=== PATIENT | male | born 1940 | race Caucasian/White ===

== ENCOUNTER 2017-11-19 14:48 | Inpatient (IN) | payer MEDICARE ==
[~2017-11-19] VITALS: Ht 170.2 cm; Wt 63.5 kg
--- NOTE | ~2017-11-19 | MORECARE ---
CASE MANAGEMENT DISCHARGE SUMMARY PATIENT: RICK HUSAIN UNIT: [id number] ADM DATE: 11/19/17 AGE: 77 : 40 SEX: M ROOM/BED: D.2121 AUTHOR: LALITA, BOATING SAFETY OFFICER PHYSICIAN: REFERRING PHYSICIAN: DIANE MONTELONGO DO DATE OF SERVICE: 11/19/17 Discharge Plan Patient Name: RICK HUSAIN Facility: [facility]:[place] : 1940 Planned Disposition: Halfway Facility Anticipated Discharge Date: 11/23/17 Discharge Date: Expected LOS: 4 Initial Reviewer: [id number] Initial Review Date: 11/20/2017 Generated: 11/22/17 6:59 pm Comments DCP- Discharge Planning Updated by [id number]: Oleksandr Liu on 11/22/17 4:[address] Patient Name: RICK HUSAIN Admission Status: ER Accout number: [id number] Admission Date: 11-19-2017 : 1940 Admission Diagnosis:HEMATURIA, UNSPECIFIED Attending: Diane Montelongo Current LOS: 3 Anticipated DC Date: 11-23-2017 Planned Disposition: Halfway Facility Primary Insurance: MEDICARE A & B PLANNED EXTERNAL PROVIDER: [facility], MEDICARE REHAB BED Discharge Planning Comments: CM RECEIVED RETURN CALL FROM PT'S SPOUSE WHO REPORTS TO BE IN PT'S ROOM AND WOULD LIKE TO MEET WITH CM REGARDING DISCHARGE PLANNING. CM MET WITH PT AND IN ROOM TO DISCUSS DISCHARGE PLANNING AND NEEDS. RICK HUSAIN provided verbal consent to discuss current and ongoing needs with/in the presence of: DARLINE, SPOUSE. PT'S SPOUSE REPORTS PT LIVES AT HOME WITH HER AND HAS BEEN INDEPENDENT UP TILL NOW. SHE HAS TALKED TO DR. MONTELONGO TODAY AND KNOWS PT NEEDS REHAB SERVICES. PT HAS [facility] AT HOME AND PREFER [facility]. PT HAS NO OUTSIDE SERVICES ASSISTING IN THE HOME. CM DISCUSSED AVAILABILITY OF HOME HEALTH, REHAB SERVICES AND MEDICAL EQUIPMENT. PT'S SPOUSE WANTS REFERRAL TO THE [facility] FOR REHAB, PT IN AGREEMENT STATING, "WHAT CAN A CRIPPLE DO?" IMPORTANT MESSAGE FROM MEDICARE PROVIDED AND EXPAINED. CHOICE LETTER FOR THE [facility] SIGNED. CM NOTIFIED SAMUEL OF THE [facility] OF REFERRAL, , FAXED REFERRAL TO [facility] VIA SAMUEL AT [phone]. CM WAITING ADMISSION DETERMINATION FROM THE [facility].. Research Support Specialist: Oleksandr Liu DCP- Discharge Planning Updated by [id number]: Oleksandr Liu on 11/20/17 4:[address] Patient Name: RICK HUSAIN Admission Status: ER Accout number: [id number] Admission Date: 11-19-2017 : 1940 Admission Diagnosis: Attending: Diane Montelongo Current LOS: 1 Anticipated DC Date: Planned Disposition: Primary Insurance: MEDICARE A & B Discharge Planning Comments: CM RECEIVED ORDER FOR PLACEMENT OPTIONS, MET WITH PT AND ATTEMPTED TO ASSESS FOR DISCHARGE NEEDS. PT REPORTS NOT KNOWING TO ALL QUESTIONS, DIRECTED CM TO CALL AND SPEAK TO HIS "OTHER HALF", DARLINE, . CM TO CALL PT'S "OTHER HALF", DARLINE, [phone], SOON POSSIBLE TO ASSESS FOR DISCHARGE NEEDS AND PLANNING. Research Support Specialist: Oleksandr Liu DCPIA - Discharge Planning Initial Assessment Updated by [id number]: Oleksandr Liu on 11/22/17 5:53 pm * Is the patient Alert and Oriented? Yes * How many steps to enterexit or inside your home? NONE * PCP DR. MONTELONGO * Pharmacy [facility] [address] * Preadmission Environment Home with Family * ADLs Independent * Equipment Cane Walker * Other Equipment [facility] - MEDICAL EQUIPMENT PROVIDER PREFERENCE * List name and contact numbers for known caregivers / representatives who currently or will assist patient after discharge: DARLINE BURNS, SPOUSE, [place] [phone] * Verbal permission to speak to the caregivers and representatives has been obtained from the patient. Yes * Community resources currently utilized None * Please name any agencies selected above. NONE * Additional services required to return to the preadmission environment? Yes * Can the patient safely return to the preadmission environment? Yes * Has this patient been hospitalized within the prior 30 days at any hospital? No External Providers External Provider: [facility] [place] Next Contact Date: 11/23/2017 Service Request Date: Service Type: Resolution: Reviewer: Comments: Patient Name: RICK HUSAIN Page [phone] All edits/amendments must be made on the electronic document DICTATION DATE: 11/22/171757 RD SCIENTIST: 11/22/171757 RPT#: [id number] DC DATE: STATUS: ADM IN [facility] [address] [place] [address] END OF REPORT
--- NOTE | ~2017-11-19 | CN ---
PATIENT NAME:RICK HUSAIN MEDICAL RECORD: [id number] : 40 LOCATION:D. D.2121 ADMIT DATE: 11/19/17 ACCOUNT: [id number] CONSULTING PHYSICIAN: BYRON LARSEN MD REFERRING PHYSICIAN: DIANE MONTELONGO DO DATE OF CONSULTATION: 11/20/2017 Psychiatry Consultation IDENTIFYING DATA: The patient is 77 years old and he is admitted to the hospital on a voluntary basis because of confusion. HISTORY OF PRESENT ILLNESS: The patient is awake, alert and interactive, but I would hardly call him cooperative. Almost any question he is asked he answers with what he thinks is a good natured and witty response. For example, asking him where he is from, he goes on to tell me that everyone is from somewhere and all of us are strangers in a foreign land. When I respond that he has an accent that I think might be Turkish and is he originally from [place]. He goes on to tell me how he can identify what village in [place] a person comes to by the accent he has, but never answers my question. Not wanting to give up when asked where he grew up, he says that he has not finished growing up. This goes on and on with every single question I am asking him, being answered with some sort of convoluted nonanswer and despite efforts to have him talk to me in a straightforward and honest way, he will not. The patient was admitted because he has been falling. He denies that he has been falling. He was admitted because he reportedly has some confusion. He denies any confusion, but he will not answer questions about orientation or other activities. Again, I do not get the sense that he is trying to deliberately be difficult, perhaps this is just his personality, but he is not interviewable to a large degree. I think I can establish that he is not psychotic, suicidal or homicidal, but regarding the level of cognitive impairment, this 77-year-old man has I just simply cannot say. ASSESSMENT: 1. Adjustment disorder with mixed emotional features. 2. 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 3. Rule out dementia. PLAN: At this time, I see no reason why this patient even if he is impaired would require group home placement. He is verbal. He is interactive. He is making what he believes are witty comebacks to my questions, but not actually answering them. He may well have a significant amount of impairment, but unless he is willing to cooperate with an evaluation, I just simply cannot say what should be done. I would recommend that he go home and if the has additional information that would be helpful or wants him evaluated as an outpatient then they should make an appointment to do that. He should not come for an appointment unless he is willing to cooperate with the process. Based on what I know of the case though there is no absolute contraindication to him going home that requires him being placed in a group home or reporting him to adult protective services. That may change based upon additional information coming to light, but at this point, I have no recommendation for treatment other than he should report for an outpatient evaluation when he is ready to do so and that otherwise he can go home and be with his . TRANSINT:[id number] Voice Confirmation ID: [id number] DOCUMENT ID: [id number] CONSULT REPORT [id number] RICK HUSAIN, YBRON RIVAS at 1427 CC: [id number] DICTATION DATE: 11/20/17 1445 WASTE MACHINE TENDER: 11/20/17 1616 ADM IN [facility] [address] [place] [id number]
[~2017-11-19 14:48] MED LIST: ARICEPT10 MG PO; BAYER CHEWABLE81 MG PO; BYSTOLIC10 MG PO; CELEBREX200 MG PO; COZAAR100 MG PO; HYTRIN5 MG PO; NAMENDA XR28 MG PO; STOOL SOFTENER240 MG PO; TYLENOL W/CODEI1 TAB PO; VESICARE10 MG PO; VITAMIN D31000 UNIT PO; ZOLOFT50 MG PO
[2017-11-19 16:19] LABS: APPEARANCE CLOUDY (CLEAR); COLOR DK YELLOW (YELLOW); SPECIFIC GRAVITY 1.015 (1.005-1.020)
[2017-11-19 16:20] LABS: AMORPHOUS SEDIMENT <1+ /lpf (NONE SEEN); BACTERIA FEW /hpf (NONE SEEN); BILIRUBIN NEGATIVE (NEGATIVE); EPITHELIAL CELLS 0-5 /hpf (0-5); GLUCOSE NEGATIVE (NEGATIVE); KETONE NEGATIVE (NEGATIVE); MUCUS <1+ /lpf (NONE SEEN); NITRITE NEGATIVE (NEGATIVE); PROTEIN NEGATIVE (NEGATIVE); RED CELLS - URINE >50 /hpf (0-5); UROBILINOGEN NORMAL (NORMAL); WHITE CELLS - URINE 0-5 /hpf (0-5)
[2017-11-19 16:42] LABS: BASOPHILS 0.2 % (0-2); EOSINOPHILS 0.5 % (0-7); IMMATURE GRANULOCYTES 0.2 % (0-5); LYMPHOCYTES 7.6 % (15-50); MCH 32.4 pg (26.0-34.0); MCHC 34.1 g/dL (31.0-37.0); MEAN PLATELET VOLUME 10.8 fL (7.4-10.4); MONOCYTES 6.5 % (2-11); PLATELET COUNT 147 10x3/uL (130-400); RBC 4.63 10x6/uL (4.20-6.10); RDW 12.3 % (11.5-14.5); WBC 8.8 10x3/uL (4.8-10.8)
[2017-11-19 17:09] LABS: ALBUMIN 3.4 g/dL (3.4-5.0); ANION GAP 10.8 mmol/L (8-16); BILIRUBIN - TOTAL 1.07 mg/dL (0.2-1.3); CALCIUM 9.1 mg/dL (8.5-10.1); CARBON DIOXIDE 28.9 mmol/L (21.0-32.0); CREATININE - SERUM 1.1 mg/dL (0.6-1.3); POTASSIUM - SERUM 3.7 mmol/L (3.5-5.1)
[2017-11-19 17:25] LABS: THYROID STIMULATING HORMONE 1.87 uIU/mL (0.36-3.74)
[2017-11-19 18:11] VITALS: BP 204/98
[2017-11-19 18:18] VITALS: BP 206/100
[2017-11-19 19:22] VITALS: BP 209/92
[2017-11-19 21:24] VITALS: BP 90/50; BMI 21.9
[2017-11-20 00:30] VITALS: BP 146/77
[2017-11-20 04:30] VITALS: BP 153/80
[2017-11-20 08:46] VITALS: BP 163/86
[2017-11-20 11:45] VITALS: BP 107/60
[2017-11-20 14:36] VITALS: Ht 170.2 cm; Wt 63.5 kg
[2017-11-20 15:59] VITALS: BP 88/52
[2017-11-20 20:00] VITALS: BP 106/53
[2017-11-21] VITALS: BP 126/68
[2017-11-21 05:05] LABS: BASOPHILS 0.3 % (0-2); EOSINOPHILS 3.4 % (0-7); IMMATURE GRANULOCYTES 0.3 % (0-5); LYMPHOCYTES 18.9 % (15-50); MCH 32.1 pg (26.0-34.0); MCHC 34.1 g/dL (31.0-37.0); MCV 94.1 fL (80.0-100.0); MEAN PLATELET VOLUME 10.9 fL (7.4-10.4); MONOCYTES 8.1 % (2-11); PLATELET COUNT 143 10x3/uL (130-400); RDW 12.3 % (11.5-14.5); WBC 6.7 10x3/uL (4.8-10.8)
[2017-11-21 05:26] LABS: HEMATOCRIT 33.4 % (42.0-54.0); HEMOGLOBIN 11.4 g/dL (13.5-17.5); RBC 3.55 10x6/uL (4.20-6.10)
[2017-11-21 05:35] LABS: ALBUMIN 2.7 g/dL (3.4-5.0); ANION GAP 10.6 mmol/L (8-16); BILIRUBIN - TOTAL 0.42 mg/dL (0.2-1.3); CALCIUM 8.1 mg/dL (8.5-10.1); CARBON DIOXIDE 24.8 mmol/L (21.0-32.0); CREATININE - SERUM 1.3 mg/dL (0.6-1.3); MAGNESIUM - SERUM 2.3 mg/dL (1.8-2.4); PHOSPHOROUS 3.1 mg/dL (2.5-4.9); POTASSIUM - SERUM 3.4 mmol/L (3.5-5.1); PROTEIN - SERUM 6.2 g/dL (6.4-8.2)
[2017-11-21 06:37] VITALS: BP 129/78
[2017-11-21 07:30] VITALS: BP 175/80
[2017-11-21 11:00] VITALS: BP 156/68
[2017-11-21 15:47] VITALS: BP 183/74
[2017-11-21 20:00] VITALS: BP 155/60
[2017-11-22] VITALS: BP 136/60
[2017-11-22 04:00] VITALS: BP 128/77
[2017-11-22 04:43] LABS: BASOPHILS 0.2 % (0-2); EOSINOPHILS 0.8 % (0-7); HEMATOCRIT 32.1 % (42.0-54.0); HEMOGLOBIN 10.9 g/dL (13.5-17.5); IMMATURE GRANULOCYTES 0.2 % (0-5); LYMPHOCYTES 10.5 % (15-50); MCV 94.1 fL (80.0-100.0); MONOCYTES 7.2 % (2-11); NEUTROPHILS 81.1 % (40-80); PLATELET COUNT 140 10x3/uL (130-400); RBC 3.41 10x6/uL (4.20-6.10); RDW 12.5 % (11.5-14.5); WBC 12.6 10x3/uL (4.8-10.8)
[2017-11-22 05:30] LABS: ALBUMIN 2.5 g/dL (3.4-5.0); ALKALINE PHOSPHATASE 71 U/L (46-116); ALT (SGPT) 14 U/L (10-68); BILIRUBIN - TOTAL 0.56 mg/dL (0.2-1.3); CALC OSMOLALITY 286 mosm/kg (275-300); CALCIUM 7.9 mg/dL (8.5-10.1); CARBON DIOXIDE 23.7 mmol/L (21.0-32.0); CHLORIDE - SERUM 111 mmol/L (98-107); GLUCOSE 105 mg/dL (74-106); PHOSPHOROUS 2.7 mg/dL (2.5-4.9); POTASSIUM - SERUM 3.9 mmol/L (3.5-5.1); SODIUM 142 mmol/L (136-145); UREA NITROGEN 24 mg/dL (7-18); eGFR NON AFRICAN AMERICAN 87 mL/min (90-120)
[2017-11-22 05:31] LABS: CREATININE - SERUM 0.9 mg/dL (0.6-1.3)
[2017-11-22 07:57] VITALS: BP 180/79
[2017-11-22 12:02] VITALS: BP 102/63
[2017-11-22 16:12] VITALS: BP 120/72
[2017-11-22 20:06] VITALS: BP 146/90
[2017-11-23] VITALS: BP 184/83
[2017-11-23 04:00] VITALS: BP 186/82
[2017-11-23 04:19] LABS: BASOPHILS 0.2 % (0-2); EOSINOPHILS 1.7 % (0-7); HEMATOCRIT 35.7 % (42.0-54.0); HEMOGLOBIN 12.1 g/dL (13.5-17.5); IMMATURE GRANULOCYTES 0.4 % (0-5); LYMPHOCYTES 15.7 % (15-50); MCH 32.4 pg (26.0-34.0); MCHC 33.9 g/dL (31.0-37.0); MCV 95.7 fL (80.0-100.0); MEAN PLATELET VOLUME 10.9 fL (7.4-10.4); MONOCYTES 7.2 % (2-11); NEUTROPHILS 74.8 % (40-80); PLATELET COUNT 153 10x3/uL (130-400); RBC 3.73 10x6/uL (4.20-6.10); RDW 12.6 % (11.5-14.5); WBC 11.5 10x3/uL (4.8-10.8)
[2017-11-23 04:37] LABS: ALBUMIN 2.8 g/dL (3.4-5.0); ALKALINE PHOSPHATASE 83 U/L (46-116); BILIRUBIN - TOTAL 0.89 mg/dL (0.2-1.3); CALCIUM 8.5 mg/dL (8.5-10.1); CHLORIDE - SERUM 109 mmol/L (98-107); GLUCOSE 99 mg/dL (74-106); MAGNESIUM - SERUM 2.1 mg/dL (1.8-2.4); POTASSIUM - SERUM 3.7 mmol/L (3.5-5.1); PROTEIN - SERUM 6.9 g/dL (6.4-8.2); SODIUM 141 mmol/L (136-145); eGFR NON AFRICAN AMERICAN 77 mL/min (90-120)
[2017-11-23 04:38] LABS: ALT (SGPT) 21 U/L (10-68); CALC OSMOLALITY 282 mosm/kg (275-300); UREA NITROGEN 17 mg/dL (7-18)
[2017-11-23 07:46] VITALS: BP 188/85
[2017-11-23 11:40] VITALS: BP 162/76
[2017-11-23 15:53] VITALS: BP 138/72
[2017-11-23 20:00] VITALS: BP 170/86
[2017-11-24 04:00] VITALS: BP 163/88
[2017-11-24 07:01] LABS: BASOPHILS 0.3 % (0-2); EOSINOPHILS 2.3 % (0-7); HEMATOCRIT 33.1 % (42.0-54.0); HEMOGLOBIN 11.3 g/dL (13.5-17.5); IMMATURE GRANULOCYTES 0.4 % (0-5); LYMPHOCYTES 12.4 % (15-50); MCH 32.2 pg (26.0-34.0); MCHC 34.1 g/dL (31.0-37.0); MCV 94.3 fL (80.0-100.0); MEAN PLATELET VOLUME 11.1 fL (7.4-10.4); NEUTROPHILS 75.6 % (40-80); PLATELET COUNT 154 10x3/uL (130-400); RBC 3.51 10x6/uL (4.20-6.10); RDW 12.7 % (11.5-14.5)
[2017-11-24 07:29] LABS: ALBUMIN 2.9 g/dL (3.4-5.0); ALKALINE PHOSPHATASE 79 U/L (46-116); ALT (SGPT) 23 U/L (10-68); BILIRUBIN - TOTAL 0.39 mg/dL (0.2-1.3); CALC OSMOLALITY 282 mosm/kg (275-300); CALCIUM 8.5 mg/dL (8.5-10.1); CARBON DIOXIDE 22.9 mmol/L (21.0-32.0); CHLORIDE - SERUM 108 mmol/L (98-107); CREATININE - SERUM 0.9 mg/dL (0.6-1.3); GLUCOSE 93 mg/dL (74-106); POTASSIUM - SERUM 3.8 mmol/L (3.5-5.1); PROTEIN - SERUM 6.7 g/dL (6.4-8.2); SODIUM 141 mmol/L (136-145); UREA NITROGEN 18 mg/dL (7-18); eGFR NON AFRICAN AMERICAN 87 mL/min (90-120)
[2017-11-24 07:50] VITALS: BP 146/86
[2017-11-24 11:12] VITALS: BP 139/80
[2017-11-24] MEDS ORDERED: IPRAT-ALBUT 0.5-3 ML UPD (12:14)
[2017-11-24] MEDS ORDERED: ROCEPHIN 1 GM/D51 G1 IV (12:16)
[2017-11-24 16:09] VITALS: BP 133/78
[2017-11-27 13:17] LABS: ANA REFLEX - DIRECT Negative (Negative)
== END 2017-11-24 17:10 | DRG 92 ==
LOC: D.ER 14:48 → D.M2 18:24 → D.EDHOLD 18:24 → D.M2 19:57
PROVIDERS: Emergency Medicine; Family Medicine; Internal Medicine Pulmonary Disease
DX: G72.81 Critical illness myopathy (principal); N39.0 Urinary tract infection, site not specified; J98.11 Atelectasis; M48.54XA Collapsed vertebra, not elsewhere classified, thoracic region, initial encounter for fracture; F43.20 Adjustment disorder, unspecified; I10 Essential (primary) hypertension; G30.9 Alzheimer's disease, unspecified; F02.80 Dementia in other diseases classified elsewhere, unspecified severity, without behavioral disturbance, psychotic disturbance, mood disturbance, and anxiety; J43.9 Emphysema, unspecified; N40.0 Benign prostatic hyperplasia without lower urinary tract symptoms; I25.10 Atherosclerotic heart disease of native coronary artery without angina pectoris; J30.9 Allergic rhinitis, unspecified; G43.909 Migraine, unspecified, not intractable, without status migrainosus; E55.9 Vitamin D deficiency, unspecified; Z91.81 History of falling

== ENCOUNTER 2017-11-23 17:21 | Inpatient (IN) | payer MEDICARE ==
[~2017-11-23] VITALS: Ht 170.2 cm; Wt 58.1 kg
--- NOTE | ~2017-11-23 | RHP ---
PATIENT: RICK HUSAIN MEDICAL RECORD: [id number] ACCOUNT: [id number] [facility] : [birth year] ADMISSION DATE: 11/24/17 REHABILITATION HISTORY AND PHYSICAL EXAMINATION POST ADMISSION PHYSICIAN EXAMINATION DATE OF ADMISSION: 11/24/2017 ADMITTING DIAGNOSIS: Debility secondary to urinary tract infection. HISTORY OF PRESENT ILLNESS: The patient was admitted to inpatient rehab secondary debility secondary to problems with UTI. A 77-year-old gentleman that was brought into the ER after a fall at home with worsening dementia. He was found to have an old compression fractures in his back. CT of his abdomen showed thickening of the bladder was found to have a UTI. He had increasing weakness and confusion at home, was getting worse. He had undergone a geropsych evaluation for confusion and it was uncertain if it was just his witty humor or covering up from dementia noted per the geropsych physician. They felt like he had adjustment disorder and mixed emotional features. He has recently been seen by a superintendent laundry during his acute stay. He has had multiple falls. He has got a history of Alzheimer dementia, hypertension, migraine, coronary artery disease status post stent placement. He has had a history of tobacco use. He immigrated from [place] in 1985. He is moderately independent with his mobility, moderately independent with his ADLs. He is currently minimum to max assist with ADLs, moderate to max assist for mobility, lives at home with his . She is his primary caregiver. He is on oxygen. He and his plan for him to return home at his prior level of functioning or better if possible. COMORBIDITIES: In this patient include UTI, allergic rhinitis, questionable aspiration, chronic cough, thoracic compression fractures, coronary artery disease, dementia, migraine headaches, vitamin D deficiency, debility, BPH, hematuria, generalized weakness throughout the thoracic compression fractures, and hypertension. PAST MEDICAL HISTORY: Significant for migraines, syncope, dementia, hypertension, stents and angioplasty, abnormal stress test, Alzheimer's, arthritis, prostate and heart problems and former smoker. PAST SURGICAL HISTORY: Includes pacemaker placement, back surgery, appendectomy, lumbar laminectomy, and cardiac stents. ALLERGIES: No known drug allergies. CURRENT MEDICATIONS: Include lactobacillus daily. He is on Zoloft 50 mg daily, Bystolic 10 mg daily, losartan 100 mg daily, Surfak 240 mg daily, vitamin D 1000 units daily, aspirin chewable 81 mg daily. He is on Rocephin 1 gram q. 24 hours, Hytrin 5 mg b.i.d., Namenda 10 mg b.i.d., DuoNeb updrafts q. 4 hours p.r.n., Aricept 10 mg at bedtime, and Celebrex 200 mg b.i.d. HABITS: No current alcohol or tobacco use. FAMILY HISTORY: Noncontributory. HISTORY AND PHYSICAL [id number] RICK HUSAIN SOCIAL HISTORY: The patient would like to return back home and get back to his prior level of functioning. REVIEW OF SYSTEMS: GENERAL: Does complain of weakness and fatigue. HEENT: Denies cold, cough, or congestion. CARDIOVASCULAR: He denies chest pain. PHYSICAL EXAMINATION: VITAL SIGNS: Stable, afebrile. GENERAL: Elderly gentleman who is in no acute distress, alert upon exam. HEENT: Normocephalic and atraumatic, mucosa moist. NECK: Supple. No lymphadenopathy. LUNGS: Clear at this time. HEART: Regular rate and rhythm. ABDOMEN: Benign. EXTREMITIES: No clubbing, cyanosis or edema. NEUROLOGIC: He is slow to mentate, but he does answer questions appropriately. He has noted weakness, more proximal than distal. LABORATORY DATA: Sodium is 140, potassium 3.7, BUN and creatinine of 12 and 0.7, blood sugar was noted to be 104. His white count is 7.0, H&H of 10.7 and 31.3, and platelet count was noted to be 153. ASSESSMENT: This is a 77-year-old gentleman was admitted to the rehab with a working diagnosis of debility secondary to urinary tract infection. The patient has potential to make improvement. We instituted the following multidisciplinary therapies include but not limited to physical, occupational, respiratory, speech, nutritional services, prosthetics, and orthotics. Given his complex medical condition and risks for more complications, rehabilitation services cannot be provided at a low level of care such as a skilled nurse facility. PLAN: 1. Admit to [facility] rehab for intensive inpatient therapy to include the following disciplines: A. Physical therapy to improve gait, all transfer skills and bed mobility to a modified independent level. B. Occupational therapy to improve activities of daily living to a modified independent level. C. Case management to assist with discharge planning and placement options. D. Nutrition to assist with nutritional needs. E. Rehabilitation nursing to assist in monitoring the patient's underlying medication and to assist with any type of bowel or bladder management. 2. The patient's current medication and medical care will be continued. 3. The patient will be placed on standard fall precautions. 4. The patient's estimated length of stay is approximately 7-10 days. 5. We will discuss this patient during care team staff meeting this week. TRANSINT:[id number] Voice Confirmation ID: [id number] DOCUMENT ID: [id number] BEBA notes whether there has been none or any medical/functional HISTORY AND PHYSICAL [id number] RICK HUSAIN change since admission: - No change since preadmission screen. BEBA attests patient continues to be appropriate for IRF: - Continues to be appropriate. DIANE GARCIA MD at 1757 CC: [id number] DICTATION DATE: 11/25/17 0822 TIPPLE WORKER: 11/25/17 1146 ADM IN [id number] [place] [address]
--- NOTE | ~2017-11-23 | DS ---
PATIENT:RICK HUSAIN :40 MEDICAL RECORD: [id number] DISCHARGE SUMMARY ADMISSION DATE: 11/24/17 DISCHARGE DATE: 12/06/17 This is a discharge dated 12/06/2017 from inpatient rehabilitation. PRIMARY DIAGNOSES: Decreased functional ability and ability to provide activities of daily living secondary to a significant debility. SECONDARY DIAGNOSES: 1. Urinary tract infection. 2. Alzheimer dementia. 3. Compression fracture. 4. Migraines. 5. Hypertension. 6. Coronary artery disease. 7. Anemia. 8. Hypokalemia. 9. Benign prostatic hypertrophy. 10. Vitamin D deficiency. HOSPITAL COURSE: Full H&P is located elsewhere on the chart on this 77-year-old male who was admitted to inpatient rehab for physical therapy and occupational therapy to improve gait, transfer skills, bed mobility, and activities of daily living to a modified independent level. He was evaluated by PT and OT and their plans of care were followed. He required jail care for observation and assessment and medication administration. He was seen by speech therapy during this hospital stay as well. He was on Rocephin for antibiotic coverage of UTI. He had DuoNebs for respiratory support. He was cooperative with therapies, progressing towards goals. He was considered stable for discharge on 12/06/2017. DISCHARGE MEDICATIONS: As per discharge medication reconciliation. DISCHARGE DISPOSITION: The patient is discharged to the [facility]. He will continue his current diet and level of activity. He will continue PT and OT and speech therapy as directed. He will follow up with primary care and appointment has been scheduled 12/13/[address] Domingo and he will follow with primary care at the nursing facility as well. At least 30 minutes was spent in this discharge activity. TRANSINT:[id number] Voice Confirmation ID: [id number] DOCUMENT ID: [id number] Dictated By: EFREN RIZZO I have interviewed/examined the above patient and agree with these documented findings. DISCHARGE SUMMARY REPORT [id number] RICK HUSAIN DIANE SHARMA MD CC: [id number] DICTATION DATE: 01/14/181411 GEM EXPERT: 01/14/182112 DIS IN 12/06/[id number] [place] [address]
[2017-11-24] MEDS ORDERED: IPRAT-ALBUT 0.5-3 ML UPD (12:14)
[2017-11-24] MEDS ORDERED: ROCEPHIN 1 GM/D51 G1 IV (12:16)
[2017-11-24 19:00] VITALS: BP 160/64
[2017-11-24 19:52] VITALS: BP 208/100
[2017-11-24 20:42] LABS: BASOPHILS 0.3 % (0-2); HEMATOCRIT 31.3 % (42.0-54.0); HEMOGLOBIN 10.7 g/dL (13.5-17.5); IMMATURE GRANULOCYTES 0.4 % (0-5); LYMPHOCYTES 15.1 % (15-50); MCH 32.1 pg (26.0-34.0); MCHC 34.2 g/dL (31.0-37.0); MEAN PLATELET VOLUME 10.9 fL (7.4-10.4); MONOCYTES 9.7 % (2-11); NEUTROPHILS 72.5 % (40-80); PLATELET COUNT 153 10x3/uL (130-400); RBC 3.33 10x6/uL (4.20-6.10); RDW 12.5 % (11.5-14.5)
[2017-11-24 21:05] LABS: CALC OSMOLALITY 278 mosm/kg (275-300); CALCIUM 8.7 mg/dL (8.5-10.1); CARBON DIOXIDE 24.7 mmol/L (21.0-32.0); CHLORIDE - SERUM 108 mmol/L (98-107); CREATININE - SERUM 0.7 mg/dL (0.6-1.3); GLUCOSE 104 mg/dL (74-106); POTASSIUM - SERUM 3.7 mmol/L (3.5-5.1); SODIUM 140 mmol/L (136-145); eGFR NON AFRICAN AMERICAN > 90 mL/min (90-120)
[2017-11-24 21:07] LABS: UREA NITROGEN 12 mg/dL (7-18)
[2017-11-25 08:15] VITALS: BP 174/86
[2017-11-25 09:15] VITALS: Ht 170.2 cm; Wt 58.1 kg
[2017-11-25 23:04] VITALS: BP 151/49
[2017-11-26 07:35] VITALS: BP 188/90
[2017-11-26 20:00] VITALS: BP 147/64
[2017-11-27 08:00] VITALS: BP 161/67
[2017-11-27 12:01] LABS: BASOPHILS 0.4 % (0-2); EOSINOPHILS 1.7 % (0-7); HEMATOCRIT 34.5 % (42.0-54.0); HEMOGLOBIN 11.9 g/dL (13.5-17.5); IMMATURE GRANULOCYTES 0.7 % (0-5); MCH 32.7 pg (26.0-34.0); MCHC 34.5 g/dL (31.0-37.0); MCV 94.8 fL (80.0-100.0); MEAN PLATELET VOLUME 10.6 fL (7.4-10.4); MONOCYTES 8.8 % (2-11); NEUTROPHILS 70.4 % (40-80); RBC 3.64 10x6/uL (4.20-6.10); RDW 12.8 % (11.5-14.5); WBC 7.1 10x3/uL (4.8-10.8)
[2017-11-27 12:16] LABS: PLATELET COUNT 202 10x3/uL (130-400)
[2017-11-27 12:24] LABS: CALC OSMOLALITY 286 mosm/kg (275-300); CALCIUM 8.7 mg/dL (8.5-10.1); CARBON DIOXIDE 28.9 mmol/L (21.0-32.0); CHLORIDE - SERUM 107 mmol/L (98-107); GLUCOSE 102 mg/dL (74-106); POTASSIUM - SERUM 3.6 mmol/L (3.5-5.1); SODIUM 143 mmol/L (136-145); UREA NITROGEN 17 mg/dL (7-18); eGFR NON AFRICAN AMERICAN 77 mL/min (90-120)
[2017-11-27 19:00] VITALS: BP 163/62
[2017-11-28 08:22] VITALS: BP 168/76
[2017-11-28 19:00] VITALS: BP 192/83
[2017-11-29 07:37] LABS: BASOPHILS 0.5 % (0-2); EOSINOPHILS 3.1 % (0-7); HEMATOCRIT 34.4 % (42.0-54.0); HEMOGLOBIN 11.6 g/dL (13.5-17.5); IMMATURE GRANULOCYTES 1.4 % (0-5); LYMPHOCYTES 31.2 % (15-50); MCHC 33.7 g/dL (31.0-37.0); MCV 94.8 fL (80.0-100.0); MONOCYTES 9.4 % (2-11); NEUTROPHILS 54.4 % (40-80); PLATELET COUNT 213 10x3/uL (130-400); RBC 3.63 10x6/uL (4.20-6.10); RDW 12.7 % (11.5-14.5); WBC 5.8 10x3/uL (4.8-10.8)
[2017-11-29 07:46] LABS: CALC OSMOLALITY 284 mosm/kg (275-300); CALCIUM 8.7 mg/dL (8.5-10.1); CHLORIDE - SERUM 106 mmol/L (98-107); CREATININE - SERUM 0.9 mg/dL (0.6-1.3); GLUCOSE 84 mg/dL (74-106); POTASSIUM - SERUM 3.4 mmol/L (3.5-5.1); SODIUM 143 mmol/L (136-145); UREA NITROGEN 14 mg/dL (7-18); eGFR NON AFRICAN AMERICAN 87 mL/min (90-120)
[2017-11-29 08:16] VITALS: BP 188/80
[2017-11-29 19:00] VITALS: BP 146/68
[2017-11-30 08:00] VITALS: BP 183/86
[2017-11-30 19:52] VITALS: BP 166/73
[2017-12-01 08:00] VITALS: BP 181/76
[2017-12-01 19:55] VITALS: BP 149/88
[2017-12-02 08:00] VITALS: BP 178/78
[2017-12-02 20:00] VITALS: BP 182/85
[2017-12-03 08:11] VITALS: BP 182/85
[2017-12-03 18:00] VITALS: BP 173/70
[2017-12-04 07:52] VITALS: BP 171/82
[2017-12-04 10:30] LABS: BASOPHILS 0.5 % (0-2); EOSINOPHILS 2.9 % (0-7); HEMATOCRIT 34.4 % (42.0-54.0); HEMOGLOBIN 11.8 g/dL (13.5-17.5); IMMATURE GRANULOCYTES 0.2 % (0-5); LYMPHOCYTES 23.1 % (15-50); MCH 32.8 pg (26.0-34.0); MCHC 34.3 g/dL (31.0-37.0); MCV 95.6 fL (80.0-100.0); MONOCYTES 7.3 % (2-11); PLATELET COUNT 208 10x3/uL (130-400); WBC 5.9 10x3/uL (4.8-10.8)
[2017-12-04 10:38] LABS: CALC OSMOLALITY 289 mosm/kg (275-300); CALCIUM 8.8 mg/dL (8.5-10.1); CARBON DIOXIDE 29.2 mmol/L (21.0-32.0); CHLORIDE - SERUM 108 mmol/L (98-107); CREATININE - SERUM 0.9 mg/dL (0.6-1.3); GLUCOSE 88 mg/dL (74-106); POTASSIUM - SERUM 3.6 mmol/L (3.5-5.1); SODIUM 144 mmol/L (136-145); UREA NITROGEN 25 mg/dL (7-18); eGFR NON AFRICAN AMERICAN 87 mL/min (90-120)
[2017-12-04 19:00] VITALS: BP 187/70
[2017-12-05 08:00] VITALS: BP 179/100
[2017-12-05 18:00] VITALS: BP 178/83
[2017-12-06 05:56] LABS: BASOPHILS 0.7 % (0-2); EOSINOPHILS 3.8 % (0-7); HEMATOCRIT 34.8 % (42.0-54.0); HEMOGLOBIN 11.7 g/dL (13.5-17.5); IMMATURE GRANULOCYTES 0.2 % (0-5); LYMPHOCYTES 19.6 % (15-50); MCH 32.2 pg (26.0-34.0); MCHC 33.6 g/dL (31.0-37.0); MCV 95.9 fL (80.0-100.0); MEAN PLATELET VOLUME 10.3 fL (7.4-10.4); MONOCYTES 7.7 % (2-11); PLATELET COUNT 207 10x3/uL (130-400); RBC 3.63 10x6/uL (4.20-6.10); RDW 13.4 % (11.5-14.5)
[2017-12-06 06:10] LABS: CALC OSMOLALITY 292 mosm/kg (275-300); CALCIUM 8.8 mg/dL (8.5-10.1); CARBON DIOXIDE 29.3 mmol/L (21.0-32.0); CHLORIDE - SERUM 109 mmol/L (98-107); GLUCOSE 102 mg/dL (74-106); POTASSIUM - SERUM 3.5 mmol/L (3.5-5.1); SODIUM 144 mmol/L (136-145); UREA NITROGEN 30 mg/dL (7-18); eGFR NON AFRICAN AMERICAN 77 mL/min (90-120)
[2017-12-06 08:22] VITALS: BP 137/73
== END 2017-12-06 16:15 | DRG 948 ==
LOC: D.REHAB 17:21
PROVIDERS: Emergency Medicine
DX: R53.81 Other malaise (principal); N39.0 Urinary tract infection, site not specified; M48.54XA Collapsed vertebra, not elsewhere classified, thoracic region, initial encounter for fracture; J30.9 Allergic rhinitis, unspecified; R05 Cough; I25.10 Atherosclerotic heart disease of native coronary artery without angina pectoris; G30.9 Alzheimer's disease, unspecified; F02.80 Dementia in other diseases classified elsewhere, unspecified severity, without behavioral disturbance, psychotic disturbance, mood disturbance, and anxiety; N40.0 Benign prostatic hyperplasia without lower urinary tract symptoms; E55.9 Vitamin D deficiency, unspecified; R53.1 Weakness; I10 Essential (primary) hypertension; R31.9 Hematuria, unspecified

== ENCOUNTER 2017-12-21 13:30 | Inpatient (IN) | payer MEDICARE ==
[~2017-12-21] VITALS: Ht 172.7 cm; Wt 53.6 kg
--- NOTE | ~2017-12-21 | PN ---
PATIENT:RICK HUSAIN MEDICAL RECORD: [id number] LOCATION:[facility] ADMISSION DATE: 12/21/17 PROGRESS NOTE DATE OF SERVICE: 12/31/2017 SUBJECTIVE: The patient's case was discussed with staff. He has no new complaint. OBJECTIVE: The patient denies intent to harm himself or others. He has not been aggressive today. He is eating well and he is also sleeping well. I am going to consider reducing his medicines slightly, but he does not look at all over sedated and he certainly has not been aggressive. TRANSINT:[id number] Voice Confirmation ID: [id number] DOCUMENT ID: [id number] BYRON LARSEN MD at 1326 CC: [id number] DICTATION DATE: 12/31/17 1251 ELECTRIC MOTOR CONTROLS ASSEMBLER: 12/31/17 1256 ADM IN [facility] [address] [place] [id number]
--- NOTE | ~2017-12-21 | PN ---
PATIENT:RICK HUSAIN MEDICAL RECORD: [id number] LOCATION:[facility] ADMISSION DATE: 12/21/17 PROGRESS NOTE DATE OF SERVICE: 01/02/2018 SUBJECTIVE: The patient's case was discussed with staff. He has no new complaint. OBJECTIVE: The patient is in good behavioral control and actually quite pleasant. He is eating and sleeping well. I have reviewed his medications. ASSESSMENT: No change in diagnoses. PLAN: I anticipate that the patient can be transitioned out of the hospital soon. His long-term prognosis is guarded. TRANSINT:[id number] Voice Confirmation ID: [id number] DOCUMENT ID: [id number] BYRON LARSEN MD at 1234 CC: [id number] DICTATION DATE: 01/02/181909 HIDE WASHER: 01/02/182001 ADM IN [facility] [address] [place] [address]
--- NOTE | ~2017-12-21 | DS ---
PATIENT:RICK HUSAIN :40 MEDICAL RECORD: [id number] DISCHARGE SUMMARY ADMISSION DATE: 12/21/17 DISCHARGE DATE: 01/04/18 IDENTIFYING DATA: The patient is 77 years old and he was admitted to the hospital on a voluntary basis. He had been very aggressive at the [facility] and was threatening others and saying that he wanted to get a gun and shoot others and himself. The patient has been throwing chairs and was angry, irritable and completely unmanageable. He continued to be so here. HOSPITAL COURSE: The patient was admitted to the hospital and evaluated from both a medical, psychological, and social standpoint. He had very limited insight about his condition and was difficult to redirect, but became compliant with medications and his behaviors improved. He subsequently was safe to return to the [facility] and was discharged. DISCHARGE DIAGNOSES: AXIS I: Senile dementia of the Alzheimer's type with behavioral disturbances. AXIS II: None. AXIS III: Hypertension, cardiac arrhythmia, coronary artery disease. AXIS IV: Moderate stressors. AXIS V: Global assessment of functioning is 35. PLAN: At the time of discharge, the patient was in good behavioral control with limited insight about his condition. Followup was scheduled with the primary care [facility] physician and his long-term prognosis is guarded. TRANSINT:[id number] Voice Confirmation ID: [id number] DOCUMENT ID: [id number] BYRON LARSEN MD at 1002 CC: [id number] DICTATION DATE: 01/13/[address] TECH: 01/13/18 1223 DIS IN 01/04/[id number] [place] [address]
--- NOTE | ~2017-12-21 | PN ---
PATIENT:RICK HUSAIN MEDICAL RECORD: [id number] [facility] ADMISSION DATE: 12/21/17 PROGRESS NOTE DATE OF SERVICE: 01/01/2018 SUBJECTIVE: The patient's case was discussed with staff. He has no new complaint. OBJECTIVE: The patient is in good behavioral control, but has limited insight about his condition. He is sleeping well. ASSESSMENT: No change in diagnoses. PLAN: The patient is eating well. I anticipate that it is reasonable to look at transitioning out of the hospital soon if this level of improvement is maintained. TRANSINT:[id number] Voice Confirmation ID: [id number] DOCUMENT ID: [id number] BYRON LARSEN MD at 1329 CC: [id number] DICTATION DATE: 01/01/18 1437 FINANCIAL RISK MANAGER: 01/01/18 1443 ADM IN [place] [address] [place] [id number]
--- NOTE | ~2017-12-21 | PN ---
PATIENT:RICK HUSAIN MEDICAL RECORD: [id number] LOCATION:[facility] ADMISSION DATE: 12/21/17 PROGRESS NOTE DATE OF SERVICE: 12/27/2017 SUBJECTIVE: The patient's case was discussed with staff. He has no new complaint. OBJECTIVE: I think the patient is calmer today despite the behaviors he had last night that resulted in multiple p.r.n. medications. I did start him on a low dose of Klonopin yesterday. It has not had an opportunity to become effective. I am going to increase the dose of his Zoloft to 75 mg daily. TRANSINT:[id number] Voice Confirmation ID: [id number] DOCUMENT ID: [id number] BYRON LARSEN MD at 1234 CC: [id number] DICTATION DATE: 12/27/17 1358 AFFILIATE MARKETING SPECIALIST: 12/27/17 1412 ADM IN [facility] [address] [place] [address]
--- NOTE | ~2017-12-21 | PN ---
PATIENT:RICK HUSAIN MEDICAL RECORD: [id number] LOCATION:[facility] ADMISSION DATE: 12/21/17 PROGRESS NOTE DATE OF SERVICE: 12/25/2017 SUBJECTIVE: The patient's case was discussed with staff. He has no new complaint. OBJECTIVE: The patient is in good behavioral control, but quite irritable. He still will not answer questions. For example, when asked what kind of work he did when he was younger, his response is as little as possible. When asked what brought him to [place], he says the bus. He is not being concrete. He is being deliberately obstinate. I know he is confused and cannot answer a lot of questions, but again he has been here for 4 days and he has not answered a single question in a straightforward honest manner. At least he is not aggressive today. Although, he looks a little sleepy and I suspect the p.r.n. medicines he has been given are accumulating a little. I have him on some scheduled medicines that I think would be helpful, but he refused them this morning including his blood pressure medicine, which I explained to him he needs and he was just dismissive of me. ASSESSMENT: No change in diagnoses. PLAN: I am going to keep the patient's scheduled medicines the same. I am happy to see that he is eating well, but other than this and the fact that he is not actively assaulting the staff, I do not really think there has been any improvement. TRANSINT:[id number] Voice Confirmation ID: [id number] DOCUMENT ID: [id number] BYRON LARSEN MD at 1406 CC: [id number] DICTATION DATE: 12/25/17 1132 THEATER MANAGER: 12/25/17 1158 ADM IN [facility] [address] [place] [address]
--- NOTE | ~2017-12-21 | PN ---
PATIENT:RICK HUSAIN MEDICAL RECORD: [id number] LOCATION:[facility] ADMISSION DATE: 12/21/17 PROGRESS NOTE DATE OF SERVICE: 12/29/2017 SUBJECTIVE: The patient's case was discussed with staff. He has no new complaint. OBJECTIVE: The patient is significantly calmer than he has been. He has not been aggressive or received p.r.n. medications today. ASSESSMENT: No change in diagnoses. PLAN: Current medicines have been reviewed and will be maintained. His long-term prognosis is guarded. TRANSINT:[id number] Voice Confirmation ID: [id number] DOCUMENT ID: [id number] BYRON LARSEN MD at 1243 CC: [id number] DICTATION DATE: 12/29/17 1246 ELECTRONIC NEWS GATHERING CAMERA PERSON: 12/29/17 1252 ADM IN [address] [place] [address]
--- NOTE | ~2017-12-21 | PN ---
PATIENT:RICK HUSAIN MEDICAL RECORD: [id number] LOCATION:[facility]112 ADMISSION DATE: 12/21/17 PROGRESS NOTE DATE OF SERVICE: 12/24/2017 SUBJECTIVE: The patient's case was discussed with staff. He has no new complaint. OBJECTIVE: The patient remains significantly and seriously agitated and aggressive. He is extremely confused. He kicks, hits, bites, throws things, and is potentially extremely dangerous. He will not reason. He cannot be reasoned with. He is running a dangerously high blood pressure, but will not take his medicines consistently. It has been explained to him, he is going to have a stroke and he is dismissive, rude, and vulgar. ASSESSMENT: No change in diagnoses. PLAN: The patient is a significant and serious management problem. I am going to continue his scheduled medications and the use of p.r.n. medications to calm him. He has been here since 12/21/2017 and has not answered a single question in a coherent manner. I know he is quite confused, but he cannot even be asked very simple nonconfrontational questions that I know he knows the answer to. TRANSINT:[id number] Voice Confirmation ID: [id number] DOCUMENT ID: [id number] BYRON LARSEN MD at 1059 CC: [id number] DICTATION DATE: 12/24/17 1056 COUNTY MANAGER: 12/24/17 1106 ADM IN [id number] [place] [address]
--- NOTE | ~2017-12-21 | PN ---
PATIENT:RICK HUSAIN MEDICAL RECORD: [id number] LOCATION:[facility]112 ADMISSION DATE: 12/21/17 PROGRESS NOTE DATE OF SERVICE: 01/03/2018 SUBJECTIVE: The patient's case was discussed with staff. He has no new complaint. OBJECTIVE: The patient is in good behavioral control with limited insight about his condition. ASSESSMENT: No change in diagnoses. PLAN: Supportive and educational interventions were made. Long-term prognosis is guarded. I anticipate he can be transitioned out of the hospital soon if this level of improvement is maintained. TRANSINT:[id number] Voice Confirmation ID: [id number] DOCUMENT ID: [id number] BYRON LARSEN MD at 1336 CC: [id number] DICTATION DATE: 01/03/18 1324 2 YEAR OLDS PRESCHOOL TEACHER: 01/03/18 1331 DIS IN 01/04/18 [address] [place] [address]
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
--- NOTE | ~2017-12-21 | PN ---
PATIENT:RICK HUSAIN MEDICAL RECORD: [id number] LOCATION:[facility]112 ADMISSION DATE: 12/21/17 PROGRESS NOTE DATE OF SERVICE: 12/26/2017 SUBJECTIVE: The patient's case was discussed with staff. He has no new complaint. OBJECTIVE: The patient is cooperative and speaks with me briefly today. I did not want to ask him any questions that were confrontational or perhaps emotionally charged, but he did carry on a very reasonable conversation about his background. I learned a number of things about his work and education and left it at that. I did discuss with him not taking his medications and he did get angry and said that he did not need them that he did not have high blood pressure. ASSESSMENT: No change in diagnoses. PLAN: I have encouraged the patient to take medicine. I know he is not going to do so consistently. I think his long-term prognosis is guarded. TRANSINT:[id number] Voice Confirmation ID: [id number] DOCUMENT ID: [id number] BYRON LARSEN MD at 1339 CC: [id number] DICTATION DATE: 12/26/17 1418 ACCOUNTS RECEIVABLE ASSISTANT: 12/26/17 1424 ADM IN [facility] [address] [place] [address]
[~2017-12-21 13:30] MED LIST changes: +IPRAT-ALBUT 0.5-3 ML UPD; +ROCEPHIN 1 GM/D51 G1 IV
[2017-12-21] MEDS ORDERED: ACETAMINOPHEN325 MG PO (14:30)
[2017-12-21] MEDS ORDERED: ZOFRAN4 MG PO (14:33)
[2017-12-21 15:13] VITALS: BP 165/75; BMI 18.6
[2017-12-21 22:38] VITALS: BP 180/80
[2017-12-22 06:30] LABS: BASOPHILS 0.4 % (0-2); EOSINOPHILS 3.5 % (0-7); HEMATOCRIT 33.2 % (42.0-54.0); HEMOGLOBIN 11.3 g/dL (13.5-17.5); IMMATURE GRANULOCYTES 0.2 % (0-5); LYMPHOCYTES 27.2 % (15-50); MCH 32.7 pg (26.0-34.0); MONOCYTES 10.6 % (2-11); NEUTROPHILS 58.1 % (40-80); RBC 3.46 10x6/uL (4.20-6.10); RDW 13.2 % (11.5-14.5); WBC 5.4 10x3/uL (4.8-10.8)
[2017-12-22 06:38] LABS: PLATELET COUNT 162 10x3/uL (130-400)
[2017-12-22 06:43] LABS: ALBUMIN 2.9 g/dL (3.4-5.0); ALKALINE PHOSPHATASE 88 U/L (46-116); ALT (SGPT) 19 U/L (10-68); BILIRUBIN - TOTAL 0.65 mg/dL (0.2-1.3); CALC OSMOLALITY 287 mosm/kg (275-300); CALCIUM 8.5 mg/dL (8.5-10.1); CARBON DIOXIDE 24.4 mmol/L (21.0-32.0); CHLORIDE - SERUM 110 mmol/L (98-107); CHOL - HDL RATIO 3.3 ratio (2.3-4.9); CHOLESTEROL, TOTAL 177 mg/dL (0-200); CREATININE - SERUM 0.8 mg/dL (0.6-1.3); GLUCOSE 77 mg/dL (74-106); HDL CHOLESTEROL 53 mg/dL (32-96); LDL CHOLESTEROL 111 mg/dL (0-100); LDL-HDL RATIO 2.1 ratio (1.5-3.5); POTASSIUM - SERUM 3.6 mmol/L (3.5-5.1); SODIUM 143 mmol/L (136-145); TRIGLYCERIDE 67 mg/dL (30-200); UREA NITROGEN 23 mg/dL (7-18); eGFR NON AFRICAN AMERICAN > 90 mL/min (90-120)
[2017-12-22 09:24] VITALS: BMI 18.4
[2017-12-22 10:25] VITALS: BP 187/78
[2017-12-22 21:17] VITALS: BP 175/80
[2017-12-23 06:15] LABS: RAPID PLASMA REAGIN Non Reactive (Non Reactive)
[2017-12-23 08:18] LABS: FOLATE (FOLIC ACID) - SERUM 10.7 ng/mL (>3.0)
[2017-12-23 10:13] VITALS: BP 180/78
[2017-12-23 12:29] LABS: APPEARANCE CLEAR (CLEAR); BILIRUBIN NEGATIVE (NEGATIVE); COLOR YELLOW (YELLOW); GLUCOSE NEGATIVE (NEGATIVE); KETONE NEGATIVE (NEGATIVE); NITRITE NEGATIVE (NEGATIVE); PROTEIN NEGATIVE (NEGATIVE); UROBILINOGEN NORMAL (NORMAL)
[2017-12-23 12:32] LABS: BACTERIA FEW /hpf (NONE SEEN); EPITHELIAL CELLS 0-5 /hpf (0-5); MUCUS <1+ /lpf (NONE SEEN); WHITE CELLS - URINE 0-5 /hpf (0-5)
[2017-12-23 21:12] VITALS: BP 168/76
[2017-12-24 09:29] VITALS: BP 197/85
[2017-12-24 15:54] VITALS: BP 100/51
[2017-12-24 18:06] LABS: VITAMIN D 25 HYDROXY 37.6 ng/mL (30.0-100.0)
[2017-12-24 19:27] VITALS: BP 100/51
[2017-12-25 08:00] VITALS: BP 179/81
[2017-12-25 19:17] VITALS: BP 153/67
[2017-12-26 08:00] VITALS: BP 183/91
[2017-12-26 20:15] VITALS: BP 141/75
[2017-12-27 08:00] VITALS: BP 159/72
[2017-12-27 10:53] VITALS: BP 15/72
[2017-12-27 19:53] VITALS: BP 150/60
[2017-12-28 11:17] VITALS: BP 184/86
[2017-12-28 22:29] VITALS: BP 171/71
[2017-12-29 11:19] VITALS: BP 198/90
[2017-12-29 20:13] VITALS: BP 171/70
[2017-12-30 08:00] VITALS: BP 175/77
[2017-12-30 20:23] VITALS: BP 124/64
[2017-12-31 08:00] VITALS: BP 192/84
[2017-12-31 19:16] VITALS: BP 182/73
[2018-01-01 07:00] VITALS: BP 170/85
[2018-01-01 19:58] VITALS: BP 117/56
[2018-01-02 08:00] VITALS: BP 172/84
[2018-01-02 19:58] VITALS: BP 180/76
[2018-01-03 08:35] VITALS: BP 176/84
[2018-01-03 20:00] VITALS: BP 163/77
[2018-01-04 09:00] VITALS: Ht 172.7 cm; Wt 53.6 kg
[2018-01-04] MEDS ORDERED: KLONOPIN0.5 MG PO (11:10)
[2018-01-04] MEDS ORDERED: Aricept PO (11:10)
[2018-01-04] MEDS ORDERED: GEODON20 MG PO (11:10)
[2018-01-04] MEDS ORDERED: ZOLOFT100 MG PO (11:10)
[2018-01-04 11:25] VITALS: BP 192/84
== END 2018-01-04 12:10 | DRG 57 ==
LOC: D.PSYCH 13:30 → D.SDCHOLD 12-22 09:20 → D.PSYCH 12-22 09:23
PROVIDERS: Psychiatry & Neurology Psychiatry
DX: G30.1 Alzheimer's disease with late onset (principal); F02.81 Dementia in other diseases classified elsewhere, unspecified severity, with behavioral disturbance; I10 Essential (primary) hypertension; I25.10 Atherosclerotic heart disease of native coronary artery without angina pectoris; Z91.81 History of falling; M48.54XD Collapsed vertebra, not elsewhere classified, thoracic region, subsequent encounter for fracture with routine healing; K59.09 Other constipation; Z85.46 Personal history of malignant neoplasm of prostate; R55 Syncope and collapse; G43.909 Migraine, unspecified, not intractable, without status migrainosus; G89.29 Other chronic pain; F32.9 Major depressive disorder, single episode, unspecified; E55.9 Vitamin D deficiency, unspecified; Z95.0 Presence of cardiac pacemaker

== ENCOUNTER 2018-02-20 17:19 | Emergency (ER) | payer MEDICARE ==
[~2018-02-20] VITALS: Ht 172.7 cm; Wt 65.9 kg
[~2018-02-20 17:19] MED LIST changes: +ACETAMINOPHEN325 MG PO; +Aricept PO; +GEODON20 MG PO; +KLONOPIN0.5 MG PO; +ZOFRAN4 MG PO; +ZOLOFT100 MG PO
[2018-02-20 17:28] VITALS: Ht 172.7 cm; Wt 65.9 kg
[2018-02-20 18:17] LABS: BASOPHILS 0.4 % (0-2); HEMATOCRIT 41.7 % (42.0-54.0); IMMATURE GRANULOCYTES 0.3 % (0-5); LYMPHOCYTES 13.2 % (15-50); MCH 32.2 pg (26.0-34.0); MCHC 33.6 g/dL (31.0-37.0); MCV 95.9 fL (80.0-100.0); MEAN PLATELET VOLUME 10.8 fL (7.4-10.4); MONOCYTES 9.6 % (2-11); NEUTROPHILS 75.5 % (40-80); PLATELET COUNT 189 10x3/uL (130-400); RBC 4.35 10x6/uL (4.20-6.10); WBC 7.2 10x3/uL (4.8-10.8)
[2018-02-20 18:32] LABS: APTT 24.3 SECONDS (22.8-39.4); INR 1.06 (0.85-1.17); PROTIME 13.4 SECONDS (11.6-15.0)
[2018-02-20 18:33] LABS: D-DIMER-QUANTITATIVE 0.47 ug/mLFEU (0.20-0.54)
[2018-02-20 18:56] LABS: ALBUMIN 3.3 g/dL (3.4-5.0); ALKALINE PHOSPHATASE 124 U/L (46-116); ALT (SGPT) 17 U/L (10-68); BILIRUBIN - TOTAL 0.46 mg/dL (0.2-1.3); CALC OSMOLALITY 294 mosm/kg (275-300); CALCIUM 9.3 mg/dL (8.5-10.1); CHLORIDE - SERUM 105 mmol/L (98-107); CKMB 1.4 U/L (0.0-3.6); CREATINE KINASE 118 UL (21-232); CREATININE - SERUM 1.5 mg/dL (0.6-1.3); GLUCOSE 145 mg/dL (74-106); MAGNESIUM - SERUM 2.1 mg/dL (1.8-2.4); POTASSIUM - SERUM 3.5 mmol/L (3.5-5.1); SODIUM 143 mmol/L (136-145); THYROID STIMULATING HORMONE 3.82 uIU/mL (0.36-3.74); UREA NITROGEN 33 mg/dL (7-18); eGFR NON AFRICAN AMERICAN 48 mL/min (90-120)
[2018-02-20 22:00] LABS: UDS - AMPHET NEGATIVE QUAL (NEGATIVE); UDS - BARB NEGATIVE QUAL (NEGATIVE); UDS - BENZO NEGATIVE QUAL (NEGATIVE); UDS - COCAINE NEGATIVE QUAL (NEGATIVE); UDS - OPIATE NEGATIVE QUAL (NEGATIVE); UDS - PCP NEGATIVE QUAL (NEGATIVE); UDS - THC NEGATIVE QUAL (NEGATIVE)
[2018-02-20 22:10] LABS: APPEARANCE HAZY (CLEAR); BILIRUBIN NEGATIVE (NEGATIVE); COLOR YELLOW (YELLOW); GLUCOSE 50 mg/dL (NEGATIVE); KETONE NEGATIVE (NEGATIVE); NITRITE NEGATIVE (NEGATIVE); PROTEIN TRACE mg/dL (NEGATIVE); UROBILINOGEN NORMAL (NORMAL)
[2018-02-20 22:11] LABS: RED CELLS - URINE 0-5 /hpf (0-5); WHITE CELLS - URINE 25-50 /hpf (0-5)
[2018-02-20 22:12] LABS: BACTERIA FEW /hpf (NONE SEEN)
[2018-02-20] MEDS ORDERED: BACTRIM 400-801 TAB PO (22:42)
[2018-02-21 00:55] VITALS: BP 122/61
[2018-02-26 18:08] LABS: AEROBE ID Final report (()); RESULT 1 Aerococcus urinae (())
== END 2018-02-21 00:55 ==
LOC: D.ER 17:19
PROVIDERS: Family Medicine
DX: N39.0 Urinary tract infection, site not specified (principal); F03.90 Unspecified dementia, unspecified severity, without behavioral disturbance, psychotic disturbance, mood disturbance, and anxiety; R53.1 Weakness

== ENCOUNTER 2018-06-06 03:08 | Emergency (ER) | payer MEDICARE ==
[~2018-06-06] VITALS: Ht 172.7 cm; Wt 75.0 kg
[~2018-06-06 03:08] MED LIST changes: +BACTRIM 400-801 TAB PO
[2018-06-06 03:14] VITALS: Ht 172.7 cm; Wt 75.0 kg
[2018-06-06 05:10] VITALS: BP 167/67
[2018-06-19] MEDS ORDERED: HYDROCODON-ACE1 EAC7 PO (20:48)
[2018-06-19] MEDS ORDERED: TYLENOL W/CODEI1 TAB PO (20:51)
[2018-06-22] MEDS ORDERED: LEVOFLOXACIN500 MG PO (10:03)
[2018-06-22] MEDS ORDERED: MIRALAX17 GM PO (10:05)
== END 2018-06-06 05:10 | disposition home or self-care (01) ==
LOC: D.ER 03:08
DX: S80.12XA Contusion of left lower leg, initial encounter (principal); W18.30XA Fall on same level, unspecified, initial encounter; Y93.89 Activity, other specified; Y92.129 Unspecified place in nursing home as the place of occurrence of the external cause; G30.9 Alzheimer's disease, unspecified; F02.80 Dementia in other diseases classified elsewhere, unspecified severity, without behavioral disturbance, psychotic disturbance, mood disturbance, and anxiety

== ENCOUNTER 2018-06-28 15:19 | Emergency (ER) | payer MEDICARE ==
[~2018-06-28] VITALS: Ht 172.7 cm; Wt 72.7 kg
[~2018-06-28 15:19] MED LIST changes: +HYDROCODON-ACE1 EAC7 PO; +LEVOFLOXACIN500 MG PO; +MIRALAX17 GM PO
[2018-06-28 15:37] VITALS: Ht 172.7 cm; Wt 72.7 kg
[2018-06-28 19:56] VITALS: BP 148/71
== END 2018-06-28 19:59 | disposition home or self-care (01) ==
LOC: D.ER 15:19
DX: S00.83XA Contusion of other part of head, initial encounter (principal); W05.0XXA Fall from non-moving wheelchair, initial encounter; Y93.89 Activity, other specified; Y92.129 Unspecified place in nursing home as the place of occurrence of the external cause; F03.90 Unspecified dementia, unspecified severity, without behavioral disturbance, psychotic disturbance, mood disturbance, and anxiety

== ENCOUNTER 2018-11-05 12:16 | Emergency (ER) | payer MEDICARE ==
[~2018-11-05] VITALS: Ht 172.7 cm; Wt 59.1 kg
[2018-11-05 12:21] VITALS: Ht 172.7 cm; Wt 59.1 kg
[2018-11-05] MEDS ORDERED: HYTRIN5 MG PO (13:14)
[2018-11-05] MEDS ORDERED: CYCLOBENZAPRINE10 MG PO (13:17)
[2018-11-05 19:00] VITALS: BP 181/83
== END 2018-11-05 19:45 ==
LOC: D.ER 12:16
DX: M25.551 Pain in right hip (principal); I10 Essential (primary) hypertension; M25.552 Pain in left hip; I25.10 Atherosclerotic heart disease of native coronary artery without angina pectoris; G30.9 Alzheimer's disease, unspecified; F02.80 Dementia in other diseases classified elsewhere, unspecified severity, without behavioral disturbance, psychotic disturbance, mood disturbance, and anxiety

== ENCOUNTER 2018-11-28 15:38 | Inpatient (IN) | payer MEDICARE ==
[~2018-11-28] VITALS: Ht 172.7 cm; Wt 61.4 kg
--- NOTE | ~2018-11-28 | HEMODYNAMI ---
PATIENT:RICK HUSAIN MEDICAL RECORD: [id number] : 40 [id number] ADMISSION DATE: 11/29/18 Generatedon:12/03/201813:09 Patient name: RICK HUSAIN Patient #: [id number] SSN: [id number] : 1940 Date of study: 12/03/2018 Page: Of Hemodynamic Procedure Report Patient Data Patient Demographics Procedure consent was obtained First Name: RICK Gender: Male Last Name: LISHA : 1940 Middle Initial: CUCO Age: 78 year(s) Patient #: [id number] Race: SSN: [id number] Additional ID: [id number] Contact details Address: [facility] State: [place] City: [place] Zip code: [address] Admission Admission Data Admission Date: 11/29/2018 Admission Time: 11:44 Arrival Date: 11/29/2018 Arrival Time: 11:44 Admit Source: Emergency Insurance Payor: Medicare, department Medicaid Room #: D.2101 Height (in.): 67.72 BSA: 1.72 (m2) Height (cm.): 172 BMI: 20.62 (kg/m2) Weight (lbs.): 134.48 Weight (kg.): 61 Lab Results Lab Result Date: 12/03/2018 Lab Result Time: 0:00 Biochemistry Name Units Result Min Max BUN mg/dl 28 --(----)-* 7 18 Creatinine mg/dl 1.2 --(---*)-- 0.6 1.3 CBC Name Units Result Min Max Hemoglobin g/dl 12.8 -*(----)-- 13.5 17.5 Procedure Procedure Types Cath Procedure Diagnostic Procedure LHC LHC w/Coronaries Sedation Charges Moderate Sedation up to 15 minutes Procedure Description Procedure Date Procedure Date: 12/03/2018 Procedure Start Time: 12:44 Procedure End Time: 13:01 Procedure Staff Name Function Kris James MD Performing Physician Irma Puente RT Monitor Olman Bowman RT Scrub Tameka Salmeron RT Scrub Bret Jimenez RN Nurse Brittany Mcqueen RN Experimental Welder Procedure Data Cath Procedure Fluoroscopy Diagnostic fluoroscopy Total fluoroscopy Time: 4.1 time: 4.1 min min Diagnostic fluoroscopy Total fluoroscopy dose: 394 dose: 394 mGy mGy Contrast Material Contrast Material Type Amount (ml) Isovue 300 84 Entry Location Entry Primary Successful Side Size Upsize Upsize Entry Closure Succes sful Closure Location (Fr) 1 (Fr) 2 (Fr) Remarks Device Remarks Femoral Right 5 Fr Exoseal artery Estimated blood loss: 5 ml Diagnostic catheters Device Type Used For End Catheter Placement MULTIPACK JL 4.0 5Fr Left Coronary catheter Angiography MULTIPACK 3DRC 5Fr Right Coronary catheter Angiography MULTIPACK Pigtail 5 Fr LV Angiography catheter Procedure Complications No complications Procedure Medications Medication Administration Route Dosage Oxygen etCO2 Nasal cannula 2 l/min Lidocaine 2% added to field 20 Heparin Flush Bag added to field 2 bags (1000units/500ml NS) 0.9% NaCl I.V. 100 ml/hr Versed I.V. 1 mg Fentanyl I.V. 50 mcg Hemodynamics Rest BSA: 1.72 (m2) HGB: 12.8 (g/dl) O2 Consumption: Estimated: 191.4 (ml/min) O2 Con sumption indexed: Estimated:111.28 (ml/min/m) Heart Rate: 61 (bpm) Pressure Samples Time Site Value (mmHg) Purpose Heart Use Rate(bpm) 12:56 LV 110/-3,1 Snapshot 66 12:57 AO 133/51(79) Pullback 60 12:57 LV 146/-1,4 Pullback 60 Gradients Valve Time Site 1 Site 2 Mean SEP/DFP Peak To Heart Use (mmHg) (sec/min) Peak Rate (mmHg) (bpm) Aortic 12:57 LV AO 15 18 13 60 146/-1,4 133/51(79) Calculations Valve P-P Mean Valve Index Valve Source Name Gradient Area Flow (cm2) Aortic 13 15 13 15 Snapshots Pre Cath Intra NCS Post Cath Vital Signs Time Heart Resp SPO2 etCO2 NIBP (mmHg) Rhythm Pain Sedation Rate (ipm) (%) (mmHg) Status Level (bpm) 12:34:00 60 12 100 26.2 163/87(126) NSR 0 (11) 10(A) , No pain 12:37:45 61 14 98 41.9 153/84(119) NSR 0 (11) 10(A) , No pain 12:41:28 60 11 98 35.2 135/79(106) NSR 0 (11) 10(A) , No pain 12:45:34 60 10 98 23.9 135/81(117) NSR 0 (11) 9(A) , No pain 12:49:41 60 10 98 37.4 136/77(109) NSR 0 (11) 9(A) , No pain 12:53:51 60 11 98 44.2 134/78(112) NSR 0 (11) 9(A) , No pain 12:58:05 60 10 99 45.7 138/67(108) NSR 0 (11) 9(A) , No pain 13:02:17 60 11 99 41.1 145/73(105) NSR 0 (11) 10(A) , No pain Medications Time Medication Route Dose Verified Delivered Reason Notes Eff ectiveness by by 12:33:54 Oxygen etCO2 2 Kris Buffie used for Nasal l/min Jacob Mcqueen RN procedure cannula 12:34:19 Lidocaine 2% added 20ml Kris Kris for local to vial Jacob James MD anesthetic field 12:34:25 Heparin Flush added 2 Kris Kris used for Bag to bags Jacob James MD procedure (1000units/500ml field NS) 12:34:37 0.9% NaCl I.V. 100 Kris Buffie Per ml/hr Jacob Mcqueen RN physician 12:39:30 Versed I.V. 1 mg Kris Buffie for Jacob Mcqueen RN sedation 12:39:36 Fentanyl I.V. 50 Kris Buffie for mcg Jacob Mcqueen RN sedation Procedure Log Time Note 12:11:50 Diagnostic Cath Status : Elective 12:12:39 Admit Source: Emergency department 12:12:46 Insurance Payor : Medicare, Medicaid 12:12:53 Arrival Date: 11/29/2018 11:44:00 AM 12:13:08 Patient Height : 67.72 inches 12:13:14 Patient Weight : 134.48 lbs 12:13:35 Lab Result : Hemoglobin 12.8 g/dl 12:13:35 Lab Result : Creatinine 1.2 mg/dl ::35 Lab Result : BUN 28 mg/dl 12::31 Informed consent obtained and on chart 12:14:56 ACC Patient presents with Non-STEMI CCS Anginal Class 3--Marked limitation of physical activity, angina occurs with ordinary activity.. 12:15:02 Procedure Status Urgent Heart Cath (IP). 12:15:05 Bret Jimenez RN sent for patient. Start room use. 12:15:06 Time tracking: Regular hours (M-F 7:00 - 5:00) 12:15:11 Plan of Care:Hemodynamics will remain stable., Cardiac rhythm will remain stable., Comfort level will be maintained., Respiratory function will remain adequate., Patient/ family verbilizes understanding of procedure., Procedure tolerated without complication., Recovers from procedure without complications.. 12:17:41 2) 60-89 Mildly reduced kidney function, and other findings (as for stage 1) point to kidney disease. 12:17:47 Maximum allowable contrast dose (3.7 X eGFR X 0.75)172 ml. 12:24:01 Warm blankets applied, and alice hugger turned on for patient comfort. 12:24:02 Correct patient and procedure confirmed by team. 12:24:03 ECG and BP/O2 sat monitors applied to patient. 12:33:25 Vital chart was started 12:33:34 Baseline sample Acquired. 12:33:54 Oxygen 2 l/min etCO2 Nasal cannula was administered by Brittany Mcqueen RN; used for procedure; 12:34:19 Lidocaine 2% 20ml vial added to field was administered by Kris James MD; for local anesthetic; 12:34:25 Heparin Flush Bag (1000units/500ml NS) 2 bags added to field was administered by Kris James MD; used for procedure; 12:34:37 0.9% NaCl 100 ml/hr I.V. was administered by Brittany Mcqueen RN; Per physician; 12:35:30 Rhythm: paced 12:35:31 Full Disclosure recording started 12:35:34 H&P Date Dictated: 12/03/2018 New H&P dictated by physician.. 12:35:36 Pre-procedure instructions explained to patient. 12:35:36 Pre-op teaching completed and patient verbalized understanding. 12:35:44 Family in patients room. 12:35:46 Patient NPO since Midnight. 12:35:50 Is the patient allergic to Iodine/contrast media? No. 12:35:51 Was the patient premedicated? No 12:35:59 Is patient on blood thinner?No 12:36:03 Patient diabetic? Unknown. 12:36:06 Previous problem with sedation/anesthesia? Unknown ? 12:36:09 Snore? Unknown 12:36:11 Sleep apnea? Unknown 12:36:12 Deviated septum? Unknown 12:36:13 Opens mouth fully? Yes 12:36:14 Sticks out tongue? Yes 12:36:16 Airway obstruction? Unknown ? 12:36:19 Dentures? Unknown ? 12:36:24 Pre procedure: right dorsailis pedis pulse 1+ Palpable, but thready & weak; easily obliterated 12:36:28 Pre procedure: left dorsailis pedis pulse 1+ Palpable, but thready & weak; easily obliterated 12:36:33 Patient pain scale 0/10 ?. 12:36:39 IV patent on arrival in left forearm with 0.9% NaCl at [facility]. 12:36:41 Lab results completed and on chart. 12:37:09 Right groin area was prepped with chlora-prep and draped in sterile fashion 12:37:10 Alarms reviewed by R. N. 12:37:10 Sharps counted by scrub and verified by R.N. 12:37:14 Physician arrived 12:37:14 --------ALL STOP TIME OUT------ 12:37:15 Final Timeout: patient, procedure, and site verified with staff and physician. All members of the team are in agreement. 12:37:25 Right groin site verified by team. 12:37:37 Fire Safety Assessment: A--An alcohol-based skin anteseptic being used preoperatively., C--Open oxygen or nitrous oxide is being used., D--An ESU, laser, or fiber-optic light is being used. 12:37:54 Physical assessment completed. ASA score P 2 - A patient with mild systemic disease as per Kris aJmes MD. 12:37:59 Sedation plan: IV Moderate Sedation Medication:Versed, Fentanyl 12:38:20 Use device set Femoral Dx 12:38:22 ACIST Syringe (10499) opened to sterile field. 12:38:22 Bag Decanter (2002S) opened to sterile field. 12:38:23 Medline Cath Pack ([id number]) opened to sterile field. 12:38:24 ACIST Hand Control (94447) opened to sterile field. 12:38:25 ACIST Manifold (13500) opened to sterile field. 12:38:26 DIAGNOSTIC Multipack 5Fr catheter set ([id number]) opened to sterile field. 12:38:26 Tegaderm 4 x 4 (1626W) opened to sterile field. 12:38:31 EMERALD Guide Wire (748-115) opened to sterile field. 12:38:33 SHEATH 5FR Whitmore (QTN750) opened to sterile field. 12:39:30 Versed 1 mg I.V. was administered by Brittany Mcqueen RN; for sedation; 12:39:36 Fentanyl 50 mcg I.V. was administered by Brittany Mcqueen RN; for sedation; 12:40:54 Procedure started. 12:44:02 Local anesthetic to right femoral artery with Lidocaine 2% by Kris James MD.INITIAL ACCESS ONLY 12:44:11 A 5 Fr sheath was inserted into the Right Femoral artery 12:46:07 A MULTIPACK JL 4.0 5Fr catheter was advanced over the wire and used for Left Coronary Angiography. 12:47:07 Zero performed for pressure channel P1 12:49:30 LCA angiography performed. 12:49:33 Injector settings: Ml/sec: 3, Volume: 6, 12:50:59 Catheter removed. 12:51:07 A MULTIPACK 3DRC 5Fr catheter was advanced over the wire and used for Right Coronary Angiography. 12:52:33 RCA angiography performed. 12:52:38 Injector settings: Ml/sec: 3, Volume: 6, 12:53:39 Catheter removed. 12:53:53 A MULTIPACK Pigtail 5 Fr catheter was advanced over the wire and used for LV Angiography. 12:56:14 LV hemodynamics recorded. 12:56:15 LV gram done using NIEVES 12:56:18 Injector settings: Ml/sec: 5, Volume: 15, 12:56:52 EF : 20 % 12:57:20 Catheter removed. 12:57:23 EXOSEAL 5Fr (EX500) opened to sterile field. 12:58:26 Sheath removed intact; hemostasis achieved with Exoseal to the Right Femoral artery. 12:58:28 Procedure ended.(Physican Out) 12:59:32 Fluoroscopy time 04.10 minutes. 12:59:37 Fluoroscopy dose: 394 mGy 12:59:37 Flurop Dose total: 394 12:59:43 Dose Area Product 63197 mGy/cm. 13:00:50 Contrast amount:Isovue 300 84ml. 13:00:55 Sharps counted by scrub and verified by R.N. 13:00:57 Insertion/operative site no bleeding no hematoma. 13:01:03 Post procedure rhythm: unchanged. 13:01:06 Estimated blood loss: 5 ml 13:01:07 Post procedure instruction explained to patient.Patient verbalizes understanding. 13:01:08 Patient needs reinforcement of post procedure teaching. 13:01:16 Procedure type changed to Cath procedure, Diagnostic procedure, LHC, LHC w/Coronaries, Sedation Charges, Moderate Sedation up to 15 minutes 13:01:17 Procedure and supply charges have been captured, reviewed, submitted and are correct. 13:01:24 Procedure Complication : No complications 13:01:27 Vital chart was stopped 13:01:28 See physician's report for complete and final results. 13:01:41 Report given to Med II. 13:01:45 Patient transfered to Med II with Stretcher. 13:01:48 Procedure ended. 13:01:48 Full Disclosure recording stopped 13:01:56 End room use (Document Last) Device Usage Item Name Manufacture Quantity Catalog Hospital Part Current Minimal L ot# / Number Charge Number Stock Stock Serial# Code ACIST Acist 1 [id number] 393850 408908 601357 20 Syringe Medical (55844) Systems Inc Bag Microtek 1 116680 83756 895030 5 Decanter Medical Inc. () Medline Medline 1 [id number] 416869 75661 601356 5 Cath Pack ([id number]) ACIST Hand Acist 1 88020 386450 640277 173232 5 Control Medical (50409) Systems Inc ACIST Acist 1 51950 070507 640370 567473 5 Manifold Medical (85879) Systems Inc DIAGNOSTIC Cardinal 1 [id number] 227607 93850 708563 30 ResQ™ Medical 5Fr catheter set (HM2988) Tegaderm 4 3M 1 1626W 129394 651564 183450 5 x 4 (1626W) EMERALD Cardinal 1 292-542 198051 050864 171767 5 Guide Wire Health (502455) SHEATH 5FR Terumo 1 GWX160 403398 172048 384134 5 Whitmore (KGF934) MULTIPACK Cardinal 1 498211 5 JL 4.0 5Fr Health catheter MULTIPACK Cardinal 1 389731 5 3DRC 5Fr Health catheter MULTIPACK Cardinal 1 606676 5 Pigtail 5 Health Fr catheter EXOSEAL 5Fr Cardinal 1 EX500 969121 142982 612949 10 (EX500) Health Signature Audit [place] Stage Time Signature Unsigned Intra-Procedure 12/03/2018 Irma Puente 1:09:30 PM RT(R) Signatures Performing Physician : Signature : Kris Jamse MD Date : Time : Monitor : Irma Puente RT Signature : Date : Time : Nurse : Bret Jimenez Signature : RN Date : Time : [facility] [address] [facility] [place] [address]
[~2018-11-28 15:38] MED LIST changes: +CYCLOBENZAPRINE10 MG PO
--- NOTE | 2018-11-28 16:05 | NUR ---
PT LEAVING THE ED VIA STRETCHER AT THIS TIME.
[2018-11-28 16:54] LABS: BASOPHILS 0.4 % (0-2); EOSINOPHILS 1.3 % (0-7); HEMATOCRIT 36.7 % (42.0-54.0); HEMOGLOBIN 12.4 g/dL (13.5-17.5); IMMATURE GRANULOCYTES 0.3 % (0-5); LYMPHOCYTES 10.4 % (15-50); MCH 30.5 pg (26.0-34.0); MCHC 33.8 g/dL (31.0-37.0); MCV 90.2 fL (80.0-100.0); MEAN PLATELET VOLUME 10.5 fL (7.4-10.4); MONOCYTES 8.6 % (2-11); PLATELET COUNT 234 10x3/uL (130-400); RBC 4.07 10x6/uL (4.20-6.10); RDW 13.2 % (11.5-14.5)
[2018-11-28 16:57] LABS: INR 1.1 (0.85-1.17); PROTIME 13.7 SECONDS (11.6-15.0)
[2018-11-28 17:02] LABS: ALBUMIN 2.9 g/dL (3.4-5.0); ALKALINE PHOSPHATASE 144 U/L (46-116); ALT (SGPT) 16 U/L (10-68); BILIRUBIN - TOTAL 0.49 mg/dL (0.2-1.3); CALC OSMOLALITY 287 mosm/kg (275-300); CALCIUM 8.7 mg/dL (8.5-10.1); CARBON DIOXIDE 27.7 mmol/L (21.0-32.0); CHLORIDE - SERUM 104 mmol/L (98-107); CREATININE - SERUM 1.1 mg/dL (0.6-1.3); POTASSIUM - SERUM 3.2 mmol/L (3.5-5.1); PROTEIN - SERUM 6.9 g/dL (6.4-8.2); SODIUM 140 mmol/L (136-145); UREA NITROGEN 23 mg/dL (7-18); eGFR NON AFRICAN AMERICAN 69 mL/min (90-120)
[2018-11-28 17:03] LABS: GLUCOSE 184 mg/dL (74-106)
[2018-11-28 17:20] VITALS: BP 126/62
[2018-11-28 17:22] LABS: C-REACTIVE PROTEIN 4.1 mg/dL (0.0-0.9); CKMB 1.5 U/L (0.0-3.6); CREATINE KINASE 100 UL (21-232); PRO BNP 7983 pg/mL (0-450)
[2018-11-28 17:41] LABS: TROPONIN-I 0.084 ng/mL (0.000-0.060)
--- NOTE | 2018-11-28 17:42 | NUR ---
NOTIFIED BY LAB OF ELEVATED TROPONIN OF 0.084 TREATING PROVIDER NOTIFIED.
[2018-11-28 18:09] VITALS: BP 149/70
[2018-11-28 18:41] VITALS: BP 149/75; BP 149/753
--- NOTE | 2018-11-28 19:03 | NUR ---
HAND OFF REPORT GIVEN TO MYAH MORENO
--- NOTE | 2018-11-28 20:50 | NUR ---
INFUSION OF ROCEPHIN COMPLETE AT THIS TIME.
--- NOTE | 2018-11-28 23:00 | NUR ---
REPORT CALLED TO JETT GLASGOW AT 2127. ROOM NOT CLEAN AT 213. CALLED BACK ROOM NOT CLEAN AT 220. ROOM CHANGED AT 224
--- NOTE | 2018-11-28 23:30 | NUR ---
PT ARRIVED TO FLOOR AT THIS TIME VIA STRETCHER. UPON ENTRANCE TO ROOM PT ATTEMPTED TO REMOVE HIS PANTS. DURING THE REMOVAL OF PANTS PT HAD AN INCONTINENT EPISODE OF FOUL SMELLING URINE. COMPLETE LINEN CHANGE. INFORMED RN PRIMARY CARE THAT PT HAS NOT URINATED PRIOR TO THIS AND UNABLE TO COLLECT SPECIMEN. BLADDER SCAN PERFORMED AND 0 ML OF URINE FOUND IN BLADDER.
[2018-11-29] VITALS: BP 180/83
[2018-11-29 00:43] VITALS: BP 180/83; BMI 20.5
[2018-11-29 04:00] VITALS: BP 176/77
[2018-11-29 06:03] LABS: BASOPHILS 0.6 % (0-2); EOSINOPHILS 6.2 % (0-7); HEMATOCRIT 34.7 % (42.0-54.0); HEMOGLOBIN 11.6 g/dL (13.5-17.5); IMMATURE GRANULOCYTES 0.3 % (0-5); LYMPHOCYTES 17.5 % (15-50); MCH 29.9 pg (26.0-34.0); MCHC 33.4 g/dL (31.0-37.0); MCV 89.4 fL (80.0-100.0); MEAN PLATELET VOLUME 10.5 fL (7.4-10.4); MONOCYTES 10.6 % (2-11); NEUTROPHILS 64.8 % (40-80); PLATELET COUNT 209 10x3/uL (130-400); RBC 3.88 10x6/uL (4.20-6.10); RDW 13.4 % (11.5-14.5)
[2018-11-29 06:04] LABS: WBC 6.6 10x3/uL (4.8-10.8)
[2018-11-29 06:37] LABS: CALC OSMOLALITY 285 mosm/kg (275-300); CALCIUM 8.9 mg/dL (8.5-10.1); CARBON DIOXIDE 27.7 mmol/L (21.0-32.0); CHLORIDE - SERUM 108 mmol/L (98-107); CKMB 1.7 U/L (0.0-3.6); CREATINE KINASE 90 UL (21-232); CREATININE - SERUM 0.8 mg/dL (0.6-1.3); GLUCOSE 84 mg/dL (74-106); MAGNESIUM - SERUM 1.9 mg/dL (1.8-2.4); PHOSPHOROUS 2.9 mg/dL (2.5-4.9); SODIUM 143 mmol/L (136-145); UREA NITROGEN 17 mg/dL (7-18); eGFR NON AFRICAN AMERICAN > 90 mL/min (90-120)
[2018-11-29 06:38] LABS: TROPONIN-I 0.136 ng/mL (0.000-0.060)
--- NOTE | 2018-11-29 07:00 | NUR ---
REPORT RECEIVED. INCONTINENT OF URINE WITH PERICARE GIVEN. ANSWERS TO NAME RESP EVEN WITHOUT LABOR. NO C/O DIZZINESS. IV SITE IS CLEAR. CL IN REACH BED IN LOWEST POSITION AND LOCKED. CAREPLAN REVIEW DONE WITH SAFETY PRECAUTIONS IN PLACE. BED ALARM IS ON.
[2018-11-29 09:17] VITALS: BP 192/93
--- NOTE | 2018-11-29 10:30 | NUR ---
SPOON FED BREAKFAST THIS AM. NO SYNCOPE NO C/O DIZZINESS. HE IS FORGETFUL AND RAMBLES FROM TOPIC TO TOPIC. REORIENT PRN.
[2018-11-29 11:41] LABS: CKMB 1.6 U/L (0.0-3.6); CREATINE KINASE 95 UL (21-232); TROPONIN-I 0.124 ng/mL (0.000-0.060)
[2018-11-29 12:22] VITALS: BP 180/96
[2018-11-29 13:12] VITALS: Ht 172.7 cm; Wt 61.4 kg
[2018-11-29 18:00] LABS: CKMB 1.2 U/L (0.0-3.6); CREATINE KINASE 95 UL (21-232)
[2018-11-29 18:03] LABS: TROPONIN-I 0.106 ng/mL (0.000-0.060)
--- NOTE | 2018-11-29 18:08 | NUR ---
IV LASIX GIVEN PER SALINE LOCK AT THIS TIME. INCON. CARE GIVEN. HE HAS HAD NO C/O DIZZINESS TODAY. PHYSICAL THERAPY DID SCREEN BUT DECLINED TO WORK WITH HIM DUE TO HE DOES NOT AMBULATE ON NORMAL BASIS.
--- NOTE | 2018-11-29 19:48 | NUR ---
REPORT RECIEVED AND ROUNDING COMPLETE. PATIENT LAYING IN BED IN SUPINE POSITION. PATIENT HAS A SALINED LOCKED LEFT FOREARM. PATEINT STATES NO NEEDS OR WANTS AT THIS TIME. CALL LIGHT WITHIN REACH AND BED IN LOWEST POSITION.
[2018-11-29 20:00] VITALS: BP 181/86
--- NOTE | 2018-11-29 23:48 | NUR ---
CALLED DR. BARCLAY FOR PATIENT HIGH BLOOD PRESSURE, NING GAVE NEW ORDERS WILL FOLLOW.
[2018-11-30] VITALS: BP 206/103
--- NOTE | 2018-11-30 00:56 | NUR ---
CALLED [facility] TO UPDATE PATIENT MEDICATION LIST REQUESTED BY DOCTORS IN THEIR NOTES. [facility] IS FAXING OVER CURRENT MEDICATION LIST AND LAST DOSAGE GIVEN. WILL UPDATED MED REC ONCE RECIEVED.
[2018-11-30 04:00] VITALS: BP 184/77
[2018-11-30] MEDS ORDERED: CLONAZEP (04:04)
--- NOTE | 2018-11-30 04:10 | NUR ---
UPDATED MEDICATION REC FROM WHAT [facility] ME. ALSO PUT THE FAXED COPY IN PATIENT'S CHART.
[2018-11-30 05:03] LABS: BASOPHILS 0.6 % (0-2); HEMATOCRIT 39.6 % (42.0-54.0); HEMOGLOBIN 13.2 g/dL (13.5-17.5); IMMATURE GRANULOCYTES 0.2 % (0-5); LYMPHOCYTES 20.2 % (15-50); MCH 30.2 pg (26.0-34.0); MCHC 33.3 g/dL (31.0-37.0); MCV 90.6 fL (80.0-100.0); MEAN PLATELET VOLUME 10.7 fL (7.4-10.4); MONOCYTES 10.3 % (2-11); NEUTROPHILS 64.7 % (40-80); PLATELET COUNT 241 10x3/uL (130-400); RBC 4.37 10x6/uL (4.20-6.10); RDW 13.4 % (11.5-14.5)
[2018-11-30 05:08] LABS: WBC 8.7 10x3/uL (4.8-10.8)
[2018-11-30 05:19] LABS: CALC OSMOLALITY 283 mosm/kg (275-300); CALCIUM 9.5 mg/dL (8.5-10.1); CARBON DIOXIDE 28.5 mmol/L (21.0-32.0); CHLORIDE - SERUM 104 mmol/L (98-107); GLUCOSE 91 mg/dL (74-106); MAGNESIUM - SERUM 1.9 mg/dL (1.8-2.4); PHOSPHOROUS 3.1 mg/dL (2.5-4.9); POTASSIUM - SERUM 3.1 mmol/L (3.5-5.1); SODIUM 142 mmol/L (136-145); UREA NITROGEN 14 mg/dL (7-18); eGFR NON AFRICAN AMERICAN 77 mL/min (90-120)
--- NOTE | 2018-11-30 06:55 | NUR ---
REPORT RECEIVED. HE ANSWERS TO NAME BUT IS CONFUSED. SALINE LOCK INTACT. RESP EVEN WITHOUT LABOR. INCONTINENT CARE GIVEN PRN. HE REQIRES ASSIST WITH ALL NEEDS. BED IN LOWEST POSITION AND LOCKED. SAFETY PRECAUTIONS IN PLACE. BED ALARM IS ON. CL IN REACH
[2018-11-30 09:27] VITALS: BP 157/79
--- NOTE | 2018-11-30 11:14 | NUR ---
BLADDER SCAN DONE WITH RESULTS OF ZERO CC.
--- NOTE | 2018-11-30 12:15 | NUR ---
HE WAS FED LUNCH. THALIA WELL.
--- NOTE | 2018-11-30 12:28 | MORECARE ---
CASE MANAGEMENT DISCHARGE SUMMARY PATIENT: RICK HUSAIN UNIT: [id number] ADM DATE: 11/29/18 AGE: 78 : 40 SEX: M ROOM/BED: D.2101 AUTHOR: ABIDA CRAWFORD PHYSICIAN: REFERRING PHYSICIAN: IVET CHANDRA MD DATE OF SERVICE: 11/30/18 Discharge Plan Patient Name: RICK HUSAIN Facility: [facility]:[place] : 1940 Planned Disposition: Nursing Facility [facility] Cert Anticipated Discharge Date: 11/30/18 Discharge Date: Expected LOS: 1 Initial Reviewer: [email or web address] Initial Review Date: 11/28/2018 Generated: 11/30/18 1:28 pm Comments DCP- Discharge Planning Updated by [email or web address]: Chloe Lutz on 11/29/18 5:[address] PATIENT ADMITTED FROM [facility]. ADMITTED TO [facility] 12/06/2017. DARLINE [facility] - SPOUSE PER ADVANCE CARE PLAN FROM THE [facility]- CONTACT PHONE NUMBER [phone]. ADVANCE DIRECTIVE ON PATIENT HARD COVER CHART. [facility]- [facility] PAT[facility] IS FULL CODE. Patient Name: RICK HUSAIN Page [phone] at 1228 All edits/amendments must be made on the electronic document DICTATION DATE: 11/30/18 1228 UNDERGROUND DISTRIBUTION ENGINEER: GAUDENCIO 11/30/18 1228 RPT#: [id number] DC DATE: STATUS: ADM IN [facility] [address] [place] [address] END OF REPORT
--- NOTE | 2018-11-30 12:38 | MORECARE ---
CASE MANAGEMENT DISCHARGE SUMMARY PATIENT: RICK HUSAIN UNIT: [id number] ADM DATE: 11/29/18 AGE: 78 : 40 SEX: M ROOM/BED: D.2101 AUTHOR: TYDOC PHYSICIAN: REFERRING PHYSICIAN: IVET CHANDRA MD DATE OF SERVICE: 11/30/18 Discharge Plan Patient Name: RICK HUSAIN Facility: [facility]:[place] : 1940 Planned Disposition: Nursing Facility [facility] Cert Anticipated Discharge Date: 11/30/18 Discharge Date: Expected LOS: 1 Initial Reviewer: [id number] Initial Review Date: 11/28/2018 Generated: 11/30/18 1:37 pm Comments DCP- Discharge Planning Updated by [email or web address]: Chloe Lutz on 11/29/18 5:[address] PATIENT ADMITTED FROM THE [facility] [place]. ADMITTED TO [facility] 12/06/2017. DARLINE BUTTS - SPOUSE PER ADVANCE CARE PLAN FROM THE [facility]- CONTACT PHONE NUMBER [phone]. ADVANCE DIRECTIVE ON PATIENT HARD COVER CHART. PCP- [facility] [place] PATIENT IS FULL CODE. DCPIA - Discharge Planning Initial Assessment Updated by [id number]: Oleksandr Liu on 11/30/18 12:33 pm * Is the patient Alert and Oriented? Yes * How many steps to enter\exit or inside your home? NONE * PCP DR. Katlyn SALDIVAR * Pharmacy [facility] [place] * Preadmission Environment [facility] * Facility Name [facility] * ADLs Total Dependent * Equipment Alisson Lift Other * Other Equipment ALL MEDICAL EQUIPMENT PROVIDED BY FACILITY * List name and contact numbers for known caregivers / representatives who currently or will assist patient after discharge: IRMA DUKENCE, SPOUSE, * Verbal permission to speak to the caregivers and representatives has been obtained from the patient. Yes * Community resources currently utilized None * Please name any agencies selected above. NONE * Additional services required to return to the preadmission environment? No * Can the patient safely return to the preadmission environment? Yes * Has this patient been hospitalized within the prior 30 days at any hospital? No Last DP export: 11/30/18 11:28 am Patient Name: RICK HUSAIN Page 21063 at 1238 All edits/amendments must be made on the electronic document DICTATION DATE: 11/30/18 1237 TONG CARRIER: GAUDENCIO 11/30/18 1237 RPT#: [id number] DC DATE: STATUS: ADM IN [facility] [address] [place] [address] END OF REPORT
--- NOTE | 2018-11-30 12:46 | MORECARE ---
CASE MANAGEMENT DISCHARGE SUMMARY PATIENT: RICK HUSAIN UNIT: [id number] ADM DATE: 11/29/18 AGE: 78 : 40 SEX: M ROOM/BED: D.2102 AUTHOR: ABIDA CRAWFORD PHYSICIAN: REFERRING PHYSICIAN: IVET CHANDRA MD DATE OF SERVICE: 11/30/18 Discharge Plan Patient Name: RICK HUSAIN Facility: [facility]:[place] : 1940 Planned Disposition: Nursing Facility [facility] Cert Anticipated Discharge Date: 11/30/18 Discharge Date: Expected LOS: 1 Initial Reviewer: [id number] Initial Review Date: 11/28/2018 Generated: 11/30/18 1:45 pm Comments DCP- Discharge Planning Updated by [id number]: Oleksandr Liu on 11/30/18 11:[address] Patient Name: RICK HUSAIN Admission Status: ER Accout number: [id number] Admission Date: 11-29-2018 : 1940 Admission Diagnosis: Attending: IVET CHANDRA Current LOS: 1 Anticipated DC Date: 11-30-2018 Planned Disposition: Nursing Facility [facility] Cert Primary Insurance: MEDICARE A & B PLANNED EXTERNAL PROVIDER: [facility] Discharge Planning Comments: CM MET WITH PT IN ROOM TO DISCUSS DISCHARGE PLANNING AND NEEDS. PT REPORTS LIVING AT THE CUSTODIAL ([facility]). PT IS UP OUT OF BED AT THE CUSTODIAL WITH A LIFT TO WHEELCHAIR. CM DISCUSSED AVAILABILITY OF HOME HEALTH, REHAB SERVICES AND MEDICAL EQUIPMENT. PT DENIES DISCHARGE NEEDS, REPORTS HE WILL DISCHARGE BACK TO [facility], REPORTS HIS WILL BE HERE AFTER LUNCH TODAY. CM CALLED SAMUEL OF [facility], , VERIFIED PT IS IN CUSTOMS INSPECTOR CARE BED AND WILL RETURN TO [facility]UST[facility]S INSPECTOR CARE BED AT THE [facility]. CM FAXED UPDATE TO THE [facility] VIA SAM[facility]EL AT [phone]. FOR DISCHARGE TO THE [facility], FAX DISCHARGE INFORMATION TO THE [facility] AT [phone]; NURSE REPORT TO BE CALLED TO THE [facility] AT [phone]. PAT TO TRANSPORT VIA AMBULANCE. Rn Hospice: Oleksandr Liu DCP- Discharge Planning Updated by [id number]: Chloe Lutz on 11/29/18 5:[address] PATIENT ADMITTED FROM THE [facility] [place]. ADMITTED TO THE [facility] 12/06/2017. DARLINE BUTTS - SPOUSE PER ADVANCE CARE PLAN FROM THE [facility]- CONTACT PHONE NUMBER [phone]. ADVANCE DIRECTIVE ON PATIENT HARD COVER CHART. PCP- [facility]- [facility] [place] PATIENT IS FULL CODE. DCPIA - Discharge Planning Initial Assessment Updated by [email or web address]: Oleksandr Liu on 11/30/18 12:33 pm * Is the patient Alert and Oriented? Yes * How many steps to enter\exit or inside your home? NONE * PCP DR. Katlyn SALDIVAR * Pharmacy [facility] [place] * Preadmission Environment Feed [employer] Operator Assisted * Facility Name [facility] * ADLs Total Dependent * Equipment Alisson Lift Other * Other Equipment ALL MEDICAL EQUIPMENT PROVIDED BY FACILITY * List name and contact numbers for known caregivers / representatives who currently or will assist patient after discharge: IRMA BUTTS, SPOUSE, * Verbal permission to speak to the caregivers and representatives has been obtained from the patient. Yes * Community resources currently utilized None * Please name any agencies selected above. NONE * Additional services required to return to the preadmission environment? No * Can the patient safely return to the preadmission environment? Yes * Has this patient been hospitalized within the prior 30 days at any hospital? No Last DP export: 11/30/18 11:38 am Patient Name: RICK HUSAIN Page 99498 at 1246 All edits/amendments must be made on the electronic document DICTATION DATE: 11/30/18 1245 ORACLE MANAGER: GAUDENCIO 11/30/18 1245 RPT#: [id number] DC DATE: STATUS: ADM IN [facility] [address] [place] [address] END OF REPORT
[2018-11-30 13:45] VITALS: BP 90/62
--- NOTE | 2018-11-30 14:23 | NUR ---
BRANDON BLOOD PRESSURE IS 100/60 AT THIS TIME. HE OFFERS NO C/O
--- NOTE | 2018-11-30 17:15 | NUR ---
BLOOD PRESSURE BRANDON IS 115/68 AT THIS TIME. IN ROOM TO ASSIST FEEDING HIM WITH SUPPER
[2018-11-30 17:18] VITALS: BP 119/68
[2018-11-30 20:00] VITALS: BP 105/57
--- NOTE | 2018-11-30 20:06 | NUR ---
EVENING ROUNDS COMPLETED. REPORT RECEIVED. PT SITTING UP IN BED WITH EYES OPEN, RR EVEN AND UNLABORED. BED IN LOW POSITION. NO S/S OF DISTRESS NOTED. 62 PACED ON TELEMETRY. INTRODUCED SELF TO PT. PT DENIES FURTHER NEEDS AT THIS TIME. CALL LIGHT IN REACH. WILL CTM.
[2018-12-01] VITALS: BP 122/60
--- NOTE | 2018-12-01 03:52 | NUR ---
I have reviewed this patient and I concur with the Shift Assessment completed by the Licensed Practical Nurse today this shift.
[2018-12-01 04:00] VITALS: BP 145/72
[2018-12-01 05:09] LABS: BASOPHILS 0.5 % (0-2); EOSINOPHILS 5.8 % (0-7); HEMATOCRIT 36.7 % (42.0-54.0); HEMOGLOBIN 12.3 g/dL (13.5-17.5); IMMATURE GRANULOCYTES 0.2 % (0-5); LYMPHOCYTES 23.5 % (15-50); MCH 30.2 pg (26.0-34.0); MCHC 33.5 g/dL (31.0-37.0); MCV 90.2 fL (80.0-100.0); MEAN PLATELET VOLUME 10.5 fL (7.4-10.4); MONOCYTES 11.6 % (2-11); NEUTROPHILS 58.4 % (40-80); PLATELET COUNT 225 10x3/uL (130-400); RBC 4.07 10x6/uL (4.20-6.10); RDW 13.5 % (11.5-14.5)
[2018-12-01 05:15] LABS: WBC 6.2 10x3/uL (4.8-10.8)
[2018-12-01 05:33] LABS: ANION GAP 10.9 mmol/L (8-16); CALCIUM 9.2 mg/dL (8.5-10.1); CARBON DIOXIDE 28.7 mmol/L (21.0-32.0); CREATININE - SERUM 1.2 mg/dL (0.6-1.3); MAGNESIUM - SERUM 1.9 mg/dL (1.8-2.4); PHOSPHOROUS 3.3 mg/dL (2.5-4.9); POTASSIUM - SERUM 3.6 mmol/L (3.5-5.1)
--- NOTE | 2018-12-01 07:49 | NUR ---
RECIEVED REPORT. PATIENT IS RESTING QUIETLY AT THIS TIME.
[2018-12-01 08:50] VITALS: BP 149/85
[2018-12-01 12:30] VITALS: BP 104/56
--- NOTE | 2018-12-01 14:06 | NUR ---
PATIENT IS CONFUSED. HE IS ALERT AND AWAKE AND HE DENIES ANY NEEDS AT THIS TIME. ATTEMPTING TO COLLECT A URINE SAMPLE. HE KEEPS URINATING IN THE BED. WILL CONTINUE TO ATTEMPT TO GET A URINE SAMPLE, AND TO HAVE HIM USE THE URINAL, AND NOT HAVE TO USE AN IN AND OUT CATH.
[2018-12-01 16:36] VITALS: BP 131/69
[2018-12-01 18:06] LABS: APPEARANCE CLEAR (CLEAR); COLOR YELLOW (YELLOW); GLUCOSE NEGATIVE (NEGATIVE); NITRITE NEGATIVE (NEGATIVE); PROTEIN NEGATIVE (NEGATIVE); SPECIFIC GRAVITY 1.015 (1.005-1.020)
[2018-12-01 18:07] LABS: BILIRUBIN NEGATIVE (NEGATIVE); KETONE NEGATIVE (NEGATIVE); RED CELLS - URINE NONE SEEN /hpf (0-5); UROBILINOGEN NORMAL (NORMAL); WHITE CELLS - URINE 0-5 /hpf (0-5)
--- NOTE | 2018-12-01 19:30 | NUR ---
EVENING ROUNDS COMPLETED. REPORT RECEIVED. PT SITTING UP IN BED WITH EYES OPEN, WATCHING TELEVISION. RR EVEN AND UNLABORED. NO S/S OF DISTRESS NOTED. INTORDUCED SELF TO PT. PT DENIES FURTHER NEEDS AT THIS TIME. 60 PACED ON TELEMETRY. CALL LIGHT IN REACH. WILL CTM.
[2018-12-01 20:00] VITALS: BP 111/71
[2018-12-02] VITALS: BP 143/72
--- NOTE | 2018-12-02 01:52 | NUR ---
I have reviewed this patient and I concur with the Shift Assessment completed by the Licensed Practical Nurse today this shift.
--- NOTE | 2018-12-02 03:54 | NUR ---
PT RESTING COMFORTABLY IN BED WITH EYES CLOSED, RR EVEN AND UNLABORED. BED IN LOW POSITION. NO S/S OF DISTRESS NOTED. 65 PACED ON TELEMETRY. CALL LIGHT IN REACH. WILL CTM.
[2018-12-02 04:00] VITALS: BP 160/65
[2018-12-02 04:54] LABS: BASOPHILS 0.4 % (0-2); EOSINOPHILS 5.6 % (0-7); HEMATOCRIT 37.4 % (42.0-54.0); HEMOGLOBIN 12.6 g/dL (13.5-17.5); IMMATURE GRANULOCYTES 0.3 % (0-5); LYMPHOCYTES 21.4 % (15-50); MCH 30.4 pg (26.0-34.0); MCHC 33.7 g/dL (31.0-37.0); MCV 90.3 fL (80.0-100.0); MEAN PLATELET VOLUME 10.4 fL (7.4-10.4); MONOCYTES 10.5 % (2-11); NEUTROPHILS 61.8 % (40-80); PLATELET COUNT 212 10x3/uL (130-400); RBC 4.14 10x6/uL (4.20-6.10); RDW 13.6 % (11.5-14.5); WBC 6.7 10x3/uL (4.8-10.8)
[2018-12-02 05:05] LABS: ANION GAP 8.3 mmol/L (8-16); CALCIUM 9.3 mg/dL (8.5-10.1); CARBON DIOXIDE 29.1 mmol/L (21.0-32.0); CREATININE - SERUM 1.1 mg/dL (0.6-1.3); MAGNESIUM - SERUM 1.9 mg/dL (1.8-2.4); PHOSPHOROUS 3.6 mg/dL (2.5-4.9); POTASSIUM - SERUM 3.4 mmol/L (3.5-5.1)
--- NOTE | 2018-12-02 06:27 | NUR ---
3.4 SERUM POTASSIUM TREATED ORDERED
--- NOTE | 2018-12-02 07:53 | NUR ---
PT AWAKE AND ALERT BUT PLEASENTLY CONFUSED IN THE BED DURING MORNING ROUNDS. DR LEVY IN THE ROOM AT THIS TIME. IV IS SALINE LOKCED IN THE LEFT FOREARM. PT DENIES ANY NEEDS AT THIS TIME. CALL LIGHT IS IN REACH AND BED IS IN LOW POSITION.
[2018-12-02 08:55] VITALS: BP 149/80
[2018-12-02 13:01] VITALS: BP 165/69
[2018-12-02 17:59] VITALS: BP 125/69
[2018-12-02 20:00] VITALS: BP 127/65
--- NOTE | 2018-12-02 20:21 | NUR ---
EVENING ROUNDS COMPLETED. REPORT RECEIVED. PT SITTING UP IN BED WITH EYES OPEN, RR EVEN AND UNLABORED. BED IN LOW POSITION. NO S/S OF DISTRESS NOTED. 60 PACED ON TELEMETRY. INTRODUCED SELF TO PT. PT DENIES FURTHER NEEDS AT THIS TIME. CALL LIGHT IN REACH. WILL CTM.
[2018-12-03] VITALS: BP 134/76; BP 166/70; BP 170/78
--- NOTE | 2018-12-03 02:55 | NUR ---
I have reviewed this patient and I concur with the Shift Assessment completed by the Licensed Practical Nurse today this shift.
[2018-12-03 04:00] VITALS: BP 156/71
[2018-12-03 04:17] LABS: BASOPHILS 0.3 % (0-2); HEMATOCRIT 38.2 % (42.0-54.0); HEMOGLOBIN 12.8 g/dL (13.5-17.5); IMMATURE GRANULOCYTES 0.1 % (0-5); LYMPHOCYTES 24.6 % (15-50); MCH 30.3 pg (26.0-34.0); MCHC 33.5 g/dL (31.0-37.0); MCV 90.5 fL (80.0-100.0); MEAN PLATELET VOLUME 10.6 fL (7.4-10.4); MONOCYTES 9.4 % (2-11); NEUTROPHILS 61.6 % (40-80); PLATELET COUNT 250 10x3/uL (130-400); RBC 4.22 10x6/uL (4.20-6.10); RDW 13.5 % (11.5-14.5); WBC 6.7 10x3/uL (4.8-10.8)
[2018-12-03 04:34] LABS: CALCIUM 9.4 mg/dL (8.5-10.1); CARBON DIOXIDE 29.4 mmol/L (21.0-32.0); CREATININE - SERUM 1.2 mg/dL (0.6-1.3); MAGNESIUM - SERUM 1.9 mg/dL (1.8-2.4); PHOSPHOROUS 3.6 mg/dL (2.5-4.9); POTASSIUM - SERUM 3.4 mmol/L (3.5-5.1)
--- NOTE | 2018-12-03 07:15 | NUR ---
PT LAYING WITH EYES CLOSED SNORING SLIGHTLY. IV TOT HE LEFT FOREARM RUNNIGN NORMAL SALINE KVO. THE PATIENT IS ON ROOM AIR WITH NO VISIBLE SIGNS OF DISTRESS AT THIS TIME. CALL LIGHT IS IN REACH AND THE BED IS LOW POSITION. PATIENT IS CLEAN AND DRY AT THIS TIME.
[2018-12-03 08:30] VITALS: BP 154/86
[2018-12-03 12:06] VITALS: BP 130/73
--- NOTE | 2018-12-03 13:20 | NUR ---
Nutrition Follow-up: Diet: Cardiac; 1500 olegario 2 g Na PO intake: 50% of meals yesterday No BMs recorded Wt: 135# Labs noted: K+ 3.4 Meds noted: Fidelina Hdez Rec continue current diet. Offer nutrition supplements. [place] food preferences within diet restrictions. RD following.
[2018-12-03 16:04] VITALS: BP 167/76
--- NOTE | 2018-12-03 19:46 | NUR ---
PT RESTING QUIETLY. CL IN REACH. EYES CLOSED. IN ROOM. NO SIGNS OF DISTRESS OR PAIN NOTED. BED IN LOW SIDE RAILS X2. RESP EVEN AND UNLABORED. O2 ON 2L VIA NC. DENIES NEEDS AT THIS TIME. WILL CONTINUE TO MONITOR.
--- NOTE | 2018-12-04 00:20 | NUR ---
PT RESTING QUIETLY. CL IN REACH. NO DISTRESS NOTED. EYES CLOSED. WCTM
--- NOTE | 2018-12-04 03:27 | NUR ---
I have reviewed this patient and I concur with the Shift Assessment completed by the Licensed Practical Nurse today this shift.
[2018-12-04 04:00] VITALS: BP 173/77
--- NOTE | 2018-12-04 05:42 | NUR ---
PT RESTING QUIETLY. CL IN REACH. NO DISTRESS NOTED. WAKES TO VERBAL STIMULI. CPOC
--- NOTE | 2018-12-04 07:19 | NUR ---
REPORT RECEIVED. WILL CONTINUE WITH POC. PT CURRENTLY LYING SUPINE. CALL LIGHT W/I REACH. PT IS RESTING AT THE MOMENT. RR EVEN AND UNLABORED ON 2L 02. NS INFUSING @KVO VIA L.FOR PIV. NO S/S OF DISTRESS NOTED. WILL CTM.
[2018-12-04 07:57] VITALS: BP 185/79
[2018-12-04 08:06] LABS: CALCIUM 9.4 mg/dL (8.5-10.1); CARBON DIOXIDE 22.9 mmol/L (21.0-32.0); CREATININE - SERUM 1.2 mg/dL (0.6-1.3); POTASSIUM - SERUM 3.9 mmol/L (3.5-5.1)
[2018-12-04 08:48] LABS: BASOPHILS 0.6 % (0-2); EOSINOPHILS 2.8 % (0-7); HEMATOCRIT 39.3 % (42.0-54.0); HEMOGLOBIN 12.9 g/dL (13.5-17.5); IMMATURE GRANULOCYTES 0.2 % (0-5); MCH 30.4 pg (26.0-34.0); MCHC 32.8 g/dL (31.0-37.0); MCV 92.7 fL (80.0-100.0); MEAN PLATELET VOLUME 11.1 fL (7.4-10.4); MONOCYTES 10.2 % (2-11); NEUTROPHILS 63.2 % (40-80); PLATELET COUNT 208 10x3/uL (130-400); RBC 4.24 10x6/uL (4.20-6.10); RDW 13.8 % (11.5-14.5); WBC 6.2 10x3/uL (4.8-10.8)
--- NOTE | 2018-12-04 09:48 | MORECARE ---
CASE MANAGEMENT DISCHARGE SUMMARY PATIENT: RICK HUSAIN UNIT: [id number] ADM DATE: 11/29/18 AGE: 78 : 40 SEX: M ROOM/BED: D.2101 AUTHOR: ABIDA CRAWFORD PHYSICIAN: REFERRING PHYSICIAN: IVET CHANDRA MD DATE OF SERVICE: 12/04/18 Discharge Plan Patient Name: RICK HUSAIN Facility: [facility]:[place] : 1940 Planned Disposition: Nursing Facility [facility] Cert Anticipated Discharge Date: 11/30/18 Discharge Date: Expected LOS: 1 Initial Reviewer: [email or web address] Initial Review Date: 11/28/2018 Generated: 12/04/18 10:48 am Comments DCP- Discharge Planning Updated by [email or web address]: Oleksandr Liu on 12/04/18 8:[address] Patient Name: RICK HUSAIN Encounter No: [id number] : 1940 Primary Insurance: MEDICARE A & B Anticipated DC Date: 11-30-2018 Planned Disposition: Nursing Facility [facility] Cert External Planned Provider: [facility] LONG TERM CARE MEDICAID BED Discharge Planning Comments: CM FAXED UPDATE TO THE [facility] VIA [employer] AT [phone]. FOR DISCHARGE TO THE [facility], FAX DISCHARGE INFORMATION TO THE [facility] AT [phone]; NURSE REPORT TO BE CALLED TO THE [facility] AT [phone]. PAT TO TRANSPORT VIA AMBULANCE. Volleyball Assistant Coach: Oleksandr Liu DCP- Discharge Planning Updated by [id number]: Olekasndr Liu on 11/30/18 11:[address] Patient Name: RICK HUSAIN Admission Status: ER Accout number: [id number] Admission Date: 11-29-2018 : 1940 Admission Diagnosis: Attending: IVET CHANDRA Current LOS: 1 Anticipated DC Date: 11-30-2018 Planned Disposition: Nursing Facility [facility] Cert Primary Insurance: MEDICARE A & B PLANNED EXTERNAL PROVIDER: [facility] Discharge Planning Comments: CM MET WITH PT IN ROOM TO DISCUSS DISCHARGE PLANNING AND NEEDS. PT REPORTS LIVING AT THE LONG TERM ([facility]). PT IS UP OUT OF BED AT THE LONG TERM WITH A LIFT TO WHEELCHAIR. CM DISCUSSED AVAILABILITY OF HOME HEALTH, REHAB SERVICES AND MEDICAL EQUIPMENT. PT DENIES DISCHARGE NEEDS, REPORTS HE WILL DISCHARGE BACK TO [facility] AND [facility], REPORTS HIS WILL BE HERE AFTER LUNCH TODAY. CM CALLED SAMUEL OF THE [facility], , VERIFIED PT IS IN INTERMEDIATE CARE BED AND WILL RETURN TO WINDOW SASH INSTALLER CARE BED AT THE [facility]. CM FAXED UPDATE TO THE [facility] VIA SAMUEL AT [phone]. FOR DISCHARGE TO THE [facility], FAX DISCHARGE INFORMATION TO THE [facility] AT [phone]; NURSE REPORT TO BE CALLED TO THE [facility] AT [phone]. PAT TO TRANSPORT VIA AMBULANCE. Volleyball Assistant Coach: Oleksandr Liu DCP- Discharge Planning Updated by [id number]: Chloe Lutz on 11/29/18 5:[address] [facility] [place]. ADMITTED TO THE [facility] 12/06/2017. DARLINE BUTTS - SPOUSE PER ADVANCE CARE PLAN FROM THE [facility]- CONTACT PHONE NUMBER [phone]. ADVANCE DIRECTIVE ON PATIENT HARD COVER CHART. PCP- [facility]- [facility] [place] PATIENT IS FULL CODE. DCPIA - Discharge Planning Initial Assessment Updated by [id number]: Oleksandr Liu on 11/30/18 12:33 pm * Is the patient Alert and Oriented? Yes * How many steps to enter\exit or inside your home? NONE * PCP DR. Katlyn SALDIVAR * Pharmacy [facility] [place] * Preadmission Environment [facility] * Facility Name [facility] * ADLs Total Dependent * Equipment Alisson Lift Other * Other Equipment ALL MEDICAL EQUIPMENT PROVIDED BY FACILITY * List name and contact numbers for known caregivers / representatives who currently or will assist patient after discharge: IRMA BUTTS, SPOUSE, * Verbal permission to speak to the caregivers and representatives has been obtained from the patient. Yes * Community resources currently utilized None * Please name any agencies selected above. NONE * Additional services required to return to the preadmission environment? No * Can the patient safely return to the preadmission environment? Yes * Has this patient been hospitalized within the prior 30 days at any hospital? No External Providers External Provider: [facility] Next Contact Date: 12/04/2018 Service Request Date: Service Type: Resolution: Reviewer: Comments: Last DP export: 11/30/18 11:46 am Patient Name: RICK HUSAIN Page [id number] at 0948 All edits/amendments must be made on the electronic document DICTATION DATE: 12/04/18946 ELECTRICIANS TOP HELPER: GAUDENCIO 12/04/18946 RPT#: [id number] DC DATE: STATUS: ADM IN [facility] [address] [place] [address] END OF REPORT
[2018-12-04 12:50] VITALS: BP 139/62
--- NOTE | 2018-12-04 13:46 | NUR ---
PREVIOUS PIV INFILTRATED. INITIATED NEW PIV TO THE LEFT FOREARM 22GA X1 ATTEMPT. PT TOLERATED WELL. ABX CURRENTLY INFUSING. WILL CTM. PT DENIES ANY NEEDS AT THIS TIME.
--- NOTE | 2018-12-04 14:44 | NUR ---
I have reviewed this patient and I concur with the Shift Assessment completed by the Licensed Practical Nurse today this shift.
[2018-12-04 16:52] VITALS: BP 142/70
--- NOTE | 2018-12-04 19:05 | NUR ---
AWAKE AND WATCHES ME AND DOES NOT RETURN ANSWERS TO MY QUESTIONS BED IS LOW AND LOCKED AND CALL LIGHT IS IN REACH LCTA AND SKIN WARM AND DRY
[2018-12-04 20:00] VITALS: BP 139/66
--- NOTE | 2018-12-04 20:31 | NUR ---
PT TRANSFERED TO 2108 WITH [address]U PRECIADO
[2018-12-05] VITALS: BP 132/71
[2018-12-05 04:00] VITALS: BP 182/80
[2018-12-05 05:35] LABS: BASOPHILS 0.6 % (0-2); EOSINOPHILS 4.2 % (0-7); HEMATOCRIT 38.1 % (42.0-54.0); IMMATURE GRANULOCYTES 0.3 % (0-5); LYMPHOCYTES 21.4 % (15-50); MCH 30.8 pg (26.0-34.0); MCHC 34.1 g/dL (31.0-37.0); MEAN PLATELET VOLUME 10.3 fL (7.4-10.4); MONOCYTES 10.5 % (2-11); PLATELET COUNT 230 10x3/uL (130-400); RBC 4.22 10x6/uL (4.20-6.10); RDW 13.5 % (11.5-14.5); WBC 6.7 10x3/uL (4.8-10.8)
[2018-12-05 05:39] LABS: MCV 90.3 fL (80.0-100.0)
[2018-12-05 05:56] LABS: ANION GAP 14.7 mmol/L (8-16); CALCIUM 9.5 mg/dL (8.5-10.1); CARBON DIOXIDE 26.9 mmol/L (21.0-32.0); CREATININE - SERUM 1.1 mg/dL (0.6-1.3); POTASSIUM - SERUM 3.6 mmol/L (3.5-5.1)
[2018-12-05 08:30] VITALS: BP 158/68
--- NOTE | 2018-12-05 08:49 | NUR ---
AM MEDS GIVEN AT THIS TIME. PT CONFUSED TO TIME. RESP EVEN AND REGULAR ON 2L NC. LT FA INFUSING NA AT KVO. MONITOR SHOWING PACED WITH RATE OF 60. PT DENIES ANY NEEDS AT THIS TIME. CALL LIGHT IN REACH, NAD NOTED,W ILL CONTINUE TO MONITOR.
--- NOTE | 2018-12-05 10:16 | MORECARE ---
CASE MANAGEMENT DISCHARGE SUMMARY PATIENT: RICK HUSAIN UNIT: [id number] ADM DATE: 11/29/18 AGE: 78 : 40 SEX: M ROOM/BED: D.210 AUTHOR: ABIDA CRAWFORD PHYSICIAN: REFERRING PHYSICIAN: IVET CHANDRA MD DATE OF SERVICE: 12/05/18 Discharge Plan Patient Name: RICK HUSAIN Facility: [facility]:[place] : 1940 Planned Disposition: Nursing Facility [facility] Cert Anticipated Discharge Date: 12/05/18 Discharge Date: Expected LOS: 6 Initial Reviewer: [email or web address] Initial Review Date: 11/28/2018 Generated: 12/05/18 11:15 am Comments DCP- Discharge Planning Updated by [id number]: Oleksandr Liu on 12/04/18 8:[address] Patient Name: RICK HUSAIN Encounter No: [id number] : 1940 Primary Insurance: MEDICARE A & B Anticipated DC Date: 11-30-2018 Planned Disposition: Nursing Facility [facility] Cert External Planned Provider: [facility] LONG TERM CARE MEDICAID BED Discharge Planning Comments: CM FAXED UPDATE TO THE [facility] VIA [employer] AT [phone]. FOR DISCHARGE TO THE [facility], FAX DISCHARGE INFORMATION TO THE [facility] AT [phone]; NURSE REPORT TO BE CALLED TO THE [facility] AT [phone]. PAT TO TRANSPORT VIA AMBULANCE. Net Front End Developer: Oleksandr Liu DCP- Discharge Planning Updated by [id number]: Oleksandr Liu on 11/30/18 11:[address] Patient Name: RICK HUSAIN Admission Status: ER Accout number: [id number] Admission Date: 11-29-2018 : 1940 Admission Diagnosis: Attending: IVET CHANDRA Current LOS: 1 Anticipated DC Date: 11-30-2018 Planned Disposition: Nursing Facility [facility] Cert Primary Insurance: MEDICARE A & B PLANNED EXTERNAL PROVIDER: [facility] Discharge Planning Comments: CM MET WITH PT IN ROOM TO DISCUSS DISCHARGE PLANNING AND NEEDS. PT REPORTS LIVING AT [facility] ([facility] PT IS UP OUT OF BED AT THE [facility] WITH A LIFT TO WHEELCHAIR. CM DISCUSSED AVAILABILITY OF HOME HEALTH, REHAB SERVICES AND MEDICAL EQUIPMENT. PT DENIES DISCHARGE NEEDS, REPORTS HE WILL DISCHARGE BACK TO [facility], REPORTS HIS WILL BE HERE AFTER LUNCH TODAY. CM CALLED SAMUEL OF THE [facility], , VERIFIED PT IS IN PARCEL POST ORDER CLERK CARE BED AND WILL RETURN TO PARCEL [facility] ORDER CLERK CARE BED AT THE [facility]. CM FAXED UPDATE TO THE [facility] VIA SAMUEL AT [phone]. FOR DISCHARGE TO THE [facility], FAX DISCHARGE INFORMATION TO THE [facility] AT [phone]; NURSE REPORT TO BE CALLED TO THE [facility] AT [phone]. PAT TO TRANSPORT VIA AMBULANCE. Net Front End Developer: Oleksandr Liu DCP- Discharge Planning Updated by [email or web address]: Chloe Lutz on 11/29/18 5:[address] PATIENT ADMITTED FROM THE [facility] [place]. ADMITTED TO THE [facility] 12/06/2017. DARLINE BUTTS - SPOUSE PER ADVANCE CARE PLAN FROM THE [facility]- CONTACT PHONE NUMBER [phone]. ADVANCE DIRECTIVE ON PATIENT HARD COVER CHART. PCP- [facility] [place] PATIENT IS FULL CODE. DCPIA - Discharge Planning Initial Assessment Updated by [id number]: Oleksandr Liu on 11/30/18 12:33 pm * Is the patient Alert and Oriented? Yes * How many steps to enter\exit or inside your home? NONE * PCP DR. Katlyn SALDIVAR * Pharmacy [facility] [place] * Preadmission Environment [facility] * Facility Name [facility] * ADLs Total Dependent * Equipment Alisson Lift Other * Other Equipment ALL MEDICAL EQUIPMENT PROVIDED BY FACILITY * List name and contact numbers for known caregivers / representatives who currently or will assist patient after discharge: IRMA BUTTS, SPOUSE, * Verbal permission to speak to the caregivers and representatives has been obtained from the patient. Yes * Community resources currently utilized None * Please name any agencies selected above. NONE * Additional services required to return to the preadmission environment? No * Can the patient safely return to the preadmission environment? Yes * Has this patient been hospitalized within the prior 30 days at any hospital? No Coverage Notice Reviewer: [id number] - Oleksandr Liu Notice Issued Date-Time: 12/05/2018 8:10 Notice Type: IM Discharge Notice Notice Delivered To: Patient Relationship to Patient: Dope Dry House Operator Name: Delivery Method: HAND - Hand Delivered Vesna Days: Prior Verbal Notification: Recipient Understood Notice: Yes Recipient Signature: Yes Med Rec Note Co-signed by Attending: Coverage Notice Comment: Last DP export: 12/04/18 8:48 a Patient Name: RICK HUSAIN Page 97087 at 1016 All edits/amendments must be made on the electronic document DICTATION DATE: 12/05/18 1015 STORE LOSS PREVENTION MANAGER: GAUDENCIO 12/05/18 1015 RPT#: [id number] DC DATE: STATUS: ADM IN [facility] [address] [place] [address] END OF REPORT
[2018-12-05 12:59] VITALS: BP 149/75
--- NOTE | 2018-12-05 13:14 | NUR ---
PT RESTING COMFORTABLY IN BED, DENIES ANY NEEDS AT THIS TIME. CALL LIGHT IN REACH, NAD NOTED, WILL CONTINUE TO MONITOR.
--- NOTE | 2018-12-05 13:18 | NUR ---
Nutrition Follow-up: Pt sleeping at time of visit. No family at bedside. Lunch tray untouched. Diet: AHA 1500 olegario 2 g Na PO intake: 22% avg meal intake 12/04 No BMs recorded No new wt Labs reviewed Meds reviewed Rec continue current diet as tolerated. Offer nutrition supplements. [place] food preferences within diet restrictions. RD following.
--- NOTE | 2018-12-05 14:09 | MORECARE ---
CASE MANAGEMENT DISCHARGE SUMMARY PATIENT: RICK HUSAIN UNIT: [id number] ADM DATE: 11/29/18 AGE: 78 : 40 SEX: M ROOM/BED: D.2102 AUTHOR: ABIDA CRAWFORD PHYSICIAN: REFERRING PHYSICIAN: IVET CHANDRA MD DATE OF SERVICE: 12/05/18 Discharge Plan Patient Name: RICK HUSAIN Facility: [facility]:[place] : 1940 Planned Disposition: Nursing Facility [facility] Cert Anticipated Discharge Date: 12/05/18 Discharge Date: Expected LOS: 6 Initial Reviewer: [id number] Initial Review Date: 11/28/2018 Generated: 12/05/18 3:09 pm Comments DCP- Discharge Planning Updated by [id number]: Oleksandr Liu on 12/05/18 1:[address] Patient Name: RICK HUSAIN Encounter No: [id number] : 1940 Primary Insurance: MEDICARE A & B Anticipated DC Date: 12-05-2018 Planned Disposition: Nursing Facility [facility] Cert External Planned Provider: [facility], LONG TERM CARE MEDICAID BED Discharge Planning Comments: CM RECEIVED DISCHARGE ORDERS, NOTIFIED SAMUEL OF THE [facility] AT [phone], PT TO TRANSPORT VIA AMBULANCE. CM FAXED DISCHARGE INFORMATION TO THE [facility] [place] AT [phone]. CM CALLED AND NOTIFIED IRMA BUTTS, SPOUSE, , WHO IS IN AGREEMENT WITH DISCHARGE TODAY AND HAS DISCUSSED THIS WITH PT. NURSE REPORT TO BE CALLED TO THE [facility] AT [phone]. PAT TO TRANSPORT VIA AMBULANCE. Glass Ribbon Machine Operator: Oleksandr Liu DCP- Discharge Planning Updated by [email or web address]: Oleksandr Liu on 12/04/18 8:[address] Patient Name: RICK HUSAIN Encounter No: [id number] : 1940 Primary Insurance: MEDICARE A & B Anticipated DC Date: 11-30-2018 Planned Disposition: Nursing Facility [facility] Cert External Planned Provider: [facility], LONG TERM CARE MEDICAID BED Discharge Planning Comments: CM FAXED UPDATE TO THE [facility] [place] AT [phone]. FOR DISCHARGE TO THE [facility], FAX DISCHARGE INFORMATION TO THE [facility] AT [phone]; NURSE REPORT TO BE CALLED TO THE [facility] AT [phone]. PAT TO TRANSPORT VIA AMBULANCE. Glass Ribbon Machine Operator: Oleksandr Liu DCP- Discharge Planning Updated by [id number]: Oleksandr Liu on 11/30/18 11:[address] Patient Name: RICK HUSAIN Admission Status: ER Accout number: [id number] Admission Date: 11-29-2018 : 1940 Admission Diagnosis: Attending: IVET CHANDRA Current LOS: 1 Anticipated DC Date: 11-30-2018 Planned Disposition: Nursing Facility [facility] Cert Primary Insurance: MEDICARE A & B PLANNED EXTERNAL PROVIDER: [facility] Discharge Planning Comments: CM MET WITH PT IN ROOM TO DISCUSS DISCHARGE PLANNING AND NEEDS. PT REPORTS LIVING AT THE [facility] ([facility]). PT IS UP OUT OF BED AT THE [facility] WITH A LIFT TO WHEELCHAIR. CM DISCUSSED AVAILABILITY OF HOME HEALTH, REHAB SERVICES AND MEDICAL EQUIPMENT. PT DENIES DISCHARGE NEEDS, REPORTS HE WILL DISCHARGE BACK TO [facility], REPORTS HIS WILL BE HERE AFTER LUNCH TODAY. CM CALLED SAMUEL OF THE [facility], , VERIFIED PT IS IN RESIDENTIAL CARE BED AND WILL RETURN TO PUBLIC SAFETY POLICE CARE BED AT THE [facility]. CM FAXED UPDATE TO THE [facility] [place] AT [phone]. FOR DISCHARGE TO THE [facility], FAX DISCHARGE INFORMATION TO THE [facility] AT [phone]; NURSE REPORT TO BE CALLED TO THE [facility] AT [phone]. PAT TO TRANSPORT VIA AMBULANCE. Glass Ribbon Machine Operator: Oleksandr Liu DCP- Discharge Planning Updated by [id number]: Chloe Lutz on 11/29/18 5:[address] [facility]. [facility]MITTED TO THE [facility] 12/06/2017. DARLINE DUKENCE - SPOUSE PER ADVANCE CARE PLAN FROM THE [facility]- CONTACT PHONE NUMBER [phone]. ADVANCE DIRECTIVE ON PATIENT HARD COVER CHART. [facility]CP- [facility] PATIENT IS FULL CODE. DCPIA - Discharge Planning Initial Assessment Updated by [id number]: Oleksandr Liu on 11/30/18 12:33 pm * Is the patient Alert and Oriented? Yes * How many steps to enter\exit or inside your home? NONE * PCP DR. Katlyn SALDIVAR * Pharm[facility] [place] * Preadmission Environment [facility] * Facility Name [facility] * ADLs Total Dependent * Equipment Alisson Lift Other * Other Equipment ALL MEDICAL EQUIPMENT PROVIDED BY FACILITY * List name and contact numbers for known caregivers / representatives who currently or will assist patient after discharge: IRMA BUTTS, SPOUSE, * Verbal permission to speak to the caregivers and representatives has been obtained from the patient. Yes * Community resources currently utilized None * Please name any agencies selected above. NONE * Additional services required to return to the preadmission environment? No * Can the patient safely return to the preadmission environment? Yes * Has this patient been hospitalized within the prior 30 days at any hospital? No Coverage Notice Reviewer: [id number] Erika Liu Notice Issued Date-Time: 12/05/2018 8:10 Notice Type: IM Discharge Notice Notice Delivered To: Patient Relationship to Patient: Manufacturing Tech Name: Delivery Method: HAND - Hand Delivered Vesna Days: Prior Verbal Notification: Recipient Understood Notice: Yes Recipient Signature: Yes Med Rec Note Co-signed by Attending: Coverage Notice Comment: Last DP export: 12/05/18 9:16 a Patient Name: RICK HUSAIN Page 70040 at 1409 All edits/amendments must be made on the electronic document DICTATION DATE: 12/05/181408 RETAIL SUPPORT ASSOCIATE: GAUDENCIO 12/05/18 1409 RPT#: [id number] DC DATE: STATUS: ADM IN [facility] [address] [place] [address] END OF REPORT
--- NOTE | 2018-12-05 15:26 | NUR ---
CALLED REPORT TO THE [facility] AND CALLED [facility] TO COME PICK PT UP.
--- NOTE | 2018-12-05 16:25 | NUR ---
PT LEFT UNIT VIA STRETCHER, WITH ALL BELONGINGS, ACCOMPANIED BY EMS, NAD NOTED.
--- NOTE | 2018-12-06 10:07 | MORECARE ---
CASE MANAGEMENT DISCHARGE SUMMARY PATIENT: RICK HUSAIN UNIT: [id number] ADM DATE: 11/29/18 AGE: 78 : 40 SEX: M ROOM/BED: D.2103 AUTHOR: ABIDA CRAWFORD PHYSICIAN: REFERRING PHYSICIAN: IVET CHANDRA MD DATE OF SERVICE: 12/06/18 Discharge Plan Patient Name: RICK HUSAIN Facility: [facility] : 1940 Planned Disposition: Nursing Facility [facility] Cert Anticipated Discharge Date: 12/05/18 Discharge Date: 12/05/2018 Expected LOS: 6 Initial Reviewer: [email or web address] Initial Review Date: 11/28/2018 Generated: 12/06/18 8:16 am Comments DCP- Discharge Planning Updated by [id number]: Oleksandr Liu on 12/06/18 6:[address] Patient Name: RICK HUSAIN Encounter No: [id number] : 1940 Primary Insurance: MEDICARE A & B Anticipated DC Date: 12-05-2018 Planned Disposition: Nursing Facility [facility] Cert External Planned Provider: [facility], MEDICARE SKILLED BED DCP follow-up note: CM RECEIVED MESSAGE FROM SAMUEL OF THE [facility], PT RETURNED TO SK[facility]ED AT [facility] LALITA Fagan DCP- Discharge Planning Updated by [id number]: Oleksandr Liu on 12/05/18 1:[address] Patient Name: RICK HUSAIN Encounter No: [id number] : 1940 Primary Insurance: MEDICARE A & B Anticipated DC Date: 12-05-2018 Planned Disposition: Nursing Facility [facility] Cert External Planned Provider: [facility], LONG TERM CARE MEDICAID BED Discharge Planning Comments: CM RECEIVED DISCHARGE ORDERS, NOTIFIED SAMUEL OF THE [facility] AT [phone], PT TO TRANSPORT VIA AMBULANCE. CM FAXED DISCHARGE INFORMATION TO THE [facility] [place] AT [phone]. CM CALLED AND NOTIFIED IRMA BUTTS, SPOUSE, , WHO IS IN AGREEMENT WITH DISCHARGE TODAY AND HAS DISCUSSED THIS WITH PT. NURSE REPORT TO BE CALLED TO THE [facility] AT [phone]. PAT TO TRANSPORT VIA AMBULANCE. Seed Expert: Oleksandr Liu DCP- Discharge Planning Updated by [id number]: Oleksandr Liu on 12/04/18 8:[address] Patient Name: RICK HUSAIN Encounter No: [id number] : 1940 Primary Insurance: MEDICARE A & B Anticipated DC Date: 11-30-2018 Planned Disposition: Nursing Facility [facility] Cert External Planned Provider: [facility], LONG TERM CARE MEDICAID BED Discharge Planning Comments: CM FAXED UPDATE TO THE [facility] [place] AT [phone]. FOR DISCHARGE TO THE [facility], FAX DISCHARGE INFORMATION TO THE [facility] AT [phone]; NURSE REPORT TO BE CALLED TO THE [facility] AT [phone]. PAT TO TRANSPORT VIA AMBULANCE. Seed Expert: Oleksandr Liu NYP- Discharge Planning Updated by [id number]: Oleksandr Liu on 11/30/18 11:[address] Patient Name: RICK HUSAIN Admission Status: ER Accout number: [id number] Admission Date: 11-29-2018 : 1940 Admission Diagnosis: Attending: IVET CHANDRA Current LOS: 1 Anticipated DC Date: 11-30-2018 Planned Disposition: Nursing Facility [facility] Primary Insurance: MEDICARE A & B PLANNED EXTERNAL PROVIDER: THE [facility] Discharge Planning Comments: CM MET WITH PT IN ROOM TO DISCUSS DISCHARGE PLANNING AND NEEDS. PT REPORTS LIVING AT THE [facility]AY ([facility]). PT IS UP OUT OF BED AT THE [facility]AY WITH A LIFT TO WHEELCHAIR. CM DISCUSSED AVAILABILITY OF HOME HEALTH, REHAB SERVICES AND MEDICAL EQUIPMENT. PT DENIES DISCHARGE NEEDS, REPORTS HE WILL DISCHARGE BACK TO [facility], REPORTS HIS WILL BE HERE AFTER LUNCH TODAY. CM CALLED SAMUEL OF THE [facility], , VERIFIED PT IS IN JAIL CARE BED AND WILL RETURN TO JAIL CARE BED AT THE [facility]. CM FAXED UPDATE TO THE [facility] VIA [place] AT [phone]. FOR DISCHARGE TO THE [facility], FAX DISCHARGE INFORMATION TO THE [facility] AT [phone]; NURSE REPORT TO BE CALLED TO THE [facility] AT [phone]. PAT TO TRANSPORT VIA AMBULANCE. Seed Expert: Oleksandr Liu DCP- Discharge Planning Updated by [email or web address]: Chloe Lutz on 11/29/18 5:[address] [facility]IENT [facility] [place]. ADMITTED TO THE [facility] 12[facility]06/2017. DARLINE BUTTS - SPOUSE PER ADVANCE CARE PLAN FROM THE [facility]- CONTACT PHONE NUMBER [phone]. ADVANCE DIRECTIVE ON PATIENT HARD COVER CHART. PCP- [facility] [place] PATIENT IS FULL CODE. DCPIA - Discharge Planning Initial Assessment Updated by [id number]: Oleksandr Liu on 11/30/18 12:33 pm * Is the patient Alert and Oriented? Yes * How many steps to enter\exit or inside your home? NONE * PCP DR. Katlyn SALDIVAR * Pharm[facility] [place] * Preadmission Environment Director Biostatistics Halfway * Facility Name [facility] * ADLs Total Dependent * Equipment Alisson Lift Other * Other Equipment ALL MEDICAL EQUIPMENT PROVIDED BY FACILITY * List name and contact numbers for known caregivers / representatives who currently or will assist patient after discharge: IRMA BUTTS, SPOUSE, * Verbal permission to speak to the caregivers and representatives has been obtained from the patient. Yes * Community resources currently utilized None * Please name any agencies selected above. NONE * Additional services required to return to the preadmission environment? No * Can the patient safely return to the preadmission environment? Yes * Has this patient been hospitalized within the prior 30 days at any hospital? No Coverage Notice Reviewer: [id number] - Oleksandr Liu Notice Issued Date-Time: 12/05/2018 8:10 Notice Type: IM Discharge Notice Notice Delivered To: Patient Relationship to Patient: Digital Publishing Specialist Name: Delivery Method: HAND - Hand Delivered Vesna Days: Prior Verbal Notification: Recipient Understood Notice: Yes Recipient Signature: Yes Med Rec Note Co-signed by Attending: Coverage Notice Comment: Last DP export: 12/05/18 1:09 p Patient Name: RICK HUSAIN Page 56715 at 1007 All edits/amendments must be made on the electronic document DICTATION DATE: 12/06/18715 LOCATOR: GAUDENCIO 12/06/1816 RPT#: [id number] DC DATE:12/05/18 STATUS: DIS IN [facility] [address] [place] [address] END OF REPORT
--- NOTE | 2018-12-06 13:07 | MORECARE ---
CASE MANAGEMENT DISCHARGE SUMMARY PATIENT: RICK HUSAIN UNIT: [id number] ADM DATE: 11/29/18 AGE: 78 : 40 SEX: M ROOM/BED: D.2101 AUTHOR: ABIDA CRAWFORD PHYSICIAN: REFERRING PHYSICIAN: IVET CHANDRA MD DATE OF SERVICE: 12/06/18 Discharge Plan Patient Name: RICK HUSAIN Facility: [facility] : 1940 Planned Disposition: Nursing Facility [facility] Cert Anticipated Discharge Date: 12/05/18 Discharge Date: 12/05/2018 Expected LOS: 6 Initial Reviewer: [id number] Initial Review Date: 11/28/2018 Generated: 12/06/18 2:06 pm Comments DCP- Discharge Planning Updated by [email or web address]: Oleksandr Liu on 12/06/18 6:[address] Patient Name: RICK HUSAIN Encounter No: [id number] : 1940 Primary Insurance: MEDICARE A & B Anticipated DC Date: 12-05-2018 Planned Disposition: Nursing Facility [facility] Cert External Planned Provider: [facility], MEDICARE SKILLED BED DCP follow-up note: CM RECEIVED MESSAGE FROM SAMUEL OF [facility], [facility] LALITA Fagan DCP- Discharge Planning Updated by [id number]: Oleksandr Liu on 12/05/18 1:[address] Patient Name: RICK HUSAIN Encounter No: [id number] : 1940 Primary Insurance: MEDICARE A & B Anticipated DC Date: 12-05-2018 Planned Disposition: Nursing Facility [facility] Cert External Planned Provider: [facility], LONG TERM CARE MEDICAID BED Discharge Planning Comments: CM RECEIVED DISCHARGE ORDERS, NOTIFIED SAMUEL OF THE [facility] AT [phone], PT TO TRANSPORT VIA AMBULANCE. CM FAXED DISCHARGE INFORMATION TO THE [facility]IA [place] AT [phone]. CM CALLED AND NOTIFIED IRMA BUTTS, SPOUSE, , WHO IS IN AGREEMENT WITH DISCHARGE TODAY AND HAS DISCUSSED THIS WITH PT. NURSE REPORT TO BE CALLED TO THE [facility] AT [phone]. PAT TO TRANSPORT VIA AMBULANCE. Link Trainer Teacher: Oleksandr Liu DCP- Discharge Planning Updated by [id number]: Oleksandr Liu on 12/04/18 8:[address] Patient Name: RICK HUSAIN Encounter No: [id number] : 1940 Primary Insurance: MEDICARE A & B Anticipated DC Date: 11-30-2018 Planned Disposition: Nursing Facility [facility] Cert External Planned Provider: [facility], LONG TERM CARE MEDICAID BED Discharge Planning Comments: CM FAXED UPDATE TO THE [facility] [place] AT [phone]. FOR DISCHARGE TO THE [facility], FAX DISCHARGE INFORMATION TO THE [facility] AT [phone]; NURSE REPORT TO BE CALLED TO THE [facility] AT [phone]. PAT TO TRANSPORT VIA AMBULANCE. Link Trainer Teacher: Oleksandr Liu VAP- Discharge Planning Updated by [id number]: Oleksandr Liu on 11/30/18 11:[address] Patient Name: RICK HUSAIN Admission Status: ER Accout number: [id number] Admission Date: 11-29-2018 : 1940 Admission Diagnosis: Attending: IVET CHANDRA Current LOS: 1 Anticipated DC Date: 11-30-2018 Planned Disposition: Nursing Facility [facility] Primary Insurance: MEDICARE A & B PLANNED EXTERNAL PROVIDER: [facility] Discharge Planning Comments: CM MET WITH PT IN ROOM TO DISCUSS DISCHARGE PLANNING AND NEEDS. PT REPORTS LIVING AT THE SNF ([facility]). PT IS UP OUT OF BED AT THE SNF WITH A LIFT TO WHEELCHAIR. CM DISCUSSED AVAILABILITY OF HOME HEALTH, REHAB SERVICES AND MEDICAL EQUIPMENT. PT DENIES DISCHARGE NEEDS, REPORTS HE WILL DISCHARGE BACK TO [facility], REPORTS HIS WILL BE HERE AFTER LUNCH TODAY. CM CALLED SAMUEL OF THE [facility], , VERIFIED PT IS IN SKILLED NURSING CARE BED AND WILL RETURN TO SKILLED NURSING CARE BED AT THE [facility]. CM FAXED UPDATE TO THE [facility] VIA [place] AT [phone]. FOR DISCHARGE TO THE [facility], FAX DISCHARGE INFORMATION TO THE [facility] AT [phone]; NURSE REPORT TO BE CALLED TO THE [facility] AT [phone]. PAT TO TRANSPORT VIA AMBULANCE. Link Trainer Teacher: Oleksandr Liu DCP- Discharge Planning Updated by [id number]: Chloe Lutz on 11/29/18 5:[address] [facility] [place] ADMITTED TO THE [facility] 12/06/2017. DARLINE BUTTS - SPOUSE PER ADVANCE CARE PLAN FROM THE [facility]- CONTACT PHONE NUMBER [phone]. ADVANCE DIRECTIVE ON PATIENT HARD COVER CHART. PCP- [facility] [place] PATIENT IS FULL CODE. DCPIA - Discharge Planning Initial Assessment Updated by [id number]: Oleksandr Liu on 11/30/18 12:33 pm * Is the patient Alert and Oriented? Yes * How many steps to enter\exit or inside your home? NONE * PCP DR. Katlyn SALDIVAR * Pharmacy [facility] [place] * Preadmission Environment Steam [employer] Detention * Facility Name [facility] * ADLs Total Dependent * Equipment Alisson Lift Other * Other Equipment ALL MEDICAL EQUIPMENT PROVIDED BY FACILITY * List name and contact numbers for known caregivers / representatives who currently or will assist patient after discharge: IRMA BUTTS, SPOUSE, * Verbal permission to speak to the caregivers and representatives has been obtained from the patient. Yes * Community resources currently utilized None * Please name any agencies selected above. NONE * Additional services required to return to the preadmission environment? No * Can the patient safely return to the preadmission environment? Yes * Has this patient been hospitalized within the prior 30 days at any hospital? No External Providers External Provider: [facility] Next Contact Date: Service Request Date: Service Type: Resolution: Reviewer: Comments: Coverage Notice Reviewer: [id number] - Oleksandr Liu Notice Issued Date-Time: 12/05/2018 8:10 Notice Type: IM Discharge Notice Notice Delivered To: Patient Relationship to Patient: Ergonomics Engineer Name: Delivery Method: HAND - Hand Delivered Vesna Days: Prior Verbal Notification: Recipient Understood Notice: Yes Recipient Signature: Yes Med Rec Note Co-signed by Attending: Coverage Notice Comment: Last DP export: 12/06/18 6:17 a Patient Name: RICK HUSAIN Page 36631 at 1307 All edits/amendments must be made on the electronic document DICTATION DATE: 12/06/18 1306 MARKETING PROFESSIONAL: GAUDENCIO 12/06/18 1306 RPT#: [id number] DC DATE:12/05/18 STATUS: DIS IN [facility] [address] [place] [address] END OF REPORT
== END 2018-12-05 16:26 | DRG 286 ==
LOC: D.ER 15:38 → D.M2 18:55 → OBSVTIME 19:07 → D.M2 22:09
PROVIDERS: Emergency Medicine; Internal Medicine Cardiovascular Disease; Internal Medicine Nephrology; ADMIT Family Medicine; ATTEND Family Medicine
PROC: B2151ZZ Fluoroscopy of Left Heart using Low Osmolar Contrast (ICD-10-PCS; 2018-12-03)
PROC: 4A023N7 Measurement of Cardiac Sampling and Pressure, Left Heart, Percutaneous Approach (ICD-10-PCS; 2018-12-03)
PROC: B2111ZZ Fluoroscopy of Multiple Coronary Arteries using Low Osmolar Contrast (ICD-10-PCS; principal; 2018-12-03 12:15)
DX: I11.0 Hypertensive heart disease with heart failure (principal); R53.2 Functional quadriplegia; N17.9 Acute kidney failure, unspecified; I47.2 Ventricular tachycardia; R55 Syncope and collapse; I50.23 Acute on chronic systolic (congestive) heart failure; I42.9 Cardiomyopathy, unspecified; G30.9 Alzheimer's disease, unspecified; F02.80 Dementia in other diseases classified elsewhere, unspecified severity, without behavioral disturbance, psychotic disturbance, mood disturbance, and anxiety; I25.10 Atherosclerotic heart disease of native coronary artery without angina pectoris; Z95.0 Presence of cardiac pacemaker; J43.9 Emphysema, unspecified; E87.6 Hypokalemia; D64.9 Anemia, unspecified; S09.90XA Unspecified injury of head, initial encounter; W01.0XXA Fall on same level from slipping, tripping and stumbling without subsequent striking against object, initial encounter; I08.0 Rheumatic disorders of both mitral and aortic valves

== ENCOUNTER 2018-12-07 14:36 | Emergency (ER) | payer MEDICARE ==
[~2018-12-07] VITALS: Ht 172.7 cm; Wt 59.1 kg
[~2018-12-07 14:36] MED LIST changes: +CLONAZEP
[2018-12-07 14:48] VITALS: Ht 172.7 cm; Wt 59.1 kg
[2018-12-07 15:17] LABS: BASOPHILS 0.2 % (0-2); EOSINOPHILS 4.1 % (0-7); HEMATOCRIT 36.3 % (42.0-54.0); IMMATURE GRANULOCYTES 0.3 % (0-5); MCH 30.3 pg (26.0-34.0); MCHC 33.1 g/dL (31.0-37.0); MCV 91.7 fL (80.0-100.0); MEAN PLATELET VOLUME 10.3 fL (7.4-10.4); MONOCYTES 6.8 % (2-11); NEUTROPHILS 69.6 % (40-80); PLATELET COUNT 193 10x3/uL (130-400); RBC 3.96 10x6/uL (4.20-6.10); RDW 13.5 % (11.5-14.5); WBC 8.6 10x3/uL (4.8-10.8)
[2018-12-07 15:40] LABS: ALBUMIN 2.8 g/dL (3.4-5.0); BILIRUBIN - TOTAL 0.4 mg/dL (0.2-1.3); CALCIUM 9.1 mg/dL (8.5-10.1); CARBON DIOXIDE 28.6 mmol/L (21.0-32.0); CREATININE - SERUM 1.2 mg/dL (0.6-1.3); POTASSIUM - SERUM 3.6 mmol/L (3.5-5.1)
[2018-12-07 15:48] LABS: TROPONIN-I 0.044 ng/mL (0.000-0.060)
[2018-12-07 16:55] LABS: APPEARANCE CLEAR (CLEAR); BILIRUBIN NEGATIVE (NEGATIVE); COLOR YELLOW (YELLOW); GLUCOSE NEGATIVE (NEGATIVE); KETONE NEGATIVE (NEGATIVE); NITRITE NEGATIVE (NEGATIVE); PROTEIN NEGATIVE (NEGATIVE); SPECIFIC GRAVITY 1.025 (1.005-1.020); UROBILINOGEN NORMAL (NORMAL)
[2018-12-07] MEDS ORDERED: CHRONULAC30 ML PO (18:37)
[2018-12-07 21:28] VITALS: BP 117/62
== END 2018-12-07 21:20 | disposition home or self-care (01) ==
LOC: D.ER 14:36
PROVIDERS: Family Medicine
DX: R11.2 Nausea with vomiting, unspecified (principal); K59.00 Constipation, unspecified; F03.90 Unspecified dementia, unspecified severity, without behavioral disturbance, psychotic disturbance, mood disturbance, and anxiety; Z86.79 Personal history of other diseases of the circulatory system; I10 Essential (primary) hypertension

== ENCOUNTER 2019-01-11 11:48 | Inpatient (IN) | payer MEDICARE ==
[~2019-01-11] VITALS: Ht 172.7 cm; Wt 52.2 kg
[~2019-01-11 11:48] MED LIST changes: +CHRONULAC30 ML PO
[2019-01-11 13:33] LABS: INR 1.02 (0.85-1.17); PROTIME 12.9 SECONDS (11.6-15.0)
[2019-01-11 13:39] LABS: BASOPHILS 0.3 % (0-2); EOSINOPHILS 3.7 % (0-7); HEMOGLOBIN 12.6 g/dL (13.5-17.5); IMMATURE GRANULOCYTES 0.5 % (0-5); LYMPHOCYTES 18.9 % (15-50); MCH 29.7 pg (26.0-34.0); MCHC 33.2 g/dL (31.0-37.0); MCV 89.6 fL (80.0-100.0); MEAN PLATELET VOLUME 10.4 fL (7.4-10.4); MONOCYTES 11.5 % (2-11); NEUTROPHILS 65.1 % (40-80); PLATELET COUNT 204 10x3/uL (130-400); RBC 4.24 10x6/uL (4.20-6.10); RDW 13.5 % (11.5-14.5); WBC 6.2 10x3/uL (4.8-10.8)
[2019-01-11 13:42] LABS: ALBUMIN 2.6 g/dL (3.4-5.0); ALKALINE PHOSPHATASE 110 U/L (46-116); ALT (SGPT) 12 U/L (10-68); BILIRUBIN - TOTAL 0.27 mg/dL (0.2-1.3); CALC OSMOLALITY 283 mosm/kg (275-300); CALCIUM 8.9 mg/dL (8.5-10.1); CARBON DIOXIDE 28.3 mmol/L (21.0-32.0); CHLORIDE - SERUM 105 mmol/L (98-107); GLUCOSE 93 mg/dL (74-106); POTASSIUM - SERUM 3.4 mmol/L (3.5-5.1); SODIUM 141 mmol/L (136-145); UREA NITROGEN 22 mg/dL (7-18); eGFR NON AFRICAN AMERICAN 77 mL/min (90-120)
[2019-01-11 13:54] LABS: CKMB 0.9 U/L (0.0-3.6); CREATINE KINASE 85 UL (21-232); PRO BNP 5610 pg/mL (0-450); THYROID STIMULATING HORMONE 2.47 uIU/mL (0.36-3.74); TROPONIN-I 0.022 ng/mL (0.000-0.060)
[2019-01-11 14:49] LABS: COLOR YELLOW (YELLOW)
[2019-01-11 14:50] LABS: APPEARANCE SL CLDY (CLEAR); BILIRUBIN NEGATIVE (NEGATIVE); GLUCOSE NEGATIVE (NEGATIVE); KETONE NEGATIVE (NEGATIVE); NITRITE NEGATIVE (NEGATIVE); PROTEIN NEGATIVE (NEGATIVE); SPECIFIC GRAVITY 1.015 (1.005-1.020); UROBILINOGEN NORMAL (NORMAL)
[2019-01-11 14:54] LABS: BACTERIA MODERATE /hpf (NEGATIVE); RED CELLS - URINE 0-5 /hpf (0-5); WHITE CELLS - URINE 25-50 /hpf (NEGATIVE)
[2019-01-11 17:24] VITALS: BP 170/70
--- NOTE | 2019-01-11 17:34 | NUR ---
REPORT TO MYAH SHARMA AT EXTENTION 1150. PATIENT TO BE ADMITTED TO ROOM 1207.
--- NOTE | 2019-01-11 18:20 | MORECARE ---
CASE MANAGEMENT DISCHARGE SUMMARY PATIENT: RICK HUSAIN UNIT: [id number] ADM DATE: 01/11/19 AGE: 78 : 40 SEX: M ROOM/BED: D.1207 AUTHOR: ABIDA CRAWFORD PHYSICIAN: REFERRING PHYSICIAN: AMINA JOYA MD DATE OF SERVICE: 01/11/19 Discharge Plan Patient Name: RICK UHSAIN Facility: [facility]:[place] : 1940 Planned Disposition: Anticipated Discharge Date: Discharge Date: Expected LOS: Initial Reviewer: [email or web address] Initial Review Date: 01/11/2019 Generated: 01/11/19 7:19 pm Patient Name: RICK HUSAIN Page 40046 at 1820 All edits/amendments must be made on the electronic document DICTATION DATE: 01/11/191818 AIRCRAFT LOAD CONTROLLER: GAUDENCIO 01/11/191818 RPT#: [id number] DC DATE: STATUS: ADM IN [facility] [address] [place] [address] END OF REPORT
--- NOTE | 2019-01-11 18:30 | NUR ---
PT ARRIVED FROM ER VIA STRETCHER TRANSFERED TO BED. ORIENTED TO ROOM SHOWED PT HOW TO USE CALL LIGHT. PT HAS NO FURTHER NEEDS AT THIS TIME. BED LOW. CL IN REACH.
[2019-01-11 20:21] VITALS: BP 127/74
[2019-01-11 20:26] VITALS: BP 127/74; BMI 17.5
[2019-01-12] VITALS: BP 136/77
[2019-01-12 04:00] VITALS: BP 170/67; BP 182/82
[2019-01-12 07:17] LABS: BASOPHILS 0.5 % (0-2); EOSINOPHILS 1.6 % (0-7); HEMATOCRIT 35.8 % (42.0-54.0); HEMOGLOBIN 11.9 g/dL (13.5-17.5); IMMATURE GRANULOCYTES 0.4 % (0-5); LYMPHOCYTES 16.8 % (15-50); MCH 29.9 pg (26.0-34.0); MCHC 33.2 g/dL (31.0-37.0); MCV 89.9 fL (80.0-100.0); MEAN PLATELET VOLUME 10.3 fL (7.4-10.4); MONOCYTES 9.9 % (2-11); NEUTROPHILS 70.8 % (40-80); PLATELET COUNT 219 10x3/uL (130-400); RBC 3.98 10x6/uL (4.20-6.10); RDW 13.4 % (11.5-14.5)
[2019-01-12 07:19] LABS: WBC 8.6 10x3/uL (4.8-10.8)
--- NOTE | 2019-01-12 07:23 | NUR ---
AM ROUNDS- PT RESTING COMFORTABLY IN BED UPON ENTERING. BREATHING EVEN AND NONLABORED, NO S/S OF DISTRESS NOTED AT THIS TIME. BED IN LOWEST POSITION, BED RAILS X2, CALL LIGHT WITHIN REACH. WILL CTM.
[2019-01-12 07:36] LABS: CALC OSMOLALITY 292 mosm/kg (275-300); CALCIUM 8.6 mg/dL (8.5-10.1); CARBON DIOXIDE 27.6 mmol/L (21.0-32.0); CHLORIDE - SERUM 111 mmol/L (98-107); CREATININE - SERUM 0.9 mg/dL (0.6-1.3); GLUCOSE 92 mg/dL (74-106); PHOSPHOROUS 2.7 mg/dL (2.5-4.9); POTASSIUM - SERUM 4.1 mmol/L (3.5-5.1); SODIUM 146 mmol/L (136-145); UREA NITROGEN 18 mg/dL (7-18); eGFR NON AFRICAN AMERICAN 87 mL/min (90-120)
--- NOTE | 2019-01-12 08:51 | NUR ---
PT IS STILL RESTING COMFORTABLY IN BED WITH EYES CLOSED. BREATHING EVEN AND NONLABORED, NO S/S OF DISTRESS NOTED AT THIS TIME. WILL CTM.
[2019-01-12 08:54] VITALS: Ht 172.7 cm; Wt 52.2 kg
--- NOTE | 2019-01-12 11:14 | NUR ---
ADMINISTERED MEDICATION AT THIS TIME, NO TROUBLE SWALLOWING. PT IS RESTING COMFORTABLY IN BED. DENIES ANY NEEDS AT THIS TIME. WILL CTM.
[2019-01-12 13:07] VITALS: BP 185/91
--- NOTE | 2019-01-12 13:33 | NUR ---
I have reviewed this patient and I concur with the Shift Assessment completed by the Licensed Practical Nurse today this shift.
--- NOTE | 2019-01-12 16:05 | MORECARE ---
CASE MANAGEMENT DISCHARGE SUMMARY PATIENT: RICK HUSAIN UNIT: [id number] ADM DATE: 01/11/19 AGE: 78 : 40 SEX: M ROOM/BED: D.1207 AUTHOR: ABIDA CRAWFORD PHYSICIAN: REFERRING PHYSICIAN: AMINA JOYA MD DATE OF SERVICE: 01/12/19 Discharge Plan Patient Name: RICK HUSAIN Facility: [facility]:[place] : 1940 Planned Disposition: Anticipated Discharge Date: Discharge Date: Expected LOS: Initial Reviewer: [email or web address] Initial Review Date: 01/11/2019 Generated: 01/12/19 5:05 pm Comments DCP- Discharge Planning Updated by [id number]: Libby Loja on 01/12/19 3:[address] CM contacted [facility] regarding dc plans for patient. Per Kati, patient had just completed 30 days of residential, 12/31/18. Libby Loja RN Last DP export: 01/11/19 5:20 p Patient Name: RICK HUSAIN Page 35885 at 1605 All edits/amendments must be made on the electronic document DICTATION DATE: 01/12/19 160 TRANSPORT TECH: GAUDENCIO 01/12/19 160 RPT#: [id number] DC DATE: STATUS: ADM IN [facility] [address] [place] [address] END OF REPORT
--- NOTE | 2019-01-12 16:35 | NUR ---
HUNG IV ANTIBIOTIC, NO IV PAIN REPORTED. PT IS RESTING COMFORTABLY IN BED AT THIS TIME. DENIES OTHER NEEDS. WILL CTM.
--- NOTE | 2019-01-12 18:36 | NUR ---
FULL LINEN CHANGE FOR BOWEL/BLADDER INCONT EPISODE. PT IS RESTING COMFORTABLY AND DENIE ANY OTHER NEEDS AT THIS TIME. WILL CTM.
--- NOTE | 2019-01-12 18:50 | MORECARE ---
CASE MANAGEMENT DISCHARGE SUMMARY PATIENT: RICK HUSAIN UNIT: [id number] ADM DATE: 01/11/19 AGE: 78 : 40 SEX: M ROOM/BED: D.1207 AUTHOR: TYDOC PHYSICIAN: REFERRING PHYSICIAN: AMINA JOYA MD DATE OF SERVICE: 01/12/19 Discharge Plan Patient Name: RICK HUSAIN Facility: [facility]:[place] : 1940 Planned Disposition: Anticipated Discharge Date: Discharge Date: Expected LOS: Initial Reviewer: [email or web address] Initial Review Date: 01/11/2019 Generated: 01/12/19 7:50 pm Comments DCP- Discharge Planning Updated by [email or web address]: Libby Loja on 01/12/19 5:[address] CM met with patient and for DC planning needs. CM explained the purpose of interview, patient gives permission for same. (of 32 years) states patient lives at The [facility] #[phone], ( in a long-term bed). Patient/spouse state that the patient has had increasing falls from his w/c and she is no longer able to care for him at home. Patient has been a resident @The [facility] for approximately 1 year. Patient has a diagnosis of Alzeimers dementia and has a difficult time remembering events. states he is totally dependent with his care. PCP: MONSTER RIVAS. [place] [facility] DME: W/C bound--non-ambulatory. Emergency contact: Esperanza Garcia () #[phone]. Community Resources: none. States he does not require additional services at this time. Denies being admitted to a hospital within past 30 days. [place] van or [place].CM will follow and assist with DC needs PRN. DCP- Discharge Planning Updated by [email or web address]: Libby Loja on 01/12/19 3:[address] CM contacted The [facility] regarding dc plans for patient. Per Kati, patient had just completed 30 days of retirement, 12/31/18. Libby Loja RN Last DP export: 01/12/19 3:05 p Patient Name: RICK HUSAIN Page 47411 at 1850 All edits/amendments must be made on the electronic document DICTATION DATE: 01/12/191849 CURATORIAL ASSISTANT: GAUDENCIO 01/12/191849 RPT#: [id number] DC DATE: STATUS: ADM IN [facility] [address] [place] [address] END OF REPORT
--- NOTE | 2019-01-12 19:30 | NUR ---
RESTING IN BED WITH EYES OPEN AND TELEVISION ON, IN GOOD SPIRITS. PLEASANTLY CONFUSED. SHOWS NO S/S OF ANY ACUTE DISTRESS. IV TO LEFT FOREARM IS PATENT. DENIES ANY PAIN AT THIS TIME. WILL NOTE ANY CHANGE.
[2019-01-12 20:00] VITALS: BP 112/68
[2019-01-13 00:21] VITALS: BP 174/75
--- NOTE | 2019-01-13 01:25 | NUR ---
I have reviewed this patient and I concur with the Shift Assessment completed by the Licensed Practical Nurse today this shift.
[2019-01-13 05:00] VITALS: BP 185/86
[2019-01-13 06:00] LABS: BASOPHILS 0.2 % (0-2); EOSINOPHILS 2.2 % (0-7); HEMATOCRIT 34.3 % (42.0-54.0); HEMOGLOBIN 11.5 g/dL (13.5-17.5); IMMATURE GRANULOCYTES 0.2 % (0-5); LYMPHOCYTES 17.2 % (15-50); MCH 29.9 pg (26.0-34.0); MCHC 33.5 g/dL (31.0-37.0); MCV 89.3 fL (80.0-100.0); MEAN PLATELET VOLUME 10.4 fL (7.4-10.4); NEUTROPHILS 69.2 % (40-80); PLATELET COUNT 242 10x3/uL (130-400); RBC 3.84 10x6/uL (4.20-6.10); RDW 13.5 % (11.5-14.5); WBC 8.3 10x3/uL (4.8-10.8)
[2019-01-13 06:22] LABS: CALC OSMOLALITY 285 mosm/kg (275-300); CALCIUM 8.3 mg/dL (8.5-10.1); CARBON DIOXIDE 26.5 mmol/L (21.0-32.0); CHLORIDE - SERUM 107 mmol/L (98-107); CREATININE - SERUM 0.9 mg/dL (0.6-1.3); GLUCOSE 83 mg/dL (74-106); MAGNESIUM - SERUM 1.8 mg/dL (1.8-2.4); POTASSIUM - SERUM 3.9 mmol/L (3.5-5.1); SODIUM 143 mmol/L (136-145); UREA NITROGEN 17 mg/dL (7-18); eGFR NON AFRICAN AMERICAN 87 mL/min (90-120)
--- NOTE | 2019-01-13 08:00 | NUR ---
PT IS RESTING COMFORTABLY IN BED SUPINE WITH EYES CLOSED, BREATHING EVEN AND NONLABORED. EASILY AROUSES TO VOICE. VITALS ASSESSED AT THIS TIME. DENIES ANY NEEDS WILL CTM. BP: 189/86 P:61 R:16 02: 95% ROOM AIR
--- NOTE | 2019-01-13 08:55 | NUR ---
PT UPRIGHT IN BED, ENCOURAGED PT TO EAT BREAKST, HE IS EATING HIS CEREAL. RESTING COMFORTABLY IN BED AND DENIES ANY NEEDS AT THIS TIME. WILL REQUEST SOME KIND OF BLOOD PRESSURE MEDICATION TODAY, MORNING BP WAS 189/86. WILL CTM.
[2019-01-13 08:58] VITALS: BP 189/86
--- NOTE | 2019-01-13 10:58 | NUR ---
ADMINISTERED MEDICATION AT THIS TIME, NO TROUBLE SWALLOWING. PT IS RESTING COMFORTABLY IN BED. DENIES ANY NEEDS AT THIS TIME. WILL CTM.
--- NOTE | 2019-01-13 11:10 | NUR ---
SPOKE TO DR. JOYA ON THE PHONE, SHE REQUESTED I CALL [facility] AND SEE IF PT IS ABLE TO COME BACK. I CALLED WITH NO ANSWER. WILL TRY AGAIN.
--- NOTE | 2019-01-13 12:00 | NUR ---
ATTEMPTED TO CONTACT [facility] AGAIN, STILL NO ANSWER.
--- NOTE | 2019-01-13 12:35 | NUR ---
ATTEMPTED TO CONTACT [facility] AGAIN, STILL NO ANSWER.
--- NOTE | 2019-01-13 12:55 | NUR ---
PT IV INFILTRATED, REMOVED WITH CATHETER TIP INTACT, COVERED WITH 2X2'S AND PAPER TAPE. TOLERATED WELL. WILL RESITE.
--- NOTE | 2019-01-13 13:01 | NUR ---
CHANGED PT BRIEF AND LINEN DUE TO BLADDER INCONT EPISODE. SITUATED PT COMFORTABLY IN BED, UPRIGHT. ENCOURAGED PT TO EAT LUNCH, SET TRAY UP FOR HIM. DENIES ANY NEEDS OR HELP WITH TRAY. WILL CTM.
--- NOTE | 2019-01-13 13:06 | NUR ---
I have reviewed this patient and I concur with the Shift Assessment completed by the Licensed Practical Nurse today this shift.
--- NOTE | 2019-01-13 13:10 | NUR ---
ATTEMPTED TO CONTACT [facility] AGAIN, NO ANSWER.
--- NOTE | 2019-01-13 13:10 | NUR ---
RESITED PT IV TO RIGHT FOREARM.
[2019-01-13] MEDS ORDERED: CIPRO250 MG PO (13:12)
--- NOTE | 2019-01-13 13:48 | NUR ---
ATTEMPTED TO CONTACT [facility], NO ANSWER.
--- NOTE | 2019-01-13 14:07 | NUR ---
SPOKE WITH THE [facility], THEY WILL BE PICKING PT UP IN THE AM IN ORDER TO PLACE HIM IN THERAPY UPON RETURN. ALL DISCHARGE PAPERWORK WILL BE DONE.
--- NOTE | 2019-01-13 14:23 | MORECARE ---
CASE MANAGEMENT DISCHARGE SUMMARY PATIENT: RICK HUSAIN UNIT: [id number] ADM DATE: 01/11/19 AGE: 78 : 40 SEX: M ROOM/BED: D.1207 AUTHOR: TY,DOC PHYSICIAN: REFERRING PHYSICIAN: AMINA JOYA MD DATE OF SERVICE: 01/13/19 Discharge Plan Patient Name: RICK HUSAIN Facility: [facility]:[place] : 1940 Planned Disposition: Senior Living Facility Anticipated Discharge Date: Discharge Date: Expected LOS: Initial Reviewer: [email or web address] Initial Review Date: 01/11/2019 Generated: 01/13/19 3:23 pm Comments DCP- Discharge Planning Updated by [email or web address]: Chloe Lutz on 01/13/19 1:[address] [facility] WILL ACCEPT THE PATIENT BACK ON MONDAY AND WILL PROVIDE TRANSPORTATION. PRIMARY NURSE REPORTS THE ABOVE CONVERSATION WITH THE [facility]. DCP- Discharge Planning Updated by [email or web address]: Libby Loja on 01/12/19 5:[address] CM met with patient and for DC planning needs. CM explained the purpose of interview, patient gives permission for same. (of 32 years) states patient lives at The [facility] #[phone], ( in a long-term bed). Patient/spouse state that the patient has had increasing falls from his w/c and she is no longer able to care for him at home. Patient has been a resident @The [facility] for approximately 1 year. Patient has a diagnosis of Alzeimers dementia and has a difficult time remembering events. states he is totally dependent with his care. PCP: MONSTER RIVAS. [place]acy[place] [facility]. DME: W/C bound--non-ambulatory. Emergency contact: Esperanza Garcia () #[phone]. Community Resources: none. States he does not require additional services at this time. Denies being admitted to a hospital within past 30 days. Transportation [place] be [place] van or ambulance.CM will follow and assist with DC needs PRN. DCP- Discharge Planning Updated by [id number]: Libby Loja on 01/12/19 3:[address] CM contacted The [facility] regarding dc plans for patient. Per Kati, patient had just completed 30 days of long term, 12/31/18. Libby Loja RN Last DP export: 01/12/19 5:50 p Patient Name: RICK HUSAIN Page [phone] at 1423 All edits/amendments must be made on the electronic document DICTATION DATE: 01/13/191422 REVENUE ACCOUNTANT: GAUDENCIO 01/13/191422 RPT#: [id number] DC DATE: STATUS: ADM IN [facility] [address] [place] [address] END OF REPORT
--- NOTE | 2019-01-13 14:28 | NUR ---
CONTACTED PT TO LET HER KNOW HE WILL BE DISCHARGING HOME TO THE [facility] IN THE AM.
--- NOTE | 2019-01-13 18:09 | NUR ---
CHANGED PT LINENS DUE TO SPELL OF BLADDER INCONT. ALSO PUT A NEW GOWN ON PT. SITUATED COMFORTABLY IN BED. DENIES ANY NEEDS AT THIS TIME. WILL CTM.
--- NOTE | 2019-01-13 19:12 | NUR ---
PT RESTING QUIETLY. EYES CLOSED. CL IN REACH. RESP EVEN AND UNLABORED. A/O X2 CONFUSED TO TIME AND SITUATION. BED IN LOW SIDE RAILS X2. BED ALARM ON. WILL CONTINUE TO MONITOR
[2019-01-13 19:50] VITALS: BP 183/87
--- NOTE | 2019-01-13 23:05 | NUR ---
PT RESTING QUIETLY. CL IN REACH. NO DISTRESS NOTED. EYES CLOSED. WCTM
[2019-01-13 23:30] VITALS: BP 193/97
--- NOTE | 2019-01-14 01:10 | NUR ---
I have reviewed this patient and I concur with the Shift Assessment completed by the Licensed Practical Nurse today this shift.
--- NOTE | 2019-01-14 03:30 | NUR ---
PT RESTING QUIETLY. CL IN REACH. NO DISTRESS NOTED. WCTM
[2019-01-14 04:30] VITALS: BP 183/100
--- NOTE | 2019-01-14 06:16 | NUR ---
CHANGED PT DUE TO URINE INCONTINENCE. ENTIRE BED CHANGE. DENIES NEEDS AT THIS TIME. PT IS CONFUSED. WCTM CL IN REACH
[2019-01-14 07:16] LABS: BASOPHILS 0.2 % (0-2); EOSINOPHILS 0.6 % (0-7); HEMATOCRIT 34.9 % (42.0-54.0); HEMOGLOBIN 11.8 g/dL (13.5-17.5); IMMATURE GRANULOCYTES 0.5 % (0-5); LYMPHOCYTES 13.9 % (15-50); MCH 29.9 pg (26.0-34.0); MCHC 33.8 g/dL (31.0-37.0); MCV 88.4 fL (80.0-100.0); MEAN PLATELET VOLUME 10.3 fL (7.4-10.4); MONOCYTES 9.8 % (2-11); PLATELET COUNT 256 10x3/uL (130-400); RBC 3.95 10x6/uL (4.20-6.10); RDW 13.3 % (11.5-14.5); WBC 8.8 10x3/uL (4.8-10.8)
[2019-01-14 07:28] VITALS: BP 187/94
--- NOTE | 2019-01-14 07:37 | NUR ---
PT RESTING, EYES HCLOSED. RR EVEN AND UNLABORED. NO DISTRESS NOTED. WILL CONTINUE TO MONITOR.
--- NOTE | 2019-01-14 07:39 | NUR ---
BP 187/94. REGINA WHITAKER NOTIFIED.
[2019-01-14 07:50] LABS: CALC OSMOLALITY 281 mosm/kg (275-300); CARBON DIOXIDE 27.2 mmol/L (21.0-32.0); CHLORIDE - SERUM 105 mmol/L (98-107); CREATININE - SERUM 0.9 mg/dL (0.6-1.3); GLUCOSE 97 mg/dL (74-106); MAGNESIUM - SERUM 1.8 mg/dL (1.8-2.4); PHOSPHOROUS 2.8 mg/dL (2.5-4.9); POTASSIUM - SERUM 3.5 mmol/L (3.5-5.1); SODIUM 141 mmol/L (136-145); UREA NITROGEN 16 mg/dL (7-18); eGFR NON AFRICAN AMERICAN 87 mL/min (90-120)
--- NOTE | 2019-01-14 10:56 | NUR ---
REPORT CALLED TO KALI AT THE [facility]. STATED SHE WOULD LET THE CLINICAL RESEARCH MANAGER KNOW TO COME PICK HIM UP. PT GIVEN MEDICATION WITH APPLESAUCE AND TOLERATED WELL.
--- NOTE | 2019-01-14 11:46 | NUR ---
PT IS UNABLE TO SIGN PAPERWORK DUE TO CONFUSION. IV D/C WITH CATHETER TIP INTACT. WAITING ON TRANSPORTATION VIA [facility]. BELONGINGS GATHERED.
--- NOTE | 2019-01-14 12:26 | NUR ---
PT LEFT VIA WHEELCHAIR ESCORTED BY [facility]. ALL BELONGINGS AND DISCHARGE PAPERWORK SENT WITH PT.
--- NOTE | 2019-01-14 12:33 | NUR ---
I have reviewed this patient and I concur with the Shift Assessment completed by the Licensed Practical Nurse today this shift.
--- NOTE | 2019-01-14 18:21 | MORECARE ---
CASE MANAGEMENT DISCHARGE SUMMARY PATIENT: RICK HUSAIN UNIT: [id number] ADM DATE: 01/11/19 AGE: 78 : 40 SEX: M ROOM/BED: D.1207 AUTHOR: TY,DOC PHYSICIAN: REFERRING PHYSICIAN: AMINA JOYA MD DATE OF SERVICE: 01/14/19 Discharge Plan Patient Name: RICK HUSAIN Facility: [facility]:[place] : 1940 Planned Disposition: [facility]fp Facility Anticipated Discharge Date: Discharge Date: 01/14/2019 Expected LOS: Initial Reviewer: [email or web address] Initial Review Date: 01/11/2019 Generated: 01/14/19 7:20 pm DCP- Discharge Planning Updated by [email or web address]: Libby Loja on 01/14/19 5:[address] CM met with patient and for DC planning needs. CM explained the purpose of interview, patient gives permission for same. (of 32 years) states patient lives at The [facility] #[phone], ( in a long-term bed). Patient/spouse state that the patient has had increasing falls from his w/c and she is no longer able to care for him at home. Patient has been a resident @[facility] for approximately 1 year. Patient has a diagnosis of Alzeimers dementia and has a difficult time remembering events. states he is totally dependent with his care. PCP: MONSTER RIVAS. Pharmacy: [place] [facility]. DME: W/C bound--non-ambulatory. Emergency contact: Esperanza Garcia () #[phone]. Community Resources: none. States he does not require additional services at this time. Denies being admitted to a hospital within past 30 days. Transportation at discharge will be the [place] van or ambulance.CM will follow and assist with DC needsPRN . JEAN-PIERRE signed, Kate Pan. Libby Loja RN DCP- Discharge Planning Updated by [email or web address]: Chloe Lutz on 01/13/19 1:[address] [facility] WILL ACCEPT THE PATIENT BACK ON MONDAY AND WILL PROVIDE TRANSPORTATION. PRIMARY NURSE REPORTS THE ABOVE CONVERSATION WITH THE [facility]. DCP- Discharge Planning Updated by [email or web address]: Libby Loja on 01/12/19 3:[address] CM contacted The [facility] regarding dc plans for patient. Per Kati, patient had just completed 30 days of detention, 12/31/18. Libby Loja RN Coverage Notice Reviewer: [id number] Erika Avilez Notice Issued Date-Time: 01/14/2019 10:15 Notice Type: IM Discharge Notice Notice Delivered To: Patient Relationship to Patient: Self Motor Scooter Repairer Name: Delivery Method: HAND - Hand Delivered Vesna Days: Prior Verbal Notification: Recipient Understood Notice: Yes Recipient Signature: Yes Med Rec Note Co-signed by Attending: Coverage Notice Comment: Last DP export: 01/13/19 1:23 p Patient Name: RICK HUSAIN Page [id number] at 1821 All edits/amendments must be made on the electronic document DICTATION DATE: 01/14/191819 HOUSEKEEPING ROOM INSPECTOR: GAUDENCIO 01/14/191819 RPT#: [id number] DC DATE:01/14/19 STATUS: DIS IN [facility] [address] [place] [address] END OF REPORT
--- NOTE | 2019-01-14 18:53 | MORECARE ---
CASE MANAGEMENT DISCHARGE SUMMARY PATIENT: RICK HUSAIN UNIT: [id number] ADM DATE: 01/11/19 AGE: 78 : 40 SEX: M ROOM/BED: D.1207 AUTHOR: TY,DOC PHYSICIAN: REFERRING PHYSICIAN: AMINA JOYA MD DATE OF SERVICE: 01/14/19 Discharge Plan Patient Name: RICK HUSAIN Facility: [facility]:[place] : 1940 Planned Disposition: [facility] Facility Anticipated Discharge Date: Discharge Date: 01/14/2019 Expected LOS: Initial Reviewer: [email or web address] Initial Review Date: 01/11/2019 Generated: 01/14/19 7:53 pm DCP- Discharge Planning Updated by [email or web address]: Libby Loja on 01/14/19 5:[address] CM met with patient and for DC planning needs. CM explained the purpose of interview, patient gives permission for same. (of 32 years) states patient lives at The [facility] #[phone], ( in a long-term bed). Patient/spouse state that the patient has had increasing falls from his w/c and she is no longer able to care for him at home. Patient has been a resident @The [facility] for approximately 1 year. Patient has a diagnosis of Alzeimers dementia and has a difficult time remembering events. states he is totally dependent with his care. PCP: MONSTER RIVAS. Pharmacy: [place] [facility]. DME: W/C bound--non-ambulatory. Emergency contact: Esperanza Garcia () #[phone]. Community Resources: none. States he does not require additional services at this time. Denies being admitted to a hospital within past 30 days. Transportation at discharge will be the [place] van or ambulance.CM will follow and assist with DC needsPRN . JEAN-PIERRE signed, Kate Pan. Libby Loja RN DCP- Discharge Planning Updated by [email or web address]: Chloe Lutz on 01/13/19 1:[address] [facility] WILL ACCEPT THE PATIENT BACK ON MONDAY AND WILL PROVIDE TRANSPORTATION. PRIMARY NURSE REPORTS THE ABOVE CONVERSATION WITH THE [facility]. DCP- Discharge Planning Updated by [email or web address]: Libby Loja on 01/12/19 3:[address] CM contacted The [facility] regarding dc plans for patient. Per Kati, patient had just completed 30 days of shelter, 12/31/18. Libby Loja RN Coverage Notice Reviewer: [id number] Erika Avilez Notice Issued Date-Time: 01/14/2019 10:15 Notice Type: IM Discharge Notice Notice Delivered To: Patient Relationship to Patient: Self Framing Specialist Name: Delivery Method: HAND - Hand Delivered Vesna Days: Prior Verbal Notification: Recipient Understood Notice: Yes Recipient Signature: Yes Med Rec Note Co-signed by Attending: Coverage Notice Comment: Last DP export: 01/14/19 5:21 p Patient Name: RICK HUSAIN Page 36095 at 1853 All edits/amendments must be made on the electronic document DICTATION DATE: 01/14/191852 HAND ROUNDER: GAUDENCIO 01/14/191852 RPT#: [id number] DC DATE:01/14/19 STATUS: DIS IN [facility] [address] [place] [address] END OF REPORT
--- NOTE | 2019-01-16 13:18 | MORECARE ---
CASE MANAGEMENT DISCHARGE SUMMARY PATIENT: RICK HUSAIN UNIT: [id number] ADM DATE: 01/11/19 AGE: 78 : 40 SEX: M ROOM/BED: D.1207 AUTHOR: TY,DOC PHYSICIAN: REFERRING PHYSICIAN: AMINA JOYA MD DATE OF SERVICE: 01/16/19 Discharge Plan Patient Name: RICK HUSAIN Facility: [facility]:[place] : 1940 Planned Disposition: Long-Term Facility Anticipated Discharge Date: Discharge Date: 01/14/2019 Expected LOS: Initial Reviewer: [id number] Initial Review Date: 01/11/2019 Generated: 01/16/19 2:18 pm DCP- Discharge Planning Updated by [email or web address]: Libby Loja on 01/14/19 5:[address] CM met with patient and for DC planning needs. CM explained the purpose of interview, patient gives permission for same. (of 32 years) states patient lives at The [facility] #[phone], ( in a long-term bed). Patient/spouse state that the patient has had increasing falls from his w/c and she is no longer able to care for him at home. Patient has been a resident @The [facility] for approximately 1 year. Patient has a diagnosis of Alzeimers dementia and has a difficult time remembering events. states he is totally dependent with his care. PCP: MONSTER RIVAS. Pharmacy: [place] [facility]. DME: W/C bound--non-ambulatory. Emergency contact: Esperanza Garcai () #[phone]. Community Resources: none. States he does not require additional services at this time. Denies being admitted to a hospital within past 30 days. Transportation at discharge will be the [place] van or ambulance.CM will follow and assist with DC needsPRN . JEAN-PIERRE signed, Kaet Pan. Libby Loja RN DCP- Discharge Planning Updated by [email or web address]: Chloe Lutz on 01/13/19 1:[address] [facility] WILL ACCEPT THE PATIENT BACK ON MONDAY AND WILL PROVIDE TRANSPORTATION. PRIMARY NURSE REPORTS THE ABOVE CONVERSATION WITH THE [facility]. DCP- Discharge Planning Updated by [email or web address]: Libby Loja on 01/12/19 3:[address] CM contacted The [facility] regarding dc plans for patient. Per Kati, patient had just completed 30 days of [facility], 12/31/18. Libby Loja RN External Providers External Provider: [facility] Next Contact Date: Service Request Date: Service Type: Resolution: Reviewer: Comments: Coverage Notice Reviewer: [id number] Erika Avilez Notice Issued Date-Time: 01/14/2019 10:15 Notice Type: IM Discharge Notice Notice Delivered To: Patient Relationship to Patient: Self Electronic Security Technician Name: Delivery Method: HAND - Hand Delivered Vesna Days: Prior Verbal Notification: Recipient Understood Notice: Yes Recipient Signature: Yes Med Rec Note Co-signed by Attending: Coverage Notice Comment: Last DP export: 01/14/19 5:53 p Patient Name: RICK HUSAIN Page 24790 at 1318 All edits/amendments must be made on the electronic document DICTATION DATE: 01/16/19 1318 SENIOR APPLICATIONS ARCHITECT: GAUDENCIO 01/16/19 1318 RPT#: [id number] DC DATE:01/14/19 STATUS: DIS IN [facility] [address] [place] [address] END OF REPORT
== END 2019-01-14 12:47 | DRG 689 ==
LOC: D.ER 11:48 → D.M3 16:51
PROVIDERS: Emergency Medicine; Family Medicine; ADMIT Family Medicine; ATTEND Family Medicine
DX: N39.0 Urinary tract infection, site not specified (principal); E43 Unspecified severe protein-calorie malnutrition; Z68.1 Body mass index [BMI] 19.9 or less, adult; M25.511 Pain in right shoulder; W05.0XXA Fall from non-moving wheelchair, initial encounter; D64.9 Anemia, unspecified; E87.6 Hypokalemia; Z91.81 History of falling; G30.9 Alzheimer's disease, unspecified; B96.4 Proteus (mirabilis) (morganii) as the cause of diseases classified elsewhere; F02.80 Dementia in other diseases classified elsewhere, unspecified severity, without behavioral disturbance, psychotic disturbance, mood disturbance, and anxiety; I11.0 Hypertensive heart disease with heart failure; I50.9 Heart failure, unspecified; I25.10 Atherosclerotic heart disease of native coronary artery without angina pectoris; J43.9 Emphysema, unspecified; F32.9 Major depressive disorder, single episode, unspecified; F41.9 Anxiety disorder, unspecified; Z95.0 Presence of cardiac pacemaker

== ENCOUNTER 2019-01-18 20:41 | Emergency (ER) | payer MEDICARE ==
[~2019-01-18] VITALS: Ht 172.7 cm; Wt 68.2 kg
[~2019-01-18 20:41] MED LIST changes: +CIPRO250 MG PO
[2019-01-18 20:45] VITALS: Ht 172.7 cm; Wt 68.2 kg
[2019-01-18 23:32] VITALS: BP 121/76
== END 2019-01-18 23:00 | disposition home or self-care (01) ==
LOC: D.ER 20:41
DX: Z71.1 Person with feared health complaint in whom no diagnosis is made (principal); I11.0 Hypertensive heart disease with heart failure; I50.9 Heart failure, unspecified; I25.10 Atherosclerotic heart disease of native coronary artery without angina pectoris

== ENCOUNTER 2019-01-19 11:45 | Emergency (ER) | payer MEDICARE ==
[~2019-01-19] VITALS: Ht 172.7 cm; Wt 68.2 kg
[2019-01-19 11:47] VITALS: Ht 172.7 cm; Wt 68.2 kg
[2019-01-19 14:40] VITALS: BP 132/80
== END 2019-01-19 14:41 ==
LOC: D.ER 11:45
DX: R40.0 Somnolence (principal); W05.0XXA Fall from non-moving wheelchair, initial encounter; I10 Essential (primary) hypertension; J44.9 Chronic obstructive pulmonary disease, unspecified; G30.9 Alzheimer's disease, unspecified; F02.80 Dementia in other diseases classified elsewhere, unspecified severity, without behavioral disturbance, psychotic disturbance, mood disturbance, and anxiety

== ENCOUNTER 2019-03-30 12:14 | Inpatient (IN) | payer MEDICARE ==
[~2019-03-30] VITALS: Ht 172.7 cm; Wt 53.5 kg
--- NOTE | 2019-03-30 12:41 | NUR ---
PT IN CT.
--- NOTE | 2019-03-30 12:44 | NUR ---
BACK FROM CT.
[2019-03-30 13:35] LABS: APPEARANCE CLEAR (CLEAR); BILIRUBIN NEGATIVE (NEGATIVE); COLOR YELLOW (YELLOW); GLUCOSE NEGATIVE (NEGATIVE); KETONE NEGATIVE (NEGATIVE); NITRITE NEGATIVE (NEGATIVE); PROTEIN NEGATIVE (NEGATIVE); SPECIFIC GRAVITY 1.015 (1.005-1.020); UROBILINOGEN NORMAL (NORMAL)
[2019-03-30 13:36] LABS: RED CELLS - URINE 0-5 /hpf (0-5)
[2019-03-30 13:37] LABS: BACTERIA FEW /hpf (NEGATIVE); EPITHELIAL CELLS NSEEN /hpf (0-5); HYALINE CAST 0-5 /lpf (NONE SEEN); MUCUS <1+ /lpf (NONE SEEN)
[2019-03-30 13:44] VITALS: BP 165/83
[2019-03-30 14:13] LABS: CALC OSMOLALITY 293 mosm/kg (275-300); CALCIUM 8.4 mg/dL (8.5-10.1); CARBON DIOXIDE 30.2 mmol/L (21.0-32.0); CHLORIDE - SERUM 108 mmol/L (98-107); CREATININE - SERUM 0.9 mg/dL (0.6-1.3); GLUCOSE 90 mg/dL (74-106); POTASSIUM - SERUM 3.3 mmol/L (3.5-5.1); SODIUM 146 mmol/L (136-145); UREA NITROGEN 20 mg/dL (7-18); eGFR NON AFRICAN AMERICAN 86 mL/min (90-120)
[2019-03-30 14:18] LABS: ALBUMIN 2.5 g/dL (3.4-5.0); ALKALINE PHOSPHATASE 111 U/L (46-116); ALT (SGPT) 18 U/L (10-68)
[2019-03-30 15:41] LABS: BASOPHILS 0.1 % (0-2); EOSINOPHILS 2.3 % (0-7); HEMATOCRIT 34.7 % (42.0-54.0); HEMOGLOBIN 10.8 g/dL (13.5-17.5); IMMATURE GRANULOCYTES 0.1 % (0-5); LYMPHOCYTES 18.3 % (15-50); MCHC 31.1 g/dL (31.0-37.0); MEAN PLATELET VOLUME 10.5 fL (7.4-10.4); MONOCYTES 9.8 % (2-11); NEUTROPHILS 69.4 % (40-80); PLATELET COUNT 214 10x3/uL (130-400); RBC 3.73 10x6/uL (4.20-6.10); WBC 7.3 10x3/uL (4.8-10.8)
--- NOTE | 2019-03-30 16:26 | MORECARE ---
CASE MANAGEMENT DISCHARGE SUMMARY PATIENT: RICK HUSAIN UNIT: [id number] ADM DATE: 03/30/19 AGE: 79 : 40 SEX: M ROOM/BED: D.2224 AUTHOR: ABIDA CRAWFORD PHYSICIAN: REFERRING PHYSICIAN: JULIETH JONES MD DATE OF SERVICE: 03/30/19 Discharge Plan Patient Name: RICK HUSAIN Facility: [facility]:[place] : 1940 Planned Disposition: Retirement Facility Anticipated Discharge Date: 04/01/19 Discharge Date: Expected LOS: 2 Initial Reviewer: [email or web address] Initial Review Date: 03/30/2019 Generated: 03/30/19 5:25 pm DCPIA - Discharge Planning Initial Assessment Updated by [email or web address]: Trena Mccarty on 03/30/19 4:22 pm * Is the patient Alert and Oriented? No * How many steps to enter\exit or inside your home? None * PCP Residential MD * Pharmacy [facility] * Preadmission Environment [facility] * Facility Name [facility] * ADLs Partial Dependent * Partial ADLs (Assistance needed) Ambulation Bathing Dressing Medication Management Transfers * List name and contact numbers for known caregivers / representatives who currently or will assist patient after discharge: Esperanza Pan - [phone] (on halfway paperwork) * Verbal permission to speak to the caregivers and representatives has been obtained from the patient. Yes * Community resources currently utilized None * Additional services required to return to the preadmission environment? No * Can the patient safely return to the preadmission environment? Yes * Has this patient been hospitalized within the prior 30 days at any hospital? No Patient Name: RICK HUSAIN Page 23566 at 1626 All edits/amendments must be made on the electronic document DICTATION DATE: 03/30/191624 DRAWER IN JACQUARD LOOM: GAUDENCIO 03/30/191624 RPT#: [id number] DC DATE: STATUS: ADM IN [facility] [address] [place] [address] END OF REPORT
--- NOTE | 2019-03-30 16:34 | MORECARE ---
CASE MANAGEMENT DISCHARGE SUMMARY PATIENT: RICK HUSAIN UNIT: [id number] ADM DATE: 03/30/19 AGE: 79 : 40 SEX: M ROOM/BED: D.2224 AUTHOR: TY,DOC PHYSICIAN: REFERRING PHYSICIAN: JULIETH JONES MD DATE OF SERVICE: 03/30/19 Discharge Plan Patient Name: RICK HUSAIN Facility: [facility]:[place] : 1940 Planned Disposition: Longterm Facility Anticipated Discharge Date: 04/01/19 Discharge Date: Expected LOS: 2 Initial Reviewer: [email or web address] Initial Review Date: 03/30/2019 Generated: 03/30/19 5:34 pm DCP- Discharge Planning Updated by [email or web address]: Trena Mccarty on 03/30/19 3:[address] DC PLAN: Return to the [facility] - Resident ANTICIPATED DC NEEDS: Unknown dc needs. CM met with patient to complete initial dc planning assessment. CM attempted to educated patient on the CM role but he was not able to keep conversation. CM asked patient if he was from the [facility] and he said yes then he asked cm to get him the trumpet that was hanging on the wall. CM reviewed paperwork The [facility] sent to the hospital to determine status. He is a correction resident at the [facility]. CM will continue to follow and will assist as needed with dc plans/needs. Trena Mccarty RN, [facility] DCPIA - Discharge Planning Initial Assessment Updated by [email or web address]: Trena Mccarty on 03/30/19 4:22 pm * Is the patient Alert and Oriented? No * How many steps to enter\exit or inside your home? None * PCP Care Home MD * Pharmacy [facility] * Preadmission Environment Custodial Care Home * Facility Name [facility] * ADLs Partial Dependent * Partial ADLs (Assistance needed) Ambulation Bathing Dressing Medication Management Transfers * List name and contact numbers for known caregivers / representatives who currently or will assist patient after discharge: Esperanza Pan - [phone] (on care home paperwork) * Verbal permission to speak to the caregivers and representatives has been obtained from the patient. Yes * Community resources currently utilized None * Additional services required to return to the preadmission environment? No * Can the patient safely return to the preadmission environment? Yes * Has this patient been hospitalized within the prior 30 days at any hospital? No Last DP export: 03/30/19 3:25 p Patient Name: RICK HUSAIN Page [id number] at 1634 All edits/amendments must be made on the electronic document DICTATION DATE: 03/30/191633 FINANCE INSURANCE MANAGER: GAUDENCIO 03/30/194 RPT#: [id number] DC DATE: STATUS: ADM IN [facility] [address] [place] [address] END OF REPORT
[2019-03-30 18:39] VITALS: BMI 17.9
--- NOTE | 2019-03-30 19:15 | NUR ---
PLACED PATIENT ON FALL PRECAUTIONS. SIGNIFICANT OTHER IN ROOM ASSISTING WITH MEAL. PATIENT CONFUSED UPON ASSESSMENT. BUT PLEASENT. DENIES NEEDS AT THIS TIME. CALL LIGHT IN REACH. CPOC.
[2019-03-30 19:41] VITALS: BP 173/87
[2019-03-31 00:42] VITALS: BP 158/73
--- NOTE | 2019-03-31 01:58 | NUR ---
RESTING WITH NO SIGNS OR SYMPTOMS OF DISTRESS AT THIS TIME. CALL LIGHT IN REACH. CPOC.
--- NOTE | 2019-03-31 03:45 | NUR ---
I have reviewed this patient and I concur with the Shift Assessment completed by the Licensed Practical Nurse today this shift.
[2019-03-31 04:47] LABS: BASOPHILS 0.3 % (0-2); HEMATOCRIT 32.1 % (42.0-54.0); HEMOGLOBIN 10.1 g/dL (13.5-17.5); IMMATURE GRANULOCYTES 0.3 % (0-5); LYMPHOCYTES 20.5 % (15-50); MCH 28.9 pg (26.0-34.0); MCHC 31.5 g/dL (31.0-37.0); MEAN PLATELET VOLUME 10.3 fL (7.4-10.4); MONOCYTES 9.4 % (2-11); NEUTROPHILS 67.5 % (40-80); PLATELET COUNT 205 10x3/uL (130-400); RBC 3.49 10x6/uL (4.20-6.10); RDW 14.8 % (11.5-14.5); WBC 7.4 10x3/uL (4.8-10.8)
[2019-03-31 04:48] VITALS: BP 173/80
[2019-03-31 05:02] LABS: CALC OSMOLALITY 291 mosm/kg (275-300); CALCIUM 8.7 mg/dL (8.5-10.1); CHLORIDE - SERUM 111 mmol/L (98-107); GLUCOSE 86 mg/dL (74-106); SODIUM 146 mmol/L (136-145); UREA NITROGEN 19 mg/dL (7-18); eGFR NON AFRICAN AMERICAN 76 mL/min (90-120)
[2019-03-31 05:05] LABS: POTASSIUM - SERUM 3.9 mmol/L (3.5-5.1)
[2019-03-31 08:04] VITALS: BP 146/65
--- NOTE | 2019-03-31 08:45 | NUR ---
PATIENT SITTING UP IN BED WITH IV INTACT. GIVEN PUDDING AND GRAM CRACKERS AND ENSURE. DRANK SMALL AMOUNT OF ENSURE, ATE SMALL AMOUNT OF PUDDING AND REFUSED GRAM CRACKERS. NO COMPLAINTS OF PAIN OR SIGNS OF DISTRESS. STILL CONFUSED. CALL LIGHT WITHIN REACH.
--- NOTE | 2019-03-31 12:15 | NUR ---
PATIENT SITTING UP IN BED. ATE ONE BITE OF MASH POTATOES, 1/2 ENSURE, AND ALL OF APPLESAUCE. PATIENT REFUSES EVERYTHING ELSE. IV INTACT. BED ALARM ON. CALL LIGHT WITHIN REACH. REFUSES SCDS.
[2019-03-31 12:28] VITALS: BP 167/75
[2019-03-31 16:57] VITALS: BP 172/80
--- NOTE | 2019-03-31 18:29 | NUR ---
PATIENT IN BED WITH EYES CLOSED RESTING QUIETLY. REFUSED TO EAT DINNER. AT ONLY SMALL AMOUNT OF FRUIT. IV INTACT. CALL LIGHT WITHIN REACH.
--- NOTE | 2019-03-31 20:00 | NUR ---
ALERT BUT CONFUSED RESTING IN BED, DENIES PAIN OR NEEDS AT THIS TIME, SEE SHIFT ASSESSMENT, CALL LIGHT IN REACH
[2019-03-31 20:42] VITALS: BP 156/77
[2019-04-01] VITALS (9 sets, daily range): BP systolic 132–224; BP diastolic 53–125; BMI 17.9
--- NOTE | 2019-04-01 01:20 | NUR ---
MARIA ESTHER ARAMBULA PAGED AND CALL BACK RECIEVED, INFORMED OF O2 SAT OF 60 AND RT NOTIFIED AND CURRENTLY HAS O2 AT 11L HF NC WITH SATS 93, HAVING EXPITORY WHEEZING, BP 187/97, PREVIOUSLY ON LOSARTIN AT HOME, ORDERS RECIEVED FOR CXR, [facility] AND TO START LOSARTIN 100MG DAILY NOW. AND TO HAVE RT MONITOR O2 AND TRY TO DECREASE O2 DOWN, RT NOTIFIED OF ORDERS, RAD NOTIFIED,
--- NOTE | 2019-04-01 01:40 | NUR ---
BP RECHECKED 137/63 LOSARTAN NOT GIVEN AT TIS TIME WILL MONITOR BP
[2019-04-01 05:21] LABS: BASOPHILS 0.1 % (0-2); EOSINOPHILS 0 % (0-7); HEMATOCRIT 31.4 % (42.0-54.0); HEMOGLOBIN 9.9 g/dL (13.5-17.5); IMMATURE GRANULOCYTES 0.3 % (0-5); LYMPHOCYTES 3.8 % (15-50); MCHC 31.5 g/dL (31.0-37.0); MCV 92.1 fL (80.0-100.0); MEAN PLATELET VOLUME 10.3 fL (7.4-10.4); MONOCYTES 7.5 % (2-11); NEUTROPHILS 88.3 % (40-80); PLATELET COUNT 205 10x3/uL (130-400); RBC 3.41 10x6/uL (4.20-6.10); RDW 14.9 % (11.5-14.5)
[2019-04-01 05:28] LABS: WBC 14.5 10x3/uL (4.8-10.8)
[2019-04-01 05:40] LABS: ANION GAP 11.9 mmol/L (8-16); CALCIUM 9.1 mg/dL (8.5-10.1); CREATININE - SERUM 1.1 mg/dL (0.6-1.3); POTASSIUM - SERUM 3.9 mmol/L (3.5-5.1)
--- NOTE | 2019-04-01 09:13 | NUR ---
ASSESSED PATIENT AND IV IN LEFT FA CAME OUT PT STATED TO BE DC TODAY, NO IV ABX UNTIL 3 WILL WAIT TO RESITE PT PENDING DC OR NOT, NO OTHER NEEDS VOICED O SIGNS OF DISTRESS CONTINUE WITH PLAN OF CARE
--- NOTE | 2019-04-01 11:46 | MORECARE ---
CASE MANAGEMENT DISCHARGE SUMMARY PATIENT: RICK HUSAIN UNIT: [id number] ADM DATE: 03/30/19 AGE: 79 : 40 SEX: M ROOM/BED: D.2224 AUTHOR: TY,DOC PHYSICIAN: REFERRING PHYSICIAN: JULIETH JONES MD DATE OF SERVICE: 04/01/19 Discharge Plan Patient Name: RICK HUSAIN Facility: [facility]:[place] : 1940 Planned Disposition: Jail Facility Anticipated Discharge Date: 04/01/19 Discharge Date: Expected LOS: 2 Initial Reviewer: [email or web address] Initial Review Date: 03/30/2019 Generated: 04/01/19 12:45 pm DCP- Discharge Planning Updated by [email or web address]: Tyra Christiansen on 04/01/19 10:[address] DC PLAN: Return to the [facility] - Resident ANTICIPATED DC NEEDS: Unknown dc needs. CM met with patient to complete initial dc planning assessment. CM attempted to educated patient on the CM role but he was not able to keep conversation. CM asked patient if he was from the [facility] and he said yes then he asked cm to get him the trumpet that was hanging on the wall. CM reviewed paperwork [facility] sent to the hospital to determine status. He is a [facility] resident at the [facility]. CM will continue to follow and will assist as needed with dc plans/needs. Trena Mccarty RN, [facility] DCPIA - Discharge Planning Initial Assessment Updated by [email or web address]: Trena Mccarty on 03/30/19 4:22 pm * Is the patient Alert and Oriented? No * How many steps to enter\exit or inside your home? None * PCP [facility] * [facility] * Preadmission Environment [facility] * Facility Name [facility] * ADLs Partial Dependent * Partial ADLs (Assistance needed) Ambulation Bathing Dressing Medication Management Transfers * List name and contact numbers for known caregivers / representatives who currently or will assist patient after discharge: Esperanza Pan - [phone] (on halfway paperwork) * Verbal permission to speak to the caregivers and representatives has been obtained from the patient. Yes * Community resources currently utilized None * Additional services required to return to the preadmission environment? No * Can the patient safely return to the preadmission environment? Yes * Has this patient been hospitalized within the prior 30 days at any hospital? No Last DP export: 03/30/19 3:34 p Patient Name: RICK HUSAIN Page [phone] at 1146 All edits/amendments must be made on the electronic document DICTATION DATE: 04/01/191144 LOOPING INSPECTOR: GAUDENCIO 04/01/195 RPT#: [id number] DC DATE: STATUS: ADM IN [facility] [address] [place] [address] END OF REPORT
--- NOTE | 2019-04-01 14:45 | NUR ---
OT NOTE: PT IS CONFUSED AND REQUIRED COG CUES FOR INCREASED PARTICIPATION. PT COMPLETED BED MOB TASKS WITH MOD A. PT COMPLETED EOB SITTING WITH CGA. PT COMPLETED FACE WASH WITH MIN A. PT COMPLETED LB WITH WILEY Menjivar. THANK YOU,SAMANTHA JAMES
--- NOTE | 2019-04-01 20:00 | NUR ---
ASSESSMENT PER FLOWSHEET. IV PATENT RT FOREARM OF 1/2NS AT 30CC'S/HR. O2 ON 4L/M PER HIGH FLOW METER. BILERAL WHEEZES NOTED. DIMINISHED IN THE LOWER LOBES. TELM. SHOWS PASED BEATS WITH HR 64, SR UP X2 CALL LIGHT WITHIN REACH. CEZAR MAT ON.
--- NOTE | 2019-04-01 21:15 | NUR ---
BEDSIDE DUONEB UPDRAFT DONE PER RT TECH VD=250 PRIOR TO TX AFTER TX HR =123 PT DIAPHORECTIC EXP. WHEEZES NOTED LEFT CHEST. O2 SAT DROPPED TO 88%.NOTIFIED DR. DIAZ ORDERS PER DR. DIAZ. B/P=177/84.
--- NOTE | 2019-04-01 21:30 | NUR ---
ST=175/125 O2 SAT 93% ON 9 L HIGH FLOW. HR 123.DR. BARRERA AWARE OF THESE FINDINGS.
--- NOTE | 2019-04-01 22:00 | NUR ---
LASIX 40MG IVP GIVEN SOLUMEDROL 40MG IVP GIVEN ORDERED. INFORMED RT. TECH OF DR. DIAZ'S ORDERS.
--- NOTE | 2019-04-01 22:30 | NUR ---
BREATHING BETTER O2 ON AT 9L/M PER NC HIGH FLOW, VOIDED IN URINAL. HOB UP 45 DEGREES. STATES FEELING BETTER.
[2019-04-02 01:05] VITALS: BP 128/58
--- NOTE | 2019-04-02 02:45 | NUR ---
EYES CLOSED RESPIRATIONS WITH EASE AND UNLABORED.
[2019-04-02 04:38] VITALS: BP 181/94
--- NOTE | 2019-04-02 07:10 | NUR ---
ALERT AND ORIENTED, RESTING IN BED WITH EYES OPEN. NO C/O PAIN. NO S/S OF ACUTE DISTRESS NOTED. UP WITH ASSIST. INCONTINENT OF B&B. PACEMAKER TO LEFT CHEST. ON 5L O2, HIGH FLOW. IV TO RIGHT FOREARM, 1/2 NS @ 30ML/HR. SITE PATENT WITHOUT REDNESS OR SWELLING. ON TELEMETRY 69 PACED. BED ALARM ON. DENIES ANY NEEDS AT THIS TIME. CALL LIGHT IN REACH. WILL CONTINUE TO MONITOR.
[2019-04-02 07:14] LABS: BASOPHILS 0 % (0-2); EOSINOPHILS 0 % (0-7); HEMATOCRIT 32.7 % (42.0-54.0); HEMOGLOBIN 10.3 g/dL (13.5-17.5); IMMATURE GRANULOCYTES 0.2 % (0-5); LYMPHOCYTES 3.8 % (15-50); MCH 28.9 pg (26.0-34.0); MCHC 31.5 g/dL (31.0-37.0); MCV 91.9 fL (80.0-100.0); MEAN PLATELET VOLUME 10.6 fL (7.4-10.4); PLATELET COUNT 215 10x3/uL (130-400); RBC 3.56 10x6/uL (4.20-6.10); RDW 14.8 % (11.5-14.5); WBC 13.8 10x3/uL (4.8-10.8)
[2019-04-02 07:27] LABS: ANION GAP 15.2 mmol/L (8-16); CARBON DIOXIDE 24.5 mmol/L (21.0-32.0); CREATININE - SERUM 1.2 mg/dL (0.6-1.3); MAGNESIUM - SERUM 1.9 mg/dL (1.8-2.4); PHOSPHOROUS 3.7 mg/dL (2.5-4.9); POTASSIUM - SERUM 3.7 mmol/L (3.5-5.1)
[2019-04-02 07:34] LABS: TROPONIN-I 0.83 ng/mL (0.000-0.060)
[2019-04-02 08:37] VITALS: BP 191/82
[2019-04-02 10:34] VITALS: Ht 172.7 cm; Wt 53.5 kg
[2019-04-02 12:24] VITALS: BP 175/79
--- NOTE | 2019-04-02 13:11 | NUR ---
I have reviewed this patient and I concur with the Shift Assessment completed by the Licensed Practical Nurse today this shift.
[2019-04-02 16:43] VITALS: BP 174/79
--- NOTE | 2019-04-02 17:56 | NUR ---
ALERT AND ORIENTED, SITTING UP IN BED EATING SUPPER. NO C/O PAIN. NO S/S OF ACUTE DISTRESS NOTED. DENIES ANY NEEDS AT THIS TIME. CALL LIGHT IN REACH. WILL CONTINUE TO MONITOR.
--- NOTE | 2019-04-02 20:00 | NUR ---
ASSESSMENT PER FLOWSHEET. DR. DIAZ HERE TO SEE PATIENT. IV PATENT RT ARM OF 1/2NS AT 30CC'S/HR. O2 ON 5L/M HIGH FLOW NO DISTRESS. PATIENT IS TALKATIVE AND JOKING WITH DR. DIAZ.
[2019-04-02 20:45] VITALS: BP 177/83
--- NOTE | 2019-04-02 21:30 | NUR ---
MEDS GIVEN PER JUN. BEDSIDE UPDRAFT TX GIVEN PER RT TECH.
--- NOTE | 2019-04-03 | NUR ---
RESTING QUIETLY VOIDS IN BED LINENS CHANGED
--- NOTE | 2019-04-03 01:00 | NUR ---
EYES CLOSED RESPIRATIONS WITH EASE AND UNLABORED.
[2019-04-03 01:21] VITALS: BP 144/94
[2019-04-03 05:06] VITALS: BP 170/82
[2019-04-03 06:41] LABS: BASOPHILS 0 % (0-2); EOSINOPHILS 0 % (0-7); HEMATOCRIT 31.5 % (42.0-54.0); IMMATURE GRANULOCYTES 0.3 % (0-5); LYMPHOCYTES 4.6 % (15-50); MCH 28.6 pg (26.0-34.0); MCHC 31.7 g/dL (31.0-37.0); MEAN PLATELET VOLUME 10.6 fL (7.4-10.4); MONOCYTES 4.7 % (2-11); NEUTROPHILS 90.4 % (40-80); PLATELET COUNT 231 10x3/uL (130-400); RDW 14.9 % (11.5-14.5); WBC 13.7 10x3/uL (4.8-10.8)
[2019-04-03 06:52] LABS: ANION GAP 11.9 mmol/L (8-16); CALCIUM 9.1 mg/dL (8.5-10.1); CARBON DIOXIDE 26.5 mmol/L (21.0-32.0); CREATININE - SERUM 1.4 mg/dL (0.6-1.3); MAGNESIUM - SERUM 1.9 mg/dL (1.8-2.4); POTASSIUM - SERUM 3.4 mmol/L (3.5-5.1)
[2019-04-03 08:20] VITALS: BP 120/60
--- NOTE | 2019-04-03 10:36 | NUR ---
PATIENT RESTING WITH NO NEEDS VOICED OR DISTRESS. 02 5L HIGH FLOW. IV PATENT 1/2 NS @30. RESPIRATIONS NONLABORED. CL IN REACH, FALL PRECAUTIONS IN PLACE
--- NOTE | 2019-04-03 12:23 | NUR ---
NUTRITION F/U PT TOLERATING AHA MECH SOFT DIET. POOR INTAKE MOST MEALS (DID EAT 50% BREAKFAST THIS AM).DRINKING SOME ENSURE. WILL CONTINUE TO PROVIDE DIET, ENSURE. MONITOR PO INTAKE. CONSIDER CHANGING DIET TO REG MECH SOFT. RD FOLLOWING
--- NOTE | 2019-04-03 12:57 | NUR ---
OT NOTE: BED MOB WITH MOD ASSIST FOR ROLLING; SUPINE TO SIT WITH MAX ASSIST; OCCASSIONAL ASSIST FOR STATIC SITTING ON EOB; A/AROM EXS DUE TO DIFFICULTY FOLLOWING COMMANDS AND DECREASED ATTN SPAN. PT ABLE TO WASH FACE AND HANDS WITH MIN ASSIST AND USE OF WASH CLOTH; LESLI DUNN, OTR/L
[2019-04-03 13:41] VITALS: BP 167/73
--- NOTE | 2019-04-03 17:00 | NUR ---
OT NOTE: PT COMPLETED BED MOB TASKS WITH MOD A. PT COMPLETED EOB SITTING WITH CGA. PT COMPLETED HYGIENE TASKS WITH MAX A. PT REQUIRED EXTENSIVE CUES FOR TASK SEQUENCING. THANK YOU,SAMANTHA JAMES
[2019-04-03 17:14] VITALS: BP 168/69
[2019-04-03 19:30] VITALS: BP 186/94
--- NOTE | 2019-04-03 20:00 | NUR ---
ASSESSMENT PER FLOWSHEET. FOUND IV MACHINE TURNED OFF. UNABLE TO LOCATE IV. RESITED IV TO RT WRIST #22G X1 AND RESUMED IV FLUIDS.O2 ON 5L HIGH FLOW. PATIENT TAKES O2 NC OFF AND PLACES ON TOP OF HIS HEAD. REPLACED O2 TO NASAL AREA.
--- NOTE | 2019-04-03 21:00 | NUR ---
MEDS PER JUN. SR UP X2 CALL LIGHT WITHIN REACH.
--- NOTE | 2019-04-04 | NUR ---
EYES CLOSED RESPIRATIONS WITH EASE AND UNLABORED.
[2019-04-04 00:30] VITALS: BP 178/84
[2019-04-04 05:00] VITALS: BP 181/86
--- NOTE | 2019-04-04 07:32 | MORECARE ---
CASE MANAGEMENT DISCHARGE SUMMARY PATIENT: RICK HUSAIN UNIT: [id number] ADM DATE: 03/30/19 AGE: 79 : 40 SEX: M ROOM/BED: D.2224 AUTHOR: TY,DOC PHYSICIAN: REFERRING PHYSICIAN: JULIETH JONES MD DATE OF SERVICE: 04/04/19 Discharge Plan Patient Name: RICK HUSAIN Facility: [facility]:[place] : 1940 Planned Disposition: Group Home Facility Anticipated Discharge Date: 04/01/19 Discharge Date: Expected LOS: 2 Initial Reviewer: [email or web address] Initial Review Date: 03/30/2019 Generated: 04/04/19 8:32 am DCP- Discharge Planning Updated by [email or web address]: Tyra Christiansen on 04/01/19 10:[address] DC PLAN: Return to the [facility] - Resident ANTICIPATED DC NEEDS: Unknown dc needs. CM met with patient to complete initial dc planning assessment. CM attempted to educated patient on the CM role but he was not able to keep conversation. CM asked patient if he was from the [facility] and he said yes then he asked cm to get him the trumpet that was hanging on the wall. CM reviewed paperwork The [facility] sent to the hospital to determine status. He is a [facility] resident at the [facility]. CM will continue to follow and will assist as needed with dc plans/needs. Trena Mccarty RN, [facility] DCPIA - Discharge Planning Initial Assessment Updated by [email or web address]: Trena Mccarty on 03/30/19 4:22 pm * Is the patient Alert and Oriented? No * How many steps to enter\exit or inside your home? None * PCP [facility] MD * [facility] * Preadmission Environment [facility] * Facility Name [facility] * ADLs Partial Dependent * Partial ADLs (Assistance needed) Ambulation Bathing Dressing Medication Management Transfers * List name and contact numbers for known caregivers / representatives who currently or will assist patient after discharge: Esperanza Pan - [phone] (on senior living paperwork) * Verbal permission to speak to the caregivers and representatives has been obtained from the patient. Yes * Community resources currently utilized None * Additional services required to return to the preadmission environment? No * Can the patient safely return to the preadmission environment? Yes * Has this patient been hospitalized within the prior 30 days at any hospital? No External Providers External Provider: [facility] Next Contact Date: Service Request Date: Service Type: Resolution: Reviewer: Comments: Last DP export: 04/01/19 10:46 a Patient Name: RICK HUSAIN Page 60221 at 0732 All edits/amendments must be made on the electronic document DICTATION DATE: 04/04/19730 RESIDENT PHYSICIAN: GAUDENCIO 04/04/19730 RPT#: [id number] DC DATE: STATUS: ADM IN [facility] [address] [place] [address] END OF REPORT
[2019-04-04 09:21] VITALS: BP 183/86
--- NOTE | 2019-04-04 10:01 | NUR ---
LYING IN BED,WITHOUT SIGNS OF DISTRESS.CALL LIGHT IN REACH.DOOR OPEN
--- NOTE | 2019-04-04 10:40 | CN ---
PATIENT NAME:RICK HUSAIN MEDICAL RECORD: [id number] : 40 LOCATION:D.MS [place]24 ADMIT DATE: 03/30/19 ACCOUNT: [id number] CONSULTING PHYSICIAN: CAMMIE BARCLAY MD REFERRING PHYSICIAN: JULIETH JONES MD DATE OF CONSULTATION: 04/02/2019 CARDIOLOGY CONSULT DIAGNOSES: 1. Elevated troponin, non-Q-wave myocardial infarction. 2. Coronary artery disease. 3. Previous percutaneous transluminal coronary angioplasty stent. 4. Hypertension. 5. Dementia. 6. Dehydration. 7. Shortness of breath, dyspnea on exertion. 8. Pacemaker. HISTORY OF PRESENT ILLNESS: Mr. Husain actually presented with noncardiac issues. He fell out of his wheelchair, found to be dehydrated, possibly having a right lower lobe pneumonia for which he has been treated. His troponin is mildly elevated. He denies any chest pain, chest discomfort, does have a history of coronary artery disease, past stenting. He also has a pacemaker. His EKG shows a paced ventricular rhythm. He is hypertensive. He is not on his previous medications, which were losartan and Bystolic at this time. PHYSICAL EXAMINATION: CONSTITUTIONAL/GENERAL APPEARANCE: Well nourished, well developed, appears stated age. EYES: Lids and conjunctivae noninjected. No discharge. No pallor. ENT: Lips within normal limit. No cyanosis. No pallor. NECK: Carotid arteries, bilateral normal upstroke. No bruits. No thrills. No jugular venous pressure or distention. CERVICAL LYMPH NODES: Nontender. Nonenlarged. THYROID: Not enlarged. No nodules. CARDIOVASCULAR: Precordial exam, nondisplaced. No heaves or pericardial thrills. Rate and rhythm, regular. Heart sounds, normal S1, normal S2. No S3, no gallop, no rub. Systolic murmur, not heard. Diastolic murmur, not heard. RESPIRATORY: Respiratory effort, unlabored. Normal curvature. No thoracic deformity. No chest wall tenderness. Percussion, resonant. Auscultation, clear. No wheezes, no rales, no rhonchi. ABDOMEN: Soft, nondistended, nontender. No abdominal pain, no vomiting and normal appetite. MUSCULOSKELETAL: No joint tenderness, normal gait, normal tone. SKIN: Warm and dry. OVERALL IMPRESSION: Significant dementia, elevated troponin, very well may be in conjunction with a non-Q-wave myocardial infarction, but we will treat medically. We will restart his Bystolic, losartan and aspirin. No other cardiac workup should be needed at this time. TRANSINT:[id number] Voice Confirmation ID: [id number] DOCUMENT ID: [id number] CONSULT REPORT [id number] RICK HUSAIN, CAMMIE RIVAS at 1040 CC: [id number] DICTATION DATE: 04/02/19 1032 RELAY ADJUSTER: 04/02/19 1046 ADM IN [facility] [address] [place] [id number]
--- NOTE | 2019-04-04 10:40 | EC ---
PATIENT:RICK HUSAIN DATE OF SERVICE: 03/30/19 SEX: M MEDICAL RECORD: [id number] DATE OF : 40 LOCATION:D.MS [place] AGE OF PATIENT: 79 ADMISSION DATE: 03/30/19 REFERRING PHYSICIAN: INTERPRETING PHYSICIAN: CAMMIE MCCULLOUGH MD ECHOCARDIOGRAM REPORT ECHO CHARGES 4 ECHO COMPLETE Date: 04/02/19 CLINICAL DIAGNOSIS: MN ECHOCARDIOGRAPHIC MEASUREMENTS (adult normal given) AC root (d.<3.7cm) 3.1 cm LV Septum d (<1.2 cm> 1.0 cm Valve Excursion 1.8 cm LV Septum (systole) 2.0 cm Left Atria (s.<4.0cm> 3.6 cm LVPW d(<1.2cm) 1.1 cm RV (d.<2.3cm) 2.7 cm LVPW (sytole) 1.4 cm LV diastole(<5.6CM) 7.6 cm MV E-F(>70mm/sec) cm LV systole 5.3 cm LVOT Diameter 1.7 cm MV exc.(>10mm) cm Est.ejection fraction (50-75%) % DOPPLER: LVIT cm/sec A 100.0cm/sec E 47.0 cm/sec LA cm/sec RVSP 38.8 mmHg LVOT 118 cm/sec AOP1/2T m/s Asc. Ao 149 cm/sec RVOT 62 cm/sec RA cm/sec PA 102 cm/sec AV Gradient Peak 8.9 mmHg AV Mean 3.4 mmHg AV Area 1.9 cm MV Gradient Peak 7.4 mmHg MV Mean 3.1 mmHg MV Area cm COMMENTS: Podiatric Aide: Adrienne SIMMONS Security Assessor: 1 Dr. Mccullough TAPE# PACS Pericardial Effusion N DATE OF SERVICE: ECHOCARDIOGRAM FINDINGS: 1. Left ventricular chamber size is moderately dilated. Left ventricular systolic function is lower limits of normal at 45% to 50%. 2. Left atrium, right atrium, and right ventricle chamber sizes are within normal limits. 3. Valvular structures have normal structure and motion. ECHOCARDIOGRAM REPORT [id number] RICK HUSAIN 4. Doppler interrogation reveals [id number] mitral regurgitation, mild tricuspid regurgitation, no other valvular insufficiency or stenosis. Pulmonary systolic pressure is estimated at 39 mmHg. 5. No evidence of pericardial effusion or left ventricular thrombus. TRANSINT:[id number] Voice Confirmation ID: [id number] DOCUMENT ID: [id number] CAMMIE MCCULLOUGH MD at 1040 CC: [id number] DICTATION DATE: 04/02/19 1147 MORGUE LIBRARIAN: 04/02/19 1250 ADM IN [facility] [address] [place] [address]
--- NOTE | 2019-04-04 12:00 | NUR ---
PT RESTING IN BED WITH FAMILY AT BEDSIDE, NO S/ SX OF DISTREERSS, NO NEEDS VOICED, CONTINUE WITH PLAN OF CARE
[2019-04-04 12:54] VITALS: BP 178/86
[2019-04-04 13:16] LABS: ANION GAP 12.2 mmol/L (8-16); CALCIUM 9.4 mg/dL (8.5-10.1); CARBON DIOXIDE 27.1 mmol/L (21.0-32.0); CREATININE - SERUM 1.5 mg/dL (0.6-1.3); POTASSIUM - SERUM 3.3 mmol/L (3.5-5.1); VANCOMYCIN - RANDOM 13.1 ug/mL (10.0-20.0)
[2019-04-04 13:25] LABS: BASOPHILS 0 % (0-2); EOSINOPHILS 0 % (0-7); HEMATOCRIT 33.7 % (42.0-54.0); HEMOGLOBIN 10.7 g/dL (13.5-17.5); IMMATURE GRANULOCYTES 0.3 % (0-5); LYMPHOCYTES 2.6 % (15-50); MCH 28.8 pg (26.0-34.0); MCHC 31.8 g/dL (31.0-37.0); MCV 90.6 fL (80.0-100.0); MEAN PLATELET VOLUME 10.8 fL (7.4-10.4); MONOCYTES 4.1 % (2-11); PLATELET COUNT 269 10x3/uL (130-400); RBC 3.72 10x6/uL (4.20-6.10); RDW 15.1 % (11.5-14.5); WBC 15.7 10x3/uL (4.8-10.8)
[2019-04-04 17:28] VITALS: BP 166/84
--- NOTE | 2019-04-04 18:25 | NUR ---
ALERT AND ORIENTED, RESTING IN BED. NO C/O PAIN. NO S/S OF ACUTE DISTRESS NOTED. DENIES ANY NEEDS AT THIS TIME. CALL LIGHT IN REACH. WILL CONTINUE TO MONITOR.
[2019-04-04 19:30] VITALS: BP 166/91
--- NOTE | 2019-04-04 19:30 | NUR ---
PT SITTING UP IN BED WITHOUT DISTRESS, CONFUSED TO SITUATION. IV RIGHT HAND INFUSING 1/2NS @ 30. O2 5L/HFNC. DENIES NEEDS AT THIS TIME. BED ALARM ON. CL IN REACH, WILL CTM
[2019-04-05] VITALS (7 sets, daily range): BP systolic 164–193; BP diastolic 80–95
[2019-04-05 05:18] LABS: ANION GAP 11.7 mmol/L (8-16); CALCIUM 9.6 mg/dL (8.5-10.1); CARBON DIOXIDE 27.5 mmol/L (21.0-32.0); CREATININE - SERUM 1.3 mg/dL (0.6-1.3); POTASSIUM - SERUM 3.2 mmol/L (3.5-5.1); VANCOMYCIN - RANDOM 9.3 ug/mL (10.0-20.0)
[2019-04-05 05:20] LABS: BASOPHILS 0 % (0-2); EOSINOPHILS 0.8 % (0-7); HEMATOCRIT 38.8 % (42.0-54.0); HEMOGLOBIN 12.3 g/dL (13.5-17.5); IMMATURE GRANULOCYTES 0.3 % (0-5); LYMPHOCYTES 7.9 % (15-50); MCH 28.4 pg (26.0-34.0); MCHC 31.7 g/dL (31.0-37.0); MCV 89.6 fL (80.0-100.0); MONOCYTES 4.7 % (2-11); NEUTROPHILS 86.3 % (40-80); RBC 4.33 10x6/uL (4.20-6.10)
[2019-04-05 05:23] LABS: PLATELET COUNT 185 10x3/uL (130-400); WBC 10.4 10x3/uL (4.8-10.8)
--- NOTE | 2019-04-05 07:15 | NUR ---
PT IS LYING TO LEFT SIDE.IS WITHOUT SIGNS OF DISTRESS.DOOR OPEN.
--- NOTE | 2019-04-05 12:15 | NUR ---
PT LYING IN BED O2 ON HEAD PT EASILY REORIENTED AND O2 REPLACED, NO SIGNS OF DISTRESS NO NEEDS VOICED, CONTINUE WITH PLAN OF CARE
--- NOTE | 2019-04-05 14:18 | MORECARE ---
CASE MANAGEMENT DISCHARGE SUMMARY PATIENT: RICK HUSAIN UNIT: [id number] ADM DATE: 03/30/19 AGE: 79 : 40 SEX: M ROOM/BED: D.2224 AUTHOR: TYDOC PHYSICIAN: REFERRING PHYSICIAN: JULIETH JONES MD DATE OF SERVICE: 04/05/19 Discharge Plan Patient Name: RICK HUSAIN Facility: [facility]:[place] : 1940 Planned Disposition: Intermediate Facility Anticipated Discharge Date: 04/01/19 Discharge Date: Expected LOS: 2 Initial Reviewer: [email or web address] Initial Review Date: 03/30/2019 Generated: 04/05/19 3:17 pm Comments DCP- Discharge Planning Updated by [email or web address]: Tyra Christiansen on 04/05/19 1:[address] Patient Name: RICK HUSAIN Encounter No: [id number] : 1940 Primary Insurance: MEDICARE A & B Anticipated DC Date: 04-01-2019 Planned Disposition: Intermediate Facility External Planned Provider: : DCP follow-up note: Received discharge orders. I notified Damaris with [facility]. I informed Damaris that pulmonary will need to see prior to discharge. Also informed Damaris that the patient is on 2 liters NC. I called patient's , Esperanza and she agrees with discharge to [facility]. DC order and clinical faxed. 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 Case management will follow and assist as needed. Tyra Christiansen DCP- Discharge Planning Updated by [email or web address]: Tyra Christiansen on 04/01/19 10:[address] DC PLAN: Return to the [facility] - Resident ANTICIPATED DC NEEDS: Unknown dc needs. CM met with patient to complete initial dc planning assessment. CM attempted to educated patient on the CM role but he was not able to keep conversation. CM asked patient if he was from the [facility] and he said yes then he asked cm to get him the trumpet that was hanging on the wall. CM reviewed paperwork [facility] sent to the hospital to determine status. He is a detention resident at the [facility]. CM will continue to follow and will assist as needed with dc plans/needs. Trena Mccarty RN, [facility] DCPIA - Discharge Planning Initial Assessment Updated by [email or web address]: Trena Mccarty on 03/30/19 4:22 pm * Is the patient Alert and Oriented? No * How many steps to enter\exit or inside your home? None * PCP [facility] MD * [facility] * Preadmission Environment [facility] * Facility Name [facility] * ADLs Partial Dependent * Partial ADLs (Assistance needed) Ambulation Bathing Dressing Medication Management Transfers * List name and contact numbers for known caregivers / representatives who currently or will assist patient after discharge: Esperanza Butts - [phone] (on assisted paperwork) * Verbal permission to speak to the caregivers and representatives has been obtained from the patient. Yes * Community resources currently utilized None * Additional services required to return to the preadmission environment? No * Can the patient safely return to the preadmission environment? Yes * Has this patient been hospitalized within the prior 30 days at any hospital? No Coverage Notice Reviewer: [email or web address] Erika Christiansen Notice Issued Date-Time: 04/05/2019 13:59 Notice Type: Patient Choice Letter Notice Delivered To: Family Member Relationship to Patient: Spouse Genetics Teacher Name: Esperanza Butts Delivery Method: PHONE - Phone Vesna Days: Prior Verbal Notification: Recipient Understood Notice: Yes Recipient Signature: Yes Med Rec Note Co-signed by Attending: Coverage Notice Comment: [facility] Reviewer: [email or web address] Christiansen Notice Issued Date-Time: 04/05/2019 13:59 Notice Type: IM Discharge Notice Notice Delivered To: Family Member Relationship to Patient: Spouse Genetics Teacher Name: ESPERANZA BUTTS Delivery Method: CERT - Certified Mail Vesna Days: Prior Verbal Notification: Recipient Understood Notice: Yes Recipient Signature: Med Rec Note Co-signed by Attending: Coverage Notice Comment: TELEPHONED SPOUSE ESPERANZA BUTTS, VOICED UNDERSTANDING, WILL SEND VIA CERTIFIED MAIL Last DP export: 04/04/19 6:32 Patient Name: RICK HUSAIN Page 36560 at 1418 All edits/amendments must be made on the electronic document DICTATION DATE: 04/05/19 1417 ASSESSMENT SPECIALIST: GAUDENCIO 04/05/19 141 RPT#: [id number] [place] DATE: STATUS: ADM IN [facility] [address] [place] [address] END OF REPORT
--- NOTE | 2019-04-05 20:00 | NUR ---
RESTING QUEITLY WITH NO DISTRESS NOTED. RESP UNLABORED. O2 @ 2L PER NC ON. IV TO LFA INTACT WITHOUT REDNESS OR EDEMA NOTED. SL TO RIGHT HAND INTACT WITHOUT REDNESS. FALL PRECAUTIONS IN PLACE. CL IN REACH
--- NOTE | 2019-04-06 02:22 | NUR ---
I have reviewed this patient and I concur with the Shift Assessment completed by the Licensed Practical Nurse today this shift.
[2019-04-06 04:00] VITALS: BP 184/92
[2019-04-06 05:56] LABS: BASOPHILS 0 % (0-2); EOSINOPHILS 0 % (0-7); HEMATOCRIT 33.7 % (42.0-54.0); HEMOGLOBIN 10.6 g/dL (13.5-17.5); IMMATURE GRANULOCYTES 0.6 % (0-5); LYMPHOCYTES 5.8 % (15-50); MCH 28.8 pg (26.0-34.0); MCHC 31.5 g/dL (31.0-37.0); MEAN PLATELET VOLUME 11.1 fL (7.4-10.4); MONOCYTES 2.9 % (2-11); NEUTROPHILS 90.7 % (40-80); PLATELET COUNT 199 10x3/uL (130-400); RBC 3.68 10x6/uL (4.20-6.10); RDW 15.4 % (11.5-14.5); WBC 10.1 10x3/uL (4.8-10.8)
[2019-04-06 06:03] LABS: MCV 91.6 fL (80.0-100.0)
[2019-04-06 06:45] LABS: ALBUMIN 2.2 g/dL (3.4-5.0); ANION GAP 12.8 mmol/L (8-16); BILIRUBIN - TOTAL 0.75 mg/dL (0.2-1.3); CARBON DIOXIDE 23.5 mmol/L (21.0-32.0); CREATININE - SERUM 1.1 mg/dL (0.6-1.3); POTASSIUM - SERUM 3.3 mmol/L (3.5-5.1); VANCOMYCIN - RANDOM 13.3 ug/mL (10.0-20.0)
[2019-04-06 07:49] VITALS: BP 194/86
--- NOTE | 2019-04-06 09:06 | NUR ---
PT SAT UP IN BED AND FED SELF BREAKFAST TODAY. ABLE TO TAKE MEDS WELL NO S/SX OF DISTRESS, BED IN LOW POSITION, CL IN REACH CONTINUE WITH PLAN OF CARE
[2019-04-06 12:00] VITALS: BP 184/89
[2019-04-06 16:11] VITALS: BP 185/87
[2019-04-06 20:00] VITALS: BP 175/80
--- NOTE | 2019-04-06 20:45 | NUR ---
AWAKE,WATHCING TV QUEITLY WITH NO DISTRESS NOTED. RESP UNLABORED. O2 @ 2L PER NC ON. SL TO RIGHT HAND INTACT WITHOUT REDNESS OR EDEMA NOTED. LFA SL INTACT WITHOUT REDNESS OR EDEMA NOTED. CL IN REACH
--- NOTE | 2019-04-07 02:33 | NUR ---
I have reviewed this patient and I concur with the Shift Assessment completed by the Licensed Practical Nurse today this shift.
[2019-04-07 04:00] VITALS: BP 185/87
[2019-04-07 04:33] LABS: BASOPHILS 0.1 % (0-2); HEMATOCRIT 33.6 % (42.0-54.0); HEMOGLOBIN 10.6 g/dL (13.5-17.5); IMMATURE GRANULOCYTES 0.7 % (0-5); LYMPHOCYTES 9.5 % (15-50); MCH 28.9 pg (26.0-34.0); MCHC 31.5 g/dL (31.0-37.0); MCV 91.6 fL (80.0-100.0); MONOCYTES 7.2 % (2-11); NEUTROPHILS 77.5 % (40-80); PLATELET COUNT 229 10x3/uL (130-400); RBC 3.67 10x6/uL (4.20-6.10); RDW 15.4 % (11.5-14.5); WBC 11.2 10x3/uL (4.8-10.8)
[2019-04-07 04:50] LABS: ANION GAP 8.8 mmol/L (8-16); BILIRUBIN - TOTAL 0.6 mg/dL (0.2-1.3); CALCIUM 9.3 mg/dL (8.5-10.1); CARBON DIOXIDE 28.5 mmol/L (21.0-32.0); CREATININE - SERUM 1.1 mg/dL (0.6-1.3); POTASSIUM - SERUM 3.3 mmol/L (3.5-5.1); PROTEIN - SERUM 6.7 g/dL (6.4-8.2); VANCOMYCIN - RANDOM 17.4 ug/mL (10.0-20.0)
[2019-04-07 07:43] VITALS: BP 163/94
--- NOTE | 2019-04-07 08:32 | NUR ---
RESTING IN BED, ALERT BUT CONFUSED, CONT TO MONITOR, TO RETURN TO [facility] HOME TOMORROW
[2019-04-07 12:48] VITALS: BP 135/97
[2019-04-07 16:47] VITALS: BP 195/87
--- NOTE | 2019-04-07 20:30 | NUR ---
LYING QUIELTY. ALERT WITH MILD CONFUSION NOTED. RESP EVEN AND UNALBORED. NO DISTRESS NOTED. SL TO LFA INTACT WITHOUT REDNESS NOTED. CL IN REACH. FALL PRECATIONS IN PLACE.
[2019-04-07 20:54] VITALS: BP 195/96
[2019-04-08 00:27] VITALS: BP 175/104
--- NOTE | 2019-04-08 02:44 | NUR ---
I have reviewed this patient and I concur with the Shift Assessment completed by the Licensed Practical Nurse today this shift.
[2019-04-08 04:27] VITALS: BP 170/80
[2019-04-08 05:07] LABS: BASOPHILS 0.1 % (0-2); EOSINOPHILS 3.2 % (0-7); HEMATOCRIT 35.8 % (42.0-54.0); HEMOGLOBIN 11.3 g/dL (13.5-17.5); IMMATURE GRANULOCYTES 0.5 % (0-5); LYMPHOCYTES 8.9 % (15-50); MCHC 31.6 g/dL (31.0-37.0); MEAN PLATELET VOLUME 11.1 fL (7.4-10.4); MONOCYTES 6.9 % (2-11); NEUTROPHILS 80.4 % (40-80); PLATELET COUNT 273 10x3/uL (130-400); RBC 3.89 10x6/uL (4.20-6.10); RDW 15.6 % (11.5-14.5); WBC 12.9 10x3/uL (4.8-10.8)
[2019-04-08 05:39] LABS: ALBUMIN 2.4 g/dL (3.4-5.0); ALKALINE PHOSPHATASE 99 U/L (46-116); CALC OSMOLALITY 310 mosm/kg (275-300); CALCIUM 9.3 mg/dL (8.5-10.1); CARBON DIOXIDE 29.7 mmol/L (21.0-32.0); CHLORIDE - SERUM 113 mmol/L (98-107); GLUCOSE 118 mg/dL (74-106); MAGNESIUM - SERUM 2.2 mg/dL (1.8-2.4); PHOSPHOROUS 1.8 mg/dL (2.5-4.9); PROTEIN - SERUM 6.9 g/dL (6.4-8.2); SODIUM 151 mmol/L (136-145); UREA NITROGEN 41 mg/dL (7-18); eGFR NON AFRICAN AMERICAN 76 mL/min (90-120)
[2019-04-08 06:00] LABS: ALT (SGPT) 18 U/L (10-68); POTASSIUM - SERUM 3.9 mmol/L (3.5-5.1)
--- NOTE | 2019-04-08 07:30 | NUR ---
B/P 204/90 LEFT ARM,197/94 RIGHT ARM. SAMMY TAPIA NOTIFED. DOES NOT WANT TO GIVE PRN AT THIS TIME. INSTRUCTED TO GIVE AM B/P MEDS NOW. DEBORAH GOEL COZAAR GIVEN ORDERED.REPORT GIVEN TO ONCOMING NURSE.
[2019-04-08 08:36] VITALS: BP 197/94
--- NOTE | 2019-04-08 13:00 | NUR ---
PATIENT SLEEPING AFTER TAKING MORNING MEDS. DOES NOT WANT TO WAKE UP AND EAT OR TAKE MEDS. RECIEVED ZOLOFT AND KLONOPIN EARLIER. PROBABLY DROWSY PER THOSE MEDS. BP BETTER. WILL CONTINUE TO MONITOR CALL LIGHT WITHIN REACH.
[2019-04-08 13:24] VITALS: BP 130/66
--- NOTE | 2019-04-08 13:47 | NUR ---
NUTRITION F/U CHART REVIEWED, PT VISIT X 2. GOOD INTAKE BREAKFAST INCLUDING ENSURE WITH RN ADMISSION ASSIST. SLEEPING THRU LUNCH TODAY. WILL CONTINUE TO PROVIDE DIET AND ENSURE. MONITOR INTAKE. RD FOLLOWING
[2019-04-08 16:56] VITALS: BP 119/61
[2019-04-08 20:50] VITALS: BP 137/69
--- NOTE | 2019-04-09 00:12 | NUR ---
I have reviewed this patient and I concur with the Shift Assessment completed by the Licensed Practical Nurse today this shift.
[2019-04-09 00:59] VITALS: BP 160/70
--- NOTE | 2019-04-09 01:38 | NUR ---
PT RESTING IN BED. EYES CLOSED. NO SIGNS OF DISTRESS. BREATHNG EVEN AND UNLABORED. IV SITE LT HAND DRESSING CLEAN DRY AND INTACT. NO SIGNS OF INFECTION OR INFULTRATION. BOWEL SOUNDS ACTIVE. 2LO2 NASAL CANNULA. SKIN CLEAN DRY AND ITNACT. NO LOWER LEG SWELLING PRESENT. WILL CONTINUE PLAN OF CARE. CALL LIGHT IN REACH. BED LOWERED AND LOCKED. BED RAILS UP X2. CEZAR ALARM ON.
[2019-04-09 04:06] VITALS: BP 151/75
[2019-04-09 06:46] LABS: BASOPHILS 0.1 % (0-2); HEMOGLOBIN 10.4 g/dL (13.5-17.5); IMMATURE GRANULOCYTES 0.5 % (0-5); LYMPHOCYTES 11.7 % (15-50); MCH 28.7 pg (26.0-34.0); MCHC 30.6 g/dL (31.0-37.0); MCV 93.7 fL (80.0-100.0); NEUTROPHILS 72.7 % (40-80); RBC 3.63 10x6/uL (4.20-6.10); RDW 15.8 % (11.5-14.5)
[2019-04-09 06:53] LABS: PLATELET COUNT 205 10x3/uL (130-400); WBC 8.3 10x3/uL (4.8-10.8)
--- NOTE | 2019-04-09 07:10 | NUR ---
LYING IN BED,WITHOUT DISTRESS.FALL PREVENTION IN PLACE WITH BED ALARM.
[2019-04-09 07:20] LABS: ALBUMIN 2.2 g/dL (3.4-5.0); ALKALINE PHOSPHATASE 77 U/L (46-116); BILIRUBIN - TOTAL 0.63 mg/dL (0.2-1.3); CALC OSMOLALITY 306 mosm/kg (275-300); CARBON DIOXIDE 26.3 mmol/L (21.0-32.0); CREATININE - SERUM 0.9 mg/dL (0.6-1.3); GLUCOSE 95 mg/dL (74-106); POTASSIUM - SERUM 3.9 mmol/L (3.5-5.1); PROTEIN - SERUM 6.5 g/dL (6.4-8.2); SODIUM 149 mmol/L (136-145); UREA NITROGEN 44 mg/dL (7-18); eGFR NON AFRICAN AMERICAN 86 mL/min (90-120)
[2019-04-09 07:25] LABS: ALT (SGPT) 12 U/L (10-68)
[2019-04-09 07:26] LABS: CHLORIDE - SERUM 116 mmol/L (98-107)
[2019-04-09 09:24] VITALS: BP 157/85
[2019-04-09] MEDS ORDERED: VIBRAMYCIN 100100 MG PO (10:30)
[2019-04-09] MEDS ORDERED: DONEPEZIL HCL10 MG PO (10:30)
[2019-04-09] MEDS ORDERED: NORVASC5 MG PO (10:31)
[2019-04-09] MEDS ORDERED: MUCINEX600 MG PO (10:31)
[2019-04-09] MEDS ORDERED: TESSALON PERLE100 MG PO (10:32)
[2019-04-09 13:14] VITALS: BP 139/72
[2019-04-09 16:27] VITALS: BP 118/62
--- NOTE | 2019-04-09 18:42 | NUR ---
ATE SMALL AMOUNTS OF FOOD TODAY WITH BOOST. HE FALLS ASLEEP OFTEN AND SOMETIMES HARD TO WAKE.HE IS WITHOUT CHANGE FROM ASSESSMENT.CONT PLAN OF CARE
[2019-04-09 19:30] VITALS: BP 150/69
--- NOTE | 2019-04-09 23:18 | NUR ---
I have reviewed this patient and I concur with the Shift Assessment completed by the Licensed Practical Nurse today this shift.
[2019-04-10 00:59] VITALS: BP 146/69
--- NOTE | 2019-04-10 01:46 | NUR ---
PT RESTING IN BED. EYES CLOSED. NO SIGNS OF DISTRESS. BREATHING EVEN AND UNLABORED. IV SITE LT HAND DRESSING CLEAN DRY AND INTACT. NO SIGNS OF INFECTION. LUNG SOUNDS CLEAR. BOWEL SOUNDS ACTIVE. SKIN CLEAN DRY AND INTACT. BED ALARM ON. WILL CONTINUE PLAN OF CARE. CALL LIGHT IN REACH. BED LOWERED AND LOCKED. BED RAILS UPX2.
[2019-04-10 05:34] VITALS: BP 138/72
[2019-04-10 06:50] LABS: BASOPHILS 0.1 % (0-2); EOSINOPHILS 6.6 % (0-7); HEMOGLOBIN 10.4 g/dL (13.5-17.5); IMMATURE GRANULOCYTES 0.7 % (0-5); LYMPHOCYTES 16.3 % (15-50); MCH 28.9 pg (26.0-34.0); MCHC 30.6 g/dL (31.0-37.0); MCV 94.4 fL (80.0-100.0); MEAN PLATELET VOLUME 10.7 fL (7.4-10.4); MONOCYTES 8.1 % (2-11); NEUTROPHILS 68.2 % (40-80); PLATELET COUNT 207 10x3/uL (130-400); RDW 15.7 % (11.5-14.5); WBC 7.1 10x3/uL (4.8-10.8)
--- NOTE | 2019-04-10 07:10 | NUR ---
PT RESTING IN BED. NO SIGNS OF DISTRESS. IV TO RIGHT HAND PATENT NO REDNESS OR TENDERNESS. ON 2L NC. ALL FALL PRECAUTIONS IN PLACE. ON TELEMETRY 64 PACING. DENIES ANY FURTHER NEED AT THIS TIME. CALL LIGHT IN REACH. BED LOW POSITION. NO FAMILY AT BEDSIDE AT THIS TIME.
[2019-04-10 07:22] LABS: ALBUMIN 2.1 g/dL (3.4-5.0); ALKALINE PHOSPHATASE 78 U/L (46-116); ALT (SGPT) 14 U/L (10-68); BILIRUBIN - TOTAL 0.42 mg/dL (0.2-1.3); CALC OSMOLALITY 307 mosm/kg (275-300); CALCIUM 8.8 mg/dL (8.5-10.1); CARBON DIOXIDE 30.2 mmol/L (21.0-32.0); CHLORIDE - SERUM 115 mmol/L (98-107); GLUCOSE 85 mg/dL (74-106); POTASSIUM - SERUM 3.8 mmol/L (3.5-5.1); PROTEIN - SERUM 6.5 g/dL (6.4-8.2); SODIUM 150 mmol/L (136-145); UREA NITROGEN 43 mg/dL (7-18); eGFR NON AFRICAN AMERICAN 76 mL/min (90-120)
[2019-04-10 09:02] VITALS: BP 168/91
[2019-04-10 12:55] VITALS: BP 128/65
--- NOTE | 2019-04-10 14:47 | NUR ---
I have reviewed this patient and I concur with the Shift Assessment completed by the Licensed Practical Nurse today this shift.
[2019-04-10 16:38] VITALS: BP 143/69
[2019-04-10 20:35] VITALS: BP 142/79
[2019-04-11] VITALS (7 sets, daily range): BP systolic 129–171; BP diastolic 66–98
[2019-04-11 06:12] LABS: HEMATOCRIT 36.7 % (42.0-54.0); HEMOGLOBIN 11.1 g/dL (13.5-17.5); MCH 28.7 pg (26.0-34.0); MCHC 30.2 g/dL (31.0-37.0); MCV 94.8 fL (80.0-100.0); MEAN PLATELET VOLUME 10.8 fL (7.4-10.4); PLATELET COUNT 209 10x3/uL (130-400); RBC 3.87 10x6/uL (4.20-6.10); RDW 15.6 % (11.5-14.5); WBC 7.2 10x3/uL (4.8-10.8)
[2019-04-11 06:26] LABS: CALC OSMOLALITY 306 mosm/kg (275-300); CALCIUM 8.9 mg/dL (8.5-10.1); CARBON DIOXIDE 31.4 mmol/L (21.0-32.0); CHLORIDE - SERUM 115 mmol/L (98-107); GLUCOSE 83 mg/dL (74-106); POTASSIUM - SERUM 3.8 mmol/L (3.5-5.1); SODIUM 150 mmol/L (136-145); UREA NITROGEN 41 mg/dL (7-18); eGFR NON AFRICAN AMERICAN 76 mL/min (90-120)
--- NOTE | 2019-04-11 07:10 | NUR ---
PT RESTING IN BED. NO SIGNS OF DISTRESS. IV TO RIGHT HAND PATENT NO REDNESS OR TENDERNESS. ON TELEMETRY 63 PACING. ON 2L NC. ALL FALL PRECAUTIONS IN PLACE. DENIES ANY FURTHER NEED AT THIS TIME. CALL LIGHT IN REACH. BED LOW POSITION. NO FAMILY AT BEDSIDE AT THIS TIME.
[2019-04-11 09:46] LABS: ANISOCYTOSIS OCC; EOSINOPHILS 3 % (0-7); LYMPHOCYTES 25 % (15-50); MONOCYTES 9 % (2-11); NEUTROPHILS 63 % (40-80); PLATELET ESTIMATE NORMAL
--- NOTE | 2019-04-11 12:34 | MORECARE ---
CASE MANAGEMENT DISCHARGE SUMMARY PATIENT: RICK HUSAIN UNIT: [id number] ADM DATE: 03/30/19 AGE: 79 : 40 SEX: M ROOM/BED: D.2224 AUTHOR: ABIDA CRAWFORD PHYSICIAN: REFERRING PHYSICIAN: JULIETH MEDRANO MD DATE OF SERVICE: 04/11/19 Discharge Plan Patient Name: RICK HUSAIN Facility: [facility]:[place] : 1940 Planned Disposition: [facility]cf Facility Anticipated Discharge Date: 04/01/19 Discharge Date: Expected LOS: 2 Initial Reviewer: [email or web address] Initial Review Date: 03/30/2019 Generated: 04/11/19 1:33 pm Comments DCP- Discharge Planning Updated by [email or web address]: Tyra Christiansen on 04/11/19 11:[address] I called patient's (Kate Butts) per Dr. Medrano's request about his elevated sodium levels and informed her that Dr. Medrano was wanting to know if she would consent to a PEG to increase his water intake. She states that he drinks fine when someone gives him fluids. She states that she brings him Gatorade and he likes Gatorade and drinks it just fine. She states "he doesn't like water, he likes Gatorade." I informed her not to bring any more Gatorade, because of the sodium content and only offer water at this time. She states she does not want a PEG or Hospice consult at this time. I notified Nita of 's comments. CM will continue to follow and assist with discharge planning/needs. DCP- Discharge Planning Updated by [email or web address]: Tyra Christiansen on 04/05/19 1:[address] Patient Name: RICK HUSAIN Encounter No: [id number] : 1940 Primary Insurance: MEDICARE A & B Anticipated DC Date: 04-01-2019 Planned Disposition: Chcf Facility External Planned Provider: : DCP follow-up note: Received discharge orders. I notified Damaris with [facility]. I informed Damaris that pulmonary will need to see prior to discharge. Also informed Damaris that the patient is on 2 liters NC. I called patient's , Esperanza and she agrees with discharge to [facility]. DC order and clinical faxed. Patient will be discharging to a group home bed. Case management will follow and assist as needed. Tyra Christiansen DCP- Discharge Planning Updated by [email or web address]: Tyra Christiansen on 04/01/19 10:[address] DC PLAN: Return to the [facility] - Resident ANTICIPATED DC NEEDS: Unknown dc needs. CM met with patient to complete initial dc planning assessment. CM attempted to educated patient on the CM role but he was not able to keep conversation. CM asked patient if he was from the [facility] and he said yes then he asked cm to get him the trumpet that was hanging on the wall. CM reviewed paperwork [facility] sent to the hospital to determine status. He is a um rn resident at the [facility]. CM will continue to follow and will assist as needed with dc plans/needs. Trena Mccarty RN, [facility] DCPIA - Discharge Planning Initial Assessment Updated by [email or web address]: Trena Mccarty on 03/30/19 4:22 pm * Is the patient Alert and Oriented? No * How many steps to enter\\exit or inside your home? None * PCP [facility] MD * [facility]acy [facility] * Preadmission Environment Detention [facility] * Facility Name [facility] * ADLs Partial Dependent * Partial ADLs (Assistance needed) Ambulation Bathing Dressing Medication Management Transfers * List name and contact numbers for known caregivers / representatives who currently or will assist patient after discharge: Esperanza Butts - [phone] (on penitentiary paperwork) * Verbal permission to speak to the caregivers and representatives has been obtained from the patient. Yes * Community resources currently utilized None * Additional services required to return to the preadmission environment? No * Can the patient safely return to the preadmission environment? Yes * Has this patient been hospitalized within the prior 30 days at any hospital? No Coverage Notice Reviewer: [email or web address] - Tyra Christiansen Notice Issued Date-Time: 04/05/2019 13:59 Notice Type: Patient Choice Letter Notice Delivered To: Family Member Relationship to Patient: Spouse Metal Wire Coating Operator Name: Esperanza Butts Delivery Method: PHONE - Phone Vesna Days: Prior Verbal Notification: Recipient Understood Notice: Yes Recipient Signature: Yes Med Rec Note Co-signed by Attending: Coverage Notice Comment: aster for [facility] Reviewer: [id number] Erika Christiansen Notice Issued Date-Time: 04/05/2019 13:59 Notice Type: IM Discharge Notice Notice Delivered To: Family Member Relationship to Patient: Spouse Metal Wire Coating Operator Name: ESPERANZA BUTTS Delivery Method: CERT - Certified Mail Vesna Days: Prior Verbal Notification: Recipient Understood Notice: Yes Recipient Signature: Med Rec Note Co-signed by Attending: Coverage Notice Comment: TELEPHONED SPOUSE ESPERANZA BUTTS, VOICED UNDERSTANDING, WILL SEND VIA CERTIFIED MAIL Last DP export: 04/05/19 1:18 Patient Name: RICK HUSAIN Page [id number] at 1234 All edits/amendments must be made on the electronic document DICTATION DATE: 04/11/19 1233 RELIABILITY TECHNICIAN: GAUDENCIO 04/11/19 1233 RPT#: [id number] DC DATE: STATUS: ADM IN [facility] [address] [place] [address] END OF REPORT
--- NOTE | 2019-04-11 14:00 | NUR ---
Nutrition follow-up: Set-up lunch and fed pt ~1/2 before he said he was full. Pt requested a fresh cup of coffee; provided. Pt did drink some water with lunch. Labs reviewed; Na still high. Pts has been bringing Garotade for pt to drink in the evening. Pts asked to stop bringing Gatorade. Pts refusing PEG placement and Hospice eval. RDN following.
--- NOTE | 2019-04-11 16:05 | NUR ---
I have reviewed this patient and I concur with the Shift Assessment completed by the Licensed Practical Nurse today this shift.
--- NOTE | 2019-04-11 19:45 | NUR ---
PATIENT LYING IN BED. ENCOURAGED PATIENT TO DRINK WATER. PATIENT STATES HE HAS NO NEEDS AT THIS TIME. BED RAILS X2. CALL LIGHT AND TABLE WIHTIN REACH.
[2019-04-12 05:54] VITALS: BP 136/68
[2019-04-12 08:57] LABS: BASOPHILS 0.1 % (0-2); HEMATOCRIT 36.1 % (42.0-54.0); HEMOGLOBIN 11.1 g/dL (13.5-17.5); IMMATURE GRANULOCYTES 0.4 % (0-5); LYMPHOCYTES 13.6 % (15-50); MCH 28.9 pg (26.0-34.0); MCHC 30.7 g/dL (31.0-37.0); MEAN PLATELET VOLUME 11.1 fL (7.4-10.4); MONOCYTES 7.7 % (2-11); NEUTROPHILS 75.2 % (40-80); PLATELET COUNT 200 10x3/uL (130-400); RBC 3.84 10x6/uL (4.20-6.10); RDW 15.2 % (11.5-14.5); WBC 8.3 10x3/uL (4.8-10.8)
--- NOTE | 2019-04-12 09:00 | NUR ---
ASSESSMENT PER FLOW SHEET. PT IS WITHOUT DISTRESS.HE DENIES NEEDS AT PRESENT.CALL LIGHT IN REACH.FALL PREVENTION IN PLACE WITH BED ALARM.DOOR OPEN TO MONITOR
[2019-04-12 09:24] LABS: ANION GAP 6.1 mmol/L (8-16); CALCIUM 9.1 mg/dL (8.5-10.1); CARBON DIOXIDE 33.5 mmol/L (21.0-32.0); CREATININE - SERUM 1.2 mg/dL (0.6-1.3); POTASSIUM - SERUM 3.6 mmol/L (3.5-5.1)
--- NOTE | 2019-04-12 12:50 | MORECARE ---
CASE MANAGEMENT DISCHARGE SUMMARY PATIENT: RICK HUSAIN UNIT: [id number] ADM DATE: 03/30/19 AGE: 79 : 40 SEX: M ROOM/BED: D.2224 AUTHOR: ABIDA CRAWFORD PHYSICIAN: REFERRING PHYSICIAN: JULIETH MEDRANO MD DATE OF SERVICE: 04/12/19 Discharge Plan Patient Name: RICK HUSAIN Facility: [facility]:[place] : 1940 Planned Disposition: Residential Facility Anticipated Discharge Date: 04/01/19 Discharge Date: Expected LOS: 2 Initial Reviewer: [email or web address] Initial Review Date: 03/30/2019 Generated: 04/12/19 1:50 pm Comments DCP- Discharge Planning Updated by [id number]: Tyrafranklin Christiansen on 04/12/19 11:[address] Discharging to a skilled (Medicare) bed at [facility]. I have notified his and she is in agreement to discharge plan. I have notified teresa Ocampo for [facility]. He is on room air. CM will continue to follow and assist with discharge planning/needs. DCP- Discharge Planning Updated by [email or web address]: Tyra Christiansen on 04/11/19 11:[address] I called patient's (Kate Butts) per Dr. Medrano's request about his elevated sodium levels and informed her that Dr. Medrano was wanting to know if she would consent to a PEG to increase his water intake. She states that he drinks fine when someone gives him fluids. She states that she brings him Gatorade and he likes Gatorade and drinks it just fine. She states "he doesn't like water, he likes Gatorade." I informed her not to bring any more Gatorade, because of the sodium content and only offer water at this time. She states she does not want a PEG or Hospice consult at this time. I notified Nita of 's comments. CM will continue to follow and assist with discharge planning/needs. DCP- Discharge Planning Updated by [id number]: Tyra Christiansen on 04/05/19 1:[address] Patient Name: RICK HUSAIN Encounter No: [id number] : 1940 Primary Insurance: MEDICARE A & B Anticipated DC Date: 04-01-2019 Planned Disposition: Residential Facility External Planned Provider: : DCP follow-up note: Received discharge orders. I notified Damaris with [facility]. I informed Damaris that pulmonary will need to see prior to discharge. Also informed Damaris that the patient is on 2 liters NC. I called patient's , Esperanza and she agrees with discharge to [facility]. DC order and clinical faxed. Patient will be discharging to a terminal computer operator bed. Case management will follow and assist as needed. Tyra Christiansen DCP- Discharge Planning Updated by [email or web address]: Tyra Christiansen on 04/01/19 10:[address] DC PLAN: Return to the [facility] - Resident ANTICIPATED DC NEEDS: Unknown dc needs. CM met with patient to complete initial dc planning assessment. CM attempted to educated patient on the CM role but he was not able to keep conversation. CM asked patient if he was from the [facility] and he said yes then he asked cm to get him the trumpet that was hanging on the wall. CM reviewed paperwork [facility] sent to the hospital to determine status. He is a senior care resident at the [facility]. CM will continue to follow and will assist as needed with dc plans/needs. Trena Mccarty RN, [facility] DCPIA - Discharge Planning Initial Assessment Updated by [id number]: Trena Mccarty on 03/30/19 4:22 pm * Is the patient Alert and Oriented? No * How many steps to enter\\exit or inside your home? None * PCP [facility] MD * [facility]acy [facility] * Preadmission Environment Biofuels Production Manager Long Term * Facility Name [facility] * ADLs Partial Dependent * Partial ADLs (Assistance needed) Ambulation Bathing Dressing Medication Management Transfers * List name and contact numbers for known caregivers / representatives who currently or will assist patient after discharge: Esperanza Maxim - [phone] (on half-way paperwork) * Verbal permission to speak to the caregivers and representatives has been obtained from the patient. Yes * Community resources currently utilized None * Additional services required to return to the preadmission environment? No * Can the patient safely return to the preadmission environment? Yes * Has this patient been hospitalized within the prior 30 days at any hospital? No Coverage Notice Reviewer: [id number] Christiansen Notice Issued Date-Time: 04/05/2019 13:59 Notice Type: Patient Choice Letter Notice Delivered To: Family Member Relationship to Patient: Spouse Road Train Driver Name: Esperanza Butts Delivery Method: PHONE - Phone Vesna Days: Prior Verbal Notification: Recipient Understood Notice: Yes Recipient Signature: Yes Med Rec Note Co-signed by Attending: Coverage Notice Comment: [facility] Reviewer: [id number] Christiansen Notice Issued Date-Time: 04/05/2019 13:59 Notice Type: IM Discharge Notice Notice Delivered To: Family Member Relationship to Patient: Spouse Road Train Driver Name: ESPERANZA BUTTS Delivery Method: CERT - Certified Mail Vesna Days: Prior Verbal Notification: Recipient Understood Notice: Yes Recipient Signature: Med Rec Note Co-signed by Attending: Coverage Notice Comment: TELEPHONED SPOUSE ESPERANZA BUTTS, VOICED UNDERSTANDING, WILL SEND VIA CERTIFIED MAIL Reviewer: [id number] Christiansen Notice Issued Date-Time: 04/12/2019 12:32 Notice Type: IM Admission Notice Notice Delivered To: Family Member Relationship to Patient: Spouse Road Train Driver Name: Esperanza Butts Delivery Method: HAND - Hand Delivered Vesna Days: Prior Verbal Notification: Recipient Understood Notice: Yes Recipient Signature: Yes Med Rec Note Co-signed by Attending: Coverage Notice Comment: IMM explained, signed, given, copy placed in MR Last DP export: 04/11/19 11:34 Patient Name: RICK HUSAIN Page [id number] at 1250 All edits/amendments must be made on the electronic document DICTATION DATE: 04/12/19 1250 PHOTO MACHINE OPERATOR: GAUDENCIO 04/12/19 1250 RPT#: [id number] DC DATE: STATUS: ADM IN [facility] [address] [place] [address] END OF REPORT
[2019-04-12 13:36] VITALS: BP 174/65
--- NOTE | 2019-04-12 14:22 | NUR ---
REPORT TO LIDYA,SPOKE WITH JIAN.
--- NOTE | 2019-04-12 15:04 | NUR ---
IV DCD WITH CATH TI[P INTACT. PT LEFT UNIT VIA WHEELCHAIR FOR TRANSPORT TO [facility].
--- NOTE | 2019-04-16 11:28 | MORECARE ---
CASE MANAGEMENT DISCHARGE SUMMARY PATIENT: RICK HUSAIN UNIT: [id number] ADM DATE: 03/30/19 AGE: 79 : 40 SEX: M ROOM/BED: D.2224 AUTHOR: ABIDA CRAWFORD PHYSICIAN: REFERRING PHYSICIAN: JULIETH MEDRANO MD DATE OF SERVICE: 04/16/19 Discharge Plan Patient Name: RICK HUSAIN Facility: [facility]:[place] : 1940 Planned Disposition: Fpc Facility Anticipated Discharge Date: 04/01/19 Discharge Date: 04/12/2019 Expected LOS: 2 Initial Reviewer: [email or web address] Initial Review Date: 03/30/2019 Generated: 04/16/19 12:27 pm Comments DCP- Discharge Planning Updated by [email or web address]: Tyra Christiansen on 04/12/19 11:[address] Discharging to a skilled (Medicare) bed at [facility]. I have notified his and she is in agreement to discharge plan. I have notified teresa Ocampo for [facility]. He is on room air. CM will continue to follow and assist with discharge planning/needs. DCP- Discharge Planning Updated by [email or web address]: Tyra Christiansen on 04/11/19 11:[address] I called patient's (Kate Butts) per Dr. Medrano's request about his elevated sodium levels and informed her that Dr. Medrano was wanting to know if she would consent to a PEG to increase his water intake. She states that he drinks fine when someone gives him fluids. She states that she brings him Gatorade and he likes Gatorade and drinks it just fine. She states "he doesn't like water, he likes Gatorade." I informed her not to bring any more Gatorade, because of the sodium content and only offer water at this time. She states she does not want a PEG or Hospice consult at this time. I notified Nita of 's comments. CM will continue to follow and assist with discharge planning/needs. DCP- Discharge Planning Updated by [email or web address]: Tyra Christiansen on 04/05/19 1:[address] Patient Name: RICK HUSAIN Encounter No: [id number] : 1940 Primary Insurance: MEDICARE A & B Anticipated DC Date: 04-01-2019 Planned Disposition: Fpc Facility External Planned Provider: : DCP follow-up note: Received discharge orders. I notified Damaris with [facility]. I informed Damaris that pulmonary will need to see prior to discharge. Also informed Damaris that the patient is on 2 liters NC. I called patient's , Esperanza and she agrees with discharge to [facility]. DC order and clinical faxed. Patient will be discharging to a [facility] bed. Case management will follow and assist as needed. Tyra Christiansen DCP- Discharge Planning Updated by [id number]: Tyra Christiansen on 04/01/19 10:[address] DC PLAN: Return to the [facility] - Resident ANTICIPATED DC NEEDS: Unknown dc needs. CM met with patient to complete initial dc planning assessment. CM attempted to educated patient on the CM role but he was not able to keep conversation. CM asked patient if he was from the [facility] and he said yes then he asked cm to get him the trumpet that was hanging on the wall. CM reviewed paperwork [facility] sent to the hospital to determine status. 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 CM will continue to follow and will assist as needed with dc plans/needs. Trena Mccarty RN, [facility] DCPIA - Discharge Planning Initial Assessment Updated by [email or web address]: Trena Mccarty on 03/30/19 4:22 pm * Is the patient Alert and Oriented? No * How many steps to enter\\exit or inside your home? 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 Yes * Community resources currently utilized None * Additional services required to return to the preadmission environment? No * Can the patient safely return to the preadmission environment? Yes * Has this patient been hospitalized within the prior 30 days at any hospital? No Coverage Notice Reviewer: [id number] Christiansen Notice Issued Date-Time: 04/05/2019 13:59 Notice Type: Patient Choice Letter Notice Delivered To: Family Member Relationship to Patient: Spouse Boarding Specialist Name: Esperanza Butts Delivery Method: PHONE - Phone Vesna Days: Prior Verbal Notification: Recipient Understood Notice: Yes Recipient Signature: Yes Med Rec Note Co-signed by Attending: Coverage Notice Comment: aster for the neida Reviewer: KAMRAN Christiansen Notice Issued Date-Time: 04/05/2019 13:59 Notice Type: IM Discharge Notice Notice Delivered To: Family Member Relationship to Patient: Spouse Boarding Specialist Name: ESPERANZA BUTTS Delivery Method: CERT - Certified Mail Vesna Days: Prior Verbal Notification: Recipient Understood Notice: Yes Recipient Signature: Med Rec Note Co-signed by Attending: Coverage Notice Comment: TELEPHONED SPOUSE ESPERANZA BUTTS, VOICED UNDERSTANDING, WILL SEND VIA CERTIFIED MAIL Reviewer: KAMRAN Christiansen Notice Issued Date-Time: 04/12/2019 12:32 Notice Type: IM Admission Notice Notice Delivered To: Family Member Relationship to Patient: Spouse Boarding Specialist Name: Esperanza Butts Delivery Method: HAND - Hand Delivered Vesna Days: Prior Verbal Notification: Recipient Understood Notice: Yes Recipient Signature: Yes Med Rec Note Co-signed by Attending: Coverage Notice Comment: IMM explained, signed, given, copy placed in MR Last DP export: 04/12/19 11:51 Patient Name: RICK HUSAIN Page [id number] at 1128 All edits/amendments must be made on the electronic document DICTATION DATE: 04/16/19 112 GRAIN THRESHER: GAUDENCIO 04/16/19 112 RPT#: [id number] DC DATE:04/12/19 STATUS: DIS IN [facility] [address] [place] [address] END OF REPORT
== END 2019-04-12 15:04 | DRG 640 ==
LOC: D.ER 12:14 → D.MS 14:55
PROVIDERS: Emergency Medicine; Internal Medicine Pulmonary Disease; ADMIT Internal Medicine Nephrology; ATTEND Internal Medicine Nephrology
DX: E86.0 Dehydration (principal); E43 Unspecified severe protein-calorie malnutrition; I50.23 Acute on chronic systolic (congestive) heart failure; J18.9 Pneumonia, unspecified organism; I21.4 Non-ST elevation (NSTEMI) myocardial infarction; G93.41 Metabolic encephalopathy; R53.2 Functional quadriplegia; N39.0 Urinary tract infection, site not specified; S22.009A Unspecified fracture of unspecified thoracic vertebra, initial encounter for closed fracture; J44.1 Chronic obstructive pulmonary disease with (acute) exacerbation; J90 Pleural effusion, not elsewhere classified; J44.0 Chronic obstructive pulmonary disease with (acute) lower respiratory infection; N17.9 Acute kidney failure, unspecified; Z68.1 Body mass index [BMI] 19.9 or less, adult; E87.0 Hyperosmolality and hypernatremia; W05.0XXA Fall from non-moving wheelchair, initial encounter; I10 Essential (primary) hypertension; I25.10 Atherosclerotic heart disease of native coronary artery without angina pectoris; G30.9 Alzheimer's disease, unspecified; F02.80 Dementia in other diseases classified elsewhere, unspecified severity, without behavioral disturbance, psychotic disturbance, mood disturbance, and anxiety; M19.90 Unspecified osteoarthritis, unspecified site; D64.9 Anemia, unspecified; Z91.81 History of falling; F41.8 Other specified anxiety disorders; E87.6 Hypokalemia; Z95.0 Presence of cardiac pacemaker; B96.4 Proteus (mirabilis) (morganii) as the cause of diseases classified elsewhere; I16.0 Hypertensive urgency

== ENCOUNTER 2019-04-13 10:33 | Inpatient (IN) | payer MEDICARE ==
[~2019-04-13] VITALS: Ht 172.7 cm; Wt 59.6 kg
[~2019-04-13 10:33] MED LIST changes: +DONEPEZIL HCL10 MG PO; +MUCINEX600 MG PO; +NORVASC5 MG PO; +TESSALON PERLE100 MG PO; +VIBRAMYCIN 100100 MG PO
--- NOTE | 2019-04-13 11:00 | NUR ---
PT RECEIVED 500 ML NS BOLUS GIVEN BY [facility] PRIOR TO ARRIVAL TO ED.
[2019-04-13 11:13] LABS: BASOPHILS 0.2 % (0-2); EOSINOPHILS 0.7 % (0-7); HEMATOCRIT 34.4 % (42.0-54.0); HEMOGLOBIN 10.5 g/dL (13.5-17.5); IMMATURE GRANULOCYTES 0.4 % (0-5); LYMPHOCYTES 12.3 % (15-50); MCH 28.9 pg (26.0-34.0); MCHC 30.5 g/dL (31.0-37.0); MCV 94.8 fL (80.0-100.0); MONOCYTES 6.2 % (2-11); NEUTROPHILS 80.2 % (40-80); PLATELET COUNT 215 10x3/uL (130-400); RBC 3.63 10x6/uL (4.20-6.10); RDW 15.4 % (11.5-14.5)
[2019-04-13 11:23] LABS: APTT 34.5 SECONDS (22.8-39.4); INR 1.68 (0.85-1.17); PROTIME 19.2 SECONDS (11.6-15.0)
[2019-04-13 11:43] LABS: APPEARANCE CLEAR (CLEAR); COLOR DK YELLOW (YELLOW); NITRITE NEGATIVE (NEGATIVE); PROTEIN TRACE mg/dL (NEGATIVE)
[2019-04-13 11:44] LABS: BILIRUBIN NEGATIVE (NEGATIVE); GLUCOSE NEGATIVE (NEGATIVE); KETONE NEGATIVE (NEGATIVE); RED CELLS - URINE 0-5 /hpf (0-5); UROBILINOGEN NORMAL (NORMAL); WHITE CELLS - URINE 0-5 /hpf (NEGATIVE)
[2019-04-13 11:46] LABS: BACTERIA MODERATE /hpf (NEGATIVE); EPITHELIAL CELLS 0-5 /hpf (0-5); MUCUS <1+ /lpf (NONE SEEN)
[2019-04-13 11:48] VITALS: BP 111/44
[2019-04-13 12:04] VITALS: BP 98/49
[2019-04-13 12:21] VITALS: BP 106/49
--- NOTE | 2019-04-13 12:21 | NUR ---
NO CHANGES AFTER NARCAN GIVEN.
[2019-04-13 12:33] LABS: ALKALINE PHOSPHATASE 82 U/L (46-116); ALT (SGPT) 15 U/L (10-68); BILIRUBIN - TOTAL 0.24 mg/dL (0.2-1.3); CALCIUM 7.4 mg/dL (8.5-10.1); CKMB 0.7 U/L (0.0-3.6); CREATINE KINASE 31 UL (21-232); CREATININE - SERUM 1.1 mg/dL (0.6-1.3); POTASSIUM - SERUM 3.4 mmol/L (3.5-5.1); PROTEIN - SERUM 5.3 g/dL (6.4-8.2); SODIUM 151 mmol/L (136-145); TROPONIN-I 0.045 ng/mL (0.000-0.060); UREA NITROGEN 39 mg/dL (7-18); eGFR NON AFRICAN AMERICAN 68 mL/min (90-120)
[2019-04-13 12:35] LABS: UDS - AMPHET NEGATIVE QUAL (NEGATIVE); UDS - BARB NEGATIVE QUAL (NEGATIVE); UDS - BENZO POSITIVE QUAL (NEGATIVE); UDS - COCAINE NEGATIVE QUAL (NEGATIVE); UDS - OPIATE NEGATIVE QUAL (NEGATIVE); UDS - PCP NEGATIVE QUAL (NEGATIVE); UDS - THC NEGATIVE QUAL (NEGATIVE)
[2019-04-13 12:36] LABS: CALC OSMOLALITY 312 mosm/kg (275-300); CARBON DIOXIDE 24.1 mmol/L (21.0-32.0); GLUCOSE 166 mg/dL (74-106)
[2019-04-13 12:37] LABS: CHLORIDE - SERUM 116 mmol/L (98-107)
--- NOTE | 2019-04-13 13:11 | NUR ---
[facility] AND [facility]PDATED HIM ON PLAN OF CARE UTILIZING SBAR FORMAT.
[2019-04-13 14:06] LABS: % SATURATION 25 % (15-55); IRON 45 ug/dl (35-150); TOTAL IRON BIND CAPACITY 180 ug/dl (260-445); UNSAT IRON BIND CAPACITY 135 ug/dl (150-375)
--- NOTE | 2019-04-13 14:30 | NUR ---
NEW PATIENT ADMIT FROM ER. PATIENT ARRIVED TO ROOM VIA STRETCHER ACCOMPANIED BY HOSPISTAL PERSONNEL. PATIENT TRANSFERRED EASILY TO HOSPITAL BED. PATIENT IS AWAKE, LETHARGIC AND NOT ORIENTED TO NAME, PLACE, OR SITUATION. NO FAMILY PRESENT. PATIENT HAS IV TO LT WRIST SL AND RT HAND WITH NS INFUSING. ASSESSMENT COMPLETED . COCCYX RED WITH BONY PROMINENCE. MEPILEX APPLIED.ARSEN HEELS ARE BOGGY AND NON BLANCHABLE. HEEL PROTECTORS APPLIED. PATIENT HAD STOOL AND URINE IN DEPENDS. PATIENT WAS CLEANED. PATIENT SKIN IS COLD. PATIENT GIVEN WARM BLANKET. PATIENT READILY WENT TO SLEEP. BED ALARM IN PLACE AND TURNED ON. SR UP X 2 BED IN LOW POSITION AND CALL LIGHT IN REACH.
[2019-04-13 14:45] VITALS: BP 123/56; BMI 26.2
--- NOTE | 2019-04-13 15:24 | NUR ---
PATIENT IS STABLE AND VSS. PATIENT LAYING IN BED ON RT SIDE WITH EYES CLOSED AND BREATHING EVENLY. WILL CONTINUE TO MONITOR. SR UP X 2 BED IN LOW POSITION AND CALL LIGHT IN REACH.
[2019-04-13 15:31] VITALS: BP 107/52
--- NOTE | 2019-04-13 17:40 | NUR ---
PATIENT AWAKE AND LETHARGIC. ASSISTED WITH MEAL. PATIENT HAD NO APPARENT DIFFICULTY SWALLOWING. PATIENT CONSUMED APPROX 50% OF MEAL. PATIENT IS STABLE AND VSS. PATIENT DENIES ANY NEEDS OR PAIN. WILL CONTINUE TO MONITOR. SR UP X 2 BED IN LOW POSITION AND CALL LIGHT IN REACH,
--- NOTE | 2019-04-13 18:38 | NUR ---
PATIENT IS STABLE AND VSS. PATIENT RESTING COMFORTABLY AND WATCHING TV. PATIENT DENIES ANY NEEDS OR PAIN. WILL CONTINUE TO MONITOR. SR UPX 2 BED IN LOW POSITION AND CALL LIGHT IN REACH.
--- NOTE | 2019-04-13 20:08 | NUR ---
REPORT AND INITIAL ROUNDS COMPLETED. PT RESTING IN BED WITH EYES CLOSED. ROUSES EASILY TO VERBAL STIMULI. CONFUSED/SLOW TO RESPOND. 1/2 NS @ 100ML/HR INFUSING TO LEFT WRIST. NONLABORED RESPIRATIONS ON ROOM AIR. CLEAN/DRY. MONITORED FOR INCONTINENCE. TURNED EVERY 2 HOURS D/T REDNESS TO SACRAL/COCCYX AREA WITH MEPILEX IN PLACE. BED ALARM IN PLACE. CPOC. CALL LIGHT IN REACH.
[2019-04-13 20:30] VITALS: BP 119/52
--- NOTE | 2019-04-13 21:11 | NUR ---
BEDTIME MEDS GIVEN. PT WANTING IV PAIN MEDS. INSTRUCTED ON GIVING HIM A NORCO, THEN AFTER HE DOES HIS HIBICLENS SHOWER, IF HE IS STILL NEEDING PAIN MEDS, THEN IV MORPHINE CAN BE GIVEN. PT STATES THAT NORCO'S MAKE HIM JITTERY AND NERVOUS, EVEN THOUGH THIS IS HIS FPC HOME MED. INSTRUCTED PT THAT HE WAS ALSO RECIEVING HIS KLONOPIN AND TRAZADONE AND THAT SHOULD HELP WITH HIS NORCO. TELLING PATIENT HE SHOULD TAKE MEDS INSTRUCTED. INFORMED PT THAT IV MORPHINE WILL BE AVAILABLE AFTER SHOWER IF HE STILL IS HURTING "ALL OVER".
--- NOTE | 2019-04-13 22:23 | NUR ---
BEDTIME MEDS GIVEN. PT HAD PULLED OUT IV TO RIGHT HAND. HE STILL HAS A SECOND IV TO LEFT HAND AND IVF NOW INFUSING TO THAT IV. PT ABLE TO ANSWER BASIC QUESTIONS, REMEMBERED THAT HE HAD JUST SPOKEN TO HIS ON PHONE. REMEMBERED THAT HIS WAS AT "[facility]". FALL PRECAUTIONS IN PLACE. CPOC. LINENS/GOWN CHANGED.
[2019-04-14 00:26] VITALS: BP 118/51
--- NOTE | 2019-04-14 01:35 | NUR ---
PT RESTING IN BED WITH NO DISTRESS. RESPS EVEN/NONLABORED. PACED 60 PER TELEMETRY. FALL PRECAUTIONS. CLEAN AND DRY.
[2019-04-14 05:08] LABS: BASOPHILS 0.2 % (0-2); EOSINOPHILS 1.5 % (0-7); HEMATOCRIT 31.7 % (42.0-54.0); HEMOGLOBIN 9.5 g/dL (13.5-17.5); IMMATURE GRANULOCYTES 0.5 % (0-5); LYMPHOCYTES 11.9 % (15-50); MCH 28.1 pg (26.0-34.0); MCV 93.8 fL (80.0-100.0); MEAN PLATELET VOLUME 11.6 fL (7.4-10.4); MONOCYTES 7.6 % (2-11); NEUTROPHILS 78.3 % (40-80); PLATELET COUNT 201 10x3/uL (130-400); RBC 3.38 10x6/uL (4.20-6.10); RDW 15.3 % (11.5-14.5); WBC 10.8 10x3/uL (4.8-10.8)
[2019-04-14 05:33] LABS: ANION GAP 10.6 mmol/L (8-16); CALCIUM 8.6 mg/dL (8.5-10.1); CARBON DIOXIDE 27.9 mmol/L (21.0-32.0); CREATININE - SERUM 1.1 mg/dL (0.6-1.3); PHOSPHOROUS 2.6 mg/dL (2.5-4.9); POTASSIUM - SERUM 3.5 mmol/L (3.5-5.1)
[2019-04-14 10:28] VITALS: BP 152/77
[2019-04-14 14:02] VITALS: BP 154/79
--- NOTE | 2019-04-14 16:22 | MORECARE ---
CASE MANAGEMENT DISCHARGE SUMMARY PATIENT: RICK HUSAIN UNIT: [id number] ADM DATE: 04/13/19 AGE: 79 : 40 SEX: M ROOM/BED: D.2114 AUTHOR: ABIDA CRAWFORD PHYSICIAN: REFERRING PHYSICIAN: JULIETH JONES MD DATE OF SERVICE: 04/14/19 Discharge Plan Patient Name: RICK HUSAIN Facility: [facility]:[place] : 1940 Planned Disposition: [facility] Facility Anticipated Discharge Date: Discharge Date: Expected LOS: Initial Reviewer: [email or web address] Initial Review Date: 04/13/2019 Generated: 04/14/19 5:21 pm Patient Name: RICK HUSAIN Page [id number] at 1622 All edits/amendments must be made on the electronic document DICTATION DATE: 04/14/191620 CAMPUS SECURITY OFFICER: GAUDENCIO 04/14/191620 RPT#: [id number] DC DATE: STATUS: ADM IN [facility] [address] [place] [address] END OF REPORT
--- NOTE | 2019-04-14 16:28 | MORECARE ---
CASE MANAGEMENT DISCHARGE SUMMARY PATIENT: RICK HUSAIN UNIT: [id number] ADM DATE: 04/13/19 AGE: 79 : 40 SEX: M ROOM/BED: D.2114 AUTHOR: TY,DOC PHYSICIAN: REFERRING PHYSICIAN: JULIETH JONES MD DATE OF SERVICE: 04/14/19 Discharge Plan Patient Name: RICK HUSAIN Facility: [facility]:[place] : 1940 Planned Disposition: Halfway Facility Anticipated Discharge Date: Discharge Date: Expected LOS: Initial Reviewer: [email or web address] Initial Review Date: 04/13/2019 Generated: 04/14/19 5:28 pm Comments DCP- Discharge Planning Updated by [email or web address]: Belia Avilez on 04/14/19 3:[address] Patient Name: RICK HUSAIN Admission Status: ER Accout number: [id number] Admission Date: 04-13-2019 : 1940 Admission Diagnosis: Attending: JULIETH JONES Current LOS: 1 Anticipated DC Date: Planned Disposition: Halfway Facility Primary Insurance: MEDICARE A & B Discharge Planning Comments: CM attempted to meet with patient but he is confused and CM unable to obtain information. Patient was just discharged from facility 04/12/[address] [facility] in a Medicare bed. Patient is a snf resident at [facility] and the discharge plan is to return there upon discharge. CM will continue to follow and assist as needed with discharge planning needs. Warehouse Packaging Supervisor: Belia Avilez DCPIA - Discharge Planning Initial Assessment Updated by [email or web address]: Belia Avilez on 04/14/19 4:23 pm * Is the patient Alert and Oriented? No * How many steps to enter\exit or inside your home? * PCP [place] PHYSICIAN * Pharmacy [facility] * Preadmission Environment Halfway Facility * Facility Name [facility] * ADLs Partial Dependent * Partial ADLs (Assistance needed) Ambulation Bathing Dressing Eating Medication Management Toileting Transfers * List name and contact numbers for known caregivers / representatives who currently or will assist patient after discharge: Esperanza Pan - [phone] (on group home paperwork) * Verbal permission to speak to the caregivers and representatives has been obtained from the patient. N/A * Additional services required to return to the preadmission environment? No * Can the patient safely return to the preadmission environment? Yes * Has this patient been hospitalized within the prior 30 days at any hospital? Yes Last DP export: 04/14/19 3:22 Patient Name: RICK HUSAIN Page [phone] at 1628 All edits/amendments must be made on the electronic document DICTATION DATE: 04/14/191627 RECEIVING DOCK CHECKER: GAUDENCIO 04/14/191627 RPT#: [id number] DC DATE: STATUS: ADM IN [facility] [address] [place] [address] END OF REPORT
--- NOTE | 2019-04-14 16:31 | NUR ---
TELEMETRY PACED. RESP UL ON RA. IV PATENT. CALL LIGHT IN REACH. WILL CONT. PLAN OF CARE.
[2019-04-14 17:10] VITALS: BP 142/74
--- NOTE | 2019-04-14 20:10 | NUR ---
REPORT AND INITIAL ROUNDS COMPLETED. PT RESTING IN BED. NO DISTRESS. FALL PRECAUTIONS. CPOC.
[2019-04-14 20:29] VITALS: BP 160/70
--- NOTE | 2019-04-14 22:29 | NUR ---
BEDTIME MEDS GIVEN. PT RESTING WITH NO DISTRESS. IVF NS @ 50ML/HR INFUSING. CLEAN/DRY. FALL PRECAUTIONS IN PLACE.
[2019-04-15 00:30] VITALS: BP 166/78
[2019-04-15 04:03] VITALS: BP 150/73
[2019-04-15 06:01] LABS: BASOPHILS 0.1 % (0-2); EOSINOPHILS 2.9 % (0-7); HEMATOCRIT 30.7 % (42.0-54.0); HEMOGLOBIN 9.6 g/dL (13.5-17.5); IMMATURE GRANULOCYTES 0.4 % (0-5); LYMPHOCYTES 15.5 % (15-50); MCH 28.6 pg (26.0-34.0); MCHC 31.3 g/dL (31.0-37.0); MEAN PLATELET VOLUME 11.5 fL (7.4-10.4); MONOCYTES 8.2 % (2-11); NEUTROPHILS 72.9 % (40-80); PLATELET COUNT 204 10x3/uL (130-400); RBC 3.36 10x6/uL (4.20-6.10); RDW 14.9 % (11.5-14.5); WBC 8.9 10x3/uL (4.8-10.8)
[2019-04-15 06:26] LABS: MCV 91.4 fL (80.0-100.0)
[2019-04-15 06:33] LABS: CALC OSMOLALITY 293 mosm/kg (275-300); CALCIUM 8.7 mg/dL (8.5-10.1); CARBON DIOXIDE 26.8 mmol/L (21.0-32.0); CHLORIDE - SERUM 111 mmol/L (98-107); GLUCOSE 79 mg/dL (74-106); SODIUM 145 mmol/L (136-145); UREA NITROGEN 28 mg/dL (7-18); eGFR NON AFRICAN AMERICAN 76 mL/min (90-120)
[2019-04-15 06:38] LABS: POTASSIUM - SERUM 3.6 mmol/L (3.5-5.1)
--- NOTE | 2019-04-15 06:41 | NUR ---
NO CHANGE FROM INITIAL SHIFT ASSESSMENT. PT RESTING IN BED WITH NO DISTRESS. CLEAN/DRY. IVF INFUSING TO NEW IV IN LFA WITH NS @ 50ML/HR. FALL PRECAUTIONS IN PLACE.
[2019-04-15 08:40] VITALS: BP 174/77
[2019-04-15 13:01] VITALS: BP 166/79
[2019-04-15 14:17] VITALS: BMI 16.4
[2019-04-15 16:51] VITALS: Ht 172.7 cm; Wt 59.6 kg
--- NOTE | 2019-04-15 17:15 | NUR ---
PT UNABLE TO SIGN CONSENTS FOR PROCEDURE TOMORROW DUE TO PT BEING CONFUSED. CONTACTED [facility] AND RECEIVED OVER THE TELEPHONE CONSENTS FOR PEG TUBE PLACEMENT BY DR. KELLY.
[2019-04-15 17:27] VITALS: BP 164/80
--- NOTE | 2019-04-15 19:14 | NUR ---
RECEIVED BEDSIDE REPORT. PATIENT IS ALERT AND PLEASANTLY CONFUSED, RESTING COMFORTABLY IN BED. RESPIRATIONS ARE EVEN AND UNLABORED. NO S/S OF DISTRESS. NO C/OPAIN. NEEDS MET. CALL LIGHT WITHIN REACH. WILL CPOC.
[2019-04-15 20:00] VITALS: BP 188/91
--- NOTE | 2019-04-15 23:54 | NUR ---
FIRST STEP OVER LAY MATTRESS PLACED ON PATIENT BED. PATIENT CURRENTLY SITTING IN CHAIR. HE DIDN'T WANT TO GET BACK IN BED. WILL ASK PATIENT DURING NEXT ROUNDS.
[2019-04-16 00:09] VITALS: BP 196/88
--- NOTE | 2019-04-16 01:57 | NUR ---
PATIENT RESTING COMFORTABLY IN BED. RESPIRATIONS ARE EVEN AND UNLABORED. NO S/S OF DISTRESS. CALL LIGHT WITHIN REACH. WILL CPOC.
--- NOTE | 2019-04-16 02:09 | NUR ---
I have reviewed this patient and I concur with the Shift Assessment completed by the Licensed Practical Nurse today this shift.
[2019-04-16 04:00] VITALS: BP 181/80
[2019-04-16 06:03] LABS: BASOPHILS 0.2 % (0-2); EOSINOPHILS 2.4 % (0-7); HEMATOCRIT 32.6 % (42.0-54.0); HEMOGLOBIN 10.4 g/dL (13.5-17.5); IMMATURE GRANULOCYTES 0.8 % (0-5); MCH 28.8 pg (26.0-34.0); MCHC 31.9 g/dL (31.0-37.0); MCV 90.3 fL (80.0-100.0); MEAN PLATELET VOLUME 11.2 fL (7.4-10.4); MONOCYTES 9.3 % (2-11); NEUTROPHILS 72.3 % (40-80); PLATELET COUNT 192 10x3/uL (130-400); RBC 3.61 10x6/uL (4.20-6.10); RDW 14.8 % (11.5-14.5); WBC 8.4 10x3/uL (4.8-10.8)
[2019-04-16 06:15] LABS: CALC OSMOLALITY 283 mosm/kg (275-300); CALCIUM 8.4 mg/dL (8.5-10.1); CARBON DIOXIDE 27.9 mmol/L (21.0-32.0); CHLORIDE - SERUM 108 mmol/L (98-107); GLUCOSE 79 mg/dL (74-106); POTASSIUM - SERUM 3.3 mmol/L (3.5-5.1); SODIUM 142 mmol/L (136-145); eGFR NON AFRICAN AMERICAN 76 mL/min (90-120)
[2019-04-16 06:16] LABS: UREA NITROGEN 19 mg/dL (7-18)
[2019-04-16 09:19] VITALS: BP 182/79
--- NOTE | 2019-04-16 10:33 | MORECARE ---
CASE MANAGEMENT DISCHARGE SUMMARY PATIENT: RICK HUSAIN UNIT: [id number] ADM DATE: 04/13/19 AGE: 79 : 40 SEX: M ROOM/BED: D.2114 AUTHOR: TYDOC PHYSICIAN: REFERRING PHYSICIAN: JULIETH JONES MD DATE OF SERVICE: 04/16/19 Discharge Plan Patient Name: RICK HUSAIN Facility: [facility]:[place] : 1940 Planned Disposition: Longterm Facility Anticipated Discharge Date: Discharge Date: Expected LOS: Initial Reviewer: [email or web address] Initial Review Date: 04/13/2019 Generated: 04/16/19 11:33 am DCP- Discharge Planning Updated by [email or web address]: Belia Avilez on 04/14/19 3:[address] Patient Name: RICK HUSAIN Admission Status: ER Accout number: [id number] Admission Date: 04-13-2019 : 1940 Admission Diagnosis: Attending: JULIETH JONES Current LOS: 1 Anticipated DC Date: Planned Disposition: Longterm Facility Primary Insurance: MEDICARE A & B Discharge Planning Comments: CM attempted to meet with patient but he is confused and CM unable to obtain information. Patient was just discharged from facility 04/12/19 to [facility] in a Medicare bed. 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 CM will continue to follow and assist as needed with discharge planning needs. Oven Attendant: Belia Avilez DCPIA - Discharge Planning Initial Assessment Updated by [email or web address]: Belia Avilez on 04/14/19 4:23 pm * Is the patient Alert and Oriented? No * How many steps to enter\exit or inside your home? * PCP [place] PHYSICIAN * Pharmacy [facility] * Preadmission Environment Longterm Facility * Facility Name [facility] * ADLs Partial Dependent * Partial ADLs (Assistance needed) Ambulation Bathing Dressing Eating Medication Management Toileting Transfers * List name and contact numbers for known caregivers / representatives who currently or will assist patient after discharge: Esperanza Pan - [phone] (on [facility] paperwork) * Verbal permission to speak to the caregivers and representatives has been obtained from the patient. N/A * Additional services required to return to the preadmission environment? No * Can the patient safely return to the preadmission environment? Yes * Has this patient been hospitalized within the prior 30 days at any hospital? Yes External Providers External Provider: [facility] Next Contact Date: 04/16/2019 Service Request Date: Service Type: Resolution: Reviewer: Comments: Last DP export: 04/14/19 3:28 Patient Name: RICK HUSAIN Page [phone] at 1033 All edits/amendments must be made on the electronic document DICTATION DATE: 04/16/19 1033 NURSE SUBSTANCE ABUSE: GAUDENCIO 04/16/19 1033 RPT#: [id number] DC DATE: STATUS: ADM IN [facility] [address] [place] [address] END OF REPORT
--- NOTE | 2019-04-16 10:41 | MORECARE ---
CASE MANAGEMENT DISCHARGE SUMMARY PATIENT: RICK HUSAIN UNIT: [id number] ADM DATE: 04/13/19 AGE: 79 : 40 SEX: M ROOM/BED: D.8864 AUTHOR: TY,DOC PHYSICIAN: REFERRING PHYSICIAN: JULIETH JONES MD DATE OF SERVICE: 04/16/19 Discharge Plan Patient Name: RICK HUSAIN Facility: [facility]:[place] : 1940 Planned Disposition: Penitentiary Facility Anticipated Discharge Date: Discharge Date: Expected LOS: Initial Reviewer: [email or web address] Initial Review Date: 04/13/2019 Generated: 04/16/19 11:40 am Comments DCP- Discharge Planning Updated by [email or web address]: Oleksandr Liu on 04/16/19 9:[address] Patient Name: RICK HUSAIN Admission Status: ER Accout number: [id number] Admission Date: 04-13-2019 : 1940 Admission Diagnosis: Attending: JULIETH JONES Current LOS: 3 Anticipated DC Date: Planned Disposition: Penitentiary Facility Primary Insurance: MEDICARE A & B PLANNED EXTERNAL PROVIDER: [facility], MEDICARE REH BED Discharge Planning Comments: CM SPOKE TO [facility], THEY PLAN TO ACCEPT PT BACK TO SKILLED BED AT HOSPITAL DISCHARGE. CM FAXED UPDATE TO THE [facility] VIA [facility] AT [phone]. FOR DISCHARGE TO THE [facility]URSING AND REHAB, FAX DISCHARGE INFORMATION TO THE [facility] AT [phone]; NURSE REPORT TO BE CALLED TO THE [facility] AT [phone]. THE [facility] TO ARRANGE VAN TRANSPORATION. Clinical Coder: Oleksandr Liu DCP- Discharge Planning Updated by [id number]: Belia Avilez on 04/14/19 3:[address] Patient Name: RICK HUSAIN Admission Status: ER Accout number: [id number] Admission Date: 04-13-2019 : 1940 Admission Diagnosis: Attending: JULIETH JONES Current LOS: 1 Anticipated DC Date: Planned Disposition: Penitentiary Facility Primary Insurance: MEDICARE A & B Discharge Planning Comments: CM attempted to meet with patient but he is confused and CM unable to obtain information. Patient was just discharged from facility 04/12/19 to [facility] in a Medicare bed. Patient is a skilled nursing resident at [facility] and the discharge plan is to return there upon discharge. CM will continue to follow and assist as needed with discharge planning needs. Clinical Coder: Belia Avilez DCPIA - Discharge Planning Initial Assessment Updated by [email or web address]: Belia Avilez on 04/14/19 4:23 pm * Is the patient Alert and Oriented? No * How many steps to enter\exit or inside your home? * [place] [facility] * Preadmission Environment Penitentiary Facility * Facility Name [facility] * ADLs Partial Dependent * Partial ADLs (Assistance needed) Ambulation Bathing Dressing Eating Medication Management Toileting Transfers * List name and contact numbers for known caregivers / representatives who currently or will assist patient after discharge: Esperanza Maxim - [phone] (on intermediate paperwork) * Verbal permission to speak to the caregivers and representatives has been obtained from the patient. N/A * Additional services required to return to the preadmission environment? No * Can the patient safely return to the preadmission environment? Yes * Has this patient been hospitalized within the prior 30 days at any hospital? Yes Last DP export: 04/16/19 9:33 Patient Name: RICK HUSAIN Page 15837 at 1041 All edits/amendments must be made on the electronic document DICTATION DATE: 04/16/19 1040 MOTORCYLES FINAL INSPECTOR: GAUDENCIO 04/16/19 1040 RPT#: [id number] DC DATE: STATUS: ADM IN [facility] [address] [place] [address] END OF REPORT
--- NOTE | 2019-04-16 12:02 | NUR ---
LEAVING TO GI LAB FOR PEG PLACEMENT.
[2019-04-16 12:13] VITALS: BP 170/81
--- NOTE | 2019-04-16 12:55 | NUR ---
BACK FROM GI LAB. PEG TUBE INTACT. ABD BINDER IN PLACE. WILL CONT. PLAN OF CARE.
[2019-04-16 17:43] VITALS: BP 175/85
--- NOTE | 2019-04-16 19:30 | NUR ---
REPORT AND INITIAL ROUNDS COMPLETED. PT RESTING IN BED. ALERT/CONFUSED. ABDOMINAL BINDER IN PLACE OVER NEWLY INSERTED PEG TUBE. CURRENTLY CLEAN/DRY WITH BRIEF IN PLACE. FALL PRECAUTIONS IN PLACE. CALL LIGHT IN REACH. CPOC.
[2019-04-16 20:00] VITALS: BP 193/87
--- NOTE | 2019-04-16 22:33 | NUR ---
ALL BEDTIME MEDS GIVEN. PT ALERT. HAS CONTINUED TO PULL ON THE BINDER AROUND HIS ABDOMEN. PT TEACHING ON NOT PULLING AT NEW PEG. CPOC.
[2019-04-17] VITALS: BP 184/107
--- NOTE | 2019-04-17 01:46 | NUR ---
RESTING IN BED. PACED 77 PER TELEMETRY. CLEAN/DRY. FALL PRECAUTIONS.
[2019-04-17 04:00] VITALS: BP 210/106
--- NOTE | 2019-04-17 06:29 | NUR ---
COMPLETE BED CHANGE AND PERSONAL CARE FOR INCONTINENCE. IVF INFUSING. NO CHANGED FROM INITIAL SHIFT ASSESSMENT. CPOC.
[2019-04-17 06:34] LABS: BASOPHILS 0.2 % (0-2); EOSINOPHILS 0.5 % (0-7); HEMATOCRIT 34.4 % (42.0-54.0); HEMOGLOBIN 10.9 g/dL (13.5-17.5); IMMATURE GRANULOCYTES 0.4 % (0-5); LYMPHOCYTES 9.4 % (15-50); MCH 28.5 pg (26.0-34.0); MCHC 31.7 g/dL (31.0-37.0); MCV 89.8 fL (80.0-100.0); MEAN PLATELET VOLUME 11.6 fL (7.4-10.4); MONOCYTES 6.3 % (2-11); NEUTROPHILS 83.2 % (40-80); RBC 3.83 10x6/uL (4.20-6.10); RDW 15.1 % (11.5-14.5)
[2019-04-17 06:38] LABS: PLATELET COUNT 231 10x3/uL (130-400)
[2019-04-17 06:51] LABS: CALC OSMOLALITY 282 mosm/kg (275-300); CALCIUM 8.3 mg/dL (8.5-10.1); CARBON DIOXIDE 26.6 mmol/L (21.0-32.0); CHLORIDE - SERUM 107 mmol/L (98-107); CREATININE - SERUM 0.9 mg/dL (0.6-1.3); GLUCOSE 78 mg/dL (74-106); PHOSPHOROUS 2.9 mg/dL (2.5-4.9); POTASSIUM - SERUM 3.7 mmol/L (3.5-5.1); SODIUM 142 mmol/L (136-145); UREA NITROGEN 16 mg/dL (7-18); eGFR NON AFRICAN AMERICAN 86 mL/min (90-120)
--- NOTE | 2019-04-17 07:15 | NUR ---
RECEIVED PT IN BED EYES CLOSED RESP UNLABORED SKIN W/D COLOR PALE NAD NOTED WILL CONTINUE TO MONITOR
[2019-04-17 08:07] VITALS: BP 185/93
--- NOTE | 2019-04-17 10:42 | NUR ---
I CALLED THE [facility] TO SEE IF THEY WILL TAKE PATIENT BACK TODAY. I TALKED TO LO AND SHE REPORTS THEY HAVE NO BLISTER RUST ERADICATOR TODAY. PATIENT WILL BE DISCHARGED TOMORROW.
--- NOTE | 2019-04-17 10:50 | NUR ---
SPOKE WITH DEVORAH AT THE [facility] AND SHE STATED THAT THEY DO NOT HAVE ANY TRANSPORTATION TODAY FOR HIM TO BE PICKED UP. EXPLAINED TO HER THAT HE WILL NEED TRANSPORTATION FOR TOMORROW THEN. PLAN ON DISCHARGING TOMORROW
[2019-04-17 11:05] VITALS: BP 212/109
[2019-04-17 15:16] VITALS: BP 93/54
--- NOTE | 2019-04-17 15:33 | NUR ---
Nutrition follow-up/consult: Received consult to begin TF Chart reviewed. PEG tube placed 04/15 Wrote order to begin Jevity 1.2 olegario @ 25 ml/hr with increase to goal rate of 55 ml/hr with 25 ml h2o flush q hour Thank you for the consult. RDN following.
--- NOTE | 2019-04-17 19:24 | NUR ---
RECEIVED BEDSIDE REPORT. PATIENT IS ALERT AND PLEASANTLY CONFUSED RESPIRATIONS ARE EVEN AND UNLABORED. NO S/S OF DISTRESS. NO C/O PAIN. CALL LIGHT WITHIN REACH. WILL CPOC.
--- NOTE | 2019-04-17 19:49 | NUR ---
CALLED STUDENT LIAISON OFFICER FOR THE JEVITY 1.2 IN ORDER TO START TUBE FEEDING.
[2019-04-17 20:00] VITALS: BP 134/66
--- NOTE | 2019-04-17 20:23 | NUR ---
TUBE FEEDING INITITATED. NO RESIDUAL NOTED. JEVITY 1.2 AT 25 ML/HR FLUSH AT 25 ML/HR. WILL RECHECK Q 4 HR PER ORDER.
[2019-04-18] VITALS (7 sets, daily range): BP systolic 92–188; BP diastolic 58–77
[2019-04-18 05:40] LABS: BASOPHILS 0.1 % (0-2); EOSINOPHILS 0.5 % (0-7); IMMATURE GRANULOCYTES 0.3 % (0-5); LYMPHOCYTES 7.2 % (15-50); MCH 28.9 pg (26.0-34.0); MCHC 32.1 g/dL (31.0-37.0); MEAN PLATELET VOLUME 10.9 fL (7.4-10.4); MONOCYTES 5.7 % (2-11); NEUTROPHILS 86.2 % (40-80); PLATELET COUNT 197 10x3/uL (130-400); RBC 3.11 10x6/uL (4.20-6.10); RDW 15.1 % (11.5-14.5); WBC 13.4 10x3/uL (4.8-10.8)
[2019-04-18 05:59] LABS: CALCIUM 8.5 mg/dL (8.5-10.1); CARBON DIOXIDE 24.5 mmol/L (21.0-32.0); CHLORIDE - SERUM 108 mmol/L (98-107); PHOSPHOROUS 3.1 mg/dL (2.5-4.9); POTASSIUM - SERUM 3.8 mmol/L (3.5-5.1); SODIUM 140 mmol/L (136-145); eGFR NON AFRICAN AMERICAN 76 mL/min (90-120)
[2019-04-18 06:00] LABS: CALC OSMOLALITY 284 mosm/kg (275-300); GLUCOSE 135 mg/dL (74-106); UREA NITROGEN 23 mg/dL (7-18)
--- NOTE | 2019-04-18 07:43 | NUR ---
RECEIVED PT IN BED EYES CLOSED RESP UNLABORED SKIN W/D HOB ELEVATED 35DEGREES TUBE FEED PATENT PER PUMP TO G TUBE WITHOUT DIFFICULTY WILL CONTINUE TO MONITOR
--- NOTE | 2019-04-18 08:03 | MORECARE ---
CASE MANAGEMENT DISCHARGE SUMMARY PATIENT: RICK HUSAIN UNIT: [id number] ADM DATE: 04/13/19 AGE: 79 : 40 SEX: M ROOM/BED: D.3164 AUTHOR: TY,DOC PHYSICIAN: REFERRING PHYSICIAN: JULIETH JONES MD DATE OF SERVICE: 04/18/19 Discharge Plan Patient Name: RICK HUSAIN Facility: [facility]:[place] : 1940 Planned Disposition: Correction Facility Anticipated Discharge Date: Discharge Date: Expected LOS: Initial Reviewer: [id number] Initial Review Date: 04/13/2019 Generated: 04/18/19 9:02 am Comments DCP- Discharge Planning Updated by [email or web address]: Oleksandr Liu on 04/16/19 9:[address] Patient Name: RICK HUSAIN Admission Status: ER Accout number: [id number] Admission Date: 04-13-2019 : 1940 Admission Diagnosis: Attending: JULIETH JONES Current LOS: 3 Anticipated DC Date: Planned Disposition: Correction Facility Primary Insurance: MEDICARE A & B PLANNED EXTERNAL PROVIDER: [facility], MEDICARE REH BED Discharge Planning Comments: CM SPOKE TO [facility], THEY PLAN TO ACCEPT PT BACK TO SKILLED BED AT HOSPITAL DISCHARGE. CM FAXED UPDATE TO [facility] VIA [facility] AT [phone]. FOR DISCHARGE TO [facility], FAX DISCHARGE INFORMATION TO [facility] AT [phone]; NURSE REPORT TO BE CALLED TO THE [facility] AT [phone]. [facility] TO ARRANGE VAN TRANSPORATION. Garment Cutter: Oleksandr Liu DCP- Discharge Planning Updated by [id number]: Belia Avilez on 04/14/19 3:[address] Patient Name: RICK HUSAIN Admission Status: ER Accout number: [id number] Admission Date: 04-13-2019 : 1940 Admission Diagnosis: Attending: JULIETH JONES Current LOS: 1 Anticipated DC Date: Planned Disposition: Correction Facility Primary Insurance: MEDICARE A & B Discharge Planning Comments: CM attempted to meet with patient but he is confused and CM unable to obtain information. Patient was just discharged from facility 04/12/19 to [facility] in a Medicare bed. Patient is a skilled nursing resident at [facility] and the discharge plan is to return there upon discharge. CM will continue to follow and assist as needed with discharge planning needs. Garment Cutter: Belia Avilez DCPIA - Discharge Planning Initial Assessment Updated by [email or web address]: Belia Avilez on 04/14/19 4:23 pm * Is the patient Alert and Oriented? No * How many steps to enter\exit or inside your home? * [facility] * Preadmission Environment [facility] Facility * Facility Name [facility] * ADLs Partial Dependent * Partial ADLs (Assistance needed) Ambulation Bathing Dressing Eating Medication Management Toileting Transfers * List name and contact numbers for known caregivers / representatives who currently or will assist patient after discharge: Esperanza Liceance - [phone] (on [facility] paperwork) * Verbal permission to speak to the caregivers and representatives has been obtained from the patient. N/A * Additional services required to return to the preadmission environment? No * Can the patient safely return to the preadmission environment? Yes * Has this patient been hospitalized within the prior 30 days at any hospital? Yes External Providers External Provider: [facility] Next Contact Date: 04/16/2019 Service Request Date: Service Type: Resolution: Reviewer: Comments: Coverage Notice Reviewer: [id number] - Oleksandr Liu Notice Issued Date-Time: 04/16/2019 10:40 Notice Type: Patient Choice Letter Notice Delivered To: Patient Relationship to Patient: Appliquer Name: Delivery Method: HAND - Hand Delivered Vesna Days: Prior Verbal Notification: Recipient Understood Notice: Yes Recipient Signature: Med Rec Note Co-signed by Attending: Coverage Notice Comment: [facility] Last DP export: 04/16/19 9:41 Patient Name: RICK HUSAIN Page 73518 at 0803 All edits/amendments must be made on the electronic document DICTATION DATE: 04/18/19801 TRIGONOMETRY TUTOR: AGUDENCIO 04/18/19801 RPT#: [id number] DC DATE: STATUS: ADM IN [facility] [address] [place] [address] END OF REPORT
--- NOTE | 2019-04-18 08:10 | MORECARE ---
CASE MANAGEMENT DISCHARGE SUMMARY PATIENT: RICK HUSAIN UNIT: [id number] ADM DATE: 04/13/19 AGE: 79 : 40 SEX: M ROOM/BED: D.6554 AUTHOR: TY,DOC PHYSICIAN: REFERRING PHYSICIAN: JULIETH JONES MD DATE OF SERVICE: 04/18/19 Discharge Plan Patient Name: RICK HUSAIN Facility: [facility]:[place] : 1940 Planned Disposition: Halfway Facility Anticipated Discharge Date: 04/18/19 Discharge Date: Expected LOS: 5 Initial Reviewer: [id number] Initial Review Date: 04/13/2019 Generated: 04/18/19 9:09 am Comments DCP- Discharge Planning Updated by [id number]: Oleksandr Liu on 04/18/19 7:[address] Patient Name: RICK HUSAIN Encounter No: [id number] : 1940 Primary Insurance: MEDICARE A & B Anticipated DC Date: 04-18-2019 Planned Disposition: Halfway Facility External Planned Provider: [facility] follow-up note: Oleksandr Liu DCP- Discharge Planning Updated by [email or web address]: Oleksandr Liu on 04/16/19 9:[address] Patient Name: RICK HUSAIN Admission Status: ER Accout number: [id number] Admission Date: 04-13-2019 : 1940 Admission Diagnosis: Attending: JULIETH JONES Current LOS: 3 Anticipated DC Date: Planned Disposition: Halfway Facility Primary Insurance: MEDICARE A & B PLANNED EXTERNAL PROVIDER: [facility], MEDICARE REHAB BED Discharge Planning Comments: CM SPOKE TO HOWARD OF [facility], THEY PLAN TO ACCEPT PT BACK TO SKILLED BED AT HOSPITAL DISCHARGE. CM FAXED UPDATE TO [facility] VIA HOW[facility] AT [phone]. FOR DISCHARGE TO [facility], FAX DISCHARGE INFORMATION TO [facility] AT [phone]; NURSE REPORT TO BE CALLED TO [facility] AT [phone]. [facility] TO ARRANGE VAN TRANSPORATION. Cross Cut Sawyer: Oleksandr Liu DCP- Discharge Planning Updated by [id number]: Belia Avilez on 04/14/19 3:[address] Patient Name: RICK HUSAIN Admission Status: ER Accout number: [id number] Admission Date: 04-13-2019 : 1940 Admission Diagnosis: Attending: JULIETH JONES Current LOS: 1 Anticipated DC Date: Planned Disposition: Halfway Facility Primary Insurance: MEDICARE A & B Discharge Planning Comments: CM attempted to meet with patient but he is confused and CM unable to obtain information. Patient was just discharged from facility 04/12/19 to [facility] in a Medicare bed. Patient is a group home resident at [facility] and the discharge plan is to return there upon discharge. CM will continue to follow and assist as needed with discharge planning needs. Cross Cut Sawyer: Belia Raghav ZAPATAPIA - Discharge Planning Initial Assessment Updated by [email or web address]: Belia Yur on 04/14/19 4:23 pm * Is the patient Alert and Oriented? No * How many steps to enter\exit or inside your home? * [facility] * Preadmission Environment Halfway Facility * Facility Name [facility] * ADLs Partial Dependent * Partial ADLs (Assistance needed) Ambulation Bathing Dressing Eating Medication Management Toileting Transfers * List name and contact numbers for known caregivers / representatives who currently or will assist patient after discharge: Esperanza Pan - [phone] (on [facility] paperwork) * Verbal permission to speak to the caregivers and representatives has been obtained from the patient. N/A * Additional services required to return to the preadmission environment? No * Can the patient safely return to the preadmission environment? Yes * Has this patient been hospitalized within the prior 30 days at any hospital? Yes Coverage Notice Reviewer: [id number] Erika Liu Notice Issued Date-Time: 04/16/2019 10:40 Notice Type: Patient Choice Letter Notice Delivered To: Patient Relationship to Patient: Clinical Cytogenetics Director Name: Delivery Method: HAND - Hand Delivered Vesna Days: Prior Verbal Notification: Recipient Understood Notice: Yes Recipient Signature: Timo Rec Note Co-signed by Attending: Coverage Notice Comment: [facility] Last DP export: 04/18/19 7:02 Patient Name: RICK HUSAIN Page 80199 at 0810 All edits/amendments must be made on the electronic document DICTATION DATE: 04/18/19808 MAINTAINABILITY ENGINEER: GAUDENCIO 04/18/19808 RPT#: [id number] DC DATE: STATUS: ADM IN [facility] [address] [place] [address] END OF REPORT
--- NOTE | 2019-04-18 08:16 | MORECARE ---
CASE MANAGEMENT DISCHARGE SUMMARY PATIENT: RICK HUSAIN UNIT: [id number] ADM DATE: 04/13/19 AGE: 79 : 40 SEX: M ROOM/BED: D.3749 AUTHOR: TY,DOC PHYSICIAN: REFERRING PHYSICIAN: JULIETH JONES MD DATE OF SERVICE: 04/18/19 Discharge Plan Patient Name: RICK HUSAIN Facility: [facility]:[place] : 1940 Planned Disposition: Group Home Facility Anticipated Discharge Date: 04/18/19 Discharge Date: Expected LOS: 5 Initial Reviewer: [email or web address] Initial Review Date: 04/13/2019 Generated: 04/18/19 9:16 am Comments DCP- Discharge Planning Updated by [id number]: Oleksandr Liu on 04/18/19 7:[address] Patient Name: RICK HUSAIN Encounter No: [id number] : 1940 Primary Insurance: MEDICARE A & B Anticipated DC Date: 04-18-2019 Planned Disposition: Group Home Facility External Planned Provider: [facility] DCP follow-up note: JANE NOTIFIED BY FORENSIC NURSE THAT PT WAS DISCHARGED YESTERDAY, BUT [facility] HAD NO SENIOR QUALITY TECHNICIAN TO SOLAR SALES REP PT YESTERDAY. JANE CALLED PT'S SIGNIFICANT OTHER, ESPERANZA BUTTS, , NOTIFIED OF DISCHARGE YESTERDAY AND VAN SOLAR SALES REP BY [facility] TODAY. DARLINE ADVISED SHE THOUGHT PT WAS TOO SICK TO LEAVE YESTERDAY BUT IF THE DOCTOR THINKS PT IS OK TO LEAVE THEN SHE IS NOT GOING TO DISAGREE. JANE DISCUSSED THE IMPORTANT MESSAGE FROM MEDICARE. PT REPORTS SHE RECEIVED ONE IN THE MAIL CERTIFIED. JANE EXPLAINED SHE WILL GET ANOTHER AND ADVISED TO CALL IF SHE FEELS PT IS TOO SICK TO LEAVE. ESPERANZA WILL COME TO [facility] NOW TO SEE PT TO MAKE SURE HE IS OK TO DISCHARGE. JANE NOTIFIED FORENSIC NURSE NURSE. JANE NOTIFIED HOWARD OF [facility], , THEY PLAN TO ACCEPT PT BACK TO SKILLED BED. JANE FAXED UPDATE AND DISCHARGE INFORMATION TO [facility] VIA HOWARD AT [phone]. BEDSIDE NURSE ADVISED SHE HAS TALKED TO ESPERANZA WHO IS ON THE WAY TO HOSPITAL AND THAT SOLAR SALES REP NEEDS TO BE AFTER NOON TODAY TO ENSURE TUBE FEEDING TO GOAL AND TOLERATED. CM NOTIFIED HOWARD OF [facility]. FORENSIC NURSE NURSE MADE AWARE. NURSE REPORT TO BE CALLED TO [facility] AT [phone]. [facility] TO ARRANGE VAN TRANSPORATION. Sales Support Rep: Oleksandr Liu DCP- Discharge Planning Updated by [id number]: Oleksandr Liu on 04/16/19 9:[address] Patient Name: RICK HUSAIN Admission Status: ER Accout number: [id number] Admission Date: 04-13-2019 : 1940 Admission Diagnosis: Attending: JULIETH JONES Current LOS: 3 Anticipated DC Date: Planned Disposition: Group Home Facility Primary Insurance: MEDICARE A & B PLANNED EXTERNAL PROVIDER: [facility], MEDICARE REH B[facility] Discharge Planning Comments: CM SPOKE TO HOWARD OF [facility], THEY PLAN TO ACCEPT PT BACK TO SKILLED BED AT HOSPITAL DISCHARGE. CM FAXED UPDATE TO [facility] VIA HOWARD AT [phone]. FOR DISCHARGE TO [facility], FAX DISCHARGE INFORMATION TO [facility] AT [phone]; NURSE REPORT TO BE CALLED TO [facility] AT [phone]. [facility] TO ARRANGE VAN TRANSPORATION. Sales Support Rep: Oleksandr Liu DCP- Discharge Planning Updated by [id number]: Belia Avilez on 04/14/19 3:[address] Patient Name: RICK HUSAIN Admission Status: ER Accout number: [id number] Admission Date: 04-13-2019 : 1940 Admission Diagnosis: Attending: JULIETH JONES Current LOS: 1 Anticipated DC Date: Planned Disposition: Group Home Facility Primary Insurance: MEDICARE A & B Discharge Planning Comments: CM attempted to meet with patient but he is confused and CM unable to obtain information. Patient was just discharged from facility 04/12/19 to [facility] in a Medicare bed. Patient is a [facility] resident at [facility] and the discharge plan is to return there upon discharge. CM will continue to follow and assist as needed with discharge planning needs. Sales Support Rep: Belia Avilez DCPIA - Discharge Planning Initial Assessment Updated by [id number]: Belia Avilez on 04/14/19 4:23 pm * Is the patient Alert and Oriented? No * How many steps to enter\exit or inside your home? * [place]CP [facility] * Preadmission Environment Group Home Facility * Facility Name [facility] * ADLs Partial Dependent * Partial ADLs (Assistance needed) Ambulation Bathing Dressing Eating Medication Management Toileting Transfers * List name and contact numbers for known caregivers / representatives who currently or will assist patient after discharge: Esperanza Butts - [phone] (on residential paperwork) * Verbal permission to speak to the caregivers and representatives has been obtained from the patient. N/A * Additional services required to return to the preadmission environment? No * Can the patient safely return to the preadmission environment? Yes * Has this patient been hospitalized within the prior 30 days at any hospital? Yes Coverage Notice Reviewer: [id number] Erika Liu Notice Issued Date-Time: 04/16/2019 10:40 Notice Type: Patient Choice Letter Notice Delivered To: Patient Relationship to Patient: Powered Bridge Specialist Name: Delivery Method: HAND - Hand Delivered Vesna Days: Prior Verbal Notification: Recipient Understood Notice: Yes Recipient Signature: Med Rec Note Co-signed by Attending: Coverage Notice Comment: [facility] Reviewer: [id number] Liu Notice Issued Date-Time: 04/18/2019 7:40 Notice Type: IM Discharge Notice Notice Delivered To: Family Member Relationship to Patient: Other Relationship Powered Bridge Specialist Name: ESPERANZA BUTTS Delivery Method: CERT - Certified Mail Vesna Days: Prior Verbal Notification: Recipient Understood Notice: Yes Recipient Signature: Med Rec Note Co-signed by Attending: Coverage Notice Comment: ALSO DISCUSSED VIA PHONE. Last DP export: 04/18/19 7:09 Patient Name: RICK HUSAIN Page [id number] at 0816 All edits/amendments must be made on the electronic document DICTATION DATE: 04/18/19815 MAJOR GIFTS DIRECTOR: GAUDENCIO 04/18/19815 RPT#: [id number] DC DATE: STATUS: ADM IN [facility] [address] [place] [address] END OF REPORT
--- NOTE | 2019-04-18 12:13 | MORECARE ---
CASE MANAGEMENT DISCHARGE SUMMARY PATIENT: RICK HUSAIN UNIT: [id number] ADM DATE: 04/13/19 AGE: 79 : 40 SEX: M ROOM/BED: D.3026 AUTHOR: TY,DOC PHYSICIAN: REFERRING PHYSICIAN: JULIETH JONES MD DATE OF SERVICE: 04/18/19 Discharge Plan Patient Name: RICK HUSAIN Facility: [facility]:[place] : 1940 Planned Disposition: Jail Facility Anticipated Discharge Date: 04/18/19 Discharge Date: Expected LOS: 5 Initial Reviewer: [id number] Initial Review Date: 04/13/2019 Generated: 04/18/19 1:13 pm Comments DCP- Discharge Planning Updated by [id number]: Oleksandr Dumont on 04/18/19 11:[address] Patient Name: RICK HUSAIN Encounter No: [id number] : 1940 Primary Insurance: MEDICARE A & B Anticipated DC Date: 04-18-2019 Planned Disposition: Jail Facility External Planned Provider: [facility] DCP follow-up note: JANE NOTIFIED BY EXTRUSION DIE REPAIR MANAGER THAT PT WAS DISCHARGED YESTERDAY, BUT [facility] HAD NO NURSE SANE TO SHAREPOINT DEVELOPER PT YESTERDAY. JANE CALLED PT'S SIGNIFICANT OTHER, ESPERANZA BUTTS, , NOTIFIED OF DISCHARGE YESTERDAY AND VAN SHAREPOINT DEVELOPER BY [facility] TODAY. DARLINE ADVISED SHE THOUGHT PT WAS TOO SICK TO LEAVE YESTERDAY BUT IF THE DOCTOR THINKS PT IS OK TO LEAVE THEN SHE IS NOT GOING TO DISAGREE. JANE DISCUSSED THE IMPORTANT MESSAGE FROM MEDICARE. PT REPORTS SHE RECEIVED ONE IN THE MAIL CERTIFIED. JANE EXPLAINED SHE WILL GET ANOTHER AND ADVISED TO CALL IF SHE FEELS PT IS TOO SICK TO LEAVE. ESPERANZA WILL COME TO [facility] NOW TO SEE PT TO MAKE SURE HE IS OK TO DISCHARGE. JANE NOTIFIED EXTRUSION DIE REPAIR MANAGER NURSE. JANE NOTIFIED HOWARD OF [facility], , THEY PLAN TO ACCEPT PT BACK TO SKILLED BED. JANE FAXED UPDATE AND DISCHARGE INFORMATION TO [facility] VIA HOWARD AT [phone]. BEDSIDE NURSE ADVISED SHE HAS TALKED TO ESPERANZA WHO IS ON THE WAY TO HOSPITAL AND THAT SHAREPOINT DEVELOPER NEEDS TO BE AFTER NOON TODAY TO ENSURE TUBE FEEDING TO GOAL AND TOLERATED. CM NOTIFIED HOWARD OF [facility]. EXTRUSION DIE REPAIR MANAGER NURSE MADE AWARE. NURSE REPORT TO BE CALLED TO [facility] AT [phone]. [facility] TO ARRANGE VAN TRANSPORATION. Sea Captain: Oleksandr Dumont Appended by Oleksandr Dumont on 04/18/2019 12:11 VEHICLE MODIFICATION TECHNICIAN: CM WAS NOTIFIED BY BEDSIDE NURSE THAT DISCHARGE CANCELLED DUE TO BLEEDING FROM FEEDING TUBE SITE. CM NOTIFIED HOWARD WITH [facility]. CM TO CONTINUE TO FOLLOW AND ASSIST NEEDED. OLEKSANDR DUMONT, CASE MANAGEMENT DCP- Discharge Planning Updated by [id number]: Oleksandr Dumont on 04/16/19 9:[address] Patient Name: RICK HUSAIN Admission Status: ER Accout number: [id number] Admission Date: 04-13-2019 : 1940 Admission Diagnosis: Attending: JULIETH JONES Current LOS: 3 Anticipated DC Date: Planned Disposition: Jail Facility Primary Insurance: MEDICARE A & B PLANNED EXTERNAL PROVIDER: [facility], MEDICARE REH B[facility] Discharge Planning Comments: CM SPOKE TO [facility] OF [facility], THEY PLAN TO ACCEPT PT BACK TO SKILLED BED AT HOSPITAL DISCHARGE. CM FAXED UPDATE TO [facility] VIA HOWARD AT [phone]. FOR DISCHARGE TO [facility], FAX DISCHARGE INFORMATION TO [facility] AT [phone]; NURSE REPORT TO BE CALLED TO [facility] AT [phone]. [facility] TO ARRANGE VAN TRANSPORATION. Sea Captain: Oleksandr Dumont DCP- Discharge Planning Updated by [id number]: Belia Avilez on 04/14/19 3:[address] Patient Name: RICK HUSAIN Admission Status: ER Accout number: [id number] Admission Date: 04-13-2019 : 1940 Admission Diagnosis: Attending: JULIETH JONES Current LOS: 1 Anticipated DC Date: Planned Disposition: Jail Facility Primary Insurance: MEDICARE A & B Discharge Planning Comments: CM attempted to meet with patient but he is confused and CM unable to obtain information. Patient was just discharged from facility 04/12/19 to [facility] in a Medicare bed. Patient is a care home resident at [facility] and the discharge plan is to return there upon discharge. CM will continue to follow and assist as needed with discharge planning needs. Sea Captain: Belia WATERS - Discharge Planning Initial Assessment Updated by [email or web address]: Belia Avilez on 04/14/19 4:23 pm * Is the patient Alert and Oriented? No * How many steps to enter\exit or inside your home? * [facility]CP [facility] * Preadmission Environment [facility] Facility * Facility Name [facility] * ADLs Partial Dependent * Partial ADLs (Assistance needed) Ambulation Bathing Dressing Eating Medication Management Toileting Transfers * List name and contact numbers for known caregivers / representatives who currently or will assist patient after discharge: Esperanza Liceance - [phone] (on skilled nursing paperwork) * Verbal permission to speak to the caregivers and representatives has been obtained from the patient. N/A * Additional services required to return to the preadmission environment? No * Can the patient safely return to the preadmission environment? Yes * Has this patient been hospitalized within the prior 30 days at any hospital? Yes Coverage Notice Reviewer: [id number] Dumont Notice Issued Date-Time: 04/16/2019 10:40 Notice Type: Patient Choice Letter Notice Delivered To: Patient Relationship to Patient: Nuclear Waste Process Operator Name: Delivery Method: HAND - Hand Delivered Vesna Days: Prior Verbal Notification: Recipient Understood Notice: Yes Recipient Signature: Med Rec Note Co-signed by Attending: Coverage Notice Comment: [facility] Reviewer: [id number] Dumont Notice Issued Date-Time: 04/18/2019 7:40 Notice Type: IM Discharge Notice Notice Delivered To: Family Member Relationship to Patient: Other Relationship Nuclear Waste Process Operator Name: ESPERANZA BUTTS Delivery Method: CERT - Certified Mail Vesna Days: Prior Verbal Notification: Recipient Understood Notice: Yes Recipient Signature: Med Rec Note Co-signed by Attending: Coverage Notice Comment: ALSO DISCUSSED VIA PHONE. Last DP export: 04/18/19 7:16 Patient Name: RICK HUSAIN Page [phone] at 1213 All edits/amendments must be made on the electronic document DICTATION DATE: 04/18/19 1213 FITNESS MANAGEMENT DIRECTOR: GAUDENCIO 04/18/19 1213 RPT#: [id number] DC DATE: STATUS: ADM IN [facility] [address] [place] [address] END OF REPORT
--- NOTE | 2019-04-18 16:37 | NUR ---
OT NOTE: PT COMPLETED SIDE ROLLING WITH MAX A. PT COMPLETED POSITIONING TO DECREASE SKIN BREAKDOWN WITH MAX A. PT COMPLETED BATHING TASKS WITH TOTAL A. PT COMPLETED HAIR GROOMING WITH MAX A. PT COMPLETED BUE AROM EXS . [phone] THANK YOU,SAMANTHA JAMES
--- NOTE | 2019-04-18 19:50 | NUR ---
RECEIVED BEDSIDE REPORT. PATIENT IS ALERT AND PLEASANTLY CONFUSED,RESTING COMFORTABLY IN BED. RESPIRATIONS ARE EVEN AND UNLABORED. NO S/S OF DISTRESS. NO C/O PAIN. NO SIGNS OF BLEEDING FROM PEG TUBE PLACEMENT, DRESSING CLEAN DRY AND INTACT. ABDOMINAL BINDER IN SECURE. CALL LIGHT WITHIN REACH. WILL CPOC.
--- NOTE | 2019-04-19 | NUR ---
PATIENT IS ALERT WATCHING TV. RESPIRATION IS EVEN AND UNLABORED. NO S/S OF DISTRESS. NO C/O PAIN. NO SIGNS OF BLEEDING FROM PEG TUBE INSERTION SITE. CALL LIGHT WITHIN REACH.
--- NOTE | 2019-04-19 02:52 | NUR ---
PATIENT IS RESTING COMFORTABLY IN BED. RESPIATIONS ARE EVEN AND UNLABORED. NO S/S OF DISTRESS. NO C/O PAIN. NO SIGNS OF BLEEDING FROM PEG TUB INSERTION SITE. CALL LIGHT WITHIN REACH. WILL CPOC.
[2019-04-19 04:00] VITALS: BP 184/72
[2019-04-19 05:05] LABS: BASOPHILS 0.2 % (0-2); EOSINOPHILS 2.4 % (0-7); HEMATOCRIT 25.9 % (42.0-54.0); HEMOGLOBIN 8.2 g/dL (13.5-17.5); IMMATURE GRANULOCYTES 0.3 % (0-5); LYMPHOCYTES 12.8 % (15-50); MCH 28.8 pg (26.0-34.0); MCHC 31.7 g/dL (31.0-37.0); MCV 90.9 fL (80.0-100.0); MEAN PLATELET VOLUME 10.8 fL (7.4-10.4); MONOCYTES 6.8 % (2-11); NEUTROPHILS 77.5 % (40-80); PLATELET COUNT 189 10x3/uL (130-400); RBC 2.85 10x6/uL (4.20-6.10); RDW 15.6 % (11.5-14.5)
[2019-04-19 05:10] LABS: WBC 9.3 10x3/uL (4.8-10.8)
[2019-04-19 05:37] LABS: CALC OSMOLALITY 285 mosm/kg (275-300); CALCIUM 8.3 mg/dL (8.5-10.1); CARBON DIOXIDE 25.6 mmol/L (21.0-32.0); CHLORIDE - SERUM 110 mmol/L (98-107); PHOSPHOROUS 2.6 mg/dL (2.5-4.9); POTASSIUM - SERUM 3.4 mmol/L (3.5-5.1); SODIUM 143 mmol/L (136-145); UREA NITROGEN 20 mg/dL (7-18); eGFR NON AFRICAN AMERICAN 76 mL/min (90-120)
[2019-04-19 05:49] LABS: GLUCOSE 71 mg/dL (74-106)
--- NOTE | 2019-04-19 08:49 | OP ---
PATIENT NAME: RICK HUSAIN MEDICAL RECORD: [id number] :[birth year] LOCATION:D.M2 D.2114 ADMISSION DATE:04/13/19 SURGEON: ZACK WATERS MD DATE OF OPERATION: 04/16/2019 PREOPERATIVE DIAGNOSES: 1. Dysphagia. 2. Dehydration. 3. Dementia. 4. Failure to thrive. POSTOPERATIVE DIAGNOSES: 1. Dysphagia. 2. Dehydration. 3. Dementia. 4. Failure to thrive. PROCEDURES: 1. Esophagogastroduodenoscopy with antral biopsies. 2. A 20-[place]er percutaneous endoscopic gastrostomy tube placement. SURGEON: Zack Waters MD ZOOLOGY PROFESSOR: None. BLOOD LOSS: Minimal. ANESTHESIA: IV sedation. COMPLICATIONS: None. The patient's signed the consent form. The patient is confused as to why he is undergoing this procedure. OPERATIVE COURSE: The patient was conveyed to endoscopy suite electively on 04/16/2019. IV sedation was induced by the anesthesia staff. The patient was positioned in the reverse Trendelenburg position. The abdomen was sterilely prepped and draped. A bite block was inserted. A gastroscope was inserted into the mouth. It was advanced easily into the hypopharynx. The esophagus was easily intubated as were the stomach and duodenum. Upon withdrawal, retroflexed and angulus views were obtained. Antral biopsies were obtained. I then transilluminated the abdominal wall. I noted an area that appeared to be suitable for placement of the gastrostomy tube. I was able to indent the anterior abdominal wall here and visualize the indentation of the stomach while viewing this endoscopically. A local anesthetic was used to infiltrate the skin and subcutaneous tissue at the G-tube insertion site. An incision was accomplished. Through the incision, an Angiocath type catheter was advanced and I punctured the fundus of the stomach on the first try. A guidewire was advanced. The guidewire was then grasped with an endoscopic snare. The snare and guidewire were then withdrawn out through the mouth. The wire was attached to a pull-type gastrostomy tube, which was then pulled into place. OPERATIVE REPORT [id number] RICK HUSAIN I re-endoscoped the patient's esophagus and stomach. There had been no evidence of false passage or perforation. The endoscope was withdrawn under direct vision. The gastrostomy tube then had flange and hub devices attached. We then wrapped an abdominal binder around the patient's abdomen to prevent him from getting to the gastrostomy tube and pulling it out. I think there is a likelihood that he may try to do this due to his confusion. TRANSINT:[id number] Voice Confirmation ID: [id number] DOCUMENT ID: [id number] ZACK WATERS MD at 0849 CC: JULIETH JONES MD and CELINA KELLY MD [id number] DICTATION DATE: 04/16/19 1354 PRODUCT SAFETY PROFESSIONAL: 04/16/19 1525 ADM IN [facility] [address] [place] [id number]
--- NOTE | 2019-04-19 09:28 | NUR ---
DRSG CHANGED TO PEG TUBE SITE. NO EVIDENCE OF BLEEDING NOTED. LOVENOX DCD AND TF RESTARTED AT 25CC/HR PER DR. JOE. WILL MONITOR.
[2019-04-19 09:43] VITALS: BP 194/83
--- NOTE | 2019-04-19 10:01 | NUR ---
Nutrition Follow-up: TF was on hold yesterday 2/2 bleeding around PEG. Noted TF now restarted per Dr. Larry. Diet: Cardiac Jevity 1.2 @ goal rate of 55 mL/hr with H2O flushes 25 mL q hr PO intake: 0% yesterday per chart Wt: 125# (04/19); 126.6# (04/18); 108# ([facility] Last BM: 04/18 Labs noted: K+ 3.4, Glu 71, Ca 8.3 Meds noted: Miralax, Lactulose, KDur, NS @ 50 -Rec continue to increase TF to goal rate as medically feasible. -RD following.
--- NOTE | 2019-04-19 10:09 | NUR ---
PT AND OT AT BS ASSISTING WITH ADLS.
--- NOTE | 2019-04-19 11:23 | NUR ---
OT NOTE: PT MORE ALERT TODAY. ABLE TO FOLLOW 1 STEP SIMPLE COMMANDS. ABLE TO ROLL FROM SIDE TO SIDE WITH MOD ASSIST WHILE PERINEAL CARE PERFORMED. PT WITH LARGE AMOUNT OF DIARRHEA..CLEAN LINENS PROVIDED. PT ABLE TO WASH FACE AND HANDS WITH WASH CLOTH WITH SET UP AND VERBAL CUES. PT ABLE TO WASH ARMS WITH SET UP WITH VERBAL CUES. MOD/MAX ASSIST WITH LE BATHING. REPOSITIONED WITH HOB GREATER THAN 45 DEGREES. LESLI DUNN, OTR/L
--- NOTE | 2019-04-19 12:12 | NUR ---
REFUSES LUNCH AT THIS TIME.
[2019-04-19 12:14] VITALS: BP 154/72
--- NOTE | 2019-04-19 15:16 | NUR ---
DRSG CHANGED TO PEG TUB SITE DUE TO SM AMOUNT SEROUS DRAINAGE. WILL MONITOR.
--- NOTE | 2019-04-19 15:54 | MORECARE ---
CASE MANAGEMENT DISCHARGE SUMMARY PATIENT: RICK HUSAIN UNIT: [id number] ADM DATE: 04/13/19 AGE: 79 : 40 SEX: M ROOM/BED: D.7592 AUTHOR: TY,DOC PHYSICIAN: REFERRING PHYSICIAN: JULIETH JONES MD DATE OF SERVICE: 04/19/19 Discharge Plan Patient Name: RICK HUSAIN Facility: [facility]:[place] : 1940 Planned Disposition: Prison Facility Anticipated Discharge Date: 04/20/19 Discharge Date: Expected LOS: 7 Initial Reviewer: [id number] Initial Review Date: 04/13/2019 Generated: 04/19/19 4:54 pm Comments DCP- Discharge Planning Updated by [id number]: Oleksandr Dumont on 04/18/19 11:[address] Patient Name: RICK HUSAIN Encounter No: [id number] : 1940 Primary Insurance: MEDICARE A & B Anticipated DC Date: 04-18-2019 Planned Disposition: Prison Facility External Planned Provider: [facility] DCP follow-up note: JANE NOTIFIED BY QUALITY CONTROL COORDINATOR THAT PT WAS DISCHARGED YESTERDAY, BUT [facility] HAD NO LINING FOLDER TO AUTOMATION ENGINEERING MANAGER PT YESTERDAY. JANE CALLED PT'S SIGNIFICANT OTHER, ESPERANZA BUTTS, , NOTIFIED OF DISCHARGE YESTERDAY AND VAN AUTOMATION ENGINEERING MANAGER BY [facility] TODAY. DARLINE ADVISED SHE THOUGHT PT WAS TOO SICK TO LEAVE YESTERDAY BUT IF THE DOCTOR THINKS PT IS OK TO LEAVE THEN SHE IS NOT GOING TO DISAGREE. JANE DISCUSSED THE IMPORTANT MESSAGE FROM MEDICARE. PT REPORTS SHE RECEIVED ONE IN THE MAIL CERTIFIED. JANE EXPLAINED SHE WILL GET ANOTHER AND ADVISED TO CALL IF SHE FEELS PT IS TOO SICK TO LEAVE. ESPERANZA WILL COME TO [facility] NOW TO SEE PT TO MAKE SURE HE IS OK TO DISCHARGE. JANE NOTIFIED QUALITY CONTROL COORDINATOR NURSE. JANE NOTIFIED HOWARD OF [facility], , THEY PLAN TO ACCEPT PT BACK TO SKILLED BED. JANE FAXED UPDATE AND DISCHARGE INFORMATION TO [facility] VIA [facility]ARD AT [phone]. BEDSIDE NURSE ADVISED SHE HAS TALKED TO ESPERANZA WHO IS ON THE WAY TO HOSPITAL AND THAT AUTOMATION ENGINEERING MANAGER NEEDS TO BE AFTER NOON TODAY TO ENSURE TUBE FEEDING TO GOAL AND TOLERATED. CM NOTIFIED HOWARD OF [facility]. QUALITY CONTROL COORDINATOR NURSE MADE AWARE. NURSE REPORT TO BE CALLED TO [facility] AT [phone]. [facility] TO ARRANGE VAN TRANSPORATION. Patient Experience Coordinator: Oleksandr Dumont Appended by Oleksandr Dumont on 04/18/2019 12:11 SASH MAKER: CM WAS NOTIFIED BY BEDSIDE NURSE THAT DISCHARGE CANCELLED DUE TO BLEEDING FROM FEEDING TUBE SITE. CM NOTIFIED HOWARD WITH [facility]. CM TO CONTINUE TO FOLLOW AND ASSIST NEEDED. OLEKSANDR DUMONT, CASE MANAGEMENT DCP- Discharge Planning Updated by [id number]: Oleksandr Dumont on 04/16/19 9:[address] Patient Name: RICK HUSAIN Admission Status: ER Accout number: [id number] Admission Date: 04-13-2019 : 1940 Admission Diagnosis: Attending: JULIETH JONES Current LOS: 3 Anticipated DC Date: Planned Disposition: Prison Facility Primary Insurance: MEDICARE A & B PLANNED EXTERNAL PROVIDER: [facility], MEDICARE REH BED Discharge Planning Comments: CM SPOKE TO [facility], THEY PLAN TO ACCEPT PT BACK TO SKILLED BED AT HOSPITAL DISCHARGE. CM FAXED UPDATE TO [facility] VIA [facility] AT [phone]. FOR DISCHARGE TO [facility]SING [facility], FAX DISCHARGE INFORMATION TO [facility] AT [phone]; NURSE REPORT TO BE CALLED TO [facility] AT [phone]. [facility] TO ARRANGE VAN TRANSPORATION. Patient Experience Coordinator: Oleksandr Dumont DCP- Discharge Planning Updated by [id number]: Belia Avilez on 04/14/19 3:[address] Patient Name: RICK HUSAIN Admission Status: ER Accout number: [id number] Admission Date: 04-13-2019 : 1940 Admission Diagnosis: Attending: JULIETH JONES Current LOS: 1 Anticipated DC Date: Planned Disposition: Prison Facility Primary Insurance: MEDICARE A & B Discharge Planning Comments: CM attempted to meet with patient but he is confused and CM unable to obtain information. Patient was just discharged from facility 04/12/19 to [facility] in a Medicare bed. Patient is a care home resident at [facility] and the discharge plan is to return there upon discharge. CM will continue to follow and assist as needed with discharge planning needs. Patient Experience Coordinator: Belia WATERS - Discharge Planning Initial Assessment Updated by [id number]: Belia Avilez on 04/14/19 4:23 pm * Is the patient Alert and Oriented? No * How many steps to enter\exit or inside your home? * PCP [place] [facility] * [facility]acy [facility] * Preadmission Environment Prison Facility * Facility Name [facility] * ADLs Partial Dependent * Partial ADLs (Assistance needed) Ambulation Bathing Dressing Eating Medication Management Toileting Transfers * List name and contact numbers for known caregivers / representatives who currently or will assist patient after discharge: Esperanza Liceance - [phone] (on prison paperwork) * Verbal permission to speak to the caregivers and representatives has been obtained from the patient. N/A * Additional services required to return to the preadmission environment? No * Can the patient safely return to the preadmission environment? Yes * Has this patient been hospitalized within the prior 30 days at any hospital? Yes Coverage Notice Reviewer: [id number] Dumont Notice Issued Date-Time: 04/16/2019 10:40 Notice Type: Patient Choice Letter Notice Delivered To: Patient Relationship to Patient: Diesel Plant Operator Name: Delivery Method: HAND - Hand Delivered Vesna Days: Prior Verbal Notification: Recipient Understood Notice: Yes Recipient Signature: Med Rec Note Co-signed by Attending: Coverage Notice Comment: [facility] Reviewer: [id number] Dumont Notice Issued Date-Time: 04/18/2019 7:40 Notice Type: IM Discharge Notice Notice Delivered To: Family Member Relationship to Patient: Other Relationship Diesel Plant Operator Name: ESPERANZA BUTTS Delivery Method: CERT - Certified Mail Vesna Days: Prior Verbal Notification: Recipient Understood Notice: Yes Recipient Signature: Med Rec Note Co-signed by Attending: Coverage Notice Comment: ALSO DISCUSSED VIA PHONE. Last DP export: 04/18/19 11:13 Patient Name: RICK HUSAIN Page 17922 at 2417 All edits/amendments must be made on the electronic document DICTATION DATE: 04/19/19 9397 LANGUAGE TUTOR: GAUDENCIO 04/19/19 2682 RPT#: [id number] DC DATE: STATUS: ADM IN [facility] [address] [place] [address] END OF REPORT
--- NOTE | 2019-04-19 16:02 | MORECARE ---
CASE MANAGEMENT DISCHARGE SUMMARY PATIENT: RICK HUSAIN UNIT: [id number] ADM DATE: 04/13/19 AGE: 79 : 40 SEX: M ROOM/BED: D.2114 AUTHOR: TY,DOC PHYSICIAN: REFERRING PHYSICIAN: JULIETH JONES MD DATE OF SERVICE: 04/19/19 Discharge Plan Patient Name: RICK HUSAIN Facility: [facility]:[place] : 1940 Planned Disposition: Detention Facility Anticipated Discharge Date: 04/20/19 Discharge Date: Expected LOS: 7 Initial Reviewer: [id number] Initial Review Date: 04/13/2019 Generated: 04/19/19 5:02 pm Comments DCP- Discharge Planning Updated by [email or web address]: Oleksandr Dumont on 04/19/19 2:[address] Patient Name: RICK HUSAIN Encounter No: [id number] : 1940 Primary Insurance: MEDICARE A & B Anticipated DC Date: 04-20-2019 Planned Disposition: Detention Facility External Planned Provider: [facility], MEDICARE REHAB BED DCP follow-up note: NOTIFIED BY DR. JONES THAT PT WILL NOT DISCHARGE TODAY AND MAY DISCHARGE TOMORROW IF LABS ARE STABLE. CM NOTIFIED HOWARD OF [facility], , THEY PLAN TO ACCEPT PT BACK TO SKILLED BED. CM FAXED UPDATE TO THE [facility] VIA [facility] AT [phone]. FOR DISCHARGE TO THE [facility], NOTIFY [facility] AT [phone].. NURSE REPORT TO BE CALLED TO [facility] AT [phone]. FAX DISCHARGE INFORMATION TO THE [facility] AT [phone]. [facility] TO ARRANGE VAN TRANSPORATION. OLEKSANDR DUMONT CASE MANAGEMENT DCP- Discharge Planning Updated by [id number]: Oleksandr Dumont on 04/18/19 11:[address] Patient Name: RICK HUSAIN Encounter No: [id number] : 1940 Primary Insurance: MEDICARE A & B Anticipated DC Date: 04-18-2019 Planned Disposition: Detention Facility External [facility] follow-up note: JANE NOTIFIED BY NET DEVELOPER CONTRACT THAT PT WAS DISCHARGED YESTERDAY, BUT THE [facility] HAD NO ARCHITECTURAL EXAMINER TO PRESSER AND SHAPER KNITTED GOODS PT YESTERDAY. CM CALLED PT'S SIGNIFICANT OTHER, ESPERANZA BUTTS, , NOTIFIED OF DISCHARGE YESTERDAY AND VAN PRESSER AND SHAPER KNITTED GOODS BY [facility] TODAY. DARLINE ADVISED SHE THOUGHT PT WAS TOO SICK TO LEAVE YESTERDAY BUT IF THE DOCTOR THINKS PT IS OK TO LEAVE THEN SHE IS NOT GOING TO DISAGREE. CM DISCUSSED THE IMPORTANT MESSAGE FROM MEDICARE. PT REPORTS SHE RECEIVED ONE IN THE MAIL CERTIFIED. CM EXPLAINED SHE WILL GET ANOTHER AND ADVISED TO CALL IF SHE FEELS PT IS TOO SICK TO LEAVE. [facility]ZA WILL COM[facility] TO [facility] NOW TO SEE PT TO MAKE SURE HE IS OK TO DISCHARGE. CM NOTIFIED NET DEVELOPER CONTRACT NURSE. CM NOTIFIED HOWARD OF [facility], , THEY PLAN TO ACCEPT PT BACK TO SKILLED BED. CM FAXED UPDATE AND DISCHARGE INFORMATION TO [facility] VIA [facility] AT [phone]. BEDSIDE NURSE ADVISED SHE HAS TALKED TO ESPERANZA WHO IS ON THE WAY TO HOSPITAL AND THAT PRESSER AND SHAPER KNITTED GOODS NEEDS TO BE AFTER NOON TODAY TO ENSURE TUBE FEEDING TO GOAL AND TOLERATED. CM NOTIFIED HOWARD OF [facility]. NET DEVELOPER CONTRACT NURSE MADE AWARE. NURSE REPORT TO BE CALLED TO THE [facility] AT [phone]. [facility] TO ARRANGE VAN TRANSPORATION. Audio Visual Arts Director: Oleksandr Dumont Appended by Oleksandr Dumont on 04/18/2019 12:11 CLAMP CARRIER OPERATOR: CM WAS NOTIFIED BY BEDSIDE NURSE THAT DISCHARGE CANCELLED DUE TO BLEEDING FROM FEEDING TUBE SITE. CM NOTIFIED HOWARD WITH [facility]. CM TO CONTINUE TO FOLLOW AND ASSIST NEEDED. OLEKSANDR DUMONT, CASE MANAGEMENT DCP- Discharge Planning Updated by [id number]: Oleksandr Dumont on 04/16/19 9:[address] Patient Name: RICK HUSAIN Admission Status: ER Accout number: [id number] Admission Date: 04-13-2019 : 1940 Admission Diagnosis: Attending: JULIETH JONES Current LOS: 3 Anticipated DC Date: Planned Disposition: Detention Facility Primary Insurance: MEDICARE A & B PLANNED EXTERNAL PROVIDER: [facility], MEDICARE REHAB BED Discharge Planning Comments: CM SPOKE TO HOWARD OF [facility], THEY PLAN TO ACCEPT PT BACK TO SKILLED BED AT HOSPITAL DISCHARGE. CM FAXED UPDATE TO [facility] VIA [facility] AT [phone]. FOR DISCHARGE TO THE [facility], FAX DISCHARGE INFORMATION TO THE [facility] AT [phone]; NURSE REPORT TO BE CALLED TO THE [facility] AT [phone]. [facility] TO ARRANGE VAN TRANSPORATION. Audio Visual Arts Director: Oleksandr Dumont DCP- Discharge Planning Updated by [id number]: Belia Avilez on 04/14/19 3:[address] Patient Name: RICK HUSAIN Admission Status: ER Accout number: [id number] Admission Date: 04-13-2019 : 1940 Admission Diagnosis: Attending: JULIETH JONES Current LOS: 1 Anticipated DC Date: Planned Disposition: Detention Facility Primary Insurance: MEDICARE A & B Discharge Planning Comments: CM attempted to meet with patient but he is confused and CM unable to obtain information. Patient was just discharged from facility 04/12/19 to [facility] in a Medicare bed. 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 CM will continue to follow and assist as needed with discharge planning needs. Audio Visual Arts Director: Belia Avilez DCPIA - Discharge Planning Initial Assessment Updated by [id number]: Belia Avilez on 04/14/19 4:23 pm * Is the patient Alert and Oriented? No * How many steps to enter\exit or inside your home? * PCP [facility] PHYSICIAN * Pharmacy [facility] * Preadmission Environment Detention Facility * Facility Name [facility] * ADLs Partial Dependent * Partial ADLs (Assistance needed) Ambulation Bathing Dressing Eating Medication Management Toileting Transfers * List name and contact numbers for known caregivers / representatives who currently or will assist patient after discharge: Esperanza Butts - [phone] (on penitentiary paperwork) * Verbal permission to speak to the caregivers and representatives has been obtained from the patient. N/A * Additional services required to return to the preadmission environment? No * Can the patient safely return to the preadmission environment? Yes * Has this patient been hospitalized within the prior 30 days at any hospital? Yes Coverage Notice Reviewer: [id number] - Oleksandr Dumont Notice Issued Date-Time: 04/16/2019 10:40 Notice Type: Patient Choice Letter Notice Delivered To: Patient Relationship to Patient: Social Worker School Name: Delivery Method: HAND - Hand Delivered Vesna Days: Prior Verbal Notification: Recipient Understood Notice: Yes Recipient Signature: Med Rec Note Co-signed by Attending: Coverage Notice Comment: [facility] Reviewer: [id number] Erika Dumont Notice Issued Date-Time: 04/18/2019 7:40 Notice Type: IM Discharge Notice Notice Delivered To: Family Member Relationship to Patient: Other Relationship Social Worker School Name: ESPERANZA BUTTS Delivery Method: CERT - Certified Mail Vesna Days: Prior Verbal Notification: Recipient Understood Notice: Yes Recipient Signature: Med Rec Note Co-signed by Attending: Coverage Notice Comment: ALSO DISCUSSED VIA PHONE. Last DP export: 04/19/19 2:54 Patient Name: RICK HUSAIN Page 85700 at 1602 All edits/amendments must be made on the electronic document DICTATION DATE: 04/19/191601 CORPORATE DIRECTOR TALENT ASSESSMENT: GAUDENCIO 04/19/19 160 RPT#: [id number] DC DATE: STATUS: ADM IN [facility] [address] [place] [address] END OF REPORT
[2019-04-19 16:17] VITALS: BP 131/62
--- NOTE | 2019-04-19 16:42 | NUR ---
OT NOTE: PT COMPLETED UB HYGIENE TASKS WITH SET UP. PT COMPLETED SIT TO STAND WITH CGA. PT COMPLETED ADL MOB WITH CGA. PT COMPLETED BUE AROM AX WITH FUNCTIONAL TASKS. [id number] THANK YOU, SAMANTHA JAMES
--- NOTE | 2019-04-19 19:26 | NUR ---
RECEIVED BEDSIDE REPOT. PATIENT IS ALERT AND PLEASANTLY CONFUSED. RESPIRATIONS ARE EVEN AND UNLABORED. NO SIGNS OF BLEEDING FROM PEG TUBE INSERTION SITE. NO S/S OF DISTRESS. NO C/O PAIN. CALL LIGHT WITHIN REACH. WILL CPOC.
[2019-04-19 20:00] VITALS: BP 147/64
[2019-04-20] VITALS: BP 177/76
--- NOTE | 2019-04-20 01:04 | NUR ---
CHANGED TUBING FOR FEEDING TUBE.
[2019-04-20 04:00] VITALS: BP 169/77
--- NOTE | 2019-04-20 07:15 | NUR ---
received pt in bed eyes closed resp unlabored skin w/d nad noted
[2019-04-20 08:26] VITALS: BP 191/85
[2019-04-20 12:03] VITALS: BP 152/78
[2019-04-20 12:04] LABS: HEMATOCRIT 25.3 % (42.0-54.0); HEMOGLOBIN 8.2 g/dL (13.5-17.5); MCH 29.4 pg (26.0-34.0); MCHC 32.4 g/dL (31.0-37.0); MCV 90.7 fL (80.0-100.0); MEAN PLATELET VOLUME 10.2 fL (7.4-10.4); PLATELET COUNT 184 10x3/uL (130-400); RBC 2.79 10x6/uL (4.20-6.10); RDW 15.9 % (11.5-14.5); WBC 8.6 10x3/uL (4.8-10.8)
[2019-04-20 12:13] LABS: CALC OSMOLALITY 284 mosm/kg (275-300); CALCIUM 8.1 mg/dL (8.5-10.1); CARBON DIOXIDE 24.3 mmol/L (21.0-32.0); CHLORIDE - SERUM 110 mmol/L (98-107); CREATININE - SERUM 0.8 mg/dL (0.6-1.3); GLUCOSE 103 mg/dL (74-106); POTASSIUM - SERUM 3.9 mmol/L (3.5-5.1); SODIUM 142 mmol/L (136-145); UREA NITROGEN 18 mg/dL (7-18); eGFR NON AFRICAN AMERICAN > 90 mL/min (90-120)
[2019-04-20 12:41] LABS: EOSINOPHILS 3 % (0-7); LYMPHOCYTES 6 % (15-50); MONOCYTES 2 % (2-11); NEUTROPHILS 89 % (40-80); PLATELET ESTIMATE NORMAL
[2019-04-20] MEDS ORDERED: BYSTOLIC10 MG PO (13:55)
--- NOTE | 2019-04-20 14:18 | NUR ---
REPORT GIVEN TO DENIZ AT THE [facility] VAN WILL BE HERE BETWEEN 1500 AND 1530 TO PICK PT UP SPOKE WITH SIGNIFICANT OTHER DARLINE BUTTS [phone] REPORTED PT WOULD BE TRANSFERRING BACK TO [facility]
--- NOTE | 2019-04-20 14:45 | NUR ---
REVIEWED DISCHARGE WITH PT AND [facility] STAFF STATE UNDERSTANDING COPY GIVEN DCD SALINE LOCK TO LFA WITH IV CATHETER INTACT SITE FREE OF REDNESS OR EDEMA G TUBE FLUSHED AND CLAMPED DRSG C/D/I PT DISCHARGED VIA W/C TO [facility] IN STABLE CONDITION WITH ALL PERSONAL BELONGINGS
--- NOTE | 2019-04-20 15:03 | NUR ---
PRIMARY NURSE, JEF, CALLED REPORT TO THE [facility] WHEN DISCHARGE ORDER WAS RECEIVED. THE [facility] PROVIDED TRANSPORTATION. JEF ALSO STATED SHE WOULD CALL HIS TO ADVISE HER OF THE DISCHARGE. DISCHARGE SUMMARY AND PACKET WAS PREPARED BY BIRD, MATTRESS SPECIALIST, WITH DISCHARGE INSTRUCTIONS AND MED LIST.
--- NOTE | 2019-04-22 09:47 | MORECARE ---
CASE MANAGEMENT DISCHARGE SUMMARY PATIENT: RICK HUSAIN UNIT: [id number] ADM DATE: 04/13/19 AGE: 79 : 40 SEX: M ROOM/BED: D.2114 AUTHOR: ABIDA CRAWFORD PHYSICIAN: REFERRING PHYSICIAN: JULIETH JONES MD DATE OF SERVICE: 04/22/19 Discharge Plan Patient Name: RICK HUSAIN Facility: [facility]:[place] : 1940 Planned Disposition: Longterm Facility Anticipated Discharge Date: 04/20/19 Discharge Date: 04/20/2019 Expected LOS: 7 Initial Reviewer: [email or web address] Initial Review Date: 04/13/2019 Generated: 04/22/19 10:46 am Comments DCP- Discharge Planning Updated by [id number]: Oleksandr Dumont on 04/19/19 2:[address] Patient Name: RICK HUSAIN Encounter No: [id number] : 1940 Primary Insurance: MEDICARE A & B Anticipated DC Date: 04-20-2019 Planned Disposition: Longterm Facility External Planned Provider: [facility] MED[facility] RE[facility] DCP follow-up note: CM NOTIFIED BY DR. JONES THAT PT WILL NOT DISCHARGE TODAY AND MAY DISCHARGE TOMORROW IF LABS ARE STABLE. CM NOTIFIED HOWARD OF [facility], , THEY PLAN TO ACCEPT PT BACK TO SKILLED BED. CM FAXED UPDATE TO [facility] VIA HOWARD AT [phone]. FOR DISCHARGE TO THE [facility], NOTIFY [facility] AT [phone].. NURSE REPORT TO BE CALLED TO [facility] AT [phone]. FAX DISCHARGE INFORMATION TO THE [facility] AT [phone]. [facility] TO ARRANGE VAN TRANSPORATION. OLEKSANDR DUMONT CASE MANAGEMENT DCP- Discharge Planning Updated by [id number]: Oleksandr Dumont on 04/18/19 11:[address] Patient Name: RICK HUSAIN Encounter No: [id number] : 1940 Primary Insurance: MEDICARE A & B Anticipated DC Date: 04-18-2019 Planned Disposition: Longterm Facility External [facility] follow-up note: JANE NOTIFIED BY GEOLOGICAL ENGINEER THAT PT WAS DISCHARGED YESTERDAY, BUT [facility] HAD NO LABORER ELECTROPLATING TO RETAIL MERCHANDISING COORDINATOR PT YESTERDAY. CM CALLED PT'S SIGNIFICANT OTHER, ESPERANZA BUTTS, , NOTIFIED OF DISCHARGE YESTERDAY AND VAN RETAIL MERCHANDISING COORDINATOR BY [facility] TODAY. DARLINE ADVISED SHE THOUGHT PT WAS TOO SICK TO LEAVE YESTERDAY BUT IF THE DOCTOR THINKS PT IS OK TO LEAVE THEN SHE IS NOT GOING TO DISAGREE. CM DISCUSSED THE IMPORTANT MESSAGE FROM MEDICARE. PT REPORTS SHE RECEIVED ONE IN THE MAIL CERTIFIED. CM EXPLAINED SHE WILL GET ANOTHER AND ADVISED TO CALL IF SHE FEELS PT IS TOO SICK TO LEAVE. ESPERANZA WILL COME TO [facility] NOW TO SEE PT TO MAKE SURE HE IS OK TO DISCHARGE. CM NOTIFIED GEOLOGICAL ENGINEER NURSE. CM NOTIFIED HOWARD OF [facility], , THEY PLAN TO ACCEPT PT BACK TO SKILLED BED. CM FAXED UPDATE AND DISCHARGE INFORMATION TO [facility] VIA HOWARD AT [phone]. BEDSIDE NURSE ADVISED SHE HAS TALKED TO ESPERANZA WHO IS ON THE WAY TO HOSPITAL AND THAT RETAIL MERCHANDISING COORDINATOR NEEDS TO BE AFTER NOON TODAY TO ENSURE TUBE FEEDING TO GOAL AND TOLERATED. CM NOTIFIED HOWARD OF [facility]. GEOLOGICAL ENGINEER NURSE MADE AWARE. NURSE REPORT TO BE CALLED TO [facility] AT [phone]. [facility] TO ARRANGE VAN TRANSPORATION. Roll Bucker: Oleksandr Dumont Appended by Oleksandr Dumont on 04/18/2019 12:11 COLOR FINISHER: JANE WAS NOTIFIED BY BEDSIDE NURSE THAT DISCHARGE CANCELLED DUE TO BLEEDING FROM FEEDING TUBE SITE. CM NOTIFIED HOWARD WITH [facility]. CM TO CONTINUE TO FOLLOW AND ASSIST NEEDED. OLEKSANDR DUMONT, CASE MANAGEMENT ALP- Discharge Planning Updated by [id number]: Oleksandr Dumont on 04/16/19 9:[address] Patient Name: RICK HUSAIN Admission Status: ER Accout number: [id number] Admission Date: 04-13-2019 : 1940 Admission Diagnosis: Attending: JULIETH JONES Current LOS: 3 Anticipated DC Date: Planned Disposition: Longterm Facility Primary Insurance: MEDICARE A & B PLANNED EXTERNAL PROVIDER: [facility], MEDICARE REHAB BED Discharge Planning Comments: JANE SPOKE TO HOWARD OF [facility], THEY PLAN TO ACCEPT PT BACK TO SKILLED BED AT HOSPITAL DISCHARGE. CM FAXED UPDATE TO [facility] VIA HOWARD AT [phone]. FOR DISCHARGE TO [facility], FAX DISCHARGE INFORMATION TO [facility] AT [phone]; NURSE REPORT TO BE CALLED TO [facility] AT [phone]. [facility] TO ARRANGE VAN TRANSPORATION. Roll Bucker: Oleksandr Dumont DCP- Discharge Planning Updated by [id number]: Belia Avilez on 04/14/19 3:[address] Patient Name: RICK HUSAIN Admission Status: ER Accout number: [id number] Admission Date: 04-13-2019 : 1940 Admission Diagnosis: Attending: JULIETH JONES Current LOS: 1 Anticipated DC Date: Planned Disposition: Longterm Facility Primary Insurance: MEDICARE A & B Discharge Planning Comments: CM attempted to meet with patient but he is confused and CM unable to obtain information. Patient was just discharged from facility 04/12/[address] [facility] in a Medicare bed. 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 and the discharge plan is to return there upon discharge. CM will continue to follow and assist as needed with discharge planning needs. Roll Bucker: Belia Avilez DCA - Discharge Planning Initial Assessment Updated by [email or web address]: Belia Avilez on 04/14/19 4:23 pm * Is the patient Alert and Oriented? No * How many steps to enter\exit or inside your home? * [place]CP [place] [facility] * [facility]acy [facility] * Preadmission Environment Longterm Facility * Facility Name [facility] * ADLs Partial Dependent * Partial ADLs (Assistance needed) Ambulation Bathing Dressing Eating Medication Management Toileting Transfers * List name and contact numbers for known caregivers / representatives who currently or will assist patient after discharge: Esperanza Butts - [phone] (on long term paperwork) * Verbal permission to speak to the caregivers and representatives has been obtained from the patient. N/A * Additional services required to return to the preadmission environment? No * Can the patient safely return to the preadmission environment? Yes * Has this patient been hospitalized within the prior 30 days at any hospital? Yes Coverage Notice Reviewer: [id number] - Oleksandr Dumont Notice Issued Date-Time: 04/16/2019 10:40 Notice Type: Patient Choice Letter Notice Delivered To: Patient Relationship to Patient: Steam Engineer Name: Delivery Method: HAND - Hand Delivered Vesna Days: Prior Verbal Notification: Recipient Understood Notice: Yes Recipient Signature: Med Rec Note Co-signed by Attending: Coverage Notice Comment: THE [facility] Reviewer: [id number] Erika Dumont Notice Issued Date-Time: 04/18/2019 7:40 Notice Type: IM Discharge Notice Notice Delivered To: Family Member Relationship to Patient: Other Relationship Steam Engineer Name: ESPERANZA BUTTS Delivery Method: CERT - Certified Mail Vesna Days: Prior Verbal Notification: Recipient Understood Notice: Yes Recipient Signature: Med Rec Note Co-signed by Attending: Coverage Notice Comment: ALSO DISCUSSED VIA PHONE. Last DP export: 04/19/19 3:02 Patient Name: RICK HUSAIN Page [phone] at 0947 All edits/amendments must be made on the electronic document DICTATION DATE: 04/22/19945 DATA CENTER CONSULTANT: GAUDENCIO 04/22/19945 RPT#: [id number] DC DATE:04/20/19 STATUS: DIS IN [facility] [address] [place] [address] END OF REPORT
== END 2019-04-20 14:48 | DRG 314 ==
LOC: D.ER 10:33 → D.M2 13:10
PROVIDERS: Family Medicine; Surgery; ADMIT Internal Medicine Nephrology; ATTEND Internal Medicine Nephrology
PROC: 0DH63UZ Insertion of Feeding Device into Stomach, Percutaneous Approach (ICD-10-PCS; 2019-04-16)
PROC: 0DB68ZX Excision of Stomach, Via Natural or Artificial Opening Endoscopic, Diagnostic (ICD-10-PCS; principal; 2019-04-16 12:00)
DX: I95.9 Hypotension, unspecified (principal); G93.41 Metabolic encephalopathy; R53.2 Functional quadriplegia; N39.0 Urinary tract infection, site not specified; N17.9 Acute kidney failure, unspecified; I50.22 Chronic systolic (congestive) heart failure; E87.0 Hyperosmolality and hypernatremia; Z68.1 Body mass index [BMI] 19.9 or less, adult; E86.0 Dehydration; D64.9 Anemia, unspecified; G30.9 Alzheimer's disease, unspecified; F02.80 Dementia in other diseases classified elsewhere, unspecified severity, without behavioral disturbance, psychotic disturbance, mood disturbance, and anxiety; Z91.81 History of falling; E87.6 Hypokalemia; I11.0 Hypertensive heart disease with heart failure; F41.8 Other specified anxiety disorders; I08.1 Rheumatic disorders of both mitral and tricuspid valves; J43.9 Emphysema, unspecified; R13.10 Dysphagia, unspecified; R62.7 Adult failure to thrive

== ENCOUNTER 2019-04-21 16:56 | Inpatient (IN) | payer MEDICARE ==
[~2019-04-21] VITALS: Ht 182.9 cm; Wt 44.5 kg
[2019-04-21] VITALS (9 sets, daily range): BP systolic 119–160; BP diastolic 54–77; BMI 13.3
[2019-04-21 17:55] LABS: BASOPHILS 0.1 % (0-2); EOSINOPHILS 0 % (0-7); HEMATOCRIT 27.9 % (42.0-54.0); HEMOGLOBIN 8.8 g/dL (13.5-17.5); IMMATURE GRANULOCYTES 0.3 % (0-5); LYMPHOCYTES 1.5 % (15-50); MCH 28.4 pg (26.0-34.0); MCHC 31.5 g/dL (31.0-37.0); MEAN PLATELET VOLUME 10.5 fL (7.4-10.4); MONOCYTES 3.4 % (2-11); NEUTROPHILS 94.7 % (40-80); RDW 15.9 % (11.5-14.5)
[2019-04-21 17:59] LABS: PLATELET COUNT 272 10x3/uL (130-400); WBC 15.2 10x3/uL (4.8-10.8)
[2019-04-21 18:07] LABS: APTT 32.9 SECONDS (22.8-39.4); INR 1.21 (0.85-1.17); PROTIME 14.8 SECONDS (11.6-15.0)
[2019-04-21 18:08] LABS: CALC OSMOLALITY 294 mosm/kg (275-300); CALCIUM 8.9 mg/dL (8.5-10.1); CARBON DIOXIDE 25.3 mmol/L (21.0-32.0); CHLORIDE - SERUM 108 mmol/L (98-107); POTASSIUM - SERUM 3.8 mmol/L (3.5-5.1); SODIUM 144 mmol/L (136-145); UREA NITROGEN 22 mg/dL (7-18); eGFR NON AFRICAN AMERICAN 76 mL/min (90-120)
[2019-04-21 18:09] LABS: GLUCOSE 188 mg/dL (74-106)
[2019-04-21 18:29] LABS: ALBUMIN 2.4 g/dL (3.4-5.0); ALKALINE PHOSPHATASE 93 U/L (46-116); ALT (SGPT) 16 U/L (10-68); BILIRUBIN - TOTAL 0.76 mg/dL (0.2-1.3); CKMB 0.8 U/L (0.0-3.6); CREATINE KINASE 68 UL (21-232); PRO BNP 28265 pg/mL (0-450); PROTEIN - SERUM 6.6 g/dL (6.4-8.2)
[2019-04-21 18:31] LABS: TROPONIN-I 0.199 ng/mL (0.000-0.060)
[2019-04-21 19:57] LABS: APPEARANCE CLEAR (CLEAR); BILIRUBIN NEGATIVE (NEGATIVE); COLOR YELLOW (YELLOW); GLUCOSE NEGATIVE (NEGATIVE); KETONE NEGATIVE (NEGATIVE); NITRITE NEGATIVE (NEGATIVE); PROTEIN TRACE mg/dL (NEGATIVE); SPECIFIC GRAVITY 1.015 (1.005-1.020); UROBILINOGEN NORMAL (NORMAL)
[2019-04-21 19:59] LABS: BACTERIA FEW /hpf (NEGATIVE); EPITHELIAL CELLS 0-5 /hpf (0-5); WHITE CELLS - URINE 0-5 /hpf (NEGATIVE)
--- NOTE | 2019-04-21 23:11 | NUR ---
REPORT OF ADMIT CALLED TO THE [facility]. SPOKE WITH KATI VICENTE.
--- NOTE | 2019-04-21 23:17 | NUR ---
PT ARRIVED ON UNIT VIA STRETCHER ESCORTED BY ER NURSE. TRANSFERRED TO BED...PT SOAKED WITH URINE AND FECES. CLEANSED PT AND CHANGED BED PAD. BUTTOCKS / COCCYX AREA REDDENED AND NON BLANCHABLE. CLEANSED WELL AND APPLIED A MEPILEX HEART TO CUSHION. BED ALARM IN USE FOR SAFETY. WILL MONITOR CLOSELY FOR NEEDS.
[2019-04-22] MEDS ORDERED: ACETAMINOPHEN325 MG PO (00:01)
--- NOTE | 2019-04-22 00:05 | NUR ---
ADMISSION ASSESSMENT AND HISTORY COMPLETE. MEDICATION RECONCILLIATION COMPLETE PER SKILLED NURSING RECORDS.
[2019-04-22 00:30] VITALS: BP 151/56
--- NOTE | 2019-04-22 00:36 | NUR ---
SPOUSE CALLED FOR UPDATE ON PT. SHE WILL BE HER IN THE AM.
[2019-04-22 05:31] VITALS: BP 131/70; BP 151/70
[2019-04-22 06:50] LABS: BASOPHILS 0 % (0-2); EOSINOPHILS 0 % (0-7); HEMATOCRIT 25.6 % (42.0-54.0); HEMOGLOBIN 8.1 g/dL (13.5-17.5); IMMATURE GRANULOCYTES 0.3 % (0-5); LYMPHOCYTES 6.1 % (15-50); MCH 28.6 pg (26.0-34.0); MCHC 31.6 g/dL (31.0-37.0); MCV 90.5 fL (80.0-100.0); MEAN PLATELET VOLUME 11.1 fL (7.4-10.4); MONOCYTES 4.4 % (2-11); NEUTROPHILS 89.2 % (40-80); PLATELET COUNT 231 10x3/uL (130-400); RBC 2.83 10x6/uL (4.20-6.10); RDW 15.9 % (11.5-14.5); WBC 13.7 10x3/uL (4.8-10.8)
--- NOTE | 2019-04-22 07:10 | NUR ---
PT RESTING IN BED. NO SIGNS OF DISTRESS. IV TO RIGHT HAND PATENT NO REDNESS OR TENDERNESS. PEG TUBE AWAITING FOR PEG PLACEMENT. ON 4L NC. DENIES ANY FURTHER NEED AT THIS TIME. CALL LIGHT IN REACH. BED LOW POSITION. NO FAMILY AT BEDSIDE AT THIS TIME.
[2019-04-22 07:30] LABS: ALBUMIN 2.1 g/dL (3.4-5.0); ANION GAP 11.5 mmol/L (8-16); BILIRUBIN - TOTAL 0.53 mg/dL (0.2-1.3); CALCIUM 8.7 mg/dL (8.5-10.1); CARBON DIOXIDE 27.2 mmol/L (21.0-32.0); CREATININE - SERUM 1.1 mg/dL (0.6-1.3); POTASSIUM - SERUM 3.7 mmol/L (3.5-5.1); PROTEIN - SERUM 6.5 g/dL (6.4-8.2)
[2019-04-22 07:33] LABS: TROPONIN-I 0.958 ng/mL (0.000-0.060)
[2019-04-22 08:25] VITALS: BP 154/70
[2019-04-22 10:00] LABS: % SATURATION 4 % (15-55); IRON 8 ug/dl (35-150); TOTAL IRON BIND CAPACITY 163 ug/dl (260-445); UNSAT IRON BIND CAPACITY 155 ug/dl (150-375)
--- NOTE | 2019-04-22 10:30 | NUR ---
I have reviewed this patient and I concur with the Shift Assessment completed by the Licensed Practical Nurse today this shift.
[2019-04-22 13:07] VITALS: BP 173/82
[2019-04-22 13:18] VITALS: BMI 13.3
[2019-04-22 16:40] VITALS: BP 160/72
--- NOTE | 2019-04-22 19:22 | NUR ---
PATIENT RESTING IN BED WITH EYES CLOSED AND DENIES NEEDS AT THIS TIME. BED IN LOWEST POSITION AND CALL LIGHT WITHIN REACH. ENCOURAGED THE PATIENT TO CALL IF HE HAS NEEDS. WILL CONTINUE TO MONITOR.
[2019-04-22 20:23] VITALS: Ht 182.9 cm; Wt 44.5 kg
[2019-04-22 20:30] VITALS: BP 176/80
[2019-04-23 00:22] VITALS: BP 172/80
[2019-04-23 04:45] VITALS: BP 174/79
[2019-04-23 07:04] LABS: BASOPHILS 0.2 % (0-2); EOSINOPHILS 3.4 % (0-7); HEMATOCRIT 29.8 % (42.0-54.0); HEMOGLOBIN 9.3 g/dL (13.5-17.5); IMMATURE GRANULOCYTES 0.3 % (0-5); LYMPHOCYTES 12.4 % (15-50); MCH 28.6 pg (26.0-34.0); MCHC 31.2 g/dL (31.0-37.0); MCV 91.7 fL (80.0-100.0); MEAN PLATELET VOLUME 10.8 fL (7.4-10.4); MONOCYTES 5.4 % (2-11); NEUTROPHILS 78.3 % (40-80); PLATELET COUNT 273 10x3/uL (130-400); RBC 3.25 10x6/uL (4.20-6.10); RDW 16.1 % (11.5-14.5); WBC 11.6 10x3/uL (4.8-10.8)
[2019-04-23 07:21] LABS: CALC OSMOLALITY 290 mosm/kg (275-300); CALCIUM 9.2 mg/dL (8.5-10.1); CARBON DIOXIDE 28.4 mmol/L (21.0-32.0); CHLORIDE - SERUM 106 mmol/L (98-107); GLUCOSE 68 mg/dL (74-106); POTASSIUM - SERUM 3.2 mmol/L (3.5-5.1); PRO BNP 14259 pg/mL (0-450); SODIUM 145 mmol/L (136-145); UREA NITROGEN 25 mg/dL (7-18); eGFR NON AFRICAN AMERICAN 76 mL/min (90-120)
[2019-04-23 09:19] VITALS: BP 183/84
[2019-04-23 13:53] VITALS: BP 176/90
[2019-04-23 18:05] VITALS: BP 121/62; BP 211/99
--- NOTE | 2019-04-23 18:50 | NUR ---
PATIENT IN BED RESTING WITH EYES OPEN. NO ACUTE S/S OF DISTRESS. NO C/O AT THIS TIME. PATIENT IS ON 4L NASAL CANNULA. PATIENT HAS PACEMAKER AND TELEMTRY RUNNING @ 68 PACE. PATIENT HAS RIGHT HAND IV SALINE-LOC. IV IS PATENT WITHOUT REDNESS, SWELLING, OR TENDERNESS. PAITENT IS NPO WITH PEG TUBE ON RIGHT SIDE OF ABDOMEN. PATIENT HAS NO COMPLAINTS AT THIS TIME. CALL LIGHT IN PLACE. WILL CONTIUE TO MONITOR.
[2019-04-23 20:52] VITALS: BP 197/90
[2019-04-24 00:30] VITALS: BP 151/87
--- NOTE | 2019-04-24 03:35 | NUR ---
I have reviewed this patient and I concur with the Shift Assessment completed by the Licensed Practical Nurse today this shift.
[2019-04-24 05:30] VITALS: BP 148/82
[2019-04-24 07:00] LABS: BASOPHILS 0.2 % (0-2); EOSINOPHILS 3.2 % (0-7); HEMATOCRIT 35.6 % (42.0-54.0); HEMOGLOBIN 11.1 g/dL (13.5-17.5); IMMATURE GRANULOCYTES 0.2 % (0-5); LYMPHOCYTES 15.3 % (15-50); MCH 28.7 pg (26.0-34.0); MCHC 31.2 g/dL (31.0-37.0); MEAN PLATELET VOLUME 10.6 fL (7.4-10.4); MONOCYTES 6.1 % (2-11); PLATELET COUNT 322 10x3/uL (130-400); RBC 3.87 10x6/uL (4.20-6.10); WBC 9.4 10x3/uL (4.8-10.8)
[2019-04-24 07:06] LABS: ANION GAP 15.9 mmol/L (8-16); CALCIUM 9.6 mg/dL (8.5-10.1); CARBON DIOXIDE 30.5 mmol/L (21.0-32.0); CREATININE - SERUM 1.1 mg/dL (0.6-1.3); POTASSIUM - SERUM 3.4 mmol/L (3.5-5.1)
[2019-04-24 08:08] VITALS: BP 180/77
--- NOTE | 2019-04-24 11:36 | NUR ---
PT IV IN LEFT HAND CAME OUT, ATTEMPTED IV ACCESS X6 UNSUCCESSFUL, PLACE ORDER FOR VASCULAR ACCESS NURSE TO BE CONSULTED FOR PERIPHERAL IV ACCESS. CONTINUE WITH PLAN OF CARE
[2019-04-24 12:18] VITALS: BP 189/38
[2019-04-24 17:08] VITALS: BP 168/71
--- NOTE | 2019-04-24 17:51 | NUR ---
I have reviewed this patient and I concur with the Shift Assessment completed by the Licensed Practical Nurse today this shift.
[2019-04-24 20:00] VITALS: BP 166/86
--- NOTE | 2019-04-24 21:14 | NUR ---
PT RESTING IN BED WITH EYES OPEN. NO ACUTE S/S OF DISTRESS. NO C/O AT THIS TIME. PT HAS NO IV, VASCULAR ACCESS HAS CONSULT. PT IS ON 4L OF O2 NASAL CANNULA. PATIENT HAS PEG TUBE WITH 20 ML/HR FEEDIGN RUNNING. PT IS INCONTIENT BUT HAS BRIEFS ON. PT IS WEARING SCDS. CALL LIGHT IN PLACE. WILL CONTINUE TO MONITOR.
--- NOTE | 2019-04-24 22:27 | NUR ---
CHECKED RESIDUAL 5ML. GIVEN 2100 MEDS. ADVANCED TO 30 ML/HR TUBE FEEDING PER ORDER. CALL LIGHT IN PLACE. WILL CONTINUE TO MONITOR.
[2019-04-25] VITALS: BP 144/76
--- NOTE | 2019-04-25 03:26 | NUR ---
I have reviewed this patient and I concur with the Shift Assessment completed by the Licensed Practical Nurse today this shift.
--- NOTE | 2019-04-25 03:37 | NUR ---
CHECKED PLACEMENT OF PEG TUBE VIA ASCULATION. CHECKED RESIDUAL WITH 0 ML. TOLERATED FEEDING AT 30 ML/HR. ADVANCED TO 40 ML/HR. CALL LIGHT IN PLACE. WILL CONTINUE TO MONITOR.
--- NOTE | 2019-04-25 03:44 | NUR ---
PATIENT REFUSED 0400 VITALS. PATIENT WAS EDUCATED ON THE IMPORTANCE OF VITALS TO REASONING OF ELEVATED BP. PATIENT STILL REFUSED. WILL FOLLOW UP LATER. CALL LIGHT IN PLACE. WILL CONTIUE TO MONITOR.
[2019-04-25 04:51] LABS: BASOPHILS 0.1 % (0-2); EOSINOPHILS 4.5 % (0-7); HEMATOCRIT 33.1 % (42.0-54.0); HEMOGLOBIN 10.3 g/dL (13.5-17.5); IMMATURE GRANULOCYTES 0.3 % (0-5); LYMPHOCYTES 16.3 % (15-50); MCH 28.5 pg (26.0-34.0); MCHC 31.1 g/dL (31.0-37.0); MCV 91.7 fL (80.0-100.0); MEAN PLATELET VOLUME 10.7 fL (7.4-10.4); MONOCYTES 8.5 % (2-11); NEUTROPHILS 70.3 % (40-80); PLATELET COUNT 336 10x3/uL (130-400); RBC 3.61 10x6/uL (4.20-6.10); RDW 15.3 % (11.5-14.5)
[2019-04-25 05:05] LABS: WBC 6.8 10x3/uL (4.8-10.8)
[2019-04-25 05:10] LABS: CALCIUM 9.1 mg/dL (8.5-10.1); CHLORIDE - SERUM 106 mmol/L (98-107); POTASSIUM - SERUM 3.4 mmol/L (3.5-5.1); SODIUM 144 mmol/L (136-145); eGFR NON AFRICAN AMERICAN 76 mL/min (90-120)
[2019-04-25 05:19] LABS: CALC OSMOLALITY 293 mosm/kg (275-300); GLUCOSE 121 mg/dL (74-106); UREA NITROGEN 28 mg/dL (7-18)
--- NOTE | 2019-04-25 07:40 | NUR ---
RESTING,WITHOUT SIGNS OF DISTRESS.DOOR OPEN
--- NOTE | 2019-04-25 07:57 | NUR ---
PT LYING IN BED RESTING, PT BP A LITTLE ELEVATED THIS MORNINGING, ADMINISTERED SCHEDULED MEDICATIONS THROUGH PEG TUBE, NO RESIDUAL, PT FEEDINGS AT 40ML/HR ALMOST AT GOAL RATE OF 50. STILL NEEDS IV FOR ABX WILL CALL VASCULAR ACCESS NURSE, CONTINUE WITH PLAN OF CARE
[2019-04-25 09:01] VITALS: BP 195/81
--- NOTE | 2019-04-25 09:55 | NUR ---
RECEIVED CALL FROM SUZETTE IN LAB PT IS TO BE PLACED ON CONTACT ISO FOR ECOLI IN URINE, PRT ALSO REFUSED IV FROM VASCULAR ACCESS NURSE, RELAYED MESSAGE TO CARD PUNCHING MACHINE OPERATOR. CONTINUE WITH PLAN OF CARE
--- NOTE | 2019-04-25 11:17 | NUR ---
NUTRITION F/U JEVITY 1.2 TUBE FEEDS RESUMED PER PEG TUBE. CURRENTLY AT 40 CC/HR WITH GOAL RATE 50 CC/HR. WILL CONTINUE PT PROGRESS, PROVIDE JEVITY 1.[address] FOLLOWING
[2019-04-25 12:36] VITALS: BP 183/83
[2019-04-25] MEDS ORDERED: MACRODANTIN100 MG PO (16:00)
[2019-04-25 16:40] VITALS: BP 166/84
--- NOTE | 2019-04-25 16:43 | MORECARE ---
CASE MANAGEMENT DISCHARGE SUMMARY PATIENT: RICK HUSAIN UNIT: [id number] ADM DATE: 04/21/19 AGE: 79 : 40 SEX: M ROOM/BED: D.2218 AUTHOR: ABIDA CRAWFORD PHYSICIAN: REFERRING PHYSICIAN: JULIETH JONES MD DATE OF SERVICE: 04/25/19 Discharge Plan Patient Name: RICK HUSAIN Facility: [facility]:[place] : 1940 Planned Disposition: SNF w Planned Readmission Anticipated Discharge Date: 04/25/19 Discharge Date: Expected LOS: 4 Initial Reviewer: [id number] Initial Review Date: 04/25/2019 Generated: 04/25/19 5:42 pm DCP- Discharge Planning Updated by [id number]: Tyra Christiansen on 04/25/19 3:[address] Patient Name: RICK HUSAIN Admission Status: ER Accout number: [id number] Admission Date: 04-21-2019 : 1940 Admission Diagnosis: Attending: JULIETH JONES Current LOS: 4 Anticipated DC Date: 04-25-2019 Planned Disposition: SNF w Planned Readmission Primary Insurance: MEDICARE A & B Discharge Planning Comments: Received orders for discharge. He is returning to a skilled (Medicare) bed at [facility]. I called his , Esperanza Butts and she is in agreement to discharge plan. I called Damaris and faxed discharge orders and clinical to [facility]. Portal Architect: Tyra Christiansen External Providers External Provider: [facility] Next Contact Date: Service Request Date: Service Type: Resolution: Reviewer: Comments: Coverage Notice Reviewer: [id number] - Tyra Christiansen Notice Issued Date-Time: 04/25/2019 16:14 Notice Type: IM Discharge Notice Notice Delivered To: Family Member Relationship to Patient: Spouse Boiler Attendant Name: ESPERANZA BUTTS Delivery Method: CERT - Certified Mail Vesna Days: Prior Verbal Notification: Recipient Understood Notice: Yes Recipient Signature: Med Rec Note Co-signed by Attending: Coverage Notice Comment: PHONED SPOUSE AND EXPLAINED IMM, VOICED UNDETRSTANDING. WILL BE SENT BY CERTIFIED MAIL Patient Name: RICK HUSAIN Page [phone] at 1643 All edits/amendments must be made on the electronic document DICTATION DATE: 04/25/191641 DIE SINKER APPRENTICE: GAUDENCIO 04/25/191641 RPT#: [id number] DC DATE: STATUS: ADM IN [facility] [address] [place] [address] END OF REPORT
--- NOTE | 2019-04-25 17:08 | NUR ---
PT WAS ADMINISTERED SCHEDULED BP MEDS BEFORE DC, ASSISTED PT TO WC FOR FilmBreak AWS DEVELOPER TO TAKE TO OR, REPORT GIVEN TO MIKE AT THE [facility]. ALL QUESTIONS ANSWERED. CONTINUE WITH PLAN OF CARE
--- NOTE | 2019-04-27 09:55 | MORECARE ---
CASE MANAGEMENT DISCHARGE SUMMARY PATIENT: RICK HUSAIN UNIT: [id number] ADM DATE: 04/21/19 AGE: 79 : 40 SEX: M ROOM/BED: D.2218 AUTHOR: ABIDA CRAWFORD PHYSICIAN: REFERRING PHYSICIAN: JULIETH JONES MD DATE OF SERVICE: 04/27/19 Discharge Plan Patient Name: RICK HUSAIN Facility: [facility]:[place] : 1940 Planned Disposition: SNF w Planned Readmission Anticipated Discharge Date: 04/25/19 Discharge Date: 04/25/2019 Expected LOS: 4 Initial Reviewer: [email or web address] Initial Review Date: 04/25/2019 Generated: 04/27/19 10:55 am DCP- Discharge Planning Updated by [email or web address]: Tyra Christiansen on 04/25/19 3:[address] Patient Name: RICK HUSAIN Admission Status: ER Accout number: [id number] Admission Date: 04-21-2019 : 1940 Admission Diagnosis: Attending: JULIETH JONES Current LOS: 4 Anticipated DC Date: 04-25-2019 Planned Disposition: SNF w Planned Readmission Primary Insurance: MEDICARE A & B Discharge Planning Comments: Received orders for discharge. He is returning to a skilled (Medicare) bed at [facility]. I called his , Esperanza Butts and she is in agreement to discharge plan. I called Damaris and faxed discharge orders and clinical to [facility]. Computer Systems Architect: Tyra Christiansen Coverage Notice Reviewer: [id number] - Tyra Christiansen Notice Issued Date-Time: 04/25/2019 16:14 Notice Type: IM Discharge Notice Notice Delivered To: Family Member Relationship to Patient: Spouse Disease Case Manager Rn Name: ESPERANZA BUTTS Delivery Method: CERT - Certified Mail Vesna Days: Prior Verbal Notification: Recipient Understood Notice: Yes Recipient Signature: Med Rec Note Co-signed by Attending: Coverage Notice Comment: PHONED SPOUSE AND EXPLAINED IMM, VOICED UNDETRSTANDING. WILL BE SENT BY CERTIFIED MAIL Last DP export: 04/25/19 3:43 pm Patient Name: RICK HUSAIN Page [phone] at 0955 All edits/amendments must be made on the electronic document DICTATION DATE: 04/27/19954 VOICE NETWORK ADMINISTRATOR: GAUDENCIO 04/27/19954 RPT#: [id number] DC DATE:04/25/19 STATUS: DIS IN [facility] [address] [place] [address] END OF REPORT
== END 2019-04-25 17:23 | DRG 919 ==
LOC: D.ER 16:56 → D.MS 21:25 → D.SDCHOLD 04-23 12:53 → D.MS 04-25 17:23
PROVIDERS: Emergency Medicine; Family Medicine; ADMIT Internal Medicine Nephrology; ATTEND Internal Medicine Nephrology
DX: T85.528A Displacement of other gastrointestinal prosthetic devices, implants and grafts, initial encounter (principal); I21.4 Non-ST elevation (NSTEMI) myocardial infarction; I50.23 Acute on chronic systolic (congestive) heart failure; N39.0 Urinary tract infection, site not specified; G30.9 Alzheimer's disease, unspecified; F02.80 Dementia in other diseases classified elsewhere, unspecified severity, without behavioral disturbance, psychotic disturbance, mood disturbance, and anxiety; J43.9 Emphysema, unspecified; R62.7 Adult failure to thrive; D64.9 Anemia, unspecified; I10 Essential (primary) hypertension; I25.10 Atherosclerotic heart disease of native coronary artery without angina pectoris

== ENCOUNTER 2019-04-26 14:33 | Emergency (ER) | payer MEDICARE ==
[~2019-04-26] VITALS: Ht 182.9 cm; Wt 50.0 kg
[~2019-04-26 14:33] MED LIST changes: +MACRODANTIN100 MG PO
[2019-04-26 14:39] VITALS: Ht 182.9 cm; Wt 50.0 kg
[2019-04-26 15:27] LABS: APPEARANCE CLEAR (CLEAR); BILIRUBIN NEGATIVE (NEGATIVE); COLOR YELLOW (YELLOW); GLUCOSE NEGATIVE (NEGATIVE); KETONE NEGATIVE (NEGATIVE); NITRITE NEGATIVE (NEGATIVE); PROTEIN NEGATIVE (NEGATIVE); SPECIFIC GRAVITY 1.015 (1.005-1.020); UROBILINOGEN NORMAL (NORMAL)
[2019-04-26 15:28] LABS: BACTERIA FEW /hpf (NEGATIVE); RED CELLS - URINE OCC /hpf (0-5)
[2019-04-26 15:30] LABS: BASOPHILS 0.1 % (0-2); EOSINOPHILS 3.3 % (0-7); IMMATURE GRANULOCYTES 0.2 % (0-5); LYMPHOCYTES 14.8 % (15-50); MCH 28.8 pg (26.0-34.0); MCV 92.8 fL (80.0-100.0); MEAN PLATELET VOLUME 10.3 fL (7.4-10.4); MONOCYTES 5.6 % (2-11); RDW 15.4 % (11.5-14.5); WBC 8.5 10x3/uL (4.8-10.8)
[2019-04-26 15:39] LABS: HEMATOCRIT 24.5 % (42.0-54.0); HEMOGLOBIN 7.6 g/dL (13.5-17.5); PLATELET COUNT 241 10x3/uL (130-400); RBC 2.64 10x6/uL (4.20-6.10)
[2019-04-26 15:46] LABS: APTT 31.8 SECONDS (22.8-39.4); INR 1.2 (0.85-1.17); PROTIME 14.7 SECONDS (11.6-15.0)
[2019-04-26 15:53] LABS: CALC OSMOLALITY 296 mosm/kg (275-300); CALCIUM 8.2 mg/dL (8.5-10.1); CARBON DIOXIDE 33.2 mmol/L (21.0-32.0); CHLORIDE - SERUM 107 mmol/L (98-107); CREATININE - SERUM 1.1 mg/dL (0.6-1.3); GLUCOSE 103 mg/dL (74-106); POTASSIUM - SERUM 3.4 mmol/L (3.5-5.1); SODIUM 146 mmol/L (136-145); UREA NITROGEN 28 mg/dL (7-18); eGFR NON AFRICAN AMERICAN 68 mL/min (90-120)
[2019-04-26 16:06] LABS: ALBUMIN 2.2 g/dL (3.4-5.0); ALKALINE PHOSPHATASE 77 U/L (46-116); ALT (SGPT) 12 U/L (10-68); AMYLASE - SERUM 123 U/L (25-115); BILIRUBIN - TOTAL 0.41 mg/dL (0.2-1.3); CKMB 0.2 U/L (0.0-3.6); CREATINE KINASE 56 UL (21-232); LIPASE 317 U/L (73-393); PROTEIN - SERUM 5.7 g/dL (6.4-8.2)
[2019-04-26 16:22] LABS: TROPONIN-I 0.095 ng/mL (0.000-0.060)
[2019-04-26 20:29] VITALS: BP 136/67
== END 2019-04-26 20:29 | disposition other institution (70) ==
LOC: D.ER 14:33
PROVIDERS: Family Medicine
DX: K92.2 Gastrointestinal hemorrhage, unspecified (principal); R40.4 Transient alteration of awareness; D64.9 Anemia, unspecified; I10 Essential (primary) hypertension; I25.10 Atherosclerotic heart disease of native coronary artery without angina pectoris; E78.5 Hyperlipidemia, unspecified; J44.9 Chronic obstructive pulmonary disease, unspecified; G30.9 Alzheimer's disease, unspecified; F02.80 Dementia in other diseases classified elsewhere, unspecified severity, without behavioral disturbance, psychotic disturbance, mood disturbance, and anxiety

== ENCOUNTER 2019-05-23 15:55 | Emergency (ER) | payer MEDICARE ==
[~2019-05-23] VITALS: Ht 182.9 cm; Wt 54.5 kg
[2019-05-23 15:58] VITALS: Ht 182.9 cm; Wt 54.5 kg
[2019-05-23 19:38] VITALS: BP 171/74
== END 2019-05-23 19:38 | disposition home or self-care (01) ==
LOC: D.ER 15:55
DX: S09.90XA Unspecified injury of head, initial encounter (principal); W05.0XXA Fall from non-moving wheelchair, initial encounter; Y93.9 Activity, unspecified; Y92.9 Unspecified place or not applicable; I10 Essential (primary) hypertension; I25.10 Atherosclerotic heart disease of native coronary artery without angina pectoris; E78.5 Hyperlipidemia, unspecified; J44.9 Chronic obstructive pulmonary disease, unspecified; G30.9 Alzheimer's disease, unspecified; F02.80 Dementia in other diseases classified elsewhere, unspecified severity, without behavioral disturbance, psychotic disturbance, mood disturbance, and anxiety

== ENCOUNTER 2019-06-21 10:21 | Emergency (ER) | payer MEDICARE ==
[~2019-06-21] VITALS: Ht 182.9 cm; Wt 65.9 kg
[2019-06-21 10:22] VITALS: Ht 182.9 cm; Wt 65.9 kg
[2019-06-21 10:48] LABS: BASOPHILS 0.6 % (0-2); EOSINOPHILS 3.4 % (0-7); HEMATOCRIT 31.9 % (42.0-54.0); HEMOGLOBIN 10.2 g/dL (13.5-17.5); IMMATURE GRANULOCYTES 0.4 % (0-5); LYMPHOCYTES 15.2 % (15-50); MCH 29.9 pg (26.0-34.0); MCV 93.5 fL (80.0-100.0); MEAN PLATELET VOLUME 9.7 fL (7.4-10.4); MONOCYTES 10.3 % (2-11); NEUTROPHILS 70.1 % (40-80); PLATELET COUNT 293 10x3/uL (130-400); RBC 3.41 10x6/uL (4.20-6.10); RDW 16.2 % (11.5-14.5); WBC 7.1 10x3/uL (4.8-10.8)
[2019-06-21 11:01] LABS: CALC OSMOLALITY 283 mosm/kg (275-300); CALCIUM 9.1 mg/dL (8.5-10.1); CARBON DIOXIDE 27.1 mmol/L (21.0-32.0); CHLORIDE - SERUM 106 mmol/L (98-107); GLUCOSE 110 mg/dL (74-106); POTASSIUM - SERUM 3.8 mmol/L (3.5-5.1); SODIUM 141 mmol/L (136-145); UREA NITROGEN 19 mg/dL (7-18); eGFR NON AFRICAN AMERICAN 76 mL/min (90-120)
[2019-06-21 11:02] LABS: APTT 32.9 SECONDS (22.8-39.4); INR 1.07 (0.85-1.17); PROTIME 13.9 SECONDS (11.6-15.0)
[2019-06-21 11:08] LABS: ALBUMIN 2.2 g/dL (3.4-5.0); ALKALINE PHOSPHATASE 94 U/L (30-120); ALT (SGPT) 18 U/L (10-68); BILIRUBIN - TOTAL 0.43 mg/dL (0.2-1.3); PROTEIN - SERUM 7.5 g/dL (6.4-8.2)
[2019-06-21 12:33] VITALS: BP 171/83
[2019-06-21] MEDS ORDERED: POLYSPORIN OINT15 G1 TOPICAL (13:00)
== END 2019-06-21 14:30 | disposition home or self-care (01) ==
LOC: D.ER 10:21
PROVIDERS: Emergency Medicine
DX: S00.81XA Abrasion of other part of head, initial encounter (principal); S00.01XA Abrasion of scalp, initial encounter; S41.111A Laceration without foreign body of right upper arm, initial encounter; W05.0XXA Fall from non-moving wheelchair, initial encounter; Y93.9 Activity, unspecified; Y92.9 Unspecified place or not applicable; I10 Essential (primary) hypertension; I25.2 Old myocardial infarction; E78.5 Hyperlipidemia, unspecified; G30.9 Alzheimer's disease, unspecified; F02.80 Dementia in other diseases classified elsewhere, unspecified severity, without behavioral disturbance, psychotic disturbance, mood disturbance, and anxiety

== ENCOUNTER → 2019-06-25 13:20 | Outpatient (CLI) | payer MEDICARE ==
[2019-06-21 10:22] VITALS: BMI 19.7
[~2019-06-25 13:20] MED LIST changes: +POLYSPORIN OINT15 G1 TOPICAL
== END | disposition home or self-care (01) ==
LOC: D.RAD 13:00
PROVIDERS: ATTEND Internal Medicine Geriatric Medicine
DX: R13.12 Dysphagia, oropharyngeal phase (principal); J44.9 Chronic obstructive pulmonary disease, unspecified; I10 Essential (primary) hypertension; G30.9 Alzheimer's disease, unspecified; R53.2 Functional quadriplegia; E78.5 Hyperlipidemia, unspecified

== ENCOUNTER 2019-07-19 04:46 | Emergency (ER) | payer MEDICARE ==
[~2019-07-19] VITALS: Ht 182.9 cm; Wt 68.2 kg
[2019-07-19 04:48] VITALS: Ht 182.9 cm; Wt 68.2 kg
[2019-07-19 05:12] LABS: BASOPHILS 0.4 % (0-2); EOSINOPHILS 2.1 % (0-7); HEMATOCRIT 33.7 % (42.0-54.0); HEMOGLOBIN 10.5 g/dL (13.5-17.5); IMMATURE GRANULOCYTES 0.4 % (0-5); LYMPHOCYTES 30.5 % (15-50); MCH 29.7 pg (26.0-34.0); MCHC 31.2 g/dL (31.0-37.0); MCV 95.2 fL (80.0-100.0); MEAN PLATELET VOLUME 10.8 fL (7.4-10.4); MONOCYTES 7.7 % (2-11); NEUTROPHILS 58.9 % (40-80); PLATELET COUNT 244 10x3/uL (130-400); RBC 3.54 10x6/uL (4.20-6.10); RDW 15.3 % (11.5-14.5); WBC 10.6 10x3/uL (4.8-10.8)
[2019-07-19 05:22] LABS: CALC OSMOLALITY 285 mosm/kg (275-300); CALCIUM 8.8 mg/dL (8.5-10.1); CARBON DIOXIDE 27.6 mmol/L (21.0-32.0); CHLORIDE - SERUM 106 mmol/L (98-107); GLUCOSE 152 mg/dL (74-106); POTASSIUM - SERUM 4.2 mmol/L (3.5-5.1); SODIUM 140 mmol/L (136-145); UREA NITROGEN 24 mg/dL (7-18); eGFR NON AFRICAN AMERICAN 76 mL/min (90-120)
[2019-07-19 05:41] LABS: ALBUMIN 2.4 g/dL (3.4-5.0); ALKALINE PHOSPHATASE 111 U/L (30-120); ALT (SGPT) 16 U/L (10-68); BILIRUBIN - TOTAL 0.32 mg/dL (0.2-1.3); C-REACTIVE PROTEIN 4.5 mg/dL (0.0-0.9); FERRITIN 304 ng/mL (3-244); MAGNESIUM - SERUM 2.1 mg/dL (1.8-2.4); PRO BNP 4442 pg/mL (0-450); PROTEIN - SERUM 7.8 g/dL (6.4-8.2); THYROID STIMULATING HORMONE 3.27 uIU/mL (0.36-3.74)
[2019-07-19] MEDS ORDERED: PROAIR HFA8.5 G1 INH (06:05)
[2019-07-19] MEDS ORDERED: NORVASC5 MG PO (06:05)
[2019-07-19 06:07] LABS: BILIRUBIN NEGATIVE (NEGATIVE); GLUCOSE NEGATIVE (NEGATIVE); KETONE NEGATIVE (NEGATIVE); NITRITE NEGATIVE (NEGATIVE); UROBILINOGEN NORMAL (NORMAL)
[2019-07-19] MEDS ORDERED: MYCOSTATIN CREA15 GM TOPICAL (06:13)
[2019-07-19 08:14] VITALS: BP 168/86
== END 2019-07-19 08:18 ==
LOC: D.ER 04:46
PROVIDERS: Emergency Medicine
DX: J06.9 Acute upper respiratory infection, unspecified (principal); I10 Essential (primary) hypertension; B35.6 Tinea cruris; I25.2 Old myocardial infarction; G30.9 Alzheimer's disease, unspecified; F02.80 Dementia in other diseases classified elsewhere, unspecified severity, without behavioral disturbance, psychotic disturbance, mood disturbance, and anxiety; J44.9 Chronic obstructive pulmonary disease, unspecified; Z20.828 Contact with and (suspected) exposure to other viral communicable diseases

== ENCOUNTER 2019-11-30 09:45 | Inpatient (IN) | payer MEDICARE ==
[~2019-11-30] VITALS: Ht 167.6 cm; Wt 64.6 kg
[~2019-11-30 09:45] MED LIST changes: +MYCOSTATIN CREA15 GM TOPICAL; +PROAIR HFA8.5 G1 INH
[2019-11-30 10:27] LABS: BASOPHILS 0.2 % (0-2); EOSINOPHILS 0.6 % (0-7); HEMATOCRIT 32.9 % (42.0-54.0); HEMOGLOBIN 10.2 g/dL (13.5-17.5); IMMATURE GRANULOCYTES 0.3 % (0-5); LYMPHOCYTES 15.3 % (15-50); MCH 30.1 pg (26.0-34.0); MCV 97.1 fL (80.0-100.0); MEAN PLATELET VOLUME 10.7 fL (7.4-10.4); MONOCYTES 5.5 % (2-11); NEUTROPHILS 78.1 % (40-80); RBC 3.39 10x6/uL (4.20-6.10); RDW 14.3 % (11.5-14.5); WBC 13.1 10x3/uL (4.8-10.8)
--- NOTE | 2019-11-30 10:30 | NUR ---
PATIENT SENT HERE PER EMS FROM [place] WITH POSSIBLE SYNCOPE EPISODE, PATIENT HAS RESPONDS APPROP, LOW O2 SATS AND LOW BP.
[2019-11-30 10:32] LABS: PLATELET COUNT 192 10x3/uL (130-400)
[2019-11-30 10:35] LABS: APTT 29.3 SECONDS (22.8-39.4); INR 1.09 (0.85-1.17)
--- NOTE | 2019-11-30 10:35 | NUR ---
MOVING ALL EXTREMITIES, C/O NECK PAIN.
--- NOTE | 2019-11-30 10:36 | NUR ---
BACK FROM CT.
[2019-11-30 10:41] LABS: CALC OSMOLALITY 292 mosm/kg (275-300); CALCIUM 8.2 mg/dL (8.5-10.1); CARBON DIOXIDE 28.3 mmol/L (21.0-32.0); CHLORIDE - SERUM 107 mmol/L (98-107); CREATININE - SERUM 1.1 mg/dL (0.6-1.3); GLUCOSE 185 mg/dL (74-106); POTASSIUM - SERUM 3.5 mmol/L (3.5-5.1); SODIUM 142 mmol/L (136-145); UREA NITROGEN 26 mg/dL (7-18); eGFR NON AFRICAN AMERICAN 68 mL/min (90-120)
[2019-11-30 10:50] LABS: ALBUMIN 2.4 g/dL (3.4-5.0); ALKALINE PHOSPHATASE 92 U/L (30-120); ALT (SGPT) 15 U/L (10-68); BILIRUBIN - TOTAL 0.36 mg/dL (0.2-1.3); CKMB 1.4 U/L (0.0-3.6); CREATINE KINASE 106 UL (21-232); PROTEIN - SERUM 6.5 g/dL (6.4-8.2); TROPONIN-I 0.051 ng/mL (0.000-0.060)
--- NOTE | 2019-11-30 11:00 | NUR ---
AZITHROMYCIN COMPLETED AT 1130
--- NOTE | 2019-11-30 12:03 | NUR ---
IN AND OUT CATH, URINE SENT TO THE LAB
[2019-11-30 12:04] VITALS: BP 180/83
--- NOTE | 2019-11-30 12:05 | NUR ---
RESP CALLED FOR [facility]
[2019-11-30 12:09] LABS: BILIRUBIN NEGATIVE (NEGATIVE); KETONE NEGATIVE (NEGATIVE); NITRITE NEGATIVE (NEGATIVE); UROBILINOGEN NORMAL (NORMAL)
[2019-11-30 12:13] LABS: RED CELLS - URINE 0-5 /hpf (0-5); WHITE CELLS - URINE 0-5 /hpf (NEGATIVE)
[2019-11-30 12:14] LABS: BACTERIA FEW /hpf (NEGATIVE); HYALINE CAST 0-5 /lpf (NONE SEEN)
[2019-11-30 14:00] VITALS: BP 125/52
--- NOTE | 2019-11-30 14:01 | NUR ---
jd wallace obtained and walked to the lab.
--- NOTE | 2019-11-30 15:00 | NUR ---
CORRECTION: THE AZITHROMYCIN COMPLETED @ 2704
--- NOTE | 2019-11-30 15:25 | NUR ---
PEG TUBE SITE IS WNL.
[2019-11-30 17:06] VITALS: BMI 19.2
[2019-11-30 17:18] VITALS: BP 154/84
--- NOTE | 2019-11-30 21:00 | NUR ---
RECEIVED REPORT, WILL ASSUME CARE OF PT, NO DISTRESS NOTICED AT THIS TIME, BED IS LOW, SRX3, CALL LIGHT IN REACH, WILL CONTINUE PLAN OF CARE
[2019-11-30 23:49] VITALS: BP 148/70
[2019-12-01] VITALS (13 sets, daily range): BP systolic 82–178; BP diastolic 48–96
[2019-12-01 05:19] LABS: BASOPHILS 0 % (0-2); EOSINOPHILS 0 % (0-7); HEMOGLOBIN 9.4 g/dL (13.5-17.5); IMMATURE GRANULOCYTES 0.3 % (0-5); LYMPHOCYTES 5.8 % (15-50); MCH 30.4 pg (26.0-34.0); MCHC 32.4 g/dL (31.0-37.0); MEAN PLATELET VOLUME 10.8 fL (7.4-10.4); MONOCYTES 7.4 % (2-11); NEUTROPHILS 86.5 % (40-80); PLATELET COUNT 203 10x3/uL (130-400); RBC 3.09 10x6/uL (4.20-6.10); RDW 14.5 % (11.5-14.5); WBC 13.4 10x3/uL (4.8-10.8)
[2019-12-01 05:25] LABS: MCV 93.9 fL (80.0-100.0)
[2019-12-01 05:35] LABS: ALBUMIN 2.5 g/dL (3.4-5.0); ANION GAP 12.1 mmol/L (8-16); BILIRUBIN - TOTAL 0.69 mg/dL (0.2-1.3); CALCIUM 8.8 mg/dL (8.5-10.1); CARBON DIOXIDE 28.1 mmol/L (21.0-32.0); CREATININE - SERUM 1.2 mg/dL (0.6-1.3); POTASSIUM - SERUM 4.2 mmol/L (3.5-5.1); PROTEIN - SERUM 6.8 g/dL (6.4-8.2)
--- NOTE | 2019-12-01 07:15 | NUR ---
RECEIVE BEDSIDE SHIFT REPORT. RESTING IN BED WITH EYES CLOSED. CALL LIGHT IN REACH. WILL CONTINUE PLAN OF CARE AND SAFETY PRECAUTIONS.
--- NOTE | 2019-12-01 08:45 | NUR ---
ADVERTISING ASSISTANT TAKING VITAL SIGNS. REPORTED O2 SATURATION IN THE 70'S ON 3L NASAL CANNULA. SHORT OF BREATH AND PULSE WAS 116. ASSESSED PATIENT AND CHANGED TO 10L HIGH FLOW NASAL CANNULA. 02 SATURATION UP TO 93 %. WILL CONTINUE TO MONITOR.
--- NOTE | 2019-12-01 13:00 | NUR ---
PATIENT SHORT OF BREATH AND DIAPHORETIC. O2 SATURATION AT 77% ON 10 LITERS HIGH FLOW NASAL CANNULA. SAT PATIENT UP AND HE STATED THAT HELPED. 02 SATURATION AT 84%. TURNED OXYGEN UP TO 15 LITERS HIGH FLOW NC. SHOWING SIGNS OF DISTRESS. HEART RATE AT 130. NOTIFIED RESPIRATORY AND REGINA MAYO OF PATIENT STATUS.
--- NOTE | 2019-12-01 14:03 | NUR ---
RAPID RESPONSE CALLED FOR PT EXPERIENCE RESPIRATORY DISTRESS AND IS UNRESPONSIVE, OXYGEN SATURATION 71% ON 15L HIGH FLOW. PER DR DIAZ BIPAP PLACED. CALLED PTS FAMILY TO PROVIDE UPDATES, SPOKE WITH IRMA BUTTS. DNR STATUS REVOKED BY FAMILY, IRMA BUTTS, WHO MADE PT FULL CODE. JOHNATHON ARZOLA CALLED FOR INTUBATION, PT HAS AGIONAL BREATHING AND IS UNRESPONSIVE. SEE JOHNATHON ARZOLA PAPERWORK.
--- NOTE | 2019-12-01 14:35 | NUR ---
SPOKE WITH PTS , IRMA BUTTS. UPDATES PROVIDED. PER LINUX SYSTEM ENGINEER, OKAY FOR PTS TO SEE PT CONSIDERING SITUATION.
--- NOTE | 2019-12-01 14:45 | NUR ---
RECIEVED PT TO ROOM 2302, VSS. NEW ORDERS RECEIVED FROM . WILL CONT TO MONITOR.
--- NOTE | 2019-12-01 15:28 | NUR ---
AT BEDSIDE. BEDBATH GIVEN. NEW LINEN IN PLACE. VSS. WILL CONT TO MONITOR.
--- NOTE | 2019-12-01 18:47 | NUR ---
ORDER RECEIVED FROM FOR PICC LINE PLACEMENT. WITNESS CONSENT BY JAYCEE GLASGOW. WILL CONT TO MONITOR.
[2019-12-01 21:55] LABS: BASOPHILS 0.1 % (0-2); EOSINOPHILS 0 % (0-7); HEMATOCRIT 28.1 % (42.0-54.0); IMMATURE GRANULOCYTES 0.3 % (0-5); LYMPHOCYTES 7.7 % (15-50); MCH 30.5 pg (26.0-34.0); MCV 95.3 fL (80.0-100.0); MEAN PLATELET VOLUME 10.3 fL (7.4-10.4); MONOCYTES 8.3 % (2-11); NEUTROPHILS 83.6 % (40-80); PLATELET COUNT 195 10x3/uL (130-400); RBC 2.95 10x6/uL (4.20-6.10); RDW 14.7 % (11.5-14.5); WBC 10.7 10x3/uL (4.8-10.8)
[2019-12-01 22:07] LABS: ANION GAP 11.9 mmol/L (8-16); CALCIUM 8.5 mg/dL (8.5-10.1); CARBON DIOXIDE 27.7 mmol/L (21.0-32.0); CREATININE - SERUM 1.5 mg/dL (0.6-1.3); POTASSIUM - SERUM 4.6 mmol/L (3.5-5.1)
--- NOTE | 2019-12-01 22:14 | NUR ---
BP TRENDING DOWN. PAGEChelsie MAYO. NEW ORDERS.
[2019-12-01 22:15] LABS: ALBUMIN 2.3 g/dL (3.4-5.0); BILIRUBIN - TOTAL 0.6 mg/dL (0.2-1.3); PROTEIN - SERUM 6.6 g/dL (6.4-8.2)
--- NOTE | 2019-12-01 22:21 | NUR ---
SPOKE WITH FAMILY. WANTS EVERYTHING DONE UNTIL WE HAVE NOTHING ELSE TO GIVE HIM. ASKED FOR EXPLANATION ON THAT AND SHE STATED UNTIL YOU HAVE RUN OUT OF MEDICATIONS AND HE HAS ON HIS OWN AFTER EVERYTHING YOU GUYS WILL KEEP DOING.
--- NOTE | 2019-12-01 22:39 | NUR ---
DR YOKASTA HERNANDEZ. AWARE OF CONSULT
--- NOTE | 2019-12-01 23:35 | NUR ---
spoke with dr collins. new orders recieved.
[2019-12-02] VITALS (24 sets, daily range): BP systolic 83–150; BP diastolic 50–98
--- NOTE | 2019-12-02 02:25 | NUR ---
PATIENT VENT WEANED DOWN TO 80%
--- NOTE | 2019-12-02 03:13 | NUR ---
PATIENT FOLLOWS ME WITH EYES BUT WILL NOT FOLLOW COMMANDS SUCH SQUEEZING HANDS.
[2019-12-02 05:56] LABS: BASOPHILS 0.2 % (0-2); EOSINOPHILS 0.2 % (0-7); HEMATOCRIT 27.1 % (42.0-54.0); HEMOGLOBIN 8.5 g/dL (13.5-17.5); IMMATURE GRANULOCYTES 0.2 % (0-5); LYMPHOCYTES 8.9 % (15-50); MCH 29.7 pg (26.0-34.0); MCHC 31.4 g/dL (31.0-37.0); MCV 94.8 fL (80.0-100.0); MEAN PLATELET VOLUME 10.3 fL (7.4-10.4); MONOCYTES 6.8 % (2-11); NEUTROPHILS 83.7 % (40-80); PLATELET COUNT 166 10x3/uL (130-400); RBC 2.86 10x6/uL (4.20-6.10); RDW 14.8 % (11.5-14.5); WBC 8.4 10x3/uL (4.8-10.8)
--- NOTE | 2019-12-02 06:09 | NUR ---
PER DR NUNES WEAN OFF SEDATION. NEW ORDRES RECIEVED.
--- NOTE | 2019-12-02 06:10 | NUR ---
PER DR LEVY. DO NOT PAGE FOR "ROUTINE" STUFF. "CONSULTS ARE PRINTED OUT IN THE MORNING AND DO NOT NEED TO BE CALLED."
[2019-12-02 06:55] LABS: ALBUMIN 2.3 g/dL (3.4-5.0); BILIRUBIN - TOTAL 0.7 mg/dL (0.2-1.3); CALCIUM 8.9 mg/dL (8.5-10.1); CARBON DIOXIDE 26.1 mmol/L (21.0-32.0); CREATININE - SERUM 1.4 mg/dL (0.6-1.3); MAGNESIUM - SERUM 2.3 mg/dL (1.8-2.4); PHOSPHOROUS 3.6 mg/dL (2.5-4.9); POTASSIUM - SERUM 4.1 mmol/L (3.5-5.1); PROTEIN - SERUM 6.2 g/dL (6.4-8.2)
[2019-12-02 06:59] LABS: TROPONIN-I 11.234 ng/mL (0.000-0.060)
--- NOTE | 2019-12-02 07:00 | NUR ---
REC'D REPORT AND RESUMED CARE, ETT TOP VENTILATION AND SECURED, MONITOR SHOWING SB PACED, VSS, AROUSE TO VERBAL STIMULI, AND FOLLOWS COMMAND, ASSESSMENT COMPLETE PER FLOWSHEET, REOPISITIONED TO LEFT SIDE WITH PILLOW TO BACK
--- NOTE | 2019-12-02 07:01 | NUR ---
levy navas for pro bnp
--- NOTE | 2019-12-02 07:15 | NUR ---
dr rudolph aware of consult
--- NOTE | 2019-12-02 08:22 | NUR ---
EKG COMPLETED AT BEDSIDE
--- NOTE | 2019-12-02 14:15 | NUR ---
[employer] HERE AT BEDSIDE TO INTERROGATE PACEMAKER
--- NOTE | 2019-12-02 14:29 | NUR ---
ECHO COMPLETED AT [facility]
--- NOTE | 2019-12-02 22:23 | NUR ---
SPOKE WITH DR ALBERTO. UPDATE GIVEN.
[2019-12-03] VITALS (24 sets, daily range): BP systolic 82–165; BP diastolic 65–86
[2019-12-03 04:13] LABS: BASOPHILS 0.2 % (0-2); EOSINOPHILS 1.4 % (0-7); HEMOGLOBIN 8.8 g/dL (13.5-17.5); IMMATURE GRANULOCYTES 0.4 % (0-5); LYMPHOCYTES 9.5 % (15-50); MCHC 31.4 g/dL (31.0-37.0); MCV 95.6 fL (80.0-100.0); MEAN PLATELET VOLUME 11.1 fL (7.4-10.4); MONOCYTES 5.1 % (2-11); NEUTROPHILS 83.4 % (40-80); PLATELET COUNT 154 10x3/uL (130-400); RBC 2.93 10x6/uL (4.20-6.10); RDW 14.8 % (11.5-14.5); WBC 9.8 10x3/uL (4.8-10.8)
[2019-12-03 04:53] LABS: ALBUMIN 2.2 g/dL (3.4-5.0); BILIRUBIN - TOTAL 0.61 mg/dL (0.2-1.3); CALCIUM 8.3 mg/dL (8.5-10.1); CREATININE - SERUM 1.3 mg/dL (0.6-1.3); MAGNESIUM - SERUM 2.1 mg/dL (1.8-2.4); POTASSIUM - SERUM 4.3 mmol/L (3.5-5.1); PROTEIN - SERUM 5.9 g/dL (6.4-8.2)
[2019-12-03 04:55] LABS: ANION GAP 16.2 mmol/L (8-16); CARBON DIOXIDE 19.1 mmol/L (21.0-32.0)
[2019-12-04] VITALS (24 sets, daily range): BP systolic 110–162; BP diastolic 55–86; Ht 167.6 cm; Wt 64.6 kg
[2019-12-04 04:40] LABS: BASOPHILS 0.2 % (0-2); EOSINOPHILS 0.9 % (0-7); HEMATOCRIT 27.1 % (42.0-54.0); HEMOGLOBIN 8.4 g/dL (13.5-17.5); IMMATURE GRANULOCYTES 0.6 % (0-5); LYMPHOCYTES 10.5 % (15-50); MCH 30.1 pg (26.0-34.0); MCV 97.1 fL (80.0-100.0); MEAN PLATELET VOLUME 11.1 fL (7.4-10.4); MONOCYTES 7.2 % (2-11); NEUTROPHILS 80.6 % (40-80); PLATELET COUNT 181 10x3/uL (130-400); RBC 2.79 10x6/uL (4.20-6.10); WBC 9.3 10x3/uL (4.8-10.8)
[2019-12-04 04:56] LABS: ALBUMIN 2.1 g/dL (3.4-5.0); BILIRUBIN - TOTAL 0.62 mg/dL (0.2-1.3); CALCIUM 8.4 mg/dL (8.5-10.1); CARBON DIOXIDE 19.1 mmol/L (21.0-32.0); CREATININE - SERUM 1.4 mg/dL (0.6-1.3); POTASSIUM - SERUM 4.3 mmol/L (3.5-5.1); PROTEIN - SERUM 5.8 g/dL (6.4-8.2)
[2019-12-04 05:12] LABS: ANION GAP 17.2 mmol/L (8-16)
--- NOTE | 2019-12-04 06:27 | NUR ---
alerted dr rose of critical labs .no new orders
--- NOTE | 2019-12-04 11:30 | NUR ---
CPAP INITIATED BY RT, SEDATION TURNED OFF
--- NOTE | 2019-12-04 15:30 | NUR ---
CHANGED BACK TO RATE ON VENT, SEDATION, BACK ON AT THIS TIME
--- NOTE | 2019-12-04 16:00 | NUR ---
I AND 0'S COMPLETED
[2019-12-05] VITALS (24 sets, daily range): BP systolic 122–168; BP diastolic 50–102
[2019-12-05 05:19] LABS: BASOPHILS 0.1 % (0-2); EOSINOPHILS 0.1 % (0-7); HEMATOCRIT 29.8 % (42.0-54.0); HEMOGLOBIN 9.3 g/dL (13.5-17.5); IMMATURE GRANULOCYTES 0.7 % (0-5); LYMPHOCYTES 4.9 % (15-50); MCHC 31.2 g/dL (31.0-37.0); MCV 96.1 fL (80.0-100.0); MEAN PLATELET VOLUME 10.8 fL (7.4-10.4); MONOCYTES 5.5 % (2-11); NEUTROPHILS 88.7 % (40-80); PLATELET COUNT 164 10x3/uL (130-400)
[2019-12-05 05:20] LABS: WBC 15.6 10x3/uL (4.8-10.8)
[2019-12-05 05:34] LABS: ALBUMIN 2.2 g/dL (3.4-5.0); ANION GAP 18.1 mmol/L (8-16); BILIRUBIN - TOTAL 0.68 mg/dL (0.2-1.3); CALCIUM 9.3 mg/dL (8.5-10.1); CARBON DIOXIDE 17.8 mmol/L (21.0-32.0); CREATININE - SERUM 1.4 mg/dL (0.6-1.3); POTASSIUM - SERUM 3.9 mmol/L (3.5-5.1); PROTEIN - SERUM 6.1 g/dL (6.4-8.2)
--- NOTE | 2019-12-05 07:53 | NUR ---
patient sedation weaned off.
--- NOTE | 2019-12-05 09:00 | NUR ---
PS TRIAL 01/26
--- NOTE | 2019-12-05 10:07 | NUR ---
NEW ORDERS FROM DR CH
--- NOTE | 2019-12-05 10:10 | NUR ---
CPAP AT 0830
--- NOTE | 2019-12-05 11:30 | NUR ---
PT EXTUBATED TO BIPAP. WILL CONTINUE TO MONITOR
--- NOTE | 2019-12-05 14:25 | EC ---
PATIENT:RICK HUSAIN DATE OF SERVICE: 11/30/19 SEX: M MEDICAL RECORD: [id number] DATE OF : [birth year] LOCATION:[facility] AGE OF PATIENT: 79 ADMISSION DATE: 11/30/19 REFERRING PHYSICIAN: INTERPRETING PHYSICIAN: KARLA DUMAS MD ECHOCARDIOGRAM REPORT ECHO CHARGES 4 ECHO COMPLETE Date: 12/02/19 CLINICAL DIAGNOSIS: NSTEMI ECHOCARDIOGRAPHIC MEASUREMENTS (adult normal given) AC root (d.<3.7cm) 3.2 cm LV Septum d (<1.2 cm> 0.9 cm Valve Excursion 1.8 cm LV Septum (systole) 1.6 cm Left Atria (s.<4.0cm> 3.2 cm LVPW d(<1.2cm) 1.2 cm RV (d.<2.3cm) 2.7 cm LVPW (sytole) 1.3 cm LV diastole(<5.6CM) 5.9 cm MV E-F(>70mm/sec) cm LV systole 5.1 cm LVOT Diameter 1.7 cm MV exc.(>10mm) cm Est.ejection fraction (50-75%) % DOPPLER: LVIT cm/sec A 100 cm/sec E 53 cm/sec LA cm/sec RVSP 37.3 mmHg LVOT 117 cm/sec AOP1/2T m/s Asc. Ao 164 cm/sec RVOT 38 cm/sec RA cm/sec PA 59 cm/sec AV Gradient Peak 10.7 mmHg AV Mean 4.2 mmHg AV Area 1.5 cm MV Gradient Peak 3.8 mmHg MV Mean 1.2 mmHg MV Area cm COMMENTS: Environmental Sustainability Manager: Adrienne SIMMONS Perfect Bind Machine Operator: 3 Dr. Rebolledo TAPE# Pericardial Effusion Y DATE OF SERVICE: No LVH. LV internal dimensions are normal. 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 Aortic valve is sclerotic. There is no evidence of stenosis by Doppler interrogation. Mild AI by color flow imaging. Left atrium is normal. Mitral valve shows no prolapse. Mild MR. Right-sided chambers are grossly normal. Trace TR. TRANSINT:[id number] Voice Confirmation ID: [id number] DOCUMENT ID: [id number] ECHOCARDIOGRAM REPORT [id number] RICK HUSAIN KARLA DUMAS MD at 1425 CC: [id number] DICTATION DATE: 12/03/19 1303 SLUBBER MACHINE OPERATOR: 12/03/19 2151 ADM IN [place] [id number] [place] [id number]
--- NOTE | 2019-12-05 14:51 | NUR ---
PLACED ON 8 L HIGH FLOW NC.
--- NOTE | 2019-12-05 15:00 | NUR ---
PT FAILED SWALLOW STUDY.
--- NOTE | 2019-12-05 18:49 | NUR ---
SPOKE WITH PT . GAVE HER UPDATE ON PATIENT. WILL CONTINUE TO MONITOR
[2019-12-06] VITALS (21 sets, daily range): BP systolic 143–193; BP diastolic 60–127
--- NOTE | 2019-12-06 00:47 | NUR ---
Pt's IV infiltrated and a new 20 ga was started in the pt's right upper arm. The patient was cleaned and bed changed. He was positioned for comfort, call light in reach, bed in low position.
[2019-12-06 04:09] LABS: BASOPHILS 0.1 % (0-2); EOSINOPHILS 0.2 % (0-7); HEMATOCRIT 27.5 % (42.0-54.0); HEMOGLOBIN 8.6 g/dL (13.5-17.5); IMMATURE GRANULOCYTES 1.1 % (0-5); LYMPHOCYTES 7.6 % (15-50); MCH 30.1 pg (26.0-34.0); MCHC 31.3 g/dL (31.0-37.0); MCV 96.2 fL (80.0-100.0); MEAN PLATELET VOLUME 9.9 fL (7.4-10.4); MONOCYTES 5.5 % (2-11); NEUTROPHILS 85.5 % (40-80); PLATELET COUNT 185 10x3/uL (130-400); RBC 2.86 10x6/uL (4.20-6.10); WBC 11.7 10x3/uL (4.8-10.8)
[2019-12-06 04:32] LABS: BILIRUBIN - TOTAL 0.61 mg/dL (0.2-1.3); CALCIUM 9.7 mg/dL (8.5-10.1); CREATININE - SERUM 1.5 mg/dL (0.6-1.3); POTASSIUM - SERUM 3.5 mmol/L (3.5-5.1); PROTEIN - SERUM 6.6 g/dL (6.4-8.2)
[2019-12-06 05:12] LABS: ANION GAP 13.1 mmol/L (8-16); CARBON DIOXIDE 22.4 mmol/L (21.0-32.0)
--- NOTE | 2019-12-06 07:24 | NUR ---
PT SITTING UP IN BED, RR SOB ON 8L HF. RESPIRATORY AT BEDSIDE. CRACKLES HEARD UPON INSPIRATION. PT STATES HE IS OKAY. DENIES FURTHER NEEDS OR PAIN AT THIS TIME. CALL LIGHT KATHY CHANG. BED IN LOWEST POSITION. WILL CONTINUE TO MONITOR.
--- NOTE | 2019-12-06 09:48 | NUR ---
NUTRITION F/U CHART REVIEWED, SPOKE WITH NURSING. PT EXTUBATED BUT FAILED SWALLOW EVAL. TOLERATING OSMOLITE 1.0 MISTY @ 30 CC/HR WITH GOAL RATE 50 CC/HR. NURSING TO CONTINUE TO INCREASE TUBE FEEDS TO GOAL RATE. RD FOLLOWING
--- NOTE | 2019-12-06 17:08 | NUR ---
I have reviewed this patient and I concur with the Shift Assessment completed by the Licensed Practical Nurse today this shift.
--- NOTE | 2019-12-06 20:00 | NUR ---
REPORT RECIEVED AND SHIFT ASSESSMENT COMPLETE, PLEASE SEE FLOW SHEETS FOR DETAILS. PT TACHYNPIC WITH HTN NOTED. ON BIPAP. PACED. TF IN PROGRESS, PT INDICATED ABDOMINAL DISCOMFORT. DOES NOT COMMUNICATE WELL. WILL MONITOR AND CONTINUE CURRENT PLAN OF CARE.
--- NOTE | 2019-12-06 22:02 | NUR ---
PAGED CARDIOLOGY TO NOTIFY OF HTN
--- NOTE | 2019-12-06 22:11 | NUR ---
DR COOLEY RETURNED PAGE, ORDERED CXR IN AM AND TO DC DOBUTAMINE.
[2019-12-07] VITALS (25 sets, daily range): BP systolic 135–204; BP diastolic 48–135
[2019-12-07 08:48] LABS: BASOPHILS 0.1 % (0-2); EOSINOPHILS 0.3 % (0-7); HEMATOCRIT 28.1 % (42.0-54.0); HEMOGLOBIN 8.7 g/dL (13.5-17.5); LYMPHOCYTES 7.8 % (15-50); MCH 29.7 pg (26.0-34.0); MCV 95.9 fL (80.0-100.0); MEAN PLATELET VOLUME 10.8 fL (7.4-10.4); MONOCYTES 4.6 % (2-11); NEUTROPHILS 86.2 % (40-80); PLATELET COUNT 205 10x3/uL (130-400); RBC 2.93 10x6/uL (4.20-6.10); RDW 15.3 % (11.5-14.5); WBC 11.6 10x3/uL (4.8-10.8)
[2019-12-07 09:02] LABS: ALBUMIN 2.1 g/dL (3.4-5.0); ANION GAP 12.9 mmol/L (8-16); BILIRUBIN - TOTAL 0.57 mg/dL (0.2-1.3); CALCIUM 9.6 mg/dL (8.5-10.1); CARBON DIOXIDE 21.7 mmol/L (21.0-32.0); CREATININE - SERUM 1.5 mg/dL (0.6-1.3); POTASSIUM - SERUM 3.6 mmol/L (3.5-5.1); PROTEIN - SERUM 6.9 g/dL (6.4-8.2)
--- NOTE | 2019-12-07 10:35 | NUR ---
PEG RESIDUAL 5ML.
--- NOTE | 2019-12-07 12:19 | NUR ---
DR MUNIZ NOTIFIED OF HTN WITH SBP UP TO 180. PER DR MUNIZ, START AMYLODIPINE 5MG PER PEG QD.
--- NOTE | 2019-12-07 13:47 | NUR ---
NOTED PTS BLOOD PRESSURE STILL HIGH WITH SBP UP TO 190S, DR OH ROUNDING ON PT. ORDERS PLACED BY PHYSICIAN.
--- NOTE | 2019-12-07 13:51 | NUR ---
PTS RR 39, OXYGEN SATURATION 100% ON 60% FIO2 BIPAP. HEART RATE 60 PACED, BLOOD PRESSURE 157/85. DR CH PAGED REGARDING TACHYPNEA.
--- NOTE | 2019-12-07 16:55 | NUR ---
SPOKE WITH DR CH, UPDATED REGARDING PTS TACHYPNEA. PHYSICIAN ORDERED ABG.
--- NOTE | 2019-12-07 17:17 | NUR ---
ABG CALLED TO DR CH. ALSO NOTIFIED PHYSICIAN THAT PT RESPIRATORY RATE IS NOW IN THE 40S. PHYSICIAN ORDERED MORPHINE 2MG X 1. WILL PLACE ORDERS.
--- NOTE | 2019-12-07 18:25 | NUR ---
NO AUCTE DISTRESS NOTED. NO CHANGE. BED ALARM ON. CALL LIGHT IN REACH. PT TURNED Q2H, ORAL CARE PROVIDED Q2H. WILL CONTINUE PLAN OF CARE.
--- NOTE | 2019-12-07 19:00 | NUR ---
RECEIVED REPORT, BREATHING LABORED, BIPAP ON, COOK TO GRAVITY, IV TO ROLF PATENT, 2+ PITTING EDEMA NOTED TO BLE, HOB ELEVATED 45 DEGREES, BED LOWEST POSITION, CALL LIGHT IN REACH, WILL CONITNUE POC
--- NOTE | 2019-12-07 23:52 | NUR ---
PT SLEEPING, RESPIRATIONS LABORED, COOK TO GRAVITY, NO S/S OF DISTRESS NOTED
[2019-12-08] VITALS (21 sets, daily range): BP systolic 98–178; BP diastolic 58–113
--- NOTE | 2019-12-08 01:30 | NUR ---
RECEIVED REPORT PM NURSE. ANTONIO. PT IS SLEEP ON BIPAP, IV SITE IN ROLF CDI, PATENT. CRACKLES IN UPPER LOBES, BED IN LOWEST POSITION, NO S/SX OF DISTRESS, ASSUME PT CARE
[2019-12-08 03:43] LABS: BASOPHILS 0.1 % (0-2); EOSINOPHILS 0.4 % (0-7); IMMATURE GRANULOCYTES 0.9 % (0-5); LYMPHOCYTES 8.6 % (15-50); MCHC 31.3 g/dL (31.0-37.0); MEAN PLATELET VOLUME 10.7 fL (7.4-10.4); MONOCYTES 5.3 % (2-11); NEUTROPHILS 84.7 % (40-80); PLATELET COUNT 176 10x3/uL (130-400); RDW 15.2 % (11.5-14.5)
[2019-12-08 03:58] LABS: ALBUMIN 2.5 g/dL (3.4-5.0); BILIRUBIN - TOTAL 0.82 mg/dL (0.2-1.3); CALCIUM 9.6 mg/dL (8.5-10.1); CARBON DIOXIDE 25.5 mmol/L (21.0-32.0); CREATININE - SERUM 1.6 mg/dL (0.6-1.3); MAGNESIUM - SERUM 2.1 mg/dL (1.8-2.4); PROTEIN - SERUM 6.6 g/dL (6.4-8.2)
[2019-12-08 03:59] LABS: ANION GAP 16.5 mmol/L (8-16); PHOSPHOROUS 1.5 mg/dL (2.5-4.9)
--- NOTE | 2019-12-08 04:27 | NUR ---
RECEIVED LABWORK BACK ON PT. CHLORIDE DECREASED TO 111. PT K+ IS 3.0 AND PHOSPHORUS IS 1.5. REPLETE ELECTROLYTES PER PROTOCOL. REDRAW ORDERED FOR POTASSIUM AT 8. NO OTHER NEEDS AT THIS TIME. CONTINUE WITH PLAN OF CARE
--- NOTE | 2019-12-08 09:33 | NUR ---
10ML RESIDUAL TO PEG. PT LYING IN BED WITH EYES CLOSED ON BIPAP. DENIES ANY NEEDS. OPENS EYES WHEN SPOKEN TO. NOTED LT ARM HAD LARGE AMOUNT OF EDEMA IN COMPARISON TO RT ARM, NO HEAT. PER DR CH, ORDER ULTRASOUND TO R/O DVT. ALSO NOTED PTS RESPIRATIONS 41, DR CH IS AWARE. WILL CONTINUE PLAN OF CARE.
--- NOTE | 2019-12-08 10:07 | NUR ---
TUBE FEED FLUSHES INCREASED TO 60ML Q1H PER ORDERS.
--- NOTE | 2019-12-08 10:21 | NUR ---
ABGS READ TO PHYSICIAN. PER DR CH, "LETS INTUBATE." PHYSICIAN STATED TO INTUBATE WITH 4 VERSED AND 50 FENTANYL. NOTIFIED PHYSICIAN THAT IT IS OUT OF A RN SCOPE OF PRACTICE TO IV PUSH FENTANYL. DR CH STATED, THEN CONSULT ANESTHESIA TO PUSH THE FENTANYL." CONSULT PLACED. DR BRASHER CALLED BACK AND NOTIFIED. AFTER PHYSICIAN COMMUNICATED, IT WAS DECIDED TO INTUBATE WITH 4 VERSED AND 50 ROCCX. WILL CANCEL ANESTHESIA CONSULT, WILL PLACE ORDERS FOR PREINTUBATE MEDS.
--- NOTE | 2019-12-08 10:35 | NUR ---
INTUBATED AT THIS TIME BY DR CH. 8.0 AND 24 AT LIP MIDLINE. VSS. NO ACUTE DISTRESS NOTED. WILL CONTINUE PLAN OF CARE.
--- NOTE | 2019-12-08 10:40 | NUR ---
SPOKE WITH PTS . UPDATES PROVIDED.
--- NOTE | 2019-12-08 11:18 | NUR ---
SPOKE WITH DARLINE , GAVE HER AN UPDATE ON INTUBATION AND STATUS OF PT. SHE STILL WANTS HIM TO BE A FULL CODE, ALSO STATING "I KNOW HIS END IS NEAR, BUT FOR RIGHT NOW DO ALL YOU CAN TO SAVE HIM" WILL CONT TO MONITOR.
--- NOTE | 2019-12-08 14:31 | NUR ---
PHOSPHEROUS REPLACED PER PROTOCOL ORDERS.
[2019-12-09] VITALS (24 sets, daily range): BP systolic 116–146; BP diastolic 65–669
[2019-12-09 09:13] LABS: BASOPHILS 0.1 % (0-2); EOSINOPHILS 3.3 % (0-7); HEMOGLOBIN 7.6 g/dL (13.5-17.5); IMMATURE GRANULOCYTES 1.6 % (0-5); LYMPHOCYTES 8.3 % (15-50); MCH 29.6 pg (26.0-34.0); MCHC 31.7 g/dL (31.0-37.0); MCV 93.4 fL (80.0-100.0); MEAN PLATELET VOLUME 11.1 fL (7.4-10.4); NEUTROPHILS 82.7 % (40-80); PLATELET COUNT 183 10x3/uL (130-400); RBC 2.57 10x6/uL (4.20-6.10); RDW 15.2 % (11.5-14.5)
[2019-12-09 09:31] LABS: ANION GAP 12.8 mmol/L (8-16)
[2019-12-09 09:32] LABS: POTASSIUM - SERUM 2.8 mmol/L (3.5-5.1)
--- NOTE | 2019-12-09 10:02 | NUR ---
Nutrition follow-up: Pt reintubated, sedated with propofol @ 10.6 ml/hr Osmolite 1.0 olegario @ 40 ml/hr Labs reviewed; renal function poor 3rd spacing Wt: 125# RDN following.
--- NOTE | 2019-12-09 12:52 | NUR ---
DR MOTLEY AT THE PTS BEDSIDE. SEE ORDERS.
--- NOTE | 2019-12-09 15:03 | NUR ---
INCREASED FLOW 70
--- NOTE | 2019-12-09 16:02 | NUR ---
KEEP RESPIRATION BELOW [address] DIAZ. VERSED NEEDED. SEE ORDERS.
--- NOTE | 2019-12-09 19:15 | NUR ---
REPORT RECIEVED, SHIFT ASSESSMENT COMPLETE,PT IS SEDATED ON VENT, ON 40% FIO2 WITH 93% O2 SAT. ALL PPP, VSS, WILL CON'T TO MONITOR
[2019-12-10] VITALS (24 sets, daily range): BP systolic 93–136; BP diastolic 51–79
[2019-12-10 04:22] LABS: BASOPHILS 0.2 % (0-2); EOSINOPHILS 3.9 % (0-7); IMMATURE GRANULOCYTES 1.9 % (0-5); LYMPHOCYTES 7.4 % (15-50); MCH 29.2 pg (26.0-34.0); MCHC 32.6 g/dL (31.0-37.0); MEAN PLATELET VOLUME 10.5 fL (7.4-10.4); MONOCYTES 4.8 % (2-11); NEUTROPHILS 81.8 % (40-80); PLATELET COUNT 176 10x3/uL (130-400); RDW 16.7 % (11.5-14.5); WBC 11.1 10x3/uL (4.8-10.8)
[2019-12-10 04:27] LABS: HEMATOCRIT 29.8 % (42.0-54.0); HEMOGLOBIN 9.7 g/dL (13.5-17.5); MCV 89.8 fL (80.0-100.0); RBC 3.32 10x6/uL (4.20-6.10)
[2019-12-10 04:42] LABS: ANION GAP 11.4 mmol/L (8-16); CALCIUM 8.7 mg/dL (8.5-10.1); CARBON DIOXIDE 22.9 mmol/L (21.0-32.0); CREATININE - SERUM 2.1 mg/dL (0.6-1.3); MAGNESIUM - SERUM 1.9 mg/dL (1.8-2.4)
[2019-12-10 04:51] LABS: PHOSPHOROUS 2.8 mg/dL (2.5-4.9); POTASSIUM - SERUM 3.3 mmol/L (3.5-5.1)
--- NOTE | 2019-12-10 07:00 | NUR ---
REPORT RECIEVED. SEE FLOW SHEET.
--- NOTE | 2019-12-10 19:15 | NUR ---
REPORT RECIEVED, SHIFT ASSESSMENT COMPLETE, PT IS SEDATED ON VENT, ALL PPP, VSS, WILL CON'T TO MONITOR
[2019-12-11] VITALS (24 sets, daily range): BP systolic 82–127; BP diastolic 48–64
--- NOTE | 2019-12-11 03:09 | NUR ---
COMPLETE BATH AND LINEN CHANGE
[2019-12-11 04:37] LABS: BASOPHILS 0.1 % (0-2); HEMATOCRIT 31.7 % (42.0-54.0); HEMOGLOBIN 10.3 g/dL (13.5-17.5); IMMATURE GRANULOCYTES 1.9 % (0-5); MCH 29.4 pg (26.0-34.0); MCHC 32.5 g/dL (31.0-37.0); MCV 90.6 fL (80.0-100.0); MEAN PLATELET VOLUME 11.5 fL (7.4-10.4); MONOCYTES 6.3 % (2-11); NEUTROPHILS 82.7 % (40-80); PLATELET COUNT 182 10x3/uL (130-400); RDW 16.9 % (11.5-14.5)
[2019-12-11 04:59] LABS: WBC 13.9 10x3/uL (4.8-10.8)
[2019-12-11 05:03] LABS: ANION GAP 12.7 mmol/L (8-16); CALCIUM 8.5 mg/dL (8.5-10.1); CARBON DIOXIDE 21.3 mmol/L (21.0-32.0); CREATININE - SERUM 2.3 mg/dL (0.6-1.3)
--- NOTE | 2019-12-11 12:46 | NUR ---
Nutrition follow-up: Pt remains intubated, sedated with propofol Osmolite @ 40 ml/hr goal with pt tolerating Labs reviewed Wt: 145# RDN following.
[2019-12-11 19:08] LABS: AEROBE ID Final report (())
[2019-12-12] VITALS (24 sets, daily range): BP systolic 101–129; BP diastolic 41–65
[2019-12-12 05:48] LABS: ANION GAP 14.3 mmol/L (8-16); CALCIUM 8.3 mg/dL (8.5-10.1); CARBON DIOXIDE 20.1 mmol/L (21.0-32.0); CREATININE - SERUM 2.5 mg/dL (0.6-1.3); PHOSPHOROUS 3.6 mg/dL (2.5-4.9); POTASSIUM - SERUM 4.4 mmol/L (3.5-5.1)
[2019-12-12 05:52] LABS: HEMATOCRIT 32.5 % (42.0-54.0); HEMOGLOBIN 10.7 g/dL (13.5-17.5); LYMPHOCYTES 9.2 % (15-50); MCH 30.1 pg (26.0-34.0); MCHC 32.9 g/dL (31.0-37.0); MCV 91.3 fL (80.0-100.0); MEAN PLATELET VOLUME 10.4 fL (7.4-10.4); NEUTROPHILS 85.7 % (40-80); RBC 3.56 10x6/uL (4.20-6.10); RDW 17.9 % (11.5-14.5); WBC 13.7 10x3/uL (4.8-10.8)
[2019-12-12 05:58] LABS: PLATELET COUNT 401 10x3/uL (130-400)
--- NOTE | 2019-12-12 07:00 | NUR ---
RECEIVED BEDSIDE REPORT ON PATIENT AND ASSUMED CARE. PATIENT SEDATED ON VENT, WITDRAWS TO PAINFUL STIMULI, NOT FOLLOWING COMMANDS, PUPILS EQUAL AND REACTIVE TO LIGHT AT 4 MM, BRISK, ETT 8.0 AT 23 CM AT TEETH, VENT SETTINGS ARE AC 18, TV 450, PEEP 4 FIO2 45%, WITH SPO2 AT 95%, BBS - COARSE, DIMINISHED IN THE BASES. IV 20 GA TO RIGHT UPPER ARM INFUSING PROPOFOL AT 45 MCG/KG/MIN, AND NS WITH ABX AT 10 ML/HR. COOK CATH IN PLACE WITH BLOOD NOTED WITH CLOTS. PEG TUBE TO RIGHT UPPER ABDOMEN, UNABLE TO FLUSH OR ASPIRATE, WORKED AND WAS ABLE TO GET IT TO FLUSH, RESIDUAL 15 ML, TUBE FEEDING OSOMOLITE AT 40 ML/HR WAS INCREASED TO GOAL RATE OF 50 ML/HR. PITTING EDEMA +3 TO EXTREMITES X 4 NOTED. HEAD TO TOE ASSESSMENT COMPLETED. PATIENT TURNED AND REPOSITIONED IN BED.
--- NOTE | 2019-12-12 08:00 | NUR ---
PATIENT RESTING QUIETLY, VSS. DR. NUNES AT ROOM UPDATED AND EXAMINES PATIENT TO ORDER LASIX AND ALBUMIN.
--- NOTE | 2019-12-12 09:00 | NUR ---
PATIENT RESTING HARRIET, VSS. TURNED AND REPOSITONED IN BED.
--- NOTE | 2019-12-12 09:37 | NUR ---
Nutrition follow-up: Per Dr. Grant, decrease TF flush to 20 ml/hr RDN placed nursing message and spoke with RN, Brad. RDN following.
--- NOTE | 2019-12-12 11:00 | NUR ---
REASSESSMENT COMPLETED. VSS. PATIENT TURNED AND REPOSITIONED IN BED.
--- NOTE | 2019-12-12 13:10 | NUR ---
PATIENT TURNED AND REPOSITIONED IN BED. VSS.
--- NOTE | 2019-12-12 14:16 | NUR ---
PATIENT GIVEN A COMPLETED CHG BATH AND LINEN CHANGE. REPOSITIONED IN BED. VSS. TOLERATED WELL.
--- NOTE | 2019-12-12 15:00 | NUR ---
REASSESSMENT COMPLETED. VSS. TURNED AND REPOSITIONED IN BED.
--- NOTE | 2019-12-12 17:00 | NUR ---
PATIENT TURNED AND REPOSITIONED IN BED. VSS.
--- NOTE | 2019-12-12 19:00 | NUR ---
Report received, shift assessment completed, see flowsheet for details. Pt is resting comfortably at this time. Will continue to monitor.
--- NOTE | 2019-12-12 19:09 | MORECARE ---
CASE MANAGEMENT DISCHARGE SUMMARY PATIENT: RICK HUSAIN UNIT: [id number] ADM DATE: 11/30/19 AGE: 79 : 40 SEX: M ROOM/BED: D.2302 AUTHOR: TYDOC PHYSICIAN: REFERRING PHYSICIAN: KARLA WALKER MD DATE OF SERVICE: 12/12/19 Discharge Plan Patient Name: RICK HUSAIN Facility: [facility]:[place] : 1940 Planned Disposition: Anticipated Discharge Date: Discharge Date: Expected LOS: Initial Reviewer: [email or web address] Initial Review Date: 11/30/2019 Generated: 12/12/19 8:09 pm Comments DCP- Discharge Planning Updated by [email or web address]: Belia Avilez on 12/12/19 6:[address] Patient Name: RICK HUSAIN Admission Status: ER Accout number: [id number] Admission Date: 11-30-2019 : 1940 Admission Diagnosis: Attending: PREETHI Current LOS: 12 Anticipated DC Date: Planned Disposition: Primary Insurance: MEDICARE A & B Discharge Planning Comments: PATIENT IS A RESIDENT AT THE [facility]. PLAN IS FOR PATIENT TO REURN TO THE [facility] AT D/C. CM WILL CONTINUE TO FOLLOW AND ASSIST NEEDED WITH DISCHARGE PLANNING / NEEDS. Sash Maker: Belia Avilez DCPIA - Discharge Planning Initial Assessment Updated by [email or web address]: Belia Avilez on 12/12/19 7:04 pm * Is the patient Alert and Oriented? No * PCP [facility] * Pharmacy [facility] * Preadmission Environment Lens Grinder Rough Detention * Facility Name [facility] * ADLs Partial Dependent * Partial ADLs (Assistance needed) Ambulation Bathing Dressing Eating Medication Management Toileting Transfers * List name and contact numbers for known caregivers / representatives who currently or will assist patient after discharge: IRMA BUTTS - - [phone] * Verbal permission to speak to the caregivers and representatives has been obtained from the patient. Yes * Community resources currently utilized None * Additional services required to return to the preadmission environment? No * Can the patient safely return to the preadmission environment? Yes * Has this patient been hospitalized within the prior 30 days at any hospital? No Patient Name: RICK HUSAIN Page 57650 at 1909 All edits/amendments must be made on the electronic document DICTATION DATE: 12/12/191908 INTERVENTIONAL NURSE: GAUDENCIO 12/12/191908 RPT#: [id number] DC DATE: STATUS: ADM IN [facility] [address] [place] [address] END OF REPORT
[2019-12-13] VITALS (24 sets, daily range): BP systolic 93–149; BP diastolic 43–70
[2019-12-13 04:24] LABS: ANION GAP 16.3 mmol/L (8-16); CALCIUM 8.6 mg/dL (8.5-10.1); CARBON DIOXIDE 19.6 mmol/L (21.0-32.0); CREATININE - SERUM 2.8 mg/dL (0.6-1.3); POTASSIUM - SERUM 4.9 mmol/L (3.5-5.1); VANCOMYCIN - RANDOM 24.9 ug/mL (10.0-20.0)
[2019-12-13 08:18] LABS: BASOPHILS 0.2 % (0-2); EOSINOPHILS 1.2 % (0-7); HEMATOCRIT 31.6 % (42.0-54.0); HEMOGLOBIN 10.1 g/dL (13.5-17.5); IMMATURE GRANULOCYTES 1.4 % (0-5); LYMPHOCYTES 5.1 % (15-50); MCV 90.8 fL (80.0-100.0); MEAN PLATELET VOLUME 11.1 fL (7.4-10.4); MONOCYTES 8.2 % (2-11); NEUTROPHILS 83.9 % (40-80); RBC 3.48 10x6/uL (4.20-6.10); RDW 16.8 % (11.5-14.5); WBC 16.2 10x3/uL (4.8-10.8)
[2019-12-13 08:24] LABS: PLATELET COUNT 177 10x3/uL (130-400)
--- NOTE | 2019-12-13 09:54 | NUR ---
Nutrition follow-up: Pt remains intubated, sedated with propofol @ 15.9 ml/hr Osmolite 1.0 olegario infusing via PEG tube @ 50 ml/hr with 20 ml H2O flush/hr IV albumin, Lasix Labs reviewed Wt: 148# RDN following.
[2019-12-14] VITALS (24 sets, daily range): BP systolic 91–167; BP diastolic 43–73
[2019-12-14 04:34] LABS: BASOPHILS 0.2 % (0-2); EOSINOPHILS 2.5 % (0-7); HEMATOCRIT 29.2 % (42.0-54.0); HEMOGLOBIN 9.1 g/dL (13.5-17.5); IMMATURE GRANULOCYTES 1.4 % (0-5); LYMPHOCYTES 13.4 % (15-50); MCH 28.9 pg (26.0-34.0); MCHC 31.2 g/dL (31.0-37.0); MCV 92.7 fL (80.0-100.0); MEAN PLATELET VOLUME 11.7 fL (7.4-10.4); MONOCYTES 7.7 % (2-11); NEUTROPHILS 74.8 % (40-80); PLATELET COUNT 171 10x3/uL (130-400); RBC 3.15 10x6/uL (4.20-6.10)
[2019-12-14 04:36] LABS: WBC 9.6 10x3/uL (4.8-10.8)
[2019-12-14 04:43] LABS: ANION GAP 14.4 mmol/L (8-16); CALCIUM 8.3 mg/dL (8.5-10.1); CREATININE - SERUM 3.2 mg/dL (0.6-1.3); POTASSIUM - SERUM 4.4 mmol/L (3.5-5.1)
--- NOTE | 2019-12-14 08:17 | NUR ---
DR. NUNES HERE. DIPRIVAN TURNED OFF. PATIENT OPENING EYES, NOT OBEYING ANY COMMANDS AT THIS TIME. SKIN WARM AND DRY. ETT SECURE TO VENT BILATERAL LUNG SOUNDS EQUAL FAIRLY CLEAR. ABD SOFT. PEG INFUSING WITH OSMOLITE AT 50 ML HOUR. RIGHT UPPER ARM IV INFUSING WITH NS AT KVO. NO SWELLING OR REDNESS NOTED. COOK CATH PATENT. HEAD OF BED ELEVATED 30 DEGREES. HEELS BRIDGED ON PILLOW AND HEEL PROTECTORS IN PLACE. MONITOR PACER RHYTHM.
--- NOTE | 2019-12-14 11:00 | NUR ---
HIBCLENS BATH GIVEN WITH AN CHANGE. MEDIPLEX ON COCCYX BUTTOCK, REMOVED. 2 OPEN AREAS NOTED 1CM X 1CM. MID RIGHT BACK OPEN AREA NOTED MEDIPLEX APPLIED. LEFT HEEL LARGE BLISTER AND PURPLE AREA MEDIPLEX APPLIED. PATIENT TOLERATED FAIR. HEEL PROTECTORS AND SCD REAPPLIED. SCROTAL SACK AND PENIS SWOLLEN
--- NOTE | 2019-12-14 11:41 | NUR ---
labored resp. using abd muscles to breath. diprivan restarted at 20 mcg/kg/min
--- NOTE | 2019-12-14 12:00 | NUR ---
[facility]
--- NOTE | 2019-12-14 13:29 | NUR ---
suction large amount of clear secretions from mouth. thick white from ett
--- NOTE | 2019-12-14 19:00 | NUR ---
REPORT RECEIVED. PT SEDATED ON VENT, NO ACUTE DISTRESS NOTED. RT UPPER ARM PIV INFUSING, SEE IV FLOWSHEET. SOFT WRIST RESTRAINTS IN PLACE, ASSESSMENT COMPLETED, SEE FLOWSHEET. WILL CONTINUE TO MONITOR.
[2019-12-15] VITALS (24 sets, daily range): BP systolic 118–184; BP diastolic 56–94
[2019-12-15 03:56] LABS: BASOPHILS 0.2 % (0-2); EOSINOPHILS 1.3 % (0-7); HEMATOCRIT 32.5 % (42.0-54.0); HEMOGLOBIN 10.3 g/dL (13.5-17.5); IMMATURE GRANULOCYTES 1.4 % (0-5); MCH 29.6 pg (26.0-34.0); MCHC 31.7 g/dL (31.0-37.0); MCV 93.4 fL (80.0-100.0); MEAN PLATELET VOLUME 11.5 fL (7.4-10.4); MONOCYTES 8.6 % (2-11); NEUTROPHILS 79.5 % (40-80); PLATELET COUNT 180 10x3/uL (130-400); RBC 3.48 10x6/uL (4.20-6.10); WBC 13.7 10x3/uL (4.8-10.8)
[2019-12-15 04:09] LABS: ALBUMIN 2.3 g/dL (3.4-5.0); ANION GAP 17.4 mmol/L (8-16); BILIRUBIN - TOTAL 0.46 mg/dL (0.2-1.3); CALCIUM 8.8 mg/dL (8.5-10.1); CARBON DIOXIDE 18.5 mmol/L (21.0-32.0); CREATININE - SERUM 3.5 mg/dL (0.6-1.3); POTASSIUM - SERUM 4.9 mmol/L (3.5-5.1); PROTEIN - SERUM 6.7 g/dL (6.4-8.2)
--- NOTE | 2019-12-15 07:30 | NUR ---
PEG TUBE CLOGGED OFF, ATTEMPTED TO OPEN WITH COLA UNSUCCESSFUL. TUBE FEEDING ALL OVER BED AND PATIENT. HIBCLENS BATH GIVEN, LINEN CHANGED. REPOSITIONED. PATIENT DOES OPEN EYES. IV RIGHT UPPER ARM WITHOUT REDNESS OR SWELLING INFUISNG WITH DIPRIVAN AT 20 MEQ/KG/MIN. NS KVO. COOK CATH PATENT.
--- NOTE | 2019-12-15 11:15 | NUR ---
PEG FLUSHED FAIRLY EASILY AFTER COLA SITTING IN TUBEING FOR A FEW HOURS. TUBE FEEDING RESTARTED. AT 50 ML HOUR OF PULMOCARE.
--- NOTE | 2019-12-15 13:30 | NUR ---
HERE TO HAVE A CONFERENCE WITH DR. NUNES. AGREES TO DNR, TERMINAL EXTUBATION AND HOSPICE CARE. WANTS TO WAIT UNTIL TOMORROW FOR TERMINAL EXTUBATION SO SHE CAN FIND A HOME. CASE MAMAGEMENT NOTIFIED TO ASSIST PATIENT'S .
--- NOTE | 2019-12-15 15:29 | MORECARE ---
CASE MANAGEMENT DISCHARGE SUMMARY PATIENT: RICK HUSAIN UNIT: [id number] ADM DATE: 11/30/19 AGE: 79 : 40 SEX: M ROOM/BED: D.2302 AUTHOR: TYDOC PHYSICIAN: REFERRING PHYSICIAN: KARLA WALKER MD DATE OF SERVICE: 12/15/19 Discharge Plan Patient Name: RICK HUSAIN Facility: [facility]:[place] : 1940 Planned Disposition: Anticipated Discharge Date: Discharge Date: Expected LOS: Initial Reviewer: [email or web address] Initial Review Date: 11/30/2019 Generated: 12/15/19 4:28 pm Comments DCP- Discharge Planning Updated by [email or web address]: Petrona Kauffman on 12/15/19 2:[address] PT REQUESTED CM VIST. PT STATES SHE DOES NOT HAVE THE MONEY TO PAY FOR A , AND ASKS FOR SERVICES AVAILABLE. CM STATES THEY ARENT ANY SERVICES AVAILABLE. PROVIDED LIST OF HOMES SO THAT FAMILY CAN CHOOSE ONE IN HER PROCE RANGE. MRS HUSAIN STATES SHE WANTS HOSPICE BUT WANTS TO WAIT UNTIL SHE CAN GET HER HUSBANDS ARRANGED. STATES SHE WILL CHOOSE A HOSPICE COMPANY WHEN SHE CAN SPEAK TO A HOME. CM WILL CONTINUE TO ASSIST NEEDED. PETRONA KAUFFMAN MSN,RN,CM DCP- Discharge Planning Updated by [id number]: Belia Avilez on 12/12/19 6:[address] Patient Name: RICK HUSAIN Admission Status: ER Accout number: [id number] Admission Date: 11-30-2019 : 1940 Admission Diagnosis: Attending: PREETHI Current LOS: 12 Anticipated DC Date: Planned Disposition: Primary Insurance: MEDICARE A & B Discharge Planning Comments: PATIENT IS A RESIDENT AT THE [facility]. PLAN IS FOR PATIENT TO REURN TO THE [facility] AT D/C. CM WILL CONTINUE TO FOLLOW AND ASSIST NEEDED WITH DISCHARGE PLANNING / NEEDS. Inner Diameter Grinder Tool: Belia Avilez DCPIA - Discharge Planning Initial Assessment Updated by [email or web address]: Belia Avilez on 12/12/19 7:04 pm * Is the patient Alert and Oriented? No * PCP [facility] * Pharmacy [facility] * Preadmission Environment Insurance Legal Assistant Intermediate * Facility Name [facility] * ADLs Partial Dependent * Partial ADLs (Assistance needed) Ambulation Bathing Dressing Eating Medication Management Toileting Transfers * List name and contact numbers for known caregivers / representatives who currently or will assist patient after discharge: IRMA BUTTS - - [phone] * Verbal permission to speak to the caregivers and representatives has been obtained from the patient. Yes * Community resources currently utilized None * Additional services required to return to the preadmission environment? No * Can the patient safely return to the preadmission environment? Yes * Has this patient been hospitalized within the prior 30 days at any hospital? No Last DP export: 12/12/19 6:09 p Patient Name: RICK HUSAIN Page 14221 at 1529 All edits/amendments must be made on the electronic document DICTATION DATE: 12/15/191527 COMMISSION BROKER: GAUDENCIO 12/15/19 1528 RPT#: [id number] DC DATE: STATUS: ADM IN [facility] [address] [place] [address] END OF REPORT
--- NOTE | 2019-12-15 17:00 | NUR ---
TUBE FEEDING STOPPED, PEG FLUSHED WITH WATER.
[2019-12-16] VITALS (24 sets, daily range): BP systolic 114–169; BP diastolic 52–86
--- NOTE | 2019-12-16 07:15 | NUR ---
PT REPORT RECEIVED FROM LOGISTICS SPECIALIST NURSE. NO ACUTE SIGNS OF DISTRESS NOTED. PT ON VENT AND SEDATED. REPORT FROM LOGISTICS SPECIALIST NURSE STATES THAT PT IS A POSSIBLE TERMINAL EXTUBATION TODAY DEPENDING ON PT FINDING A HOME. WILL CONTINUE TO MONITOR. SHIFT ASSESSMENT COMPLETED.
--- NOTE | 2019-12-16 09:38 | NUR ---
Nutrition follow-up: Pt intubated, sedated with propofol @ 10.6 ml/hr TF off in anticipation for terminal extubation today Labs reviewedWt: 144# RDN following.
--- NOTE | 2019-12-16 14:04 | NUR ---
SPOKE WITH PT . SHE GAVE UPDATE ABOUT HOME ARRANGEMENTS. STILL WAITING ON MONEY FROM PT SISTERS IN [place]. STATED SHE WOULD CALL UP HERE ONCE EVERYTHING IS SETTLED TO LET US KNOW WHEN WE CAN TERMINALLY EXTUBATE. GAVE HER UPDATE ON PT STATUS WELL. WILL CONTINUE TO MONITOR
--- NOTE | 2019-12-16 15:48 | NUR ---
SPOKE WITH PT . SHE ASKED THAT WE HOLD OFF TERMINAL EXTUBATION UNTIL TOMORROW MORNING SO SHE COULD BE PRESENT. CHARGE NURSE WAS CONSULTED AND SHE STATED THAT WOULD BE FINE. SO PLAN FOR TERMINAL EXTUBATION TOMORROW AM. WANTS TO USE [facility].
--- NOTE | 2019-12-16 16:16 | MORECARE ---
CASE MANAGEMENT DISCHARGE SUMMARY PATIENT: RICK HUSAIN UNIT: [id number] ADM DATE: 11/30/19 AGE: 79 : 40 SEX: M ROOM/BED: D.2302 AUTHOR: TYDOC PHYSICIAN: REFERRING PHYSICIAN: KARLA WALKER MD DATE OF SERVICE: 12/16/19 Discharge Plan Patient Name: RICK HUSAIN Facility: [facility]:[place] : 1940 Planned Disposition: Anticipated Discharge Date: Discharge Date: Expected LOS: Initial Reviewer: [email or web address] Initial Review Date: 11/30/2019 Generated: 12/16/19 5:15 pm Comments DCP- Discharge Planning Updated by [email or web address]: Belia Avilze on 12/16/19 3:[address] CM called and spoke with Esperanza Butts patient's to see if she had made any decisions regarding terminal extubation and wanted to give her the phone number to [employer] [phone] d/t them being one of the cheapest in the [facility] for Cremation. Esperanza stated that she had just spoken with patient's nurse and plans are to extubate in am. CM will continue to follow and assist as needed with discharge planning / needs. DCP- Discharge Planning Updated by [email or web address]: Petrona Kauffman on 12/15/19 2:[address] PT REQUESTED CM VIST. PT STATES SHE DOES NOT HAVE THE MONEY TO PAY FOR A , AND ASKS FOR SERVICES AVAILABLE. CM STATES THEY ARENT ANY SERVICES AVAILABLE. PROVIDED LIST OF HOMES SO THAT FAMILY CAN CHOOSE ONE IN HER PROCE RANGE. MRS HUSAIN STATES SHE WANTS HOSPICE BUT WANTS TO WAIT UNTIL SHE CAN GET HER HUSBANDS ARRANGED. STATES SHE WILL CHOOSE A HOSPICE COMPANY WHEN SHE CAN SPEAK TO A HOME. CM WILL CONTINUE TO ASSIST NEEDED. PETRONA KAUFFMAN MSN,RN,CM DCP- Discharge Planning Updated by [email or web address]: Belia Avilez on 12/12/19 6:[address] Patient Name: RICK HUSAIN Admission Status: ER Accout number: [id number] Admission Date: 11-30-2019 : 1940 Admission Diagnosis: Attending: PREETHI Current LOS: 12 Anticipated DC Date: Planned Disposition: Primary Insurance: MEDICARE A & B Discharge Planning Comments: PATIENT IS A RESIDENT AT THE [facility]. PLAN IS FOR PATIENT TO REURN TO THE [facility] AT D/C. CM WILL CONTINUE TO FOLLOW AND ASSIST NEEDED WITH DISCHARGE PLANNING / NEEDS. Civil Engineering Project Designer: Belia Avilez DCPIA - Discharge Planning Initial Assessment Updated by [email or web address]: Belia Avilez on 12/12/19 7:04 pm * Is the patient Alert and Oriented? No * PCP [facility] * Pharmacy [facility] * Preadmission Environment Outreach And Education Social Worker Custodial * Facility Name [facility] * ADLs Partial Dependent * Partial ADLs (Assistance needed) Ambulation Bathing Dressing Eating Medication Management Toileting Transfers * List name and contact numbers for known caregivers / representatives who currently or will assist patient after discharge: ESPERANZA BUTTS [facility] - [phone] * Verbal permission to speak to the caregivers and representatives has been obtained from the patient. Yes * Community resources currently utilized None * Additional services required to return to the preadmission environment? No * Can the patient safely return to the preadmission environment? Yes * Has this patient been hospitalized within the prior 30 days at any hospital? No Last DP export: 12/15/19 2:29 p Patient Name: RICK HUSAIN Page 21584 at 1616 All edits/amendments must be made on the electronic document DICTATION DATE: 12/16/191614 SUB PRIOR: GAUDENCIO 12/16/19 161 RPT#: [id number] DC DATE: STATUS: ADM IN [facility] [address] [place] [address] END OF REPORT
[2019-12-17] VITALS (21 sets, daily range): BP systolic 138–175; BP diastolic 65–86
--- NOTE | 2019-12-17 09:48 | NUR ---
SPOKE WITH [facility]. CALLED WITH PT INFORMATION. GIVEN PT AGE AND CURRENT [facility], LAURA JORDAN THE [facility] ASSISTANT TENNIS COACH, STATED TO CALL BACK WITH PT TIME OF , AND WE WILL GO FROM THERE.
--- NOTE | 2019-12-17 14:48 | NUR ---
PAGED DR CH ABOUT TERMINAL EXTUBATION ORDERS.
--- NOTE | 2019-12-17 14:52 | NUR ---
DR CH PAGED BACK. ORDERS RECEIVED FOR TERMINAL EXTUBATION AND MORPHINE BEVEL OPERATOR
--- NOTE | 2019-12-17 15:30 | NUR ---
PT EXTUBATED TO CT. MORPHINE TOPPER PACKER INFUSING FOR PAIN CONTROL. AT BEDSIDE. WILL CONTINUE TO MONITOR
--- NOTE | 2019-12-17 19:37 | MORECARE ---
CASE MANAGEMENT DISCHARGE SUMMARY PATIENT: RICK HUSAIN UNIT: [id number] ADM DATE: 11/30/19 AGE: 79 : 40 SEX: M ROOM/BED: D.2302 AUTHOR: TYDOC PHYSICIAN: REFERRING PHYSICIAN: KARLA WALKER MD DATE OF SERVICE: 12/17/19 Discharge Plan Patient Name: RICK HUSAIN Facility: [facility]:[place] : 1940 Planned Disposition: Anticipated Discharge Date: Discharge Date: Expected LOS: Initial Reviewer: [email or web address] Initial Review Date: 11/30/2019 Generated: 12/17/19 8:36 pm DCP- Discharge Planning Updated by [id number]: Belia Avilez on 12/16/19 3:[address] CM called and spoke with Esperanza Butts patient's to see if she had made any decisions regarding terminal extubation and wanted to give her the phone number to [employer] [phone] d/t them being one of the cheapest in the [facility] for Cremation. Esperanza stated that she had just spoken with patient's nurse and plans are to extubate in am. CM will continue to follow and assist as needed with discharge planning / needs. DCP- Discharge Planning Updated by [email or web address]: Petrona Kauffman on 12/15/19 2:[address] PT REQUESTED CM VIST. PT STATES SHE DOES NOT HAVE THE MONEY TO PAY FOR A , AND ASKS FOR SERVICES AVAILABLE. CM STATES THEY ARENT ANY SERVICES AVAILABLE. PROVIDED LIST OF HOMES SO THAT FAMILY CAN CHOOSE ONE IN HER PROCE RANGE. MRS HUSAIN STATES SHE WANTS HOSPICE BUT WANTS TO WAIT UNTIL SHE CAN GET HER HUSBANDS ARRANGED. STATES SHE WILL CHOOSE A HOSPICE COMPANY WHEN SHE CAN SPEAK TO A HOME. CM WILL CONTINUE TO ASSIST NEEDED. PETRONA KAUFFMAN MSN,RN,CM DCP- Discharge Planning Updated by [email or web address]: Belia Avilez on 12/12/19 6:[address] Patient Name: RICK HUSAIN Admission Status: ER Accout number: [id number] Admission Date: 11-30-2019 : 1940 Admission Diagnosis: Attending: PREETHI Current LOS: 12 Anticipated DC Date: Planned Disposition: Primary Insurance: MEDICARE A & B Discharge Planning Comments: PATIENT IS A RESIDENT AT THE [facility]. PLAN IS FOR PATIENT TO REURN TO THE [facility] AT D/C. CM WILL CONTINUE TO FOLLOW AND ASSIST NEEDED WITH DISCHARGE PLANNING / NEEDS. Fleet Maintenance Manager: Belia Avilez DCPIA - Discharge Planning Initial Assessment Updated by [email or web address]: Belia Avilez on 12/12/19 7:04 pm * Is the patient Alert and Oriented? No * PCP [facility] * Pharmacy [facility] * Preadmission Environment Sales Lead Generator Custodial * Facility Name [facility] * ADLs Partial Dependent * Partial ADLs (Assistance needed) Ambulation Bathing Dressing Eating Medication Management Toileting Transfers * List name and contact numbers for known caregivers / representatives who currently or will assist patient after discharge: ESPERANZA BUTTS [facility] - [phone] * Verbal permission to speak to the caregivers and representatives has been obtained from the patient. Yes * Community resources currently utilized None * Additional services required to return to the preadmission environment? No * Can the patient safely return to the preadmission environment? Yes * Has this patient been hospitalized within the prior 30 days at any hospital? No Last DP export: 12/16/19 3:16 p Patient Name: RICK HUSAIN Page 13411 at 1937 All edits/amendments must be made on the electronic document DICTATION DATE: 12/17/191935 OR RN: GAUDENCIO 12/17/191935 RPT#: [id number] DC DATE: STATUS: ADM IN [address] [place] [address] END OF REPORT
--- NOTE | 2019-12-18 | NUR ---
PT CALLED WITH AN UPDATE AT THIS TIME. STATES TO CALL HER BACK AFTER "HE TAKES HIS LAST BREATH"
--- NOTE | 2019-12-18 01:24 | NUR ---
PCP NOTIFIED, PT , DR. CUMMINS WILL COME PROUNOUCE.
--- NOTE | 2019-12-18 02:20 | NUR ---
[facility] CONTACTED AT THIS TIME
--- NOTE | 2019-12-18 02:45 | NUR ---
[facility] CONTACTED. ESTIMATE ARRIVAL TIME [phone].
--- NOTE | 2019-12-18 05:05 | NUR ---
[facility] HERE FOR PT
--- NOTE | 2019-12-18 09:13 | MORECARE ---
CASE MANAGEMENT DISCHARGE SUMMARY PATIENT: RICK HUSAIN UNIT: [id number] ADM DATE: 11/30/19 AGE: 79 : 40 SEX: M ROOM/BED: D.2302 AUTHOR: ABIDA CRAWFORD PHYSICIAN: REFERRING PHYSICIAN: KARLA WALKER MD DATE OF SERVICE: 12/18/19 Discharge Plan Patient Name: RICK HUSAIN Facility: [facility]:[place] : 1940 Planned Disposition: Anticipated Discharge Date: Discharge Date: 12/18/2019 Expected LOS: Initial Reviewer: [email or web address] Initial Review Date: 11/30/2019 Generated: 12/18/19 10:12 am DCP- Discharge Planning Updated by [email or web address]: Belia Avilez on 12/16/19 3:[address] CM called and spoke with Esperanza Butts patient's to see if she had made any decisions regarding terminal extubation and wanted to give her the phone number to [facility] [phone] d/t them being one of the cheapest in the [facility] for [place]. Esperanza stated that she had just spoken with patient's nurse and plans are to extubate in am. CM will continue to follow and assist as needed with discharge planning / needs. DCP- Discharge Planning Updated by [email or web address]: Petrona Kauffman on 12/15/19 2:[address] PT REQUESTED CM VIST. PT STATES SHE DOES NOT HAVE THE MONEY TO PAY FOR A , AND ASKS FOR SERVICES AVAILABLE. CM STATES THEY ARENT ANY SERVICES AVAILABLE. PROVIDED LIST OF HOMES SO THAT FAMILY CAN CHOOSE ONE IN HER PROCE RANGE. MRS HUSAIN STATES SHE WANTS HOSPICE BUT WANTS TO WAIT UNTIL SHE CAN GET HER HUSBANDS ARRANGED. STATES SHE WILL CHOOSE A HOSPICE COMPANY WHEN SHE CAN SPEAK TO A HOME. CM WILL CONTINUE TO ASSIST NEEDED. PETRONA KAUFFMAN MSN,RN,CM DCP- Discharge Planning Updated by [email or web address]: Belia Avilez on 12/12/19 6:[address] Patient Name: RICK HUSAIN Admission Status: ER Accout number: [id number] Admission Date: 11-30-2019 : 1940 Admission Diagnosis: Attending: PREETHI Current LOS: 12 Anticipated DC Date: Planned Disposition: Primary Insurance: MEDICARE A & B Discharge Planning Comments: PATIENT IS A RESIDENT AT [facility]. PLAN IS FOR PATIENT TO REURN TO [facility] AT D/C. CM WILL CONTINUE TO FOLLOW AND ASSIST NEEDED WITH DISCHARGE PLANNING / NEEDS. Labor Crew Supervisor: Belia Avilez DCPIA - Discharge Planning Initial Assessment Updated by [email or web address]: Belia Avilez on 12/12/19 7:04 pm * Is the patient Alert and Oriented? No * PCP [facility] * Pharmacy [facility] * Preadmission Environment Long-Term Snf * Facility Name [facility] * ADLs Partial Dependent * Partial ADLs (Assistance needed) Ambulation Bathing Dressing Eating Medication Management Toileting Transfers * List name and contact numbers for known caregivers / representatives who currently or will assist patient after discharge: ESPERANZA BUTTS [facility] - [phone] * Verbal permission to speak to the caregivers and representatives has been obtained from the patient. Yes * Community resources currently utilized None * Additional services required to return to the preadmission environment? No * Can the patient safely return to the preadmission environment? Yes * Has this patient been hospitalized within the prior 30 days at any hospital? No Last DP export: 12/17/19 6:37 p Patient Name: RICK HUSAIN Page [id number] at 0913 All edits/amendments must be made on the electronic document DICTATION DATE: 12/18/19911 SCREEN PRINTING SUPERVISOR: GAUDENCIO 12/18/19911 RPT#: [id number] DC DATE:12/18/19 STATUS: DIS IN [facility] [address] [place] [address] END OF REPORT
--- NOTE | 2019-12-18 14:09 | NUR ---
PER CMS PROTOCOL, RESTRAINT REPORT LOGGED INTO DATA BASE.
== END 2019-12-18 05:05 | DRG 870 ==
LOC: D.ER 09:45 → D.M2 13:19 → D.ICU 13:19
PROVIDERS: Family Medicine; Internal Medicine; Internal Medicine Nephrology; ADMIT Family Medicine; ATTEND Family Medicine
PROC: 5A1955Z Respiratory Ventilation, Greater than 96 Consecutive Hours (ICD-10-PCS; principal; 2019-12-01)
PROC: 0BH17EZ Insertion of Endotracheal Airway into Trachea, Via Natural or Artificial Opening (ICD-10-PCS; 2019-12-01)
PROC: 0BH17EZ Insertion of Endotracheal Airway into Trachea, Via Natural or Artificial Opening (ICD-10-PCS; 2019-12-08)
PROC: 5A1955Z Respiratory Ventilation, Greater than 96 Consecutive Hours (ICD-10-PCS; 2019-12-08)
DX: A41.9 Sepsis, unspecified organism (principal); J18.9 Pneumonia, unspecified organism; G93.41 Metabolic encephalopathy; J96.02 Acute respiratory failure with hypercapnia; J96.01 Acute respiratory failure with hypoxia; I50.23 Acute on chronic systolic (congestive) heart failure; N39.0 Urinary tract infection, site not specified; E87.2 Acidosis; N17.9 Acute kidney failure, unspecified; E87.0 Hyperosmolality and hypernatremia; G30.9 Alzheimer's disease, unspecified; F02.80 Dementia in other diseases classified elsewhere, unspecified severity, without behavioral disturbance, psychotic disturbance, mood disturbance, and anxiety; I11.0 Hypertensive heart disease with heart failure; I25.10 Atherosclerotic heart disease of native coronary artery without angina pectoris; Z95.0 Presence of cardiac pacemaker; E78.5 Hyperlipidemia, unspecified; R13.10 Dysphagia, unspecified; R62.7 Adult failure to thrive; E83.51 Hypocalcemia; D64.9 Anemia, unspecified; W19.XXXA Unspecified fall, initial encounter; E87.6 Hypokalemia